=== PATIENT | female | born 1995 | race African-American/Black ===

== ENCOUNTER → 2020-01-29 11:03 | Outpatient (BNVA) | payer MEDICAID, SELFPAY | PROVIDERS: PCP Internal Medicine; Referring Provider Internal Medicine; Visit Provider Internal Medicine | DX: L68.0 Hirsutism (principal); N91.2 Amenorrhea, unspecified; E28.2 Polycystic ovarian syndrome; E55.9 Vitamin D deficiency, unspecified | CPT/HCPCS: 99202 ==

== ENCOUNTER 2020-02-23 09:02 | Emergency (ER) | payer MEDICAID, SELFPAY ==
[2020-02-23 09:24] VITALS: BP 133/61; PULSE 75; RESP 18; TEMP 36.7; O2SAT 99; BMI 37.5
--- NOTE | 2020-02-23 10:07 | ED_ITS ---
HPI - Female Genitourinary General Chief complaint: Vaginal Bleeding Stated complaint: CRAMPING, Time Seen by Provider: 02/23/20 10:00 Source: patient Mode of arrival: ambulatory Limitations: no limitations History of Present Illness HPI Narrative: patient had normal menses Last month on 01/07 again had spotting earlier this month and now again spotting few days ago, with lower abdomen cramps tested home which was positive. Patient is B-positive and is A1 patient denies any urinary complaint Related Data Home Medications Medication Instructions Recorded Confirmed albuterol sulfate 90 mcg/actuation 1 inh INHALATION QID 01/29/20 01/29/20 aerosol inhaler Previous Rx's Medication Instructions Recorded nitrofurantoin monohyd/m-cryst 100 mg PO BID #20 cap 02/23/20 [Macrobid] Allergies Allergy/AdvReac Type Severity Reaction Status Date / Time latex [LATEX] Allergy Unknown RASH Verified 01/29/20 10:45 sulfamethoxazole Allergy Unknown SHORTNESS Verified 01/29/20 10:45 [From BACTRIM] OF BREATH Review of Systems Review of Systems: REVIEW OF SYSTEMS: Pertinent positives and negatives are stated above in the history. GEN: no fevers, chills, fatigue HEENT: no nasal congestion, sore throat, ear pain NEURO: no headache, dizziness, focal weakness PULM: no cough, shortness of breath CV: no chest pain, palpitations, LE edema ABD: no abdominal pain, nausea, vomiting, diarrhea : no dysuria, urgency, frequency SKIN: no rash ROS otherwise negative x 10 PMFSH Past Medical History Medical History Amenorrhea Asthma Hirsutism Vitamin D deficiency Surgical History History of appendectomy History of delivery Family History Family History Mother Obesity Social History Social History Alcohol intake: current Smoking Status: Never smoker Substance Use Type: Marijuana Advance Directives: No Advance Directives Information Provided: Yes Physical Exam Vital Signs: Vital Signs: Last Vital Signs Temp 98.0 F 02/23/20 09:24 Pulse 75 02/23/20 09:24 Resp 18 02/23/20 09:24 BP 133/61 02/23/20 09:24 Pulse Ox 99 02/23/20 09:24 Body Mass Index 37.5 Appearance: Alert. Oriented X3. No acute distress. Eyes: Pupils equal, round and reactive to light. ENT: Pharynx normal. Neck: Normal inspection. Neck supple. CVS: Normal heart rate and rhythm. Pulses normal. Respiratory: No respiratory distress. Breath sounds normal. Abdomen: Soft . no hepatosplenomegaly mild suprapubic discomfort no severe tenderness Skin: Skin warm and dry. Normal skin color. Normal skin turgor. Extremities: No lower extremity edema. Good range of movement Neuro: Oriented X 3. No motor deficit. No sensory deficit. MDM - Female Genitourinary MDM Narrative Medical decision making narrative: patient about 5 weeks came with lower abdominal cramps hCG 583 patient did have spotting earlier last week none at this time will discharge patient home on Macrobid for slight UTI advised to follow up with exotic dancer Differential Diagnosis Differential diagnosis: Likely urinary tract infection Lab Data Attestation: I reviewed the patient's lab results. Labs: Lab Results 02/23/20 02/23/20 Range/Units 10:25 10:27 Beta HCG, Quant 583 mIU/mL Urine Color YELLOW Urine Appearance CLOUDY Urine pH 6.0 (5.0-8.0) Ur Specific [place] 1.025 (1.005-1.025) Urine Protein TRACE (NEG-TRACE) MG/DL Urine Glucose (UA) NEG (NEG) MG/DL Urine Ketones 15 (NEG) MG/DL Urine Blood 2+ H (NEG) Urine Nitrite NEG (NEG) Ur Leukocyte Esterase 1+ H (NEG) Urine RBC 5-9 H (0) /HPF Urine WBC 5-9 H (0-4) /HPF Ur Squamous Epith Cells 2+ /LPF Urine Bacteria 1+ /LPF Urine Mucus 3+ /LPF Discharge Plan Discharge Clinical Impression: Threatened UTI (urinary tract infection) Qualifiers: Urinary tract infection type: acute cystitis Hematuria presence: without hematuria Qualified Code(s): N30.00 - Acute cystitis without hematuria Patient Disposition: Home, Self-Care Instructions: Threatened Miscarriage (ED), Urinary Tract Infection in (ED) Additional Instructions: drink plenty of fluids. Follow-up with exotic dancer in 2 days for recheck Take antibiotics as prescribed report to the ER if increased vaginal bleeding or pain Prescriptions: New nitrofurantoin monohyd/m-cryst [Macrobid] 100 mg capsule 100 mg PO BID Qty: 20 RF: 0 No Action albuterol sulfate 90 mcg/actuation HFA aerosol inhaler 1 inh inhalation QID RF: 0
[2020-02-23 10:49] LABS: Glucose Urine UA NEG (NEG); Leukocyte Esterase Urine 1+ (NEG); Nitrite Urine NEG (NEG); Specific Gravity - Urine 1.025 (1.005-1.025); Urine Blood 2+ (NEG); Urine Ketones 15 MG/DL (NEG); Urine Protein TRACE MG/DL (NEG-TRACE)
[2020-02-23 10:51] LABS: Appearance Urine CLOUDY; Color Urine YELLOW
[2020-02-23 10:59] LABS: Bacteria Urine 1+ /LPF; Mucus Urine 3+ /LPF; Squamous Epithelial Cell Urine 2+ /LPF
[2020-02-23 11:30] LABS: HCG Quantitative 583 mIU/mL
[2020-02-23] MEDS: Nitrofurantoin Monohyd/M-Cryst 100 MG CAPSULE PO (11:34)
== END 2020-02-23 11:55 | disposition home or self-care (01) ==
PROVIDERS: Emergency Provider Internal Medicine; PCP Internal Medicine
DX: O20.0 Threatened abortion (principal); Z3A.00 Weeks of gestation of pregnancy not specified
CPT/HCPCS: 81001; 84702; 87086; 87088; 87186; 99283

== ENCOUNTER 2020-06-11 17:04 | Emergency (ER) | payer OTHER, SELFPAY ==
--- NOTE | ~2020-06-11 | XR_ITS ---
EXAMINATION: LEFT ANKLE AND LEFT FOOT CLINICAL INFORMATION: Pain COMPARISON: None TECHNIQUE: 2 views left ankle, 3 views left foot FINDINGS: Ankle swelling is present laterally but no fracture is seen. The ankle mortise appears stable no foot fracture is seen. A cyst with sclerotic margins is seen at the base of the proximal first phalanx. XR/XR foot LT 2V IMPRESSION: Soft tissue swelling without bony fracture seen. Incidental note made of sclerotic cyst base of proximal phalanx first digit
--- NOTE | ~2020-06-11 | XR_ITS ---
EXAMINATION: LEFT ANKLE AND LEFT FOOT CLINICAL INFORMATION: Pain COMPARISON: None TECHNIQUE: 2 views left ankle, 3 views left foot FINDINGS: Ankle swelling is present laterally but no fracture is seen. The ankle mortise appears stable no foot fracture is seen. A cyst with sclerotic margins is seen at the base of the proximal first phalanx. XR/XR ankle LT 2V IMPRESSION: Soft tissue swelling without bony fracture seen. Incidental note made of sclerotic cyst base of proximal phalanx first digit
[2020-06-11 17:14] VITALS: BP 99/68; PULSE 83; RESP 18; TEMP 37.1; O2SAT 100; BMI 37.3
--- NOTE | 2020-06-11 18:35 | ED_ITS ---
HPI - Extremity Problem General Chief complaint: Extremity Problem Stated complaint: Foot injury Time Seen by Provider: 06/11/20 18:23 Source: patient and family Mode of arrival: wheelchair Limitations: no limitations History of Present Illness HPI Narrative: Pleasant 25-year-old female presenting complaint of left foot/ankle pain status [place] and twisted her ankle. Since has had swelling on the lateral aspect of the ankle and pain with exertion. Otherwise denies any other injury. MD Complaint: extremity pain Onset (ago): hour(s) Pain Consistency: intermittent Location: left Quality: aching Radiation: none Relieving factors: immobilization and elevation Exacerbating factors: weight bearing and walking Associated symptoms: denies other symptoms Related Data Home Medications Medication Instructions Recorded Confirmed albuterol sulfate 90 mcg/actuation 1 inh INHALATION QID 01/29/20 01/29/20 aerosol inhaler Previous Rx's Medication Instructions Recorded nitrofurantoin monohyd/m-cryst 100 mg PO BID #20 cap 02/23/20 [Macrobid] ibuprofen 800 mg PO Q8H PRN #30 tab 06/11/20 Allergies Allergy/AdvReac Type Severity Reaction Status Date / Time latex [LATEX] Allergy Unknown RASH Verified 01/29/20 10:45 sulfamethoxazole Allergy Unknown SHORTNESS Verified 01/29/20 10:45 [From BACTRIM] OF BREATH Review of Systems Review of Systems: Constitutional: Negative ENT/Mouth: Negative Eyes: Negative Cardiovascular: No Chest Pain, No SOB, No Dyspnea on Exertion, No Orthopnea, No Edema, No Palpitations Respiratory: No Cough, No Sputum, No Wheezing, No Smoke Exposure, No Dyspnea Gastrointestinal: Negative Genitourinary: Negative Musculoskeletal: No joint pain, No Myalgias, No Joint Swelling, as noted per HPI Skin: No Skin Lesions, No rash Neuro: No Weakness, No Numbness, No Paresthesias, No Loss of Consciousness, No Dizziness, No Headache Psych: No Social Issues Heme/Lymph: Negative Endocrine: Negative Yes all other systems are reviewed and are negative ON LICENSE OF [facility] Past Medical History Medical History Amenorrhea Asthma Hirsutism Vitamin D deficiency Surgical History History of appendectomy History of delivery Family History Family History Mother Obesity Social History Social History Alcohol intake: never Smoking Status: Never smoker Smoked in Last 30 Days: No Substance Use Type: Marijuana Advance Directives: No Advance Directives Information Provided: Yes Physical Exam Vital Signs: Vital Signs: Last Vital Signs Temp 98.7 F 06/11/20 17:14 Pulse 83 06/11/20 17:14 Resp 18 06/11/20 17:14 BP 99/68 06/11/20 17:14 Pulse Ox 100 06/11/20 17:14 Body Mass Index 37.3 Reviewed Const: General: cooperative and healthy appearing; No acute distress or intoxicated appearing Nutritional Appearance: average body habitus Orientation/consciousness: patient oriented x3 Neck: Neck: Yes normal visual inspection, No positive Brudzinski's sign, No positive Kernig's sign and No tender Thyroid: Thyroid normal Chest: Chest palpation & inspection: normal inspection of the chest Resp: Effort & Inspection: normal respiratory effort Auscultation: clear to auscultation bilaterally Cardio: Jugular venous distension: no JVD Rhythm: regular rhythm Heart sounds: S1 normal heart sound present and S2 normal heart sound present Skin: General skin exam: no rashes or lesions noted Neuro: General: patient oriented x3 Extrem: General: Yes normal to inspection Left lower extremity: ankle Details: tenderness and swelling Details: laterally; no warmth, no abrasions, no lacerations, no ecchymosis, no crepitus, no foreign bodies and no penetrating wound Course Course Course Narrative: AP consistent with strain type injury, air cast and crutches provided. Left ankle/foot x-ray done for the: Negative has incidental sclerotic cyst base of proximal phalanx first digit. Differential is reviewed with her. Otherwise history negative, will follow-up on outpatient basis. She verbalized understanding and comfortable plan. MDM - Extremity (Nontraumatic) Imaging Data Left foot/ankle x-ray: Radiologist's impression: [address] [id number] ReportSigned Patient: Jocelyn Mckeon [facility]#: [id number]: 1995Acct:[id number]/Sex: 25 / FADM Date: 06/11/20Loc: HO.EDAttending Dr: Ordering Physician: Generic ED Physician Date of Service: 06/11/20 Procedure(s): XR foot LT 2V Accession Number(s): [id number] cc: Generic ED Physician~ EXAMINATION: LEFT ANKLE AND LEFT FOOT CLINICAL INFORMATION: Pain COMPARISON: None TECHNIQUE: 2 views left ankle, 3 views left foot FINDINGS: Ankle swelling is present laterally but no fracture is seen. The ankle mortise appears stable no foot fracture is seen. A cyst with sclerotic margins is seen at the base of the proximal first phalanx. XR/XR foot LT 2V IMPRESSION: Soft tissue swelling without bony fracture seen. Incidental note made of sclerotic cyst base of proximal phalanx first digit Dictated By:BRADFORD CUNNINGHAM MDSigned By:<Electronically signed by BRADFORD CUNNINGHAM MD in OV>06/11/20 1751 DD/ 1728TD/TT: Waste Disposal Attendant: Discharge Plan Discharge Clinical Impression: Left ankle sprain Qualifiers: Encounter type: initial encounter Involved ligament of ankle: unspecified ligament Qualified Code(s): S93.402A - Sprain of unspecified ligament of left ankle, initial encounter Patient Disposition: Home, Self-Care Instructions: Ankle Sprain (ED), Crutch Instructions (ED), Ankle Stirrup Splint (ED) Additional Instructions: Ankle x-ray did not show any evidence of acute fracture exam does show findings consistent with ankle sprain. There is also incidental finding of the sclerotic cyst at the base of the great toe. Home care as instructed Proper use of crutches as reviewed Rest, Ice, elevate, compress Gently increase activity over the next 3 days Prescriptions: New ibuprofen 800 mg tablet 800 mg PO Q8H PRN (Reason: pain) Qty: 30 RF: 0 No Action nitrofurantoin monohyd/m-cryst [Macrobid] 100 mg capsule 100 mg PO BID Qty: 20 RF: 0 albuterol sulfate 90 mcg/actuation HFA aerosol inhaler 1 inh inhalation QID RF: 0 Referrals: InstrJenny last MD [Physician] - 2 weeks
== END 2020-06-11 18:54 | disposition home or self-care (01) ==
PROVIDERS: Emergency Provider Internal Medicine; PCP Internal Medicine
DX: S93.402A Sprain of unspecified ligament of left ankle, initial encounter (principal); X50.1XXA Overexertion from prolonged static or awkward postures, initial encounter; R93.7 Abnormal findings on diagnostic imaging of other parts of musculoskeletal system; M85.672 Other cyst of bone, left ankle and foot; Y93.44 Activity, trampolining; Y92.39 Other specified sports and athletic area as the place of occurrence of the external cause; Y99.8 Other external cause status
CPT/HCPCS: 73600; 73620; 99283; 99284

== ENCOUNTER 2020-06-18 11:43 | Emergency (ER) | payer OTHER, SELFPAY ==
[2020-06-18 12:01] VITALS: BP 131/83; PULSE 68; RESP 18; TEMP 36.6; O2SAT 100; BMI 35.9
--- NOTE | 2020-06-18 12:37 | ED.LOWEXIN ---
HPI - Extremity Injury (Lower) General Chief Complaint: Extremity Injury, Lower Stated Complaint: ankle pain Time Seen by Provider: 06/18/20 12:07 Source: patient Mode of arrival: ambulatory Limitations: no limitations History of Present Illness HPI Narrative: 25-year-old female here with left ankle pain x1 week. The patient told me that she had inversion injury 1 week ago was seen here in the emergency department and had negative x-rays. She is here today with continued pain. She tells me that she is intermittently using her crutches and Aircast and has been putting weight on her foot. She tells me that she is using other supportive measures however continues to have pain and swelling. No numbness, tingling, redness, warmth, fevers, chills Related Data Home Medications Medication Instructions Recorded Confirmed albuterol sulfate 90 mcg/actuation 1 inh INHALATION QID 01/29/20 01/29/20 aerosol inhaler Previous Rx's Medication Instructions Recorded nitrofurantoin monohyd/m-cryst 100 mg PO BID #20 cap 02/23/20 [Macrobid] ibuprofen 800 mg PO Q8H PRN #30 tab 06/11/20 acetaminophen 1,000 mg PO Q6H PRN #20 cap 06/18/20 ibuprofen 800 mg PO Q8H PRN #20 tab 06/18/20 Allergies Allergy/AdvReac Type Severity Reaction Status Date / Time latex [LATEX] Allergy Unknown RASH Verified 06/18/20 12:04 sulfamethoxazole Allergy Unknown SHORTNESS Verified 06/18/20 12:04 [From BACTRIM] OF BREATH Review of Systems Review of Systems: Yes all other systems are reviewed and are negative Constitutional: Constitutional: Reports no additional constitutional complaints, Denies body ache(s), Denies chills, Denies fever(s), Denies headache(s) and Denies weakness Eyes: Eyes: Reports no additional eye complaints and Denies change in vision ENT: Reports system reviewed and no additional complaints, except as documented, Denies dizziness, Denies headache(s), Denies nasal congestion, Denies nasal discharge and Denies neck pain Cardiovascular: Cardiovascular: Reports no additional cardiovascular complaints, Denies chest pain, Denies leg edema and Denies dyspnea Respiratory: Respiratory: Reports no additional respiratory complaints, Denies cough and Denies dyspnea Gastrointestinal: Gastrointestinal: Reports no additional gastrointestinal complaints, Denies abdominal pain, Denies diarrhea, Denies nausea and Denies vomiting Genitourinary: Genitourinary: Reports no additional female genitourinary complaints and Denies urinary incontinence Musculoskeletal: Musculoskeletal: Reports no additional musculoskeletal complaints, Denies back pain, Reports arthralgias, Reports joint swelling, Reports limited range of motion, Denies neck pain, Denies numbness and Denies tingling Integumentary/Breasts: Skin/Breast: Reports system reviewed and no additional complaints, except as docu and Denies rash Neurologic: Reports system reviewed and no additional complaints, except as documented, Denies Abnormal speech present, Denies dizziness, Denies headache(s), Denies numbness, Denies tingling and Denies weakness PMFSH Past Medical History Attestation statement: The following information was validated with the patient. Source: old records reviewed and nursing notes reviewed Medical History Amenorrhea Asthma Hirsutism Vitamin D deficiency Surgical History History of appendectomy History of delivery Family History Family History Mother Obesity Social History Social History Alcohol intake: never Smoking Status: Never smoker Substance Use Type: Marijuana Advance Directives: Yes Advance Directives Information Provided: No Advance Directives on File: No Physical Exam Vital Signs: Vital Signs: Last Vital Signs Temp 97.8 F 06/18/20 12:01 Pulse 68 06/18/20 12:01 Resp 18 06/18/20 12:01 BP 131/83 06/18/20 12:01 Pulse Ox 100 06/18/20 12:01 Body Mass Index 35.9 Const: General: cooperative, healthy appearing, comfortable and no acute distress Orientation/consciousness: patient oriented x3 Limitations: no limitations HENMT: Head: Yes normal to inspection Ears: hearing grossly normal bilaterally General nose exam: Normal external nose present Face and sinus: Yes normal facial exam Mouth: Normal oral and palatal mucosa present Throat: Yes posterior oropharynx normal Eyes: General: appearance normal, both eyes and all related structures Pupils: Equal, round and reactive pupils present Neck: Neck: Yes normal visual inspection Chest: Chest palpation & inspection: normal inspection of the chest Resp: Effort & Inspection: normal respiratory effort Auscultation: clear to auscultation bilaterally Cardio: Rate: regular rate Rhythm: regular rhythm Peripheral pulses: Peripheral pulses 2+ throughout GI: Inspection: Yes normal to inspection Palpation (GI): Soft to palpation and nontender Auscultation: normal bowel sounds Back/Spine/Pelvis: Thoracic/Lumbar Spine: thoracic and lumbar spine normal to inspection Skin: General skin exam: no rashes or lesions noted Neuro: General: patient oriented x3, no focal motor deficits and normal sensation to monofilament Cranial nerves: Yes Equal, round and reactive pupils present Cognition (Neuro): normal cognition Speech: No Abnormal speech present Gait exam (Neuro): Normal gait present Motor exam (neuro): 5/5 motor strength present throughout Extrem: Other: Ecchymosis, swelling, tenderness over the lateral ankle and over the dorsal foot with no obvious deformity. Negative Vasquez test. Sensation is intact. Palpable pulses distally. Normal cap refill. General: Yes normal to inspection Course Course Course Narrative: Continued left ankle pain and swelling status post injury 1 week ago. Had negative x-rays 1 week ago. Patient is doing some supportive measures however has been bearing weight on the extremity although recommended to limit weight-bearing with the crutches. History of multiple ankle sprains in the same side. Due to continued pain will recommend follow-up with Orthopedics. We discussed strict nonweightbearing, using Aircast and doing RICE at home. Reviewed worrisome signs and symptoms and when to return to the emergency department. Comfortable discharge home. Discharge Plan Discharge Clinical Impression: Ankle sprain Qualifiers: Encounter type: initial encounter Involved ligament of ankle: posterior talofibular ligament Laterality: right Qualified Code(s): S93.491A - Sprain of other ligament of right ankle, initial encounter Patient Disposition: Home, Self-Care Instructions: Ankle Sprain (ED) Additional Instructions: Continue ice, elevation. compression as discussed No weight bearing or toe tap only Call orthopedics as discussed Prescriptions: New ibuprofen 800 mg tablet 800 mg PO Q8H PRN (Reason: pain) Qty: 20 RF: 0 acetaminophen 500 mg capsule 1,000 mg PO Q6H PRN (Reason: pain) Qty: 20 RF: 0 No Action nitrofurantoin monohyd/m-cryst [Macrobid] 100 mg capsule 100 mg PO BID Qty: 20 RF: 0 ibuprofen 800 mg tablet 800 mg PO Q8H PRN (Reason: pain) Qty: 30 RF: 0 albuterol sulfate 90 mcg/actuation HFA aerosol inhaler 1 inh inhalation QID RF: 0 Referrals: Paras Brunner MD [Physician] - 2 days Interventions: ED Discharge Assessment Last Done: 06/18/20 12:46 Discharge Date/Time: 06/18/20 12:46
== END 2020-06-18 12:46 | disposition home or self-care (01) ==
PROVIDERS: Emergency Provider Emergency Medicine Emergency Medical Services; PCP Internal Medicine
DX: S93.492A Sprain of other ligament of left ankle, initial encounter (principal); M25.572 Pain in left ankle and joints of left foot; X50.1XXA Overexertion from prolonged static or awkward postures, initial encounter; Y93.9 Activity, unspecified; Y92.89 Other specified places as the place of occurrence of the external cause; Y99.9 Unspecified external cause status; Z79.899 Other long term (current) drug therapy
CPT/HCPCS: 99283

== ENCOUNTER → 2020-06-28 10:42 | Outpatient (BNVA) | payer OTHER, SELFPAY | PROVIDERS: Visit Provider Physician Assistant | DX: S93.402A Sprain of unspecified ligament of left ankle, initial encounter (principal) | CPT/HCPCS: 99202 ==

== ENCOUNTER 2020-07-27 08:43 | Outpatient (REF) | payer OTHER, SELFPAY ==
[2020-07-27 12:17] LABS: Estimated Average Glucose 103 mg/dL; Hemoglobin A1c % 5.2 %
[2020-07-27 12:20] LABS: Alanine Aminotransferase 12 U/L (0-31); Albumin Level 4.3 g/dL (3.5-5.0); Alkaline Phosphatase 55 U/L (39-117); Anion Gap 11 (12-20); Aspartate Amino Transferase 13 U/L (5-31); Bilirubin Total 0.4 mg/dL (0.0-1.0); Blood Urea Nitrogen 12 mg/dL (9-16); Calcium 9.6 mg/dL (8.4-10.2); Carbon Dioxide 26 mmol/L (22-29); Chloride 105 mmol/L (96-108); Cholesterol 222 mg/dL; Estimated Glomerular Filt Rate > 60; Glucose Random 89 mg/dL (60-115); HDL Cholesterol 41 mg/dL; LDL Cholesterol Calculated 167 mg/dl; Sodium 138 mmol/L (135-145); Total Protein 7.7 g/dL (6.5-8.0); Triglycerides 71 mg/dL
[2020-07-27 12:37] LABS: Free T4 (Free Thyroxine) 0.96 ng/dL (0.71-1.85); Vitamin D 25-OH Total 10.9 ng/mL (>30)
[2020-07-27 12:42] LABS: Thyroid Stimulating Hormone 0.39 uIU/mL (0.32-4.0)
[2020-07-27 13:13] LABS: HCG Quantitative < 2 mIU/mL
[2020-07-27 15:43] LABS: CT PCR NOT DETECTED (Not Detect.); NG PCR NOT DETECTED (Not Detect.)
[2020-07-28 06:57] LABS: LDL Cholesterol Direct 159 mg/dL (<100)
[2020-07-28 07:47] LABS: Follicle Stimulating Hormone 10.8 mIU/mL; Lutenizing Hormone 14.3 mIU/mL; Prolactin 7.5 ng/mL
[2020-07-28 08:10] LABS: HIV AB/AG Nonreactive (Nonreactive); HIV Num 1 0.05 S/CO (0.00-0.99); ~HepC Num1 0.22 S/CO (0.00-0.79); ~Hepatitis C Antibody Nonreactive (Nonreactive)
[2020-07-28 08:18] LABS: Syphilis Screen Nonreactive (Nonreactive)
[2020-07-28 08:25] LABS: HBc Num1 0.11 S/CO (0.00-0.79); Hepatitis B Core Antibody Nonreactive (Nonreactive)
[2020-07-28 11:11] LABS: BV Int Neg Control Negative (Negative); BV Int Pos Control Positive (Positive)
[2020-07-28 23:07] LABS: DHEA Sulfate 356 mcg/dL (18-391); Sex Hormone Binding Globulin 25 nmol/L (17-124)
[2020-07-30 20:41] LABS: Estradiol Ultra Sensitive 47 pg/mL
[2020-07-31 15:12] LABS: Testosterone, Free 10.7 pg/mL (0.1-6.4); Testosterone, Total 64 ng/dL (2-45)
[2020-07-31 18:27] LABS: Androstenedione 214 ng/dL
[2020-08-05 21:51] LABS: Estradiol Free 1.12 pg/mL; Estradiol, Ultrasensitive 49 pg/mL
== END 2020-07-27 08:44 | disposition home or self-care (01) ==
LOC: HO.LAB 08:43
PROVIDERS: Absent Provider Advanced Practice Midwife; PCP Internal Medicine; Referring Provider Internal Medicine; Visit Provider Advanced Practice Midwife
DX: Z01.419 Encounter for gynecological examination (general) (routine) without abnormal findings (principal); Z11.3 Encounter for screening for infections with a predominantly sexual mode of transmission; Z11.4 Encounter for screening for human immunodeficiency virus [HIV]; Z01.84 Encounter for antibody response examination; Z20.2 Contact with and (suspected) exposure to infections with a predominantly sexual mode of transmission; L68.0 Hirsutism; E55.9 Vitamin D deficiency, unspecified
CPT/HCPCS: 36415; 80053; 80061; 82157; 82306; 82627; 82670; 82681; 83001; 83002; 83036; 83498; 83721; 84146; 84270; 84402; 84403; 84439; 84443; 84702; 86704; 86780; 86803; 87389; 87480; 87491; 87510; 87591; 87660; 88142

== ENCOUNTER → 2020-08-10 11:42 | Outpatient (BNVA) | payer OTHER, SELFPAY | PROVIDERS: PCP Internal Medicine; Visit Provider Advanced Practice Midwife ==

== ENCOUNTER 2020-08-16 10:08 | Emergency (ER) | payer OTHER, SELFPAY ==
--- NOTE | ~2020-08-16 | XR_ITS ---
EXAMINATION: LEFT FOOT AND LEFT ANKLE CLINICAL INFORMATION: Pain. COMPARISON: None TECHNIQUE: 2 views left ankle and 3 views left foot. FINDINGS: Left foot: There is no visible acute fracture, dislocation or subluxation. There is an intraosseous cyst proximal end proximal phalanx first digit. The soft tissues are normal. Left ankle: There is lateral malleolar soft tissue swelling. There is no visible acute fracture, dislocation. The ankle mortise and subtalar joints are normal. The soft tissues are normal. XR/XR foot LT 2V IMPRESSION: No visible acute fracture or dislocation left ankle or left foot.
--- NOTE | ~2020-08-16 | US_ITS ---
EXAMINATION: US VENOUS ULTRASOUND WITH DOPPLER LOWER EXTREMITY, LEFT CLINICAL INFORMATION: Posterior leg pain. COMPARISON: None TECHNIQUE: Ultrasound of the deep veins is performed from the hip to the calf with compression sonography and color and pulse Doppler assessment. Spectral analysis with color-flow imaging is performed. FINDINGS: There is normal venous compression and respiratory variation and augmented flow. The visualized common femoral vein, superficial femoral vein, profunda femoral vein, popliteal vein, and the trifurcation region shows no evidence of deep venous thrombosis. There is no significant popliteal fossa cyst. If the patient's symptoms persist, followup ultrasound in 5 days 7 days might be of value to exclude proximal propagation from a non-visualized calf vein. US/US venous duplex LE LT IMPRESSION: No DVT demonstrated in the left lower extremity.
--- NOTE | ~2020-08-16 | XR_ITS ---
EXAMINATION: LEFT FOOT AND LEFT ANKLE CLINICAL INFORMATION: Pain. COMPARISON: None TECHNIQUE: 2 views left ankle and 3 views left foot. FINDINGS: Left foot: There is no visible acute fracture, dislocation or subluxation. There is an intraosseous cyst proximal end proximal phalanx first digit. The soft tissues are normal. Left ankle: There is lateral malleolar soft tissue swelling. There is no visible acute fracture, dislocation. The ankle mortise and subtalar joints are normal. The soft tissues are normal. XR/XR ankle LT min 3V IMPRESSION: No visible acute fracture or dislocation left ankle or left foot.
[2020-08-16 10:12] VITALS: BP 138/85; PULSE 71; RESP 17; TEMP 36.7; O2SAT 98; BMI 36.2
--- NOTE | 2020-08-16 11:05 | ED.LOWEXIN ---
HPI - Extremity Injury (Lower) General Chief Complaint: Extremity Injury, Lower Stated Complaint: R ANKLE INJ X 2MOS Time Seen by Provider: 08/16/20 11:05 History of Present Illness HPI Narrative: Persistent left ankle pain after injury 1 month ago Also complains of cottage cheese like vaginal discharge similar to prior yeast infection Also complains of posterior left leg and calf pain Related Data Home Medications Medication Instructions Recorded Confirmed albuterol sulfate 90 mcg/actuation 1 inh INHALATION QID 01/29/20 08/18/20 aerosol inhaler Previous Rx's Medication Instructions Recorded ibuprofen 800 mg PO Q8H PRN #30 tab 06/11/20 acetaminophen 1,000 mg PO Q6H PRN #20 cap 06/18/20 vitamin with calcium 1 tab PO DAILY #30 tab 07/27/20 no.72-iron 27 mg-folic acid 1 mg tablet metronidazole 0.75 % vaginal gel 1 appful VAGINAL DAILY 5 Days #70 g 08/10/20 hydrocodone-acetaminophen 1 tab PO Q6H PRN #7 tab 08/16/20 ibuprofen 600 mg PO Q6H PRN #20 tab 08/16/20 lorazepam [Ativan] 1 mg PO BID PRN #5 tab 08/16/20 sertraline 50 mg tablet 50 mg PO DAILY 30 Days #30 tab 08/18/20 Allergies Allergy/AdvReac Type Severity Reaction Status Date / Time latex [LATEX] Allergy Unknown RASH Verified 08/18/20 16:04 sulfamethoxazole Allergy Unknown SHORTNESS Verified 08/18/20 16:04 [From BACTRIM] OF BREATH Review of Systems Review of Systems: Positive for left ankle pain, left calf pain, vaginal discharge Negatives are no fever no chills no dizziness no weakness no headache no neck pain no chest pain no shortness of breath no palpitations no abdominal pain no nausea or vomiting no pelvic pain, no numbness or weakness Yes all other systems are reviewed and are negative PMFSH Past Medical History Source: nursing notes reviewed Medical History Amenorrhea Asthma Family history of breast cancer Generalized anxiety disorder Hirsutism Migraine with aura Migraines Polycystic ovary syndrome Vitamin D deficiency Surgical History History of appendectomy History of delivery Family History Family History Mother Obesity Maternal Aunt Breast cancer Paternal Aunt Breast cancer Family/Other Ovarian cancer Paternal Uncle Lung cancer Social History Social History Housing Other:: She is looking to move out of her current apartment, not close to family Alcohol intake: current Alcohol intake frequency: holidays/special occasions only Alcohol type: beer and other Substance Use Type: Marijuana Physical Exam Vital Signs: Vital Signs: Last Vital Signs Temp 98.1 F 08/16/20 10:12 Pulse 71 08/16/20 10:12 Resp 17 08/16/20 10:12 BP 138/85 08/16/20 10:12 Pulse Ox 98 08/16/20 10:12 Body Mass Index 36.2 General appearance no distress Head is normocephalic atraumatic Neck is supple Chest is clear to auscultation bilateral Abdomen is soft nontender, no low abdominal or pelvic tenderness Drop Forger exam is deferred Extremities no pedal edema, there is some swelling around lateral malleolus of left ankle and there is tenderness without swelling along posterior lower leg, skin is otherwise normal Skin no rashes Neuro no focal deficit Course Course Course Narrative: Ultrasound of left leg did not reveal any blood clot X-ray did not show any fracture As there is no tenderness or complaint of pain in pelvic area the patient did a self swab and no pelvic was done now and she can follow easily with her timber inspector doctor MDM - Extremity Injury (Lower) Lab Data Labs: Lab Results 08/16/20 Range/Units 12:07 Jessica species DNA Negative (Negative) Gardnerella DNA Probe Negative (Negative) Trichomonas DNA Probe Negative (Negative) Discharge Plan Discharge Clinical Impression: Ankle sprain and strain Patient Disposition: Home, Self-Care Additional Instructions: X-rays today did not show any broken bones Ultrasound did not show any blood clot in the back of the leg You should follow with interlibrary loan specialist for physical therapy and if needed any further testing or further evaluation For the vaginal discharge we gave her Diflucan and send a test of the discharge which will be back in several days and we will call you if anything is positive Follow with operating room surgical technician Prescriptions: New ibuprofen 600 mg tablet 600 mg PO Q6H PRN (Reason: pain) Qty: 20 RF: 0 hydrocodone-acetaminophen 5-325 mg tablet 1 tab PO Q6H PRN (Reason: pain) Qty: 7 RF: 0 lorazepam [Ativan] 1 mg tablet 1 mg PO BID PRN (Reason: anxiety) Qty: 5 RF: 0 No Action acetaminophen 500 mg capsule 1,000 mg PO Q6H PRN (Reason: pain) Qty: 20 RF: 0 ibuprofen 800 mg tablet 800 mg PO Q8H PRN (Reason: pain) Qty: 30 RF: 0 sertraline 50 mg tablet 50 mg PO DAILY 30 Days Qty: 30 RF: 0 Vitamin Plus Low Iron 27 mg iron- 1 mg tablet 1 tab PO DAILY Qty: 30 RF: 11 albuterol sulfate 90 mcg/actuation HFA aerosol inhaler 1 inh inhalation QID RF: 0 metronidazole [Metrogel Vaginal] 0.75 % gel 1 appful vaginal DAILY 5 Days Qty: 70 RF: 0 Referrals: Jenny Valdez MD [Physician] - 2 days (Ankle injury 2 months ago with prolonged discomfort) Interventions: ED Discharge Assessment Last Done: 08/16/20 14:40 Discharge Date/Time: 08/16/20 14:15
[2020-08-16] MEDS: Fluconazole 150 MG TABLET PO (11:47)
[2020-08-17 08:57] LABS: BV Int Neg Control Negative (Negative); BV Int Pos Control Positive (Positive)
== END 2020-08-16 14:15 | disposition home or self-care (01) ==
PROVIDERS: Physician Assistant Medical; Emergency Provider Emergency Medicine
DX: S93.402A Sprain of unspecified ligament of left ankle, initial encounter (principal); S96.912A Strain of unspecified muscle and tendon at ankle and foot level, left foot, initial encounter; X50.1XXA Overexertion from prolonged static or awkward postures, initial encounter; N89.8 Other specified noninflammatory disorders of vagina; M79.605 Pain in left leg; R22.42 Localized swelling, mass and lump, left lower limb; Y93.44 Activity, trampolining; Y92.096 Garden or yard of other non-institutional residence as the place of occurrence of the external cause; Y99.9 Unspecified external cause status
CPT/HCPCS: 73610; 73620; 87480; 87510; 87660; 93971; 99284

== ENCOUNTER → 2020-08-17 08:16 | Outpatient (BNVA) | payer OTHER, SELFPAY | PROVIDERS: Visit Provider Physician Assistant | DX: S93.402D Sprain of unspecified ligament of left ankle, subsequent encounter (principal) | CPT/HCPCS: 99212 ==

== ENCOUNTER → 2020-11-24 10:27 | Outpatient (BNVA) | payer OTHER, SELFPAY | PROVIDERS: PCP Physician Assistant; Visit Provider Internal Medicine ==

== ENCOUNTER 2021-01-11 08:29 | Emergency (ER) | payer OTHER, SELFPAY ==
--- NOTE | 2021-01-11 09:41 | ED.ANXIETY ---
HPI - Anxiety General Chief Complaint: Anxiety Stated Complaint: Anxiety Time Seen by Provider: 01/11/21 09:29 Source: patient Mode of arrival: ambulatory Limitations: no limitations History of Present Illness HPI narrative: 25 y/o female with history of major depression, generalized anxiety disorder, bipolar disorder, PCOS who presents to the ER from home with ?crippling anxiety. She reports being started on medication about 1 month ago by her psychiatrist and has not helped at all. She reports it was for anxiety and bipolar disorder. She states she cannot go along with her day-to-day activities due to her anxiety. She got a recent job and has already thought about calling out due to anxiety. She feels overwhelmed and like a failure. She reports living at home with her 2 y/o son, his father helps to care for him. She feels hopeless and wants to crawl under a rock and but denies suicidally and a specific plan. complaint: anxiety Onset (ago): week(s) Symptoms: sense of impending doom and other (hopelessness) Severity: severe Quality: constant and worsening Place: home History of similar episodes: Yes Provoking factors: emotional stress, work/job stress and medication change Relieving factors: nothing Exacerbating factors: nothing Associated symptoms: other (insomnia) Related Data Previous Rx's Medication Instructions Recorded cholecalciferol (vitamin D3) 1,250 1,250 mcg PO QWEEK 56 Days #8 cap 11/24/20 mcg (50,000 unit) capsule cholecalciferol (vitamin D3) 50 50 mcg PO DAILY 30 Days #30 cap 11/24/20 mcg (2,000 unit) capsule trazodone 50 mg tablet 25 mg PO DAILY PRN #7 tab 01/11/21 Allergies Allergy/AdvReac Type Severity Reaction Status Date / Time latex [LATEX] Allergy Unknown RASH Verified 11/24/20 13:10 sulfamethoxazole Allergy Unknown SHORTNESS Verified 11/24/20 13:10 [From BACTRIM] OF BREATH Review of Systems Review of Systems: Constitutional: No Fever, No Chills Cardiovascular: No Chest Pain, No SOB, No Orthopnea, No Edema Gastrointestinal: No Nausea, No Vomiting, No Diarrhea, No abdominal Pain Genitourinary: No Dysuria, No Urinary Frequency, No Hematuria Musculoskeletal: No joint pain, No Myalgias Skin: No Skin Lesions, No rash Neuro: No Weakness, No Numbness, No Dizziness, No Headache Psych: + Anxiety/Panic, + Depression, No SI, No HI Heme/Lymph: No Bruising, No Lymphadenopathy PMFSH Past Medical History Medical History Amenorrhea Asthma Family history of breast cancer Generalized anxiety disorder Hirsutism Migraine with aura Migraines Polycystic ovary syndrome Vitamin D deficiency Surgical History History of appendectomy History of delivery Family History Family History Mother Obesity Maternal Aunt Breast cancer Paternal Aunt Breast cancer Family/Other Ovarian cancer Paternal Uncle Lung cancer Other Mental problem Substance abuse Social History Social History Housing: Apartment Housing Other:: She is looking to move out of her current apartment, not close to family Alcohol intake: current Alcohol intake frequency: does not drink Alcohol type: beer and other Patient Tobacco Use Status: Never used Tobacco e-Cigarette/Vaping Use: Never Used Second Hand Smoke Exposure: Yes Use of substances other than those prescribed or required for medical reasons: Yes Substance Use Type: Marijuana Substance Use Frequency: Daily Advance Directives: No Advance Directives Information Provided: No service: No Current occupational status: unemployed Physical Exam Vital Signs: Vital Signs: Last Vital Signs Temp 98.9 F 01/11/21 09:45 Pulse 73 01/11/21 09:45 Resp 18 01/11/21 09:45 BP 138/105 H 01/11/21 09:45 Pulse Ox 99 01/11/21 09:45 Body Mass Index 36.6 Appearance: Alert. Oriented X3. Tearful Eyes: Pupils equal, round and reactive to light. ENT: Pharynx normal. Neck: Normal inspection. Neck supple. CVS: Normal heart rate and rhythm. Pulses normal. Respiratory: No respiratory distress. Breath sounds normal. Abdomen: Soft and nontender. +BS x4 Skin: Skin warm and dry. Normal skin color. Normal skin turgor. No rashes. Extremities: No lower extremity edema. Neuro: Oriented X 3. No motor deficit. No sensory deficit. CN II-XII grossly intact. tearful but fully discloses her complaints in full clear sentences. Course Course Course Narrative: 25 yo female presenting with worsening anxiety in the setting of getting a new job recently. She is reporting her anxiety is so crippling that she cannot go to her job. She can not really go to the store, and has to do it with somebody else. She is unable to complete her day-to-day activities because of her anxiety. She reports worsening depression because of this. She denies suicidal thoughts or plan. She has psychiatrist and a therapist. Will get the CARE team to see her. Reevaluation(s) Reevaluation #1: Nancy from the CARE team saw and evaluated the patient. There is 90 referral made for partial treatment program, with intake to be started next week. Patient is agreeable with this plan. She has a psychiatrist and therapist appointment coming up. She is complaining of insomnia, has been on trazodone in the past. Will start a low-dose trazodone p.r.n. for sleep. She is stable for discharge home with plan for partial treatment to start next week. Advised to come to the ER if symptoms worsen. MDM - Anxiety Lab Data Labs: Lab Results 01/11/21 Range/Units 10:26 Urine Opiates Screen Not Detected (Not Detect) Urine Fentanyl Screen Not Detected (Not Detect) Ur Barbiturates Screen Not Detected (Not Detect) Ur Phencyclidine Scrn Not Detected (Not Detect) Ur Amphetamines Screen Not Detected (Not Detect) U Benzodiazepines Scrn Not Detected (Not Detect) Urine Cocaine Screen Not Detected (Not Detect) U Marijuana (THC) Screen POSITIVE H (Not Detect) Critical Care Time Critical Care Time Critical Care Time: No Discharge Plan Discharge Clinical Impression: Anxiety Patient Disposition: Home, Self-Care Instructions: Generalized Anxiety Disorder (ED), Cognitive Behavioral Therapy (ED) Additional Instructions: Continue taking your previously prescribed Abilify. Take the prescribed trazodone as needed for sleep before bedtime. Also recommend trial of melatonin 5 mg, this is found [id number]. Follow-up with the partial program for intake next week. Follow-up with your provider, psychiatrist, and therapist. If you develop new or worsening symptoms call 911 or come back to the ER for further evaluation. Prescriptions: New trazodone 50 mg tablet 25 mg PO DAILY PRN (Reason: sleep) Qty: 7 RF: 0 No Action cholecalciferol (vitamin D3) 50 mcg (2,000 unit) capsule 50 mcg PO DAILY 30 Days Qty: 30 RF: 11 cholecalciferol (vitamin D3) 1,250 mcg (50,000 unit) capsule 1,250 mcg PO QWEEK 56 Days Qty: 8 RF: 0 Referrals: Tye Teresa PA-C [Primary Care Provider] - 2 days (anxiety) Stand Alone Forms: Work/School Release
[2021-01-11 09:45] VITALS: BP 138/105; PULSE 73; RESP 18; TEMP 37.2; O2SAT 99; BMI 36.6
[2021-01-11] MEDS: LORazepam 1 MG TABLET PO (10:24)
[2021-01-11 11:06] LABS: Amphetamine Screen Urine Not Detected (Not Detect); Barbiturates, Urine Not Detected (Not Detect); Benzodiazepines Screen Urine Not Detected (Not Detect); Cannabinoid Screen Urine POSITIVE (Not Detect); Cocaine Screen Urine Not Detected (Not Detect); Fentanyl, urine Not Detected (Not Detect); Opiate Screen Urine Not Detected (Not Detect); Phencyclidine Screen Urine Not Detected (Not Detect)
[2021-01-11 11:58] VITALS: BP 139/64; PULSE 72; RESP 18; O2SAT 100
--- NOTE | 2021-01-11 11:59 | PC.NURSE ---
pt reports feeling better after the ativan, pt denies si/hi
--- NOTE | 2021-01-11 12:57 | MHC.CARE ---
CARE Team responded to consult request to speak with this patient regarding anxiety, brought her from 6H to BH3 for privacy. Patient was alert and oriented, easy to engage, she appeared clean and well groomed, made appropriate eye contact, spoke clearly and articulately, tearful at times, there was no evidence of psychosis or thought disorder. She reported an increase in anxiety symptoms over the last year to the point of feeling debilitated, panic attacks over the last month, difficulty sleeping, unable to work, feeling hopeless. She explained that she has always had anxiety but since her son was born two years ago (was ill for some time) and that may have been a precipitant. Patient recently accepted a new job and moved to [place], she was unable to leave her apartment and subsequently resigned and moved back to [place]. She does have a number of stressors such as her son having elevated lead levels and needing to leave her needed leave her apartment and stay in a hotel, is unemployed, has limited family support. In addition, patient has providers at [facility] was recently diagnosed with Bipolar D/O, started Abilify a month ago but is not having relief from the anxiety and related depression. She endorsed, ?hearing things,? such as footsteps in her room at night when she is unable to sleep, this seems more like stress/anxiety/OCD vs hallucinations. She acknowledged feeling hopeless and desperate to feel better and live a normal life but does contemplate suicide. ?Provided patient with validation, encouragement as well as education and strategies regarding anxiety and intrusive thoughts. She identified her son?s father as a solid support as well as a best friend that lives nearby; she is able to reach out to either of them at any time. The most appropriate level of care was determined to a referral to [facility] Partial Hospitalization Program, there are intake appointments next week, and they will contact her directly. Patient was given contact information for CARE Team and [facility] Crisis. Disposition discussed with ED provider, TAISHA Saha.
== END 2021-01-11 12:00 | disposition home or self-care (01) ==
PROVIDERS: Physician Assistant; Emergency Provider Emergency Medicine; PCP Physician Assistant
DX: F41.9 Anxiety disorder, unspecified (principal); F31.9 Bipolar disorder, unspecified; G47.00 Insomnia, unspecified
CPT/HCPCS: 80307; 99284

== ENCOUNTER → 2021-01-20 08:48 | Outpatient (RCR) | payer OTHER, SELFPAY | END | disposition home or self-care (01) | LOC: HO.PHPA 07:06 | PROVIDERS: PCP Physician Assistant; Visit Provider Psychiatry & Neurology Psychiatry | DX: F31.81 Bipolar II disorder (principal) ==

== ENCOUNTER 2021-03-31 07:55 | Outpatient (REF) | payer OTHER, SELFPAY ==
--- NOTE | ~2021-03-31 | CT_ITS ---
EXAMINATION: CT ABDOMEN WITHOUT AND WITH CONTRAST CLINICAL INFORMATION: R79.89. Other specified abnormal findings of blood chemistry. Evaluate for adrenal mass. COMPARISON: None TECHNIQUE: Contiguous axial thin section helical images of the abdomen were performed before and after the administration of oral contrast and 85 mL of Omnipaque 350 intravenous contrast. The data set was reformatted in the coronal and sagittal planes and reviewed on an independent workstation. This CT examination was performed using dose optimization techniques as appropriate, variously including the following: *Automated exposure control *Adjustment of mA and/or kV according to patient size (this includes techniques or standardized protocols for targeted exams where dose is matched to indication/reason for exam; i.e. extremities or head) *Use of iterative reconstruction technique DLP: 759 mGy-cm FINDINGS: LUNG BASES: The lung bases are clear. LIVER, GALLBLADDER, AND BILIARY TREE: The liver, gallbladder, and bile ducts appear normal. PANCREAS: Normal. SPLEEN: Normal. ADRENAL GLANDS AND KIDNEYS: There is no adrenal mass. The adrenal glands appear normal. 3 mm nonobstructing calculus upper pole left kidney. Skin to stone distance 8.7 cm. Too small to accurately measure attenuation. 3 mm nonobstructing calculus lower pole right kidney. Skin to stone distance of 14.1 cm. Too small to accurately measure attenuation. No renal mass. No hydronephrosis. BOWEL LOOPS: Included small and large bowel are unremarkable. LYMPH NODES: No adenopathy. No retroperitoneal mass. VASCULAR: Abdominal aorta normal in caliber. IVC normal in caliber. Portal vein patent. BONES: Mild degenerative changes in the lower thoracic spine. CT/CT abdomen wo/w con IMPRESSION: No adrenal mass. Tiny nonobstructing bilateral renal calculi. Fleischner guidelines were followed.
[2021-03-31] MEDS: iohexoL 350 MG/ML 100 ML INFUS..BTL IV (09:25)
== END 2021-03-31 07:56 | disposition home or self-care (01) ==
LOC: HO.CT 07:55
PROVIDERS: Visit Provider Internal Medicine
DX: R79.89 Other specified abnormal findings of blood chemistry (principal)
CPT/HCPCS: 74170; Q9967

== ENCOUNTER → 2021-04-11 07:53 | Outpatient (BNVA) | payer OTHER, SELFPAY | PROVIDERS: PCP Physician Assistant; Visit Provider Internal Medicine ==

== ENCOUNTER 2021-04-15 15:34 | Outpatient (REF) | payer OTHER, SELFPAY ==
--- NOTE | ~2021-04-15 | US_ITS ---
EXAMINATION: PELVIC ULTRASOUND CLINICAL INFORMATION: Elevated testosterone COMPARISON: None TECHNIQUE: Transabdominal and transvaginal pelvic ultrasound was performed. Transvaginal exam was performed for better visualization of the uterus and ovaries. FINDINGS: The uterus is anteverted and measures 7 x 3.7 x 4.6 cm in dimension. No focal uterine lesion is seen. Endometrial thickness is normal measuring 0.3 cm. The ovaries are normal. The right ovary measures 3.9 x 2.4 x 2 cm. The left ovary measures 3 x 2 x 2.2 cm. There is no fluid in the pelvis. US/US transvaginal IMPRESSION: Normal pelvic ultrasound.
--- NOTE | ~2021-04-15 | US_ITS ---
EXAMINATION: PELVIC ULTRASOUND CLINICAL INFORMATION: Elevated testosterone COMPARISON: None TECHNIQUE: Transabdominal and transvaginal pelvic ultrasound was performed. Transvaginal exam was performed for better visualization of the uterus and ovaries. FINDINGS: The uterus is anteverted and measures 7 x 3.7 x 4.6 cm in dimension. No focal uterine lesion is seen. Endometrial thickness is normal measuring 0.3 cm. The ovaries are normal. The right ovary measures 3.9 x 2.4 x 2 cm. The left ovary measures 3 x 2 x 2.2 cm. There is no fluid in the pelvis. US/US pelvic complete IMPRESSION: Normal pelvic ultrasound.
== END 2021-04-15 15:35 | disposition home or self-care (01) ==
LOC: HO.US 15:34
PROVIDERS: Visit Provider Internal Medicine
DX: R79.89 Other specified abnormal findings of blood chemistry (principal)
CPT/HCPCS: 76830; 76856

== ENCOUNTER 2021-06-08 08:13 | Outpatient (REF) | payer OTHER, SELFPAY ==
[2021-06-08 09:36] LABS: Glucose Fasting 101 mg/dL (60-99)
[2021-06-08 09:47] LABS: Alanine Aminotransferase 17 U/L (0-31); Albumin Level 3.9 g/dL (3.5-5.0); Alkaline Phosphatase 67 U/L (39-117); Anion Gap 12 (12-20); Aspartate Amino Transferase 16 U/L (5-31); Bilirubin Total < 0.2 mg/dL (0.0-1.0); Blood Urea Nitrogen 11 mg/dL (9-16); Carbon Dioxide 23 mmol/L (22-29); Chloride 104 mmol/L (96-108); Estimated Glomerular Filt Rate > 60; Glucose Random 102 mg/dL (60-115); Phosphorus 2.5 mg/dL (2.7-4.5); Potassium 4.1 mmol/L (3.3-5.1); Sodium 135 mmol/L (135-145); Total Protein 7.3 g/dL (6.5-8.0)
[2021-06-08 10:08] LABS: HCG Quantitative < 2 mIU/mL
[2021-06-08 10:52] LABS: Glucose 1 Hour 171 mg/dL
[2021-06-08 10:52] LABS: Cortisol Random 4.8 ug/dL
[2021-06-08 12:22] LABS: Glucose 2 Hour 115 mg/dL
[2021-06-09 12:51] LABS: Calcium (PTHI) 8.9 mg/dL (8.6-10.2); PTHI 62 pg/mL (16-77)
[2021-06-09 15:02] LABS: Adrenocorticotropic Hormone 16 pg/mL (6-50)
[2021-06-09 15:56] LABS: DHEA Sulfate 289 mcg/dL (14-349); Sex Hormone Binding Globulin 25 nmol/L (17-124)
[2021-06-13 18:16] LABS: Testosterone, Free 8.4 pg/mL (0.1-6.4); Testosterone, Total 44 ng/dL (2-45)
== END 2021-06-08 08:14 | disposition home or self-care (01) ==
LOC: HO.LAB 08:13
PROVIDERS: PCP Physician Assistant; Visit Provider Internal Medicine
DX: R79.89 Other specified abnormal findings of blood chemistry (principal); E55.9 Vitamin D deficiency, unspecified
CPT/HCPCS: 36415; 80053; 82024; 82306; 82533; 82627; 83498; 83970; 84100; 84270; 84402; 84403; 84702

== ENCOUNTER 2021-06-10 07:21 | Outpatient (REF) | payer OTHER, SELFPAY ==
[2021-06-10 08:26] LABS: Cortisol Random 14.4 ug/dL
[2021-06-13 15:02] LABS: Adrenocorticotropic Hormone 45 pg/mL (6-50)
== END 2021-06-10 07:22 | disposition home or self-care (01) ==
LOC: HO.LAB 07:21
PROVIDERS: PCP Physician Assistant; Visit Provider Internal Medicine
DX: E66.9 Obesity, unspecified (principal)
CPT/HCPCS: 36415; 82024; 82533

== ENCOUNTER → 2021-07-18 08:04 | Outpatient (BNVA) | payer OTHER, SELFPAY | PROVIDERS: PCP Physician Assistant; Visit Provider Internal Medicine | DX: Z13.89 Encounter for screening for other disorder (principal) ==

== ENCOUNTER 2021-07-20 07:50 | Emergency (ER) | payer OTHER, SELFPAY ==
--- NOTE | 2021-07-20 07:57 | ED.GENADULT ---
HPI - General Adult General Chief complaint: General Medical Stated complaint: Nausea/Fever/Headache Time Seen by Provider: 07/20/21 07:56 Source: patient Mode of arrival: ambulatory Limitations: no limitations History of Present Illness HPI narrative: did start Metformin as well at the same time she was not feeling well and it added to her GI discomfort MD complaint: abdominal pain, malaise, nausea, diarrhea, not feeling well Onset (ago): day(s) (Sunday ) Location: head and abdomen Radiation: non-radiation Severity: moderate Quality: aching and dull Pain Consistency: constant Relieving factors: none Exacerbating factors: none Associated symptoms: headaches, loss of appetite, malaise and nausea/vomiting Treatments prior to arrival: none Related Data Previous Rx's Medication Instructions Recorded cholecalciferol (vitamin D3) 1,250 1,250 mcg PO QWEEK 56 Days #8 cap 07/18/21 mcg (50,000 unit) capsule cholecalciferol (vitamin D3) 50 50 mcg PO DAILY 30 Days #30 cap 07/18/21 mcg (2,000 unit) capsule dexamethasone 1 mg tablet 1 mg PO DAILY #1 tab 07/18/21 metformin 500 mg tablet,extended 500 mg PO BID 30 Days #60 tab 07/18/21 release 24hr ondansetron 4 mg disintegrating 4 mg PO Q8H PRN #20 tab 07/20/21 tablet Allergies Allergy/AdvReac Type Severity Reaction Status Date / Time latex [LATEX] Allergy Unknown RASH Verified 07/18/21 08:44 sulfamethoxazole Allergy Unknown SHORTNESS Verified 07/18/21 08:44 [From BACTRIM] OF BREATH Review of Systems Review of Systems: Constitutional : No Weight loss, No Fever, No Chills, pos fatigue, pos malaise ENT/Mouth : No sore throat, No Rhinorrhea Eyes: No Swelling, No Redness Cardiovascular : No Chest Pain, No SOB, NoEdema Respiratory : No Cough, No Sputum, No Wheezing Gastrointestinal : Positive Nausea, no Vomiting, positive Diarrhea, positive abdominal Pain, No Hematochezia, No Melena Genitourinary : No Dysuria, No Urinary Frequency, No Hematuria, No Urgency , pos irregular bleeding Musculoskeletal : No joint pain, pos Myalgias, No Joint Swelling Skin : No Skin Lesions, No rash Neuro : No Weakness, No Numbness, No Dizziness, No Headache Psych : No Anxiety/Panic, No Depression Heme/Lymph: No Bruising, No Lymphadenopathy Endocrine : No Polyuria, No Polydipsia All other systems reviewed and are negative. [facility] Past Medical History Attestation statement: The following information was validated with the patient. Medical History Amenorrhea Asthma Family history of breast cancer Generalized anxiety disorder Hirsutism Migraine with aura Migraines Nephrolithiasis Obesity Polycystic ovary syndrome Prediabetes Vitamin D deficiency Surgical History History of appendectomy History of delivery Family History Family History Mother Obesity Maternal Aunt Breast cancer Paternal Aunt Breast cancer Family/Other Ovarian cancer Paternal Uncle Lung cancer Other Mental problem Substance abuse Social History Social History Household Members: Children Housing: Apartment Housing Other:: She is looking to move out of her current apartment, not close to family Alcohol intake: never Patient Tobacco Use Status: Never used Tobacco e-Cigarette/Vaping Use: Never Used Second Hand Smoke Exposure: Yes Use of substances other than those prescribed or required for medical reasons: No Substance Use Type: Marijuana Advance Directives: No Advance Directives Information Provided: No Patient : No service: No Current occupational status: unemployed Physical Exam ED Vital Signs: Vital Signs - 24 hr 07/20/21 07:58 07/20/21 08:37 Temperature 98.1 F 98.7 F Pulse Rate 88 64 Respiratory Rate 16 15 Blood Pressure 128/83 123/85 Pulse Oximetry 95 100 BMI result Body Mass Index 38.4 Appearance: Alert. Oriented X3. No acute distress. Eyes: Pupils equal, round and reactive to light. ENT: Pharynx normal. TMs normal Neck: Normal inspection. Neck supple. CVS: Normal heart rate and rhythm. Pulses normal. Respiratory: No respiratory distress. Breath sounds normal. Abdomen: Soft and non-tender. no rebound or guarding Skin: Skin warm and dry. Normal skin color. Normal skin turgor. Extremities: No lower extremity edema. Neuro: Oriented X 3. No motor deficit. No sensory deficit. Course Course Course Narrative: negative workup at this time. stable for DC Medical Decision Making MDM Narrative Medical decision making narrative: 26 yo female hx of PCOS just started metformin had overall malaise and viral syndrome since Sunday c/o GI upset worsened with new metformin use for PCOS. She is not toxic appearing and abdominal exam is benign. Will obtain basic labs, flu swab/COVID swab, hydrate, zofran - dispo per results and findings Lab Data Result diagrams: 07/20/21 09:00 07/20/21 09:00 Labs: Lab Results 07/20/21 07/20/21 07/20/21 Range/Units 08:40 08:41 08:41 WBC (4.8-10.8) X10*3/uL RBC (4.20-5.50) X10*6/uL Hgb (12.0-16.0) g/dl Hct (37.0-47.0) % MCV (80.0-98.0) fL MCH (27.0-33.0) pg MCHC (31.0-35.0) g/dl RDW (11.0-16.0) % Plt Count (160-400) X10*3/uL MPV (9.4-12.3) fL Immature Gran % (Auto) (0.0-0.4) % Neut % (Auto) (45-73) % Lymph % (Auto) (20-40) % [place] % (Auto) (2-11) % Eos % (Auto) (0-4) % Baso % (Auto) (0-2) % Lymph # (Auto) (1.2-4.9) X10*3/uL [place] # (Auto) (0.1-1.2) X10*3/uL Eos # (Auto) (0.0-0.4) X10*3/uL Baso # (Auto) (0.0-0.2) X10*3/uL Abs Immat Gran (auto) (0.00-0.03) X10*3/uL Absolute Neuts (auto) (2.0-8.3) x10*3/uL Absolute Nucleated RBC (0.0-0.012) X10*3/uL Nucleated RBC % (auto) (0.0-0.2) /100WBC Sodium (135-145) mmol/L Potassium (3.3-5.1) mmol/L Chloride (96-108) mmol/L Carbon Dioxide (22-29) mmol/L Anion Gap (12-20) BUN (9-16) mg/dL Creatinine (0.5-1.4) mg/dL Estim Creat Clear Calc Estimated GFR Random Glucose (60-115) mg/dL Calcium (8.4-10.2) mg/dL Magnesium (1.6-2.6) mg/dL Total Bilirubin (0.0-1.0) mg/dL Direct Bilirubin (0.0-0.5) mg/dL AST (5-31) U/L ALT (0-31) U/L Alkaline Phosphatase (39-117) U/L Total Protein (6.5-8.0) g/dL Albumin (3.5-5.0) g/dL Lipase (8-78) U/L Beta HCG, Quant mIU/mL Urine Color YELLOW Urine Appearance CLEAR Urine pH 6.0 (5.0-8.0) Ur Specific [place] 1.025 (1.005-1.025) Urine Protein NEG (NEG-TRACE) MG/DL Urine Glucose (UA) NEG (NEG) MG/DL Urine Ketones NEG (NEG) MG/DL Urine Blood 2+ H (NEG) Urine Nitrite NEG (NEG) Ur Leukocyte Esterase NEG (NEG) Urine RBC 1-4 (0) /HPF Urine WBC 1-4 (0-4) /HPF Ur Squamous Epith Cells 2+ /LPF Urine Bacteria TRACE /LPF COVID-19 (AMBER) Negative (Negative) COVID-19 Clin Com See Note Influenza Type A (YVONNE) Negative (Negative) Influenza Type B (YVONNE) Negative (Negative) Influenza A & B Note See Note 07/20/21 07/20/21 Range/Units 09:00 09:00 WBC 6.9 (4.8-10.8) X10*3/uL RBC 4.43 (4.20-5.50) X10*6/uL Hgb 12.0 (12.0-16.0) g/dl Hct 36.8 L (37.0-47.0) % MCV 83.1 (80.0-98.0) fL MCH 27.1 (27.0-33.0) pg MCHC 32.6 (31.0-35.0) g/dl RDW 13.6 (11.0-16.0) % Plt Count 253 (160-400) X10*3/uL MPV 10.7 (9.4-12.3) fL Immature Gran % (Auto) 0.1 (0.0-0.4) % Neut % (Auto) 61.2 (45-73) % Lymph % (Auto) 32.8 (20-40) % [place] % (Auto) 4.9 (2-11) % Eos % (Auto) 0.7 (0-4) % Baso % (Auto) 0.3 (0-2) % Lymph # (Auto) 2.3 (1.2-4.9) X10*3/uL [place] # (Auto) 0.3 (0.1-1.2) X10*3/uL Eos # (Auto) 0.1 (0.0-0.4) X10*3/uL Baso # (Auto) 0.0 (0.0-0.2) X10*3/uL Abs Immat Gran (auto) 0.01 (0.00-0.03) X10*3/uL Absolute Neuts (auto) 4.2 (2.0-8.3) x10*3/uL Absolute Nucleated RBC 0.000 (0.0-0.012) X10*3/uL Nucleated RBC % (auto) 0.0 (0.0-0.2) /100WBC Sodium 139 (135-145) mmol/L Potassium 3.8 (3.3-5.1) mmol/L Chloride 105 (96-108) mmol/L Carbon Dioxide 27 (22-29) mmol/L Anion Gap 11 L (12-20) BUN 10 (9-16) mg/dL Creatinine 0.68 (0.5-1.4) mg/dL Estim Creat Clear Calc 134.9 Estimated GFR > 60 Random Glucose 100 (60-115) mg/dL Calcium 9.4 (8.4-10.2) mg/dL Magnesium 1.6 (1.6-2.6) mg/dL Total Bilirubin 0.4 (0.0-1.0) mg/dL Direct Bilirubin < 0.2 (0.0-0.5) mg/dL AST 14 (5-31) U/L ALT 10 (0-31) U/L Alkaline Phosphatase 59 (39-117) U/L Total Protein 7.7 (6.5-8.0) g/dL Albumin 4.0 (3.5-5.0) g/dL Lipase 40 (8-78) U/L Beta HCG, Quant < 2 mIU/mL Urine Color Urine Appearance Urine pH (5.0-8.0) Ur Specific [place] (1.005-1.025) Urine Protein (NEG-TRACE) MG/DL Urine Glucose (UA) (NEG) MG/DL Urine Ketones (NEG) MG/DL Urine Blood (NEG) Urine Nitrite (NEG) Ur Leukocyte Esterase (NEG) Urine RBC (0) /HPF Urine WBC (0-4) /HPF Ur Squamous Epith Cells /LPF Urine Bacteria /LPF COVID-19 (AMBER) (Negative) COVID-19 Clin Com Influenza Type A (YVONNE) (Negative) Influenza Type B (YVONNE) (Negative) Influenza A & B Note Discharge Plan Discharge Clinical Impression: Acute viral syndrome, Gastrointestinal discomfort Patient Disposition: Home, Self-Care Instructions: Viral Syndrome (ED) Additional Instructions: return to ED for any worsening symptoms or concerns negative for flu and COVID not by blood at this time Prescriptions: New ondansetron 4 mg tablet,disintegrating 4 mg PO Q8H PRN (Reason: nausea and vomiting) Qty: 20 0RF No Action metformin 500 mg tablet extended release 24hr 500 mg PO BID 30 Days Qty: 60 11RF dexamethasone 1 mg tablet 1 mg PO DAILY Qty: 1 0RF cholecalciferol (vitamin D3) 1,250 mcg (50,000 unit) capsule 1,250 mcg PO QWEEK 56 Days Qty: 8 0RF cholecalciferol (vitamin D3) 50 mcg (2,000 unit) capsule 50 mcg PO DAILY 30 Days Qty: 30 11RF Stand Alone Forms: Work/School Release
[2021-07-20 07:58] VITALS: BP 128/83; PULSE 88; RESP 16; TEMP 36.7; O2SAT 95; BMI 38.4
[2021-07-20 08:37] VITALS: BP 123/85; PULSE 64; RESP 15; TEMP 37.1; O2SAT 100
[2021-07-20 08:53] LABS: Appearance Urine CLEAR; Color Urine YELLOW; Glucose Urine UA NEG (NEG); Leukocyte Esterase Urine NEG (NEG); Nitrite Urine NEG (NEG); Specific Gravity - Urine 1.025 (1.005-1.025); UACC Culture Trigger NO; Urine Blood 2+ (NEG); Urine Ketones NEG (NEG); Urine Protein NEG (NEG-TRACE)
[2021-07-20 09:03] LABS: MANUAL DIFF FLAG NO
[2021-07-20 09:04] LABS: COVID-19 Test Negative (Negative); IDNOW Serial# 16C4AD1C
[2021-07-20 09:06] LABS: Basophils Percent Auto 0.3 % (0-2); Eosinophils Absolute Auto 0.1 X10*3/uL (0.0-0.4); Eosinophils Percent Auto 0.7 % (0-4); Hematocrit 36.8 % (37.0-47.0); Imm Gran Abs Auto 0.01 X10*3/uL (0.00-0.03); Imm Gran Pct Auto 0.1 % (0.0-0.4); Lymphocytes Absolute Auto 2.3 X10*3/uL (1.2-4.9); Lymphocytes Percent Auto 32.8 % (20-40); Mean Corpuscular HGB Conc 32.6 g/dl (31.0-35.0); Mean Corpuscular Hemoglobin 27.1 pg (27.0-33.0); Mean Corpuscular Volume 83.1 fL (80.0-98.0); Mean Platelet Volume 10.7 fL (9.4-12.3); Monocytes Absolute Auto 0.3 X10*3/uL (0.1-1.2); Monocytes Percent Auto 4.9 % (2-11); Neutrophils Absolute Auto 4.2 x10*3/uL (2.0-8.3); Neutrophils Percent Auto 61.2 % (45-73); Platelet Count 253 X10*3/uL (160-400); Red Blood Count 4.43 X10*6/uL (4.20-5.50); Red Cell Distribution Width 13.6 % (11.0-16.0); White Blood Count 6.9 X10*3/uL (4.8-10.8)
[2021-07-20] MEDS: ondansetron HCL 4 MG/2 ML VIAL IVPUSH (09:06)
[2021-07-20] MEDS: 0.9 % Sodium Chloride 1,000 ML 999 ML IVCONT (09:07)
[2021-07-20 09:12] LABS: Influenza A Negative (Negative); Influenza B2 Negative (Negative)
[2021-07-20 09:14] LABS: Squamous Epithelial Cell Urine 2+ /LPF
[2021-07-20 09:15] LABS: Bacteria Urine TRACE /LPF
[2021-07-20 09:31] LABS: Alanine Aminotransferase 10 U/L (0-31); Alkaline Phosphatase 59 U/L (39-117); Anion Gap 11 (12-20); Aspartate Amino Transferase 14 U/L (5-31); Bilirubin Direct < 0.2 mg/dL (0.0-0.5); Bilirubin Total 0.4 mg/dL (0.0-1.0); Blood Urea Nitrogen 10 mg/dL (9-16); Calcium 9.4 mg/dL (8.4-10.2); Carbon Dioxide 27 mmol/L (22-29); Chloride 105 mmol/L (96-108); Creatinine Clr Calc Pharmacy 134.9; Estimated Glomerular Filt Rate > 60; Glucose Random 100 mg/dL (60-115); Lipase 40 U/L (8-78); Magnesium 1.6 mg/dL (1.6-2.6); Potassium 3.8 mmol/L (3.3-5.1); Sodium 139 mmol/L (135-145); Total Protein 7.7 g/dL (6.5-8.0)
[2021-07-20 09:36] LABS: HCG Quantitative < 2 mIU/mL
== END 2021-07-20 10:16 | disposition home or self-care (01) ==
PROVIDERS: Emergency Provider Emergency Medicine; PCP Physician Assistant
DX: B34.9 Viral infection, unspecified (principal); R10.9 Unspecified abdominal pain; J45.909 Unspecified asthma, uncomplicated; Z20.822 Contact with and (suspected) exposure to COVID-19
CPT/HCPCS: 80048; 80076; 81001; 83690; 83735; 84702; 85025; 87502; 87635; 96361; 96374; 99284; J2405

== ENCOUNTER → 2021-08-16 12:33 | Outpatient (BNVA) | payer OTHER, SELFPAY | PROVIDERS: PCP Physician Assistant; Visit Provider Dietitian, Registered | DX: E66.9 Obesity, unspecified (principal); Z68.39 Body mass index [BMI] 39.0-39.9, adult; R73.03 Prediabetes; Z71.3 Dietary counseling and surveillance | CPT/HCPCS: 97802 ==

== ENCOUNTER → 2021-09-20 10:35 | Outpatient (BNVA) | payer OTHER, SELFPAY | PROVIDERS: PCP Physician Assistant; Visit Provider Dietitian, Registered | DX: E66.9 Obesity, unspecified (principal); Z68.37 Body mass index [BMI] 37.0-37.9, adult; R73.03 Prediabetes; Z71.3 Dietary counseling and surveillance | CPT/HCPCS: 97803 ==

== ENCOUNTER 2021-10-15 07:27 | Outpatient (REF) | payer OTHER, SELFPAY ==
[2021-10-15 09:12] LABS: Alanine Aminotransferase 9 U/L (0-31); Albumin Level 4.1 g/dL (3.5-5.0); Alkaline Phosphatase 61 U/L (39-117); Anion Gap 10 (12-20); Aspartate Amino Transferase 12 U/L (5-31); Bilirubin Total 0.2 mg/dL (0.0-1.0); Blood Urea Nitrogen 12 mg/dL (9-16); Calcium 9.2 mg/dL (8.4-10.2); Carbon Dioxide 25 mmol/L (22-29); Chloride 106 mmol/L (96-108); Estimated Glomerular Filt Rate > 60; Glucose Random 105 mg/dL (60-115); Potassium 4.1 mmol/L (3.3-5.1); Sodium 137 mmol/L (135-145); Total Protein 7.7 g/dL (6.5-8.0)
[2021-10-15 09:51] LABS: Vitamin D 25-OH Total 71.2 ng/mL (>30)
[2021-10-15 11:10] LABS: Cortisol Random < 1.0 ug/dL
[2021-10-17 08:18] LABS: Sex Hormone Binding Globulin 32 nmol/L (17-124)
[2021-10-17 22:12] LABS: Adrenocorticotropic Hormone <5 pg/mL (6-50)
[2021-10-20 10:47] LABS: Dexamethasone 411 ng/dL
[2021-10-20 17:57] LABS: Testosterone, Free 4.1 pg/mL (0.1-6.4); Testosterone, Total 30 ng/dL (2-45)
== END 2021-10-15 07:28 | disposition home or self-care (01) ==
LOC: HO.LAB 07:27
PROVIDERS: PCP Physician Assistant; Visit Provider Internal Medicine
DX: E55.9 Vitamin D deficiency, unspecified (principal); R79.89 Other specified abnormal findings of blood chemistry; Z79.899 Other long term (current) drug therapy
CPT/HCPCS: 36415; 80053; 80299; 82024; 82306; 82533; 84270; 84402; 84403

== ENCOUNTER → 2021-10-24 09:25 | Outpatient (BNVA) | payer OTHER, SELFPAY | PROVIDERS: PCP Physician Assistant; Visit Provider Internal Medicine | DX: E66.9 Obesity, unspecified (principal); Z68.37 Body mass index [BMI] 37.0-37.9, adult; R79.89 Other specified abnormal findings of blood chemistry; E55.9 Vitamin D deficiency, unspecified; R73.03 Prediabetes; Z79.84 Long term (current) use of oral hypoglycemic drugs | CPT/HCPCS: 99212 ==

== ENCOUNTER 2021-11-03 12:00 | Outpatient (REF) | payer OTHER, SELFPAY ==
[2021-11-03 12:55] LABS: Influenza A PCR NEGATIVE (Negative); Influenza B PCR NEGATIVE (Negative); Resp Syncy Virus RNA Qual PCR NEGATIVE (Negative); SARS COV2 PCR INHOUSE NEGATIVE (Negative)
== END 2021-11-03 12:01 | disposition home or self-care (01) ==
LOC: HO.LNP 12:00
PROVIDERS: Visit Provider Internal Medicine
DX: R09.89 Other specified symptoms and signs involving the circulatory and respiratory systems (principal); Z20.822 Contact with and (suspected) exposure to COVID-19
CPT/HCPCS: 0241U

== ENCOUNTER → 2021-11-04 10:39 | Outpatient (BNVA) | payer OTHER, SELFPAY | PROVIDERS: PCP Physician Assistant; Visit Provider Dietitian, Registered | DX: E66.9 Obesity, unspecified (principal); R73.03 Prediabetes | CPT/HCPCS: 97803 ==

== ENCOUNTER → 2022-01-06 09:11 | Outpatient (BNVA) | payer OTHER, SELFPAY | PROVIDERS: PCP Physician Assistant; Visit Provider Dietitian, Registered | DX: E66.9 Obesity, unspecified (principal) | CPT/HCPCS: 97803 ==

== ENCOUNTER 2022-03-04 10:03 | Outpatient (REF) | payer OTHER, SELFPAY ==
--- NOTE | ~2022-03-04 | XR_ITS ---
EXAMINATION: XR ANKLE, RIGHT CLINICAL INFORMATION: Right ankle pain. COMPARISON: None TECHNIQUE: AP, lateral, and mortise views of the right ankle. FINDINGS: Mild to moderate soft tissue swelling is seen more pronounced laterally. The ankle joint and mortise are intact. There is no acute fracture or dislocation. The joint spaces are unremarkable. XR/XR ankle RT min 3V IMPRESSION: Mild to moderate soft tissue swelling without acute underlying osseous abnormality.
== END 2022-03-04 10:04 | disposition home or self-care (01) ==
LOC: HO.HMGCX 10:03
PROVIDERS: PCP Physician Assistant; Visit Provider Nurse Practitioner Family
DX: M25.571 Pain in right ankle and joints of right foot (principal)
CPT/HCPCS: 73610

== ENCOUNTER → 2022-04-03 09:19 | Outpatient (BNVA) | payer OTHER, SELFPAY | PROVIDERS: PCP Physician Assistant; Visit Provider Dietitian, Registered | DX: E66.9 Obesity, unspecified (principal); Z68.35 Body mass index [BMI] 35.0-35.9, adult | CPT/HCPCS: 97803 ==

== ENCOUNTER 2022-04-06 12:03 | Outpatient (REF) | payer OTHER, SELFPAY ==
[2022-04-06 12:53] LABS: Influenza A PCR POSITIVE (Negative); Influenza B PCR NEGATIVE (Negative); Resp Syncy Virus RNA Qual PCR NEGATIVE (Negative); SARS COV2 PCR INHOUSE NEGATIVE (Negative)
== END 2022-04-06 12:04 | disposition home or self-care (01) ==
LOC: HO.LNP 12:03
PROVIDERS: Visit Provider Internal Medicine
DX: R09.89 Other specified symptoms and signs involving the circulatory and respiratory systems (principal); Z20.822 Contact with and (suspected) exposure to COVID-19
CPT/HCPCS: 0241U

== ENCOUNTER 2022-04-11 11:22 | Emergency (ER) | payer OTHER, SELFPAY ==
--- NOTE | ~2022-04-11 | CT_ITS ---
EXAMINATION: CT abdomen pelvis wo IV con CLINICAL INFORMATION: Reason for Exam Flank pain. Kidney stones? COMPARISON: Prior CT March 2021. TECHNIQUE: Multidetector volumetric imaging was performed from the superior aspect of the liver through the pubic symphysis , noncontrasted study. Sagittal and coronal reformatted images were obtained on the technologist's workstation. This CT examination was performed using dose optimization techniques as appropriate, variously including the following: *Automated exposure control *Adjustment of mA and/or kV according to patient size (this includes techniques or standardized protocols for targeted exams where dose is matched to indication/reason for exam; i.e. extremities or head) *Use of iterative reconstruction technique DLP: 683 mGy-cm FINDINGS: LOWER THORAX: Included lung bases are clear. HEPATOBILIARY: No focal hepatic lesions. No biliary ductal dilatation. GALLBLADDER: Gallbladder unremarkable. SPLEEN: Spleen is normal in size. PANCREAS: No focal mass or ductal dilatation. STOMACH AND GASTROINTESTINAL TRACT: Stomach is grossly unremarkable. There is no bowel distention or thickening. No CT evidence of appendicitis. ADRENALS: No adrenal nodules. KIDNEYS/URETERS: 4 mm nonobstructing stone in the upper calyx left kidney unchanged. No hydronephrosis. Perinephric fat are clear. URINARY BLADDER: Partially decompressed. PELVIC VISCERA: Unremarkable PERITONEUM: No free air or fluid. LYMPH NODES: No lymphadenopathy. VASCULAR:Abdominal aorta normal in size, no aneurysm found. BONES, ABDOMINAL WALL AND SOFT TISSUES: Age-appropriate changes of the spine and skeletal system, no destructive osteolytic or osteosclerotic bone lesion found CT/CT abdomen pelvis wo IV con IMPRESSION: * No CT evidence of acute intra-abdominal process to explain patient's pain symptoms. * Stable 4 mm nonobstructing stone upper calyx left kidney. No hydronephrosis.
[2022-04-11 11:27] VITALS: BP 128/80; PULSE 68; O2SAT 97
[2022-04-11 12:24] VITALS: BP 153/108; PULSE 69; RESP 16; TEMP 36.6; O2SAT 100; BMI 34.5
--- NOTE | 2022-04-11 12:25 | ED_ITS ---
HPI - General Adult General Chief complaint: Urogenital-Female Stated complaint: ABD PAIN, BACK PAIN Time Seen by Provider: 04/11/22 15:11 Related Data Home Medications Medication Instructions Recorded Confirmed bupropion HCl 100 mg tablet,12 hr 100 mg PO QAM 11/03/21 04/06/22 sustained-release metformin 500 mg tablet,extended 500 mg PO BID 11/03/21 04/06/22 release 24 hr lamotrigine 25 mg tablet 50 mg PO DAILY 03/31/22 04/06/22 Previous Rx's Medication Instructions Recorded pen needle, diabetic 32 gauge x #50 ea 11/07/2103/29 (BD Ultra-Fine Micro Pen Needle) naproxen 375 mg tablet,delayed 375 mg PO BID PRN pain 30 days #60 03/04/22 release tabs oxycodone-acetaminophen 5 mg-325 1 tab PO Q6H PRN pain #14 tabs 03/31/22 mg tablet (Percocet) acetaminophen 500 mg tablet 500 mg PO QID PRN pain 5 days #20 04/06/22 tabs azithromycin 250 mg tablet 250 mg PO ONCE 5 days #6 tabs 04/06/22 ondansetron HCl 4 mg tablet 4 mg PO Q8H PRN nausea and 04/06/22 vomiting 7 days #14 tabs nitrofurantoin 100 mg PO Q12H 3 days #6 caps 04/08/22 monohydrate/macrocrystals 100 mg capsule (Macrobid) ondansetron 4 mg disintegrating 4 mg PO TID PRN nausea and 04/11/22 tablet vomiting 5 days #10 tabs Allergies Allergy/AdvReac Type Severity Reaction Status Date / Time latex [LATEX] Allergy Unknown RASH Verified 04/11/22 10:08 sulfamethoxazole Allergy Unknown SHORTNESS Verified 04/11/22 10:08 [From BACTRIM] OF BREATH PMFSH Past Medical History Medical History Amenorrhea Asthma Family history of breast cancer Generalized anxiety disorder Hirsutism Migraine with aura Migraines Nephrolithiasis Obesity Polycystic ovary syndrome Prediabetes Right ankle pain Vitamin D deficiency Surgical History History of appendectomy History of delivery Family History Family History Mother Obesity Maternal Aunt Breast cancer Paternal Aunt Breast cancer Family/Other Ovarian cancer Paternal Uncle Lung cancer Other Mental problem Substance abuse Social History Social History Household Members: Children Housing: Apartment Housing Other:: She is looking to move out of her current apartment, not close to family Alcohol intake: never Patient Tobacco Use Status: Never used Tobacco e-Cigarette/Vaping Use: Never Used Second Hand Smoke Exposure: Yes Substance Use Type: Marijuana Advance Directives: No Advance Directives Information Provided: Yes service: No Current occupational status: unemployed Physical Exam ED Vital Signs: Vital Signs - 24 hr 04/11/22 12:24 04/11/22 12:28 Temperature 97.9 F Pulse Rate 69 Respiratory Rate 16 Blood Pressure 153/108 H 144/105 H Pulse Oximetry 100 Oxygen Delivery Method Room Air BMI result Body Mass Index 34.5 Course Course Course Narrative: RME: 27 yold female with present UTI presents to the ED for hematuria, increasing urine frequency, dribbling, and now flank pain. Sent from urgent Care to evaluate for kidney stones. labs and UA and CT scan of abdomen ordered. Medications Administered Discontinued Medications Generic Name Dose Route Start Last Admin Trade Name Freq PRN Reason Stop Dose Admin Sodium Chloride 1,000 mls @ 999 mls/hr 04/11/22 16:00 04/11/22 18:22 Ns IV 04/11/22 17:00 Infused .Q1H1M BRIANDA Infusion Sodium Chloride 1,000 mls @ 999 mls/hr 04/11/22 16:00 04/11/22 18:22 Ns IV 04/11/22 17:00 Infused .Q1H1M BRIANDA Infusion Ketorolac Tromethamine 30 mg 04/11/22 15:58 04/11/22 16:26 Ketorolac Tromethamine 30 Mg/Ml Vial IVPUSH 04/11/22 15:59 30 mg ONCE ONE Administration Ondansetron HCl 4 mg 04/11/22 15:58 04/11/22 16:26 Ondansetron Hcl 4 Mg/2 Ml Vial IVPUSH 04/11/22 15:59 4 mg ONCE ONE Administration Medical Decision Making Lab Data 04/11/22 12:45 04/11/22 12:45 Labs: Lab Results 04/11/22 04/11/22 04/11/22 Range/Units 12:45 12:45 12:45 WBC 5.8 (4.8-10.8) X10*3/uL RBC 4.62 (4.20-5.50) X10*6/uL Hgb 12.6 (12.0-16.0) g/dl Hct 38.1 (37.0-47.0) % MCV 82.5 (80.0-98.0) fL MCH 27.3 (27.0-33.0) pg MCHC 33.1 (31.0-35.0) g/dl RDW 13.1 (11.0-16.0) % Plt Count 279 (160-400) X10*3/uL MPV 10.4 (9.4-12.3) fL Immature Gran % (Auto) 0.3 (0.0-0.4) % Neut % (Auto) 49.6 (45-73) % Lymph % (Auto) 44.0 H (20-40) % Woods % (Auto) 5.2 (2-11) % Eos % (Auto) 0.7 (0-4) % Baso % (Auto) 0.2 (0-2) % Lymph # (Auto) 2.6 (1.2-4.9) X10*3/uL [place] # (Auto) 0.3 (0.1-1.2) X10*3/uL Eos # (Auto) 0.0 (0.0-0.4) X10*3/uL Baso # (Auto) 0.0 (0.0-0.2) X10*3/uL Abs Immat Gran (auto) 0.02 (0.00-0.03) X10*3/uL Absolute Neuts (auto) 2.9 (2.0-8.3) x10*3/uL Absolute Nucleated RBC 0.000 (0.0-0.012) X10*3/uL Nucleated RBC % (auto) 0.0 (0.0-0.2) /100WBC PT 11.9 (10.0-13.1) SEC INR 1.0 (0.9-1.1) APTT 30.8 (26.0-36.4) SEC Sodium 140 (135-145) mmol/L Potassium 4.4 (3.3-5.1) mmol/L Chloride 106 (96-108) mmol/L Carbon Dioxide 27 (22-29) mmol/L Anion Gap 11 L (12-20) BUN 10 (9-16) mg/dL Creatinine 0.70 (0.5-1.4) mg/dL Estim Creat Clear Calc 122.6 Estimated GFR > 60 Random Glucose 92 (60-115) mg/dL Calcium 9.8 D (8.4-10.2) mg/dL Total Bilirubin 0.3 (0.0-1.0) mg/dL AST 10 (5-31) U/L ALT 8 (0-31) U/L Alkaline Phosphatase 45 (39-117) U/L Total Protein 7.9 (6.5-8.0) g/dL Albumin 4.2 (3.5-5.0) g/dL Beta HCG, Quant < 2 mIU/mL Urine Color Urine Appearance Urine pH (5.0-9.0) Ur Specific [place] (1.005-1.025) Urine Protein (Neg-Trace) mg/dL Urine Glucose (UA) (Negative) mg/dL Urine Ketones (Negative) mg/dL Urine Blood (Negative) Urine Nitrite (Negative) Ur Leukocyte Esterase (Negative) Urine RBC (0-2) /HPF Urine WBC (0-5) /HPF Ur Squamous Epith Cells (0-2) /HPF Urine Bacteria (None Seen) Hyaline Casts (0-2) /LPF Urine Test (NEGATIVE) 04/11/22 04/11/22 Range/Units 16:01 16:01 WBC (4.8-10.8) X10*3/uL RBC (4.20-5.50) X10*6/uL Hgb (12.0-16.0) g/dl Hct (37.0-47.0) % MCV (80.0-98.0) fL MCH (27.0-33.0) pg MCHC (31.0-35.0) g/dl RDW (11.0-16.0) % Plt Count (160-400) X10*3/uL MPV (9.4-12.3) fL Immature Gran % (Auto) (0.0-0.4) % Neut % (Auto) (45-73) % Lymph % (Auto) (20-40) % Woods % (Auto) (2-11) % Eos % (Auto) (0-4) % Baso % (Auto) (0-2) % Lymph # (Auto) (1.2-4.9) X10*3/uL Woods # (Auto) (0.1-1.2) X10*3/uL Eos # (Auto) (0.0-0.4) X10*3/uL Baso # (Auto) (0.0-0.2) X10*3/uL Abs Immat Gran (auto) (0.00-0.03) X10*3/uL Absolute Neuts (auto) (2.0-8.3) x10*3/uL Absolute Nucleated RBC (0.0-0.012) X10*3/uL Nucleated RBC % (auto) (0.0-0.2) /100WBC PT (10.0-13.1) SEC INR (0.9-1.1) APTT (26.0-36.4) SEC Sodium (135-145) mmol/L Potassium (3.3-5.1) mmol/L Chloride (96-108) mmol/L Carbon Dioxide (22-29) mmol/L Anion Gap (12-20) BUN (9-16) mg/dL Creatinine (0.5-1.4) mg/dL Estim Creat Clear Calc Estimated GFR Random Glucose (60-115) mg/dL Calcium (8.4-10.2) mg/dL Total Bilirubin (0.0-1.0) mg/dL AST (5-31) U/L ALT (0-31) U/L Alkaline Phosphatase (39-117) U/L Total Protein (6.5-8.0) g/dL Albumin (3.5-5.0) g/dL Beta HCG, Quant mIU/mL Urine Color Yellow Urine Appearance Clear Urine pH 5.5 (5.0-9.0) Ur Specific [place] 1.020 (1.005-1.025) Urine Protein Negative (Neg-Trace) mg/dL Urine Glucose (UA) Negative (Negative) mg/dL Urine Ketones Negative (Negative) mg/dL Urine Blood Large (3+) H (Negative) Urine Nitrite Negative (Negative) Ur Leukocyte Esterase Trace H (Negative) Urine RBC >20 H (0-2) /HPF Urine WBC 0-5 (0-5) /HPF Ur Squamous Epith Cells 3-5 (0-2) /HPF Urine Bacteria None Seen (None Seen) Hyaline Casts 0-2 (0-2) /LPF Urine Test NEGATIVE (NEGATIVE) Discharge Plan Discharge Clinical Impression: Acute flank pain, Nausea Patient Disposition: Home, Self-Care Instructions: Acute Nausea and Vomiting (ED), Flank Pain (ED) Prescriptions: New ondansetron 4 mg tablet,disintegrating 4 mg PO TID PRN (Reason: nausea and vomiting) 5 Days Qty: 10 0RF No Action (DME) pen needle, diabetic [BD Ultra-Fine Micro Pen Needle] 32 gauge x 1/4 needle See Rx Instructions .ROUTE .MEDSUPPLY Qty: 50 6RF Rx Instructions: daily with liraglutide nitrofurantoin monohyd/m-cryst [Macrobid] 100 mg capsule 100 mg PO Q12H 3 Days Qty: 6 0RF Rx Instructions: must administer with a meal/food naproxen 375 mg tablet,delayed release (DR/EC) 375 mg PO BID PRN (Reason: pain) 30 Days Qty: 60 0RF lamotrigine 25 mg tablet 50 mg PO DAILY oxycodone-acetaminophen [Percocet] 5-325 mg tablet 1 tab PO Q6H PRN (Reason: pain) Qty: 14 0RF Rx Instructions: Partial Fill upon patient request. ondansetron HCl 4 mg tablet 4 mg PO Q8H PRN (Reason: nausea and vomiting) 7 Days Qty: 14 0RF azithromycin 250 mg tablet 250 mg PO ONCE 5 Days Qty: 6 0RF Rx Instructions: Take 2 tablets today then 1 daily acetaminophen 500 mg tablet 500 mg PO QID PRN (Reason: pain) 5 Days Qty: 20 0RF bupropion HCl 100 mg tablet sustained-release 12 hr 100 mg PO QAM metformin 500 mg tablet extended release 24 hr 500 mg PO BID Referrals: Soto Smart MD [Physician] - 04/13/22 Stand Alone Forms: Work/School Release Interventions: ED Discharge Assessment Last Done: 04/11/22 18:22 Discharge Date/Time: 04/11/22 18:23
[2022-04-11 12:28] VITALS: BP 144/105
[2022-04-11 12:59] LABS: MANUAL DIFF FLAG NO
[2022-04-11 13:01] LABS: Basophils Percent Auto 0.2 % (0-2); Eosinophils Percent Auto 0.7 % (0-4); Hematocrit 38.1 % (37.0-47.0); Hemoglobin 12.6 g/dl (12.0-16.0); Imm Gran Abs Auto 0.02 X10*3/uL (0.00-0.03); Imm Gran Pct Auto 0.3 % (0.0-0.4); Lymphocytes Absolute Auto 2.6 X10*3/uL (1.2-4.9); Mean Corpuscular HGB Conc 33.1 g/dl (31.0-35.0); Mean Corpuscular Hemoglobin 27.3 pg (27.0-33.0); Mean Corpuscular Volume 82.5 fL (80.0-98.0); Mean Platelet Volume 10.4 fL (9.4-12.3); Monocytes Absolute Auto 0.3 X10*3/uL (0.1-1.2); Monocytes Percent Auto 5.2 % (2-11); Neutrophils Absolute Auto 2.9 x10*3/uL (2.0-8.3); Neutrophils Percent Auto 49.6 % (45-73); Platelet Count 279 X10*3/uL (160-400); Red Blood Count 4.62 X10*6/uL (4.20-5.50); Red Cell Distribution Width 13.1 % (11.0-16.0); White Blood Count 5.8 X10*3/uL (4.8-10.8)
[2022-04-11 13:06] LABS: Prothrombin Time 11.9 SEC (10.0-13.1)
[2022-04-11 13:09] LABS: Partial Thromboplastin Time 30.8 SEC (26.0-36.4)
[2022-04-11 13:39] LABS: Alanine Aminotransferase 8 U/L (0-31); Albumin Level 4.2 g/dL (3.5-5.0); Alkaline Phosphatase 45 U/L (39-117); Anion Gap 11 (12-20); Aspartate Amino Transferase 10 U/L (5-31); Bilirubin Total 0.3 mg/dL (0.0-1.0); Blood Urea Nitrogen 10 mg/dL (9-16); Calcium 9.8 mg/dL (8.4-10.2); Carbon Dioxide 27 mmol/L (22-29); Chloride 106 mmol/L (96-108); Creatinine Clr Calc Pharmacy 122.6; Estimated Glomerular Filt Rate > 60; Glucose Random 92 mg/dL (60-115); HCG Quantitative < 2 mIU/mL; Potassium 4.4 mmol/L (3.3-5.1); Sodium 140 mmol/L (135-145); Total Protein 7.9 g/dL (6.5-8.0)
--- NOTE | 2022-04-11 15:59 | ED_ITS ---
HPI - Female Genitourinary General Chief complaint: Urogenital-Female Stated complaint: ABD PAIN, BACK PAIN Time Seen by Provider: 04/11/22 15:11 History of Present Illness HPI Narrative: Patient is a 27-year-old female presents today with having right flank pain. Patient diagnosed with UTI previously. Was given Macrobid. She claims she took it for 3-5 days. Ms. Out of her medication. Complaining of pain continuing. Associated with nausea. Patient denies any fever chills. No coughing or congestion or upper respiratory symptoms. No diaphoresis. Patient is from home. She is status post appendectomy. Related Data Home Medications Medication Instructions Recorded Confirmed bupropion HCl 100 mg tablet,12 hr 100 mg PO QAM 11/03/21 04/06/22 sustained-release metformin 500 mg tablet,extended 500 mg PO BID 11/03/21 04/06/22 release 24 hr lamotrigine 25 mg tablet 50 mg PO DAILY 03/31/22 04/06/22 Previous Rx's Medication Instructions Recorded pen needle, diabetic 32 gauge x #50 ea 11/07/2103/29 (BD Ultra-Fine Micro Pen Needle) naproxen 375 mg tablet,delayed 375 mg PO BID PRN pain 30 days #60 03/04/22 release tabs oxycodone-acetaminophen 5 mg-325 1 tab PO Q6H PRN pain #14 tabs 03/31/22 mg tablet (Percocet) acetaminophen 500 mg tablet 500 mg PO QID PRN pain 5 days #20 04/06/22 tabs azithromycin 250 mg tablet 250 mg PO ONCE 5 days #6 tabs 04/06/22 ondansetron HCl 4 mg tablet 4 mg PO Q8H PRN nausea and 04/06/22 vomiting 7 days #14 tabs nitrofurantoin 100 mg PO Q12H 3 days #6 caps 04/08/22 monohydrate/macrocrystals 100 mg capsule (Macrobid) ondansetron 4 mg disintegrating 4 mg PO TID PRN nausea and 04/11/22 tablet vomiting 5 days #10 tabs Allergies Allergy/AdvReac Type Severity Reaction Status Date / Time latex [LATEX] Allergy Unknown RASH Verified 04/11/22 10:08 sulfamethoxazole Allergy Unknown SHORTNESS Verified 04/11/22 10:08 [From BACTRIM] OF BREATH Review of Systems Review of Systems: No fever no chills no chest pain no shortness no diaphoresis Yes all other systems are reviewed and are negative [facility] Past Medical History Attestation statement: The following information was validated with the patient. Medical History Amenorrhea Asthma Family history of breast cancer Generalized anxiety disorder Hirsutism Migraine with aura Migraines Nephrolithiasis Obesity Polycystic ovary syndrome Prediabetes Right ankle pain Vitamin D deficiency Surgical History History of appendectomy History of delivery Family History Family History Mother Obesity Maternal Aunt Breast cancer Paternal Aunt Breast cancer Family/Other Ovarian cancer Paternal Uncle Lung cancer Other Mental problem Substance abuse Social History Social History Household Members: Children Housing: Apartment Housing Other:: She is looking to move out of her current apartment, not close to family Alcohol intake: never Patient Tobacco Use Status: Never used Tobacco e-Cigarette/Vaping Use: Never Used Second Hand Smoke Exposure: Yes Substance Use Type: Marijuana Advance Directives: No Advance Directives Information Provided: Yes service: No Current occupational status: unemployed Physical Exam Vital Signs: Vital Signs: Last Vital Signs Temp 97.9 F 04/11/22 12:24 Pulse 69 04/11/22 12:24 Resp 16 04/11/22 12:24 BP 144/105 H 04/11/22 12:28 Pulse Ox 100 04/11/22 12:24 O2 Del Method 04/11/22 12:24 BMI result Body Mass Index 34.5 Appearance: Alert. Oriented X3. No acute distress. Eyes: Pupils equal, round and reactive to light. ENT: Pharynx normal. Neck: Normal inspection. Neck supple. No lymph nodes noted. No crepitus CVS: Normal heart rate and rhythm. Pulses normal. Normal S1 and S2 Respiratory: No respiratory distress. Breath sounds normal. No Wheezing. No rales Abdomen: Soft and nontender. No rigidity. No distention. good BS x4. Positive right-sided CVA tenderness Skin: Skin warm and dry. Normal skin color. Normal skin turgor. Extremities: No lower extremity edema. Neurovascular intact to all extremities. No Lacerations. No Rash Neuro: Oriented X 3. No motor deficit. No sensory deficit. Moving all extermities. No slurred speech Medications Administered Discontinued Medications Generic Name Dose Route Start Last Admin Trade Name Leonelq PRN Reason Stop Dose Admin Sodium Chloride 1,000 mls @ 999 mls/hr 04/11/22 16:00 04/11/22 16:27 Ns IV 04/11/22 17:00 999 mls/hr .Q1H1M BRIANDA Administration Sodium Chloride 1,000 mls @ 999 mls/hr 04/11/22 16:00 04/11/22 16:28 Ns IV 04/11/22 17:00 999 mls/hr .Q1H1M BRIANDA Administration Ketorolac Tromethamine 30 mg 04/11/22 15:58 04/11/22 16:26 Ketorolac Tromethamine 30 Mg/Ml Vial IVPUSH 04/11/22 15:59 30 mg ONCE ONE Administration Ondansetron HCl 4 mg 04/11/22 15:58 04/11/22 16:26 Ondansetron Hcl 4 Mg/2 Ml Vial IVPUSH 04/11/22 15:59 4 mg ONCE ONE Administration Medical Decision Making Admission/Observation positive right CVA tenderness question pyelonephritis versus kidney stone. Versus pneumonia. CT scan of the abdomen pelvis was negative for any acute evidence of kidney stone. No evidence for pneumonia at the right base. Patient is status post appendectomy. There is no inflammation noted. Patient denies any vaginal bleeding. No vaginal discharge. Claims she is not sexually active. less likely this is STDs. positive nausea vomiting. Urine is being sent off. Will monitor carefully. patient's urine showed no signs of infection. There is positive blood noted. Will have patient follow-up with urology on an outpatient basis. Patient claims she is not having her menstruation at this time. Positive nausea will give nausea medication. CT scan was reviewed 1 more time. There is no large pelvic viscera noted. Not consistent with ovarian torsion. An ultrasound was still offered. Patient did not want at this time. Wants to leave. She has been in the emergency department for few hours now. States understanding worsening condition to return. Will do a bladder scan before she leaves to make sure she does not have overt retention. She is in stable condition. Lab Data MDM Lab Attestation statement: I reviewed the patient's lab results. 04/11/22 12:45 04/11/22 12:45 Labs: Lab Results 04/11/22 04/11/22 04/11/22 Range/Units 12:45 12:45 12:45 WBC 5.8 (4.8-10.8) X10*3/uL RBC 4.62 (4.20-5.50) X10*6/uL Hgb 12.6 (12.0-16.0) g/dl Hct 38.1 (37.0-47.0) % MCV 82.5 (80.0-98.0) fL MCH 27.3 (27.0-33.0) pg MCHC 33.1 (31.0-35.0) g/dl RDW 13.1 (11.0-16.0) % Plt Count 279 (160-400) X10*3/uL MPV 10.4 (9.4-12.3) fL Immature Gran % (Auto) 0.3 (0.0-0.4) % Neut % (Auto) 49.6 (45-73) % Lymph % (Auto) 44.0 H (20-40) % [place] % (Auto) 5.2 (2-11) % Eos % (Auto) 0.7 (0-4) % Baso % (Auto) 0.2 (0-2) % Lymph # (Auto) 2.6 (1.2-4.9) X10*3/uL [place] # (Auto) 0.3 (0.1-1.2) X10*3/uL Eos # (Auto) 0.0 (0.0-0.4) X10*3/uL Baso # (Auto) 0.0 (0.0-0.2) X10*3/uL Abs Immat Gran (auto) 0.02 (0.00-0.03) X10*3/uL Absolute Neuts (auto) 2.9 (2.0-8.3) x10*3/uL Absolute Nucleated RBC 0.000 (0.0-0.012) X10*3/uL Nucleated RBC % (auto) 0.0 (0.0-0.2) /100WBC PT 11.9 (10.0-13.1) SEC INR 1.0 (0.9-1.1) APTT 30.8 (26.0-36.4) SEC Sodium 140 (135-145) mmol/L Potassium 4.4 (3.3-5.1) mmol/L Chloride 106 (96-108) mmol/L Carbon Dioxide 27 (22-29) mmol/L Anion Gap 11 L (12-20) BUN 10 (9-16) mg/dL Creatinine 0.70 (0.5-1.4) mg/dL Estim Creat Clear Calc 122.6 Estimated GFR > 60 Random Glucose 92 (60-115) mg/dL Calcium 9.8 D (8.4-10.2) mg/dL Total Bilirubin 0.3 (0.0-1.0) mg/dL AST 10 (5-31) U/L ALT 8 (0-31) U/L Alkaline Phosphatase 45 (39-117) U/L Total Protein 7.9 (6.5-8.0) g/dL Albumin 4.2 (3.5-5.0) g/dL Beta HCG, Quant < 2 mIU/mL Urine Color Urine Appearance Urine pH (5.0-9.0) Ur Specific [place] (1.005-1.025) Urine Protein (Neg-Trace) mg/dL Urine Glucose (UA) (Negative) mg/dL Urine Ketones (Negative) mg/dL Urine Blood (Negative) Urine Nitrite (Negative) Ur Leukocyte Esterase (Negative) Urine RBC (0-2) /HPF Urine WBC (0-5) /HPF Ur Squamous Epith Cells (0-2) /HPF Urine Bacteria (None Seen) Hyaline Casts (0-2) /LPF Urine Test (NEGATIVE) 04/11/22 04/11/22 Range/Units 16:01 16:01 WBC (4.8-10.8) X10*3/uL RBC (4.20-5.50) X10*6/uL Hgb (12.0-16.0) g/dl Hct (37.0-47.0) % MCV (80.0-98.0) fL MCH (27.0-33.0) pg MCHC (31.0-35.0) g/dl RDW (11.0-16.0) % Plt Count (160-400) X10*3/uL MPV (9.4-12.3) fL Immature Gran % (Auto) (0.0-0.4) % Neut % (Auto) (45-73) % Lymph % (Auto) (20-40) % [place] % (Auto) (2-11) % Eos % (Auto) (0-4) % Baso % (Auto) (0-2) % Lymph # (Auto) (1.2-4.9) X10*3/uL [place] # (Auto) (0.1-1.2) X10*3/uL Eos # (Auto) (0.0-0.4) X10*3/uL Baso # (Auto) (0.0-0.2) X10*3/uL Abs Immat Gran (auto) (0.00-0.03) X10*3/uL Absolute Neuts (auto) (2.0-8.3) x10*3/uL Absolute Nucleated RBC (0.0-0.012) X10*3/uL Nucleated RBC % (auto) (0.0-0.2) /100WBC PT (10.0-13.1) SEC INR (0.9-1.1) APTT (26.0-36.4) SEC Sodium (135-145) mmol/L Potassium (3.3-5.1) mmol/L Chloride (96-108) mmol/L Carbon Dioxide (22-29) mmol/L Anion Gap (12-20) BUN (9-16) mg/dL Creatinine (0.5-1.4) mg/dL Estim Creat Clear Calc Estimated GFR Random Glucose (60-115) mg/dL Calcium (8.4-10.2) mg/dL Total Bilirubin (0.0-1.0) mg/dL AST (5-31) U/L ALT (0-31) U/L Alkaline Phosphatase (39-117) U/L Total Protein (6.5-8.0) g/dL Albumin (3.5-5.0) g/dL Beta HCG, Quant mIU/mL Urine Color Yellow Urine Appearance Clear Urine pH 5.5 (5.0-9.0) Ur Specific [place] 1.020 (1.005-1.025) Urine Protein Negative (Neg-Trace) mg/dL Urine Glucose (UA) Negative (Negative) mg/dL Urine Ketones Negative (Negative) mg/dL Urine Blood Large (3+) H (Negative) Urine Nitrite Negative (Negative) Ur Leukocyte Esterase Trace H (Negative) Urine RBC >20 H (0-2) /HPF Urine WBC 0-5 (0-5) /HPF Ur Squamous Epith Cells 3-5 (0-2) /HPF Urine Bacteria None Seen (None Seen) Hyaline Casts 0-2 (0-2) /LPF Urine Test NEGATIVE (NEGATIVE) Prescription Management I considered prescription management with: Pain Medication and Other nausea medications Social Determinants Patient?s care significantly limited by Social Determinants of Health including: Problems related to employment Discharge Plan Discharge Clinical Impression: Acute flank pain, Nausea Patient Disposition: Home, Self-Care Instructions: Acute Nausea and Vomiting (ED), Flank Pain (ED) Prescriptions: New ondansetron 4 mg tablet,disintegrating 4 mg PO TID PRN (Reason: nausea and vomiting) 5 Days Qty: 10 0RF No Action (DME) pen needle, diabetic [BD Ultra-Fine Micro Pen Needle] 32 gauge x 1/4 needle See Rx Instructions .ROUTE .MEDSUPPLY Qty: 50 6RF Rx Instructions: daily with liraglutide nitrofurantoin monohyd/m-cryst [Macrobid] 100 mg capsule 100 mg PO Q12H 3 Days Qty: 6 0RF Rx Instructions: must administer with a meal/food naproxen 375 mg tablet,delayed release (DR/EC) 375 mg PO BID PRN (Reason: pain) 30 Days Qty: 60 0RF lamotrigine 25 mg tablet 50 mg PO DAILY oxycodone-acetaminophen [Percocet] 5-325 mg tablet 1 tab PO Q6H PRN (Reason: pain) Qty: 14 0RF Rx Instructions: Partial Fill upon patient request. ondansetron HCl 4 mg tablet 4 mg PO Q8H PRN (Reason: nausea and vomiting) 7 Days Qty: 14 0RF azithromycin 250 mg tablet 250 mg PO ONCE 5 Days Qty: 6 0RF Rx Instructions: Take 2 tablets today then 1 daily acetaminophen 500 mg tablet 500 mg PO QID PRN (Reason: pain) 5 Days Qty: 20 0RF bupropion HCl 100 mg tablet sustained-release 12 hr 100 mg PO QAM metformin 500 mg tablet extended release 24 hr 500 mg PO BID Referrals: Soto Smart MD [Physician] - 04/13/22 Stand Alone Forms: Work/School Release
[2022-04-11 16:13] LABS: Appearance Urine Clear; Color Urine Yellow; Glucose Urine UA Negative (Negative); Leukocyte Esterase Urine Trace (Negative); Nitrite Urine Negative (Negative); PH 5.5 (5.0-9.0); UMIC TRIGGER UACC YES; Urine Blood Large (3+) (Negative); Urine Ketones Negative (Negative); Urine Protein Negative (Neg-Trace)
[2022-04-11 16:15] LABS: UPreg QC Valid YES; Urine Pregnancy NEGATIVE (NEGATIVE)
[2022-04-11 16:18] LABS: Bacteria Urine None Seen (None Seen); Hyaline Casts Urine 0-2 /LPF (0-2); RBC Urine >20 /HPF (0-2); WBC Urine 0-5 /HPF (0-5)
[2022-04-11] MEDS: ondansetron HCL 4 MG/2 ML VIAL IVPUSH (16:26)
[2022-04-11] MEDS: Ketorolac Tromethamine 30 MG/ML VIAL IVPUSH (16:26)
[2022-04-11] MEDS: 0.9 % Sodium Chloride 1,000 ML 999 ML IV ×2 (16:27→16:28)
== END 2022-04-11 18:23 | disposition home or self-care (01) ==
PROVIDERS: Physician Assistant; Emergency Provider Emergency Medicine Emergency Medical Services; PCP Physician Assistant
DX: R10.9 Unspecified abdominal pain (principal); M54.50 Low back pain, unspecified; R11.2 Nausea with vomiting, unspecified; Z79.899 Other long term (current) drug therapy
CPT/HCPCS: 36415; 74176; 80053; 81001; 81025; 84702; 85025; 85610; 85730; 87086; 96361; 96374; 96375; 99283; 99284; J1885; J2405

== ENCOUNTER 2022-04-14 09:27 | Outpatient (REF) | payer OTHER, SELFPAY ==
[2022-04-14 10:25] LABS: Appearance Urine Clear; Color Urine Yellow; Glucose Urine UA Negative (Negative); Leukocyte Esterase Urine Negative (Negative); Nitrite Urine Negative (Negative); Specific Gravity - Urine 1.015 (1.005-1.025); UMIC TRIGGER UACC YES; Urine Blood Moderate (2+) (Negative); Urine Ketones Negative (Negative); Urine Protein Negative (Neg-Trace)
[2022-04-14 10:27] LABS: Bacteria Urine None Seen (None Seen); Hyaline Casts Urine 0-2 /LPF (0-2); Squamous Epithelial Cell Urine 0-2 /HPF (0-2); WBC Urine 0-5 /HPF (0-5)
[2022-04-14 11:36] LABS: TSH reflex Free T4 0.36 uIU/mL (0.32-4.0); Vitamin D 25-OH Total 29.3 ng/mL (>30)
[2022-04-14 17:10] LABS: CT PCR NOT DETECTED (Not Detect.); NG PCR NOT DETECTED (Not Detect.)
[2022-04-15 08:55] LABS: HBS Num1 379.83 mIU/mL (0-7.99); HBc Num1 0.12 S/CO (0.00-0.79); HBsAGNum1 0.33 S/CO (0.00-0.99); Hepatitis B Core Antibody Nonreactive (Nonreactive); Hepatitis B Surface Antigen Negative (Negative); ~Hepatitis B Surface Antibody REACTIVE (Nonreactive); ~Hepatitis C Antibody Nonreactive (Nonreactive)
[2022-04-15 09:08] LABS: Syphilis Screen Nonreactive (Nonreactive)
[2022-04-15 09:36] LABS: HIV AB/AG Nonreactive (Nonreactive); HIV Num 1 0.06 S/CO (0.00-0.99)
== END 2022-04-14 09:28 | disposition home or self-care (01) ==
LOC: HO.LAB 09:27
PROVIDERS: PCP Physician Assistant; Visit Provider Nurse Practitioner Family
DX: Z00.00 Encounter for general adult medical examination without abnormal findings (principal); Z11.3 Encounter for screening for infections with a predominantly sexual mode of transmission; Z11.4 Encounter for screening for human immunodeficiency virus [HIV]
CPT/HCPCS: 0353U; 81001; 82306; 84443; 86704; 86706; 86780; 86803; 87340; 87389

== ENCOUNTER 2022-04-24 09:59 | Outpatient (REF) | payer OTHER, SELFPAY ==
[2022-04-25 13:02] LABS: BV Int Neg Control Negative (Negative); BV Int Pos Control Positive (Positive)
== END 2022-04-24 10:00 | disposition home or self-care (01) ==
LOC: HO.LAB 09:59
PROVIDERS: Advanced Practice Midwife; PCP Physician Assistant; Visit Provider Internal Medicine
DX: N89.8 Other specified noninflammatory disorders of vagina (principal); E28.2 Polycystic ovarian syndrome; E66.9 Obesity, unspecified; E55.9 Vitamin D deficiency, unspecified; R79.89 Other specified abnormal findings of blood chemistry; R73.03 Prediabetes; Z79.899 Other long term (current) drug therapy
CPT/HCPCS: 87480; 87510; 87660; 99212

== ENCOUNTER 2022-07-20 18:52 | Emergency (ER) | payer OTHER, SELFPAY ==
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
[2022-07-20 19:05] VITALS: BP 138/87; PULSE 83; RESP 18; TEMP 36.8; O2SAT 100; BMI 34.4
[2022-07-20 19:13] VITALS: BP 132/74; PULSE 79; O2SAT 100
[2022-07-20] MEDS: Ondansetron ODT 4 MG TAB.RAPDIS TRANSLINGU (19:34)
[2022-07-20] MEDS: Acetaminophen 325 MG TABLET 975 MG PO (19:34)
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
[2022-07-20 20:13] LABS: HCG Quantitative < 2 mIU/mL
[2022-07-20] MEDS: oxyCODONE HCl Immed Release 5 MG TABLET PO (20:54)
--- NOTE | 2022-07-20 21:30 | PC.NURSE ---
c collar removed by PA
== END 2022-07-20 21:55 | disposition home or self-care (01) ==
PROVIDERS: Physician Assistant; Emergency Provider Emergency Medicine; PCP Physician Assistant
DX: S16.1XXA Strain of muscle, fascia and tendon at neck level, initial encounter (principal); V43.52XA Car driver injured in collision with other type car in traffic accident, initial encounter; Y93.89 Activity, other specified; Y92.414 Local residential or business street as the place of occurrence of the external cause; Y99.9 Unspecified external cause status; Z79.899 Other long term (current) drug therapy
CPT/HCPCS: 36415; 70450; 72125; 84702; 99283; 99284

== ENCOUNTER 2022-08-14 09:28 | Outpatient (REF) | payer OTHER, SELFPAY ==
[2022-08-15 06:31] LABS: CT PCR NOT DETECTED (Not Detect.); NG PCR NOT DETECTED (Not Detect.)
[2022-08-15 08:55] LABS: BV Int Neg Control Negative (Negative); BV Int Pos Control Positive (Positive)
== END 2022-08-14 09:29 | disposition home or self-care (01) ==
LOC: HO.LNP 09:28
PROVIDERS: PCP Physician Assistant; Visit Provider Advanced Practice Midwife
DX: Z01.419 Encounter for gynecological examination (general) (routine) without abnormal findings (principal); Z11.3 Encounter for screening for infections with a predominantly sexual mode of transmission; N91.2 Amenorrhea, unspecified
CPT/HCPCS: 0353U; 87480; 87510; 87660; 88142

== ENCOUNTER 2022-08-16 14:10 | Outpatient (REF) | payer OTHER, SELFPAY ==
--- NOTE | ~2022-08-16 | US_ITS ---
EXAMINATION: US DIAGNOSTIC ULTRASOUND BREAST, RIGHT US DIAGNOSTIC ULTRASOUND BREAST, LEFT CLINICAL INFORMATION: 27-year-old with chronic palpable areas left breast 3:00 and 6:00 position for approximately 12 months, and recent palpable area 9:00 right breast, for approximately one week. No prior breast imaging. COMPARISON: None. TECHNIQUE: Ultrasound of each breast is performed using grayscale imaging and color Doppler without and with harmonics. Patient is able to point to the areas of clinical concern at time of imaging. Imaging performed by both air brush decorator and radiologist separately. FINDINGS: Right: There is no focal suspicious finding. There is no cystic or solid mass, architectural abnormality, duct ectasia, or edema in the soft tissue planes. Left: There is no focal suspicious finding. There is no cystic or solid mass, architectural abnormality, duct ectasia, or edema in the soft tissue planes. Results are discussed with the patient at time of visit. US/US breast RT limited IMPRESSION: - Normal study. ASSESSMENT: BI-RADS 1: Negative RECOMMENDATION: 1. Patient should be managed based on the clinical impression. If there is still clinical concern, further evaluation may be considered with surgical consult. Decision to proceed with biopsy should be based on clinical grounds and degree of clinical concern. 2. Otherwise, routine annual screening mammography, beginning age 40, or earlier as clinical risk factors warrant. This patient's information was entered into a reminder system with a target due date for their next mammogram.
--- NOTE | ~2022-08-16 | US_ITS ---
EXAMINATION: US DIAGNOSTIC ULTRASOUND BREAST, RIGHT US DIAGNOSTIC ULTRASOUND BREAST, LEFT CLINICAL INFORMATION: 27-year-old with chronic palpable areas left breast 3:00 and 6:00 position for approximately 12 months, and recent palpable area 9:00 right breast, for approximately one week. No prior breast imaging. COMPARISON: None. TECHNIQUE: Ultrasound of each breast is performed using grayscale imaging and color Doppler without and with harmonics. Patient is able to point to the areas of clinical concern at time of imaging. Imaging performed by both document review specialist and radiologist separately. FINDINGS: Right: There is no focal suspicious finding. There is no cystic or solid mass, architectural abnormality, duct ectasia, or edema in the soft tissue planes. Left: There is no focal suspicious finding. There is no cystic or solid mass, architectural abnormality, duct ectasia, or edema in the soft tissue planes. Results are discussed with the patient at time of visit. US/US breast LT limited IMPRESSION: - Normal study. ASSESSMENT: BI-RADS 1: Negative RECOMMENDATION: 1. Patient should be managed based on the clinical impression. If there is still clinical concern, further evaluation may be considered with surgical consult. Decision to proceed with biopsy should be based on clinical grounds and degree of clinical concern. 2. Otherwise, routine annual screening mammography, beginning age 40, or earlier as clinical risk factors warrant. This patient's information was entered into a reminder system with a target due date for their next mammogram.
== END 2022-08-16 14:11 | disposition home or self-care (01) ==
LOC: HO.MAMMO 14:10
PROVIDERS: PCP Physician Assistant; Visit Provider Advanced Practice Midwife
DX: N63.25 Unspecified lump in the left breast, overlapping quadrants (principal); N63.15 Unspecified lump in the right breast, overlapping quadrants; Z80.3 Family history of malignant neoplasm of breast
CPT/HCPCS: 76642

== ENCOUNTER 2022-10-04 10:25 | Outpatient (REF) | payer OTHER, SELFPAY ==
--- NOTE | ~2022-10-04 | XR_ITS ---
EXAMINATION: XR LUMBOSACRAL SPINE CLINICAL INFORMATION: Lower back pain COMPARISON: None available. TECHNIQUE: Three views of the lumbosacral spine. FINDINGS: Diffuse endplate spurring preservation of vertebral heights and disc spaces. Posterior elements intact. Minor scoliosis convex left. No fracture or focal lesion. No spondylolysis. XR/XR lumbar spine 2-3V IMPRESSION: No acute findings. Mild endplate spurring.
[2022-10-04 11:28] LABS: Estimated Average Glucose 94 mg/dL; Hemoglobin A1c % 4.9 %
[2022-10-04 12:20] LABS: Cholesterol 196 mg/dL; HDL Cholesterol 51 mg/dL; LDL Cholesterol Calculated 134 mg/dl; Triglycerides 59 mg/dL
[2022-10-06 17:24] LABS: DHEA Sulfate 353 mcg/dL (14-349); Follicle Stimulating Hormone 2.6 mIU/mL; Lutenizing Hormone 6.4 mIU/mL; Sex Hormone Binding Globulin 35 nmol/L (17-124)
[2022-10-06 17:58] LABS: LDL Cholesterol Direct 139 mg/dL (<100)
[2022-10-10 14:23] LABS: Testosterone, Total 65 ng/dL (2-45)
[2022-10-10 22:39] LABS: Estradiol Ultra Sensitive 293 pg/mL
[2022-10-11 19:13] LABS: Androstenedione 266 ng/dL
== END 2022-10-04 10:26 | disposition home or self-care (01) ==
LOC: HO.LAB 10:25
PROVIDERS: Absent Provider Internal Medicine; PCP Physician Assistant; Referring Provider Physician Assistant; Visit Provider Nurse Practitioner Family
DX: E28.2 Polycystic ovarian syndrome (principal); M54.50 Low back pain, unspecified
CPT/HCPCS: 36415; 72100; 80061; 82157; 82627; 82670; 83001; 83002; 83036; 83721; 84270; 84402; 84403

== ENCOUNTER 2022-10-12 10:48 | Outpatient (AMB) | payer OTHER, SELFPAY ==
[2022-10-12 10:50] VITALS: BP 120/84; PULSE 65; O2SAT 99; BMI 32.9
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
== END 2022-10-12 11:26 | disposition home or self-care (01) ==
PROVIDERS: PCP Physician Assistant; Visit Provider Physician Assistant
DX: M54.16 Radiculopathy, lumbar region (principal)
CPT/HCPCS: 99213

== ENCOUNTER 2022-10-25 07:47 | Outpatient (AMB) | payer OTHER, SELFPAY ==
--- NOTE | 2022-10-25 07:48 | MHC.OFFVIS ---
Intake Intake Visit Reasons: F/U Obesity and PCOS, needs 30 minutes Allergies latex [LATEX] Allergy (Unknown, Verified 10/25/22 08:37) RASH sulfamethoxazole [From BACTRIM] Allergy (Unknown, Verified 10/25/22 08:37) SHORTNESS OF BREATH Medication List - Last Reconciled 10/25/22 by Dinora Serrano, DO acetaminophen 500 mg PO QID PRN 5 days albuterol sulfate 90 mcg/actuation 1 inh inhalation QID 30 days bupropion HCl 100 mg PO QAM 90 days cholecalciferol (vitamin D3) 25 mcg PO DAILY diclofenac sodium 1% (Arthritis Pain (diclofenac)) 2 grams topical QID PRN diclofenac sodium 75 mg PO BID 10 days lamotrigine (Lamictal) 50 mg (2 x 25 mg) PO BID 90 days liraglutide (Victoza 3-Jay) 1.8 mg (0.3 mL) subcut Q24H 30 days metformin ER 1,000 mg (2 x 500 mg) PO BID 30 days pen needle, diabetic (BD Ultra-Fine Micro Pen Needle) daily with liraglutide tizanidine 4 mg PO Q8H PRN HPI HPI Comments History of Present Illness Details 27 YO Female with no significant PMHx who is seen in F/U for PCOS and Obesity. Menarche was age 9. Menses were always irregular, coming only a few times per year. She does have 1 son who is 2 years old, had difficulty conceiving and did use fertility treatments. After the of her son she was on an OCP and menses normalized. She developed Migraine headaches with Aura, so she has remained off the OCP since that time, and continues with irregular menses. Does complain of hirsutism on her face. She reports she was given the diagnosis of PCOS many years ago, in her teens. After her initial visit we completed a full biochemical assessment which revealed elevated testosterone levels. She was also found to have low Vitamin D. Fasting glucose revealed prediabetes. T2DM was ruled out by 2 hour OGTT. She was started on Metofrmin and Victoza, but stopped these of her own accord. 1 mg overnight DSST ruled out amanda's disease. She had a CT of the adrenals, which revealed no adrenal mass. US of the ovaries was WNL. CT Abdomen: 03/31/2021 FINDINGS: LUNG BASES: The lung bases are clear.? LIVER, GALLBLADDER, AND BILIARY TREE: The liver, gallbladder, and bile ducts appear normal.? PANCREAS: Normal.? SPLEEN: Normal.? ADRENAL GLANDS AND KIDNEYS: There is no adrenal mass. The adrenal glands appear normal. 3 mm nonobstructing calculus upper pole left kidney. Skin to stone distance 8.7 cm. Too small to accurately measure attenuation. 3 mm nonobstructing calculus lower pole right kidney. Skin to stone distance of 14.1 cm. Too small to accurately measure attenuation. No renal mass. No hydronephrosis. BOWEL LOOPS: Included small and large bowel are unremarkable.? LYMPH NODES: No adenopathy. No retroperitoneal mass. VASCULAR: Abdominal aorta normal in caliber. IVC normal in caliber. Portal vein patent. BONES: Mild degenerative changes in the lower thoracic spine.? Ovarian US: 04/15/2021 FINDINGS: The uterus is anteverted and measures 7 x 3.7 x 4.6 cm in dimension. No focal uterine lesion is seen. Endometrial thickness is normal measuring 0.3 cm. The ovaries are normal. The right ovary measures 3.9 x 2.4 x 2 cm. The left ovary measures 3 x 2 x 2.2 cm. There is no fluid in the pelvis.? US/US pelvic complete IMPRESSION: Normal pelvic ultrasound. Labs: Laboratory Tests 10/04/22 10:56 LDL Cholesterol Di rect 139 H Total Testosterone 65 H Fr Testosterone Di katelynn 9.0 H Sex Hormone Bind G lob 35 Androstenedione 266 H DHEA Sulfate 353 H PFSH Medical History Amenorrhea Asthma Family history of breast cancer Generalized anxiety disorder Hirsutism Migraine with aura Migraines Nephrolithiasis Obesity PCOS (polycystic ovarian syndrome) Polycystic ovary syndrome Prediabetes Right ankle pain Vitamin D deficiency Surgical History History of appendectomy History of delivery Family History Mother Obesity Breast cancer Maternal Aunt Breast cancer Paternal Aunt Breast cancer Family/Other Ovarian cancer Paternal Uncle Lung cancer Other Mental problem Substance abuse Social History (Reviewed 10/25/22 @ 08:43 by AZEEM Atkinson Household Members: Children Housing: Apartment Housing Other:: She is looking to move out of her current apartment, not close to family Alcohol intake: current Alcohol intake frequency: holidays/special occasions only Alcohol type: beer and other Patient Tobacco Use Status: Current someday Tobacco user e-Cigarette/Vaping Use: Never Used Second Hand Smoke Exposure: Yes Substance Use Type: Marijuana service: No Current occupational status: unemployed Cognitive needs: No Hearing needs: No Vision needs: No Female Reproductive History Menstrual Age of Menarche: 9 Assessment & Plan Assessment & Plan (1) Obesity: Code(s): E66.9 - Obesity, unspecified Plan: Patient has failed lifestyle intervention. Completed approximately 2 months of Victoza therapy and saw no weight loss. Has been ruled out for amanda's disease with 1 mg overnight DSST. TSH at goal. We discussed that obesity is worsening her PCOS which is increasing her risk of endometrial cancer. I recommend bariatric surgery with a VSG at this time. She is interested in speaking with the bariatric surgeon. I will place referral for the medical weight loss program. She will then F/u in 6 months time with labs prior. All of her questions were answered. She is in agreement with this plan of care. I spent 20 minutes in reviewing the record, seeing the patient and documenting in the medical record, including 5 minutes on the phone with the Patient. (2) Elevated testosterone level: Code(s): R79.89 - Other specified abnormal findings of blood chemistry Plan: Androgen levels again elevated now that she is off Metformin. I advised she resume metformin 1000 mg PO BID (start 500 mg PO BID and in 2 weeks increase to 1000 mg PO BID) and repeat labs in 3 months time. (3) Vitamin D deficiency: Code(s): E55.9 - Vitamin D deficiency, unspecified Plan: Vitamin D at goal. No changes. (4) Prediabetes: Code(s): R73.03 - Prediabetes Plan: Patient with prediabetes based on elevated fasting sugar. We reviewed weight loss as the mainstay of treatment. Will also resume metformin. (5) PCOS (polycystic ovarian syndrome): Code(s): E28.2 - Polycystic ovarian syndrome Plan: Management as per above. Telehealth Telehealth Location of provider rendering services: practice address Location of patient: address on file Patient Identification confirmed using: Name, : Yes Telehealth method: voice only Patient verbally consented to treatment: Yes Patient verbally consented to billing insurance company: Yes Patient informed of any privacy concerns related to visit: Yes Coding Level of Care Code Tele Est Pt Level 3 (02745) Diagnoses Obesity E66.9 Elevated testosterone level R79.89 Vitamin D deficiency E55.9 Prediabetes R73.03 PCOS (polycystic ovarian syndrome) E28.2
== END 2022-10-25 08:56 | disposition home or self-care (01) ==
LOC: HO.ENCR 07:48
PROVIDERS: PCP Physician Assistant; Visit Provider Internal Medicine
DX: E66.9 Obesity, unspecified (principal); R79.89 Other specified abnormal findings of blood chemistry; E55.9 Vitamin D deficiency, unspecified; R73.03 Prediabetes; E28.2 Polycystic ovarian syndrome
CPT/HCPCS: 99213

== ENCOUNTER → 2022-10-25 07:47 | Outpatient (BNVA) | payer OTHER, SELFPAY | PROVIDERS: PCP Physician Assistant; Visit Provider Internal Medicine ==

== ENCOUNTER 2022-11-08 08:24 | Outpatient (REF) | payer OTHER, SELFPAY ==
--- NOTE | ~2022-11-08 | MR_ITS ---
EXAMINATION: MR BRAIN WITHOUT CONTRAST CLINICAL INFORMATION: Facial twitching COMPARISON: CT head 07/20/2022 TECHNIQUE: MRI of the brain was obtained using routine sequences without contrast. FINDINGS: No acute infarct. No acute intracranial hemorrhage or extra-axial fluid collection. The ventricles and sulci are normal in size and configuration without significant volume loss or hydrocephalus. No mass lesion, mass effect, or herniation pattern. Normal intracranial arterial and dural venous sinus flow voids. Minimally low-lying cerebellar tonsils terminate up to 3 mm below the foramen magnum with preserved rounded morphology. The orbits are grossly unremarkable. The paranasal sinuses and mastoids are well aerated. Normal marrow signal. MR/MR head/brain wo con IMPRESSION: The bilateral cranial nerves VII and VIII complexes appear grossly unremarkable on this nondedicated examination however could be better diagnostically assessed with dedicated contrast enhanced IAC protocol, as clinically warranted. Unremarkable brain MRI apart from minimally low-lying cerebellar tonsils without overt cerebellar ectopia.
== END 2022-11-08 08:25 | disposition home or self-care (01) ==
LOC: HO.MRI 08:24
PROVIDERS: PCP Physician Assistant; Visit Provider Physician Assistant
DX: G51.4 Facial myokymia (principal); M54.16 Radiculopathy, lumbar region
CPT/HCPCS: 70551

== ENCOUNTER 2022-11-20 11:27 | Outpatient (AMB) | payer OTHER, SELFPAY ==
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
[2022-11-20 11:31] VITALS: BP 110/60; PULSE 77; O2SAT 99; BMI 34.2
== END 2022-11-20 12:12 | disposition home or self-care (01) ==
PROVIDERS: PCP Physician Assistant; Visit Provider Nurse Practitioner Family
DX: M54.16 Radiculopathy, lumbar region (principal); Z32.01 Encounter for pregnancy test, result positive
CPT/HCPCS: 81025; 99213

== ENCOUNTER 2022-11-21 14:00 | Outpatient (RCR) | payer OTHER, SELFPAY ==
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
--- NOTE | 2022-11-22 10:39 | MHC.PT.DC ---
[facility] [place] Office [place] Office [place] Office [address] Matt Schwartz [address] [phone] F: [phone] F: [phone] F: [phone] F: [phone] Physical Therapy Discharge Report Diagnosis: Cervicalgia Date of Surgery: NA Date of Evaluation: 10/04/22 Date of Discharge: 11/22/22 Treatments to Date: 9 Cancellations to Date: No Shows to Date: Discharge Status: Achieved Goals Improved Function Discharge Summary: Althea has completed 9 PT visits and has made significant improvements. She is not compliant with HEP due to personal matters however has returned to PLOF. She is therefore being d.c from PT. Electronically signed by: Tonya Dowling, PT DPT Please sign and return to therapist. Thank you for your referral.
== END 2022-11-22 10:40 | disposition home or self-care (01) ==
LOC: HO.PT 14:00
PROVIDERS: PCP Physician Assistant; Visit Provider Nurse Practitioner Family
DX: M54.50 Low back pain, unspecified (principal); R29.898 Other symptoms and signs involving the musculoskeletal system
CPT/HCPCS: 97110; 97116; 97161; 97162; 97530

== ENCOUNTER 2022-11-21 23:01 | Emergency (ER) | payer OTHER, SELFPAY ==
--- NOTE | ~2022-11-21 | US_ITS ---
EXAMINATION: US OBSTETRICAL PELVIC AND TRANSVAGINAL CLINICAL INFORMATION: 6 weeks patient with severe cramping. Beta-hCG on 11/21/2022 of 4344. COMPARISON: None available. LMP: 10/09/2022. Gestational age by maternal dates is 6 weeks 2 days. Estimated date of delivery by maternal dates is 07/16/2023. TECHNIQUE: Real-time scanning of the pelvis is acquired via transabdominal and transvaginal approach. FINDINGS: The uterus is retroverted measuring approximately 7.4 x 4.7 x 5.2 cm in length, AP and transverse dimensions respectively. The cervix appears closed. There is a single intrauterine gestational sac without visible yolk sac or embryo. There is no significant subchorionic hemorrhage or hematoma. MSD (mean gestational sac diameter): 0.44 cm (5 weeks +/- 4 days). SAM (estimated date of delivery): 07/25/2023 +/- 4 days. MATERNAL ADNEXA: The right maternal ovary measures 3.5 x 1.9 x 2.9 cm. Collapsing corpus luteal cyst is noted measuring 1.9 x 1.3 x 1.5 cm. The left maternal ovary measures 3.1 x 1.8 x 2.1 cm. There is no significant maternal adnexal mass. Trace simple-appearing free fluid is noted in the pelvis, likely physiologic. US/US OB pelvic and transvaginal IMPRESSION: 1. Single intrauterine gestational sac with mean gestational sac diameter correlating with gestational age of 5 +/- 4 days. Nonvisualization of yolk sac and embryo this time is likely related to early gestational age. No sonographic evidence of concurrent ectopic . Recommend correlation with serial beta-hCG. Recommend followup ultrasound in 7-10 days to ensure normal progression of the . 2. Estimated date of delivery is 07/25/2023 +/- 4 days. 3. No maternal adnexal mass or significant pelvic ascites.
--- NOTE | 2022-11-21 23:07 | ECG_ITS ---
Test Reason : CHEST PAIN Blood Pressure : / mmHG Vent. Rate : 083 BPM Atrial Rate : 083 BPM P-R Int : 158 ms QRS Dur : 072 ms QT Int : 372 ms P-R-T Axes : 061 052 060 degrees QTc Int : 437 ms Normal sinus rhythm Normal ECG When compared with ECG of 05-DEC-2018 20:26, QRS duration has decreased QT has lengthened Referred By: Generic ED Physician Electronically Signed By:
[2022-11-21 23:52] LABS: Hematocrit 34.3 % (37.0-47.0); Hemoglobin 11.4 g/dl (12.0-16.0); Mean Corpuscular HGB Conc 33.2 g/dl (31.0-35.0); Mean Corpuscular Hemoglobin 27.5 pg (27.0-33.0); Mean Corpuscular Volume 82.7 fL (80.0-98.0); Mean Platelet Volume 10.6 fL (9.4-12.3); Platelet Count 236 X10*3/uL (160-400); Red Blood Count 4.15 X10*6/uL (4.20-5.50); Red Cell Distribution Width 13.5 % (11.0-16.0); White Blood Count 8.5 X10*3/uL (4.8-10.8)
[2022-11-22 00:06] VITALS: BP 113/60; PULSE 74; RESP 16; TEMP 36.8; O2SAT 99; BMI 34.2
[2022-11-22 00:09] LABS: Alanine Aminotransferase 11 U/L (0-31); Albumin Level 3.8 g/dL (3.5-5.0); Alkaline Phosphatase 41 U/L (39-117); Anion Gap 11 (12-20); Aspartate Amino Transferase 12 U/L (5-31); Bilirubin Total 0.2 mg/dL (0.0-1.0); Blood Urea Nitrogen 16 mg/dL (9-16); Calcium 9.5 mg/dL (8.4-10.2); Carbon Dioxide 24 mmol/L (22-29); Chloride 107 mmol/L (96-108); Estimated Glomerular Filt Rate > 60; Glucose Random 101 mg/dL (60-115); Potassium 3.7 mmol/L (3.3-5.1); Sodium 138 mmol/L (135-145); Total Protein 6.9 g/dL (6.5-8.0)
[2022-11-22 00:14] LABS: HCG Quantitative 4344 mIU/mL
[2022-11-22 00:34] LABS: Troponin-I High Sensitivity < 2.7 ng/L (<3.5-17.0)
[2022-11-22 01:17] LABS: Appearance Urine Clear; Color Urine Yellow; Glucose Urine UA Negative (Negative); Leukocyte Esterase Urine Negative (Negative); Nitrite Urine Negative (Negative); UMIC TRIGGER UACC YES; Urine Blood Trace (Negative); Urine Ketones Negative (Negative); Urine Protein Negative (Neg-Trace)
[2022-11-22 01:23] LABS: Bacteria Urine None Seen (None Seen); Hyaline Casts Urine 0-2 /LPF (0-2); WBC Urine 0-5 /HPF (0-5)
--- NOTE | 2022-11-22 03:32 | ED.ABDPAIN ---
HPI - Abdominal Pain General Chief Complaint: Abdominal Pain Stated Complaint: Extreme cramping/ Time Seen by Provider: 11/22/22 03:25 Source: patient Mode of arrival: ambulatory Limitations: no limitations History of Present Illness HPI narrative: Patient comes to the emergency room complaining of severe lower abdominal cramping that has been present for about 13 hours. Patient states that she is a A2, she currently estimates that she she is 6 weeks . Patient states that for couple weeks she has been having intermittent cramping, however, for the last 13 hours the abdominal pain and cramping has gotten much worse. Patient denies any vaginal bleeding or spotting Related Data Previous Rx's Medication Instructions Recorded pen needle, diabetic 32 gauge x #50 ea 11/07/2103/29 (BD Ultra-Fine Micro Pen Needle) acetaminophen 500 mg tablet 500 mg PO QID PRN pain 5 days #20 04/06/22 tabs liraglutide 0.6 mg/0.1 mL (18 mg/3 1.8 mg (0.3 mL) subcut Q24H 30 04/24/22 mL) subcutaneous pen injector days #9 mL (Victoza 3-Jay) albuterol sulfate 90 mcg/actuation 1 inh inhalation QID shortness of 09/05/22 aerosol inhaler breath or wheezing 30 days #8.5 grams bupropion HCl 100 mg tablet,12 hr 100 mg PO QAM 90 days #90 tabs 09/05/22 sustained-release lamotrigine 25 mg tablet (Lamictal) 50 mg PO BID 90 days #360 tabs 09/05/22 tizanidine 4 mg tablet 4 mg PO Q8H PRN muscle spasticity 09/12/22 #20 tabs diclofenac sodium 75 mg 75 mg PO BID 10 days #20 tabs 10/12/22 tablet,delayed release cholecalciferol (vitamin D3) 25 25 mcg PO DAILY #90 tabs 10/16/22 mcg (1,000 unit) tablet metformin 500 mg tablet,extended 1,000 mg PO BID 30 days #120 tabs 10/25/22 release 24 hr diclofenac sodium 1 % topical gel 2 g topical QID PRN pain #100 grams 11/13/22 (Arthritis Pain (diclofenac)) Allergies Allergy/AdvReac Type Severity Reaction Status Date / Time latex [LATEX] Allergy Unknown RASH Verified 11/20/22 11:30 sulfamethoxazole Allergy Unknown SHORTNESS Verified 11/20/22 11:30 [From BACTRIM] OF BREATH Review of Systems Review of Systems Constitutional : No Weight loss, No Fever, No Chills, No Night Sweats, No Fatigue, No Malaise ENT/Mouth : No Hearing loss, No Ear Pain, No Nasal Congestion, No Sinus Pain, No Hoarseness, No sore throat, No Rhinorrhea, No Swallowing Difficulty Eyes: No Eye Pain, No Swelling, No Redness, No Foreign Body, No Discharge, No Vision Changes Cardiovascular : No Chest Pain, No SOB, No Dyspnea on Exertion, No Orthopnea, No Edema, No Palpitations Respiratory : No Cough, No Sputum, No Wheezing, No Smoke Exposure, No Dyspnea Gastrointestinal : No Nausea, No Vomiting, No Diarrhea, No Constipation, No abdominal Pain, No Hematochezia, No Melena Genitourinary : Complaining of abdominal cramping,, No Dysuria, No Urinary Frequency, No Hematuria, No Urinary Incontinence, No Urgency, No Flank Pain, No Urinary Flow Changes, No Hesitancy Musculoskeletal : No joint pain, No Myalgias, No Joint Swelling Skin : No Skin Lesions, No rash Neuro : No Weakness, No Numbness, No Paresthesias, No Loss of Consciousness, No Dizziness, No Headache Psych : No Anxiety/Panic, No Depression, No SI/HI/AH/VH, No Social Issues, Heme/Lymph: No Bruising, No Bleeding,No Lymphadenopathy Endocrine : No Polyuria, No Polydipsia, No Temperature Intolerance PMFSH Past Medical History Medical History Amenorrhea Asthma Encounter for screening Family history of breast cancer Generalized anxiety disorder Hirsutism Migraine with aura Migraines Nephrolithiasis Obesity PCOS (polycystic ovarian syndrome) Polycystic ovary syndrome Prediabetes Right ankle pain Vitamin D deficiency Surgical History History of appendectomy History of delivery Family History Family History Mother Obesity Breast cancer Maternal Aunt Breast cancer Paternal Aunt Breast cancer Family/Other Ovarian cancer Paternal Uncle Lung cancer Other Mental problem Substance abuse Social History Social History (Reviewed 11/20/22 @ 11:30 by AUNDREA Reid Household Members: Children Housing: Apartment Housing Other:: She is looking to move out of her current apartment, not close to family Alcohol intake: never Patient Tobacco Use Status: Former Tobacco user Smoked in Last 30 Days: No e-Cigarette/Vaping Use: Never Used Second Hand Smoke Exposure: Yes Use of substances other than those prescribed or required for medical reasons: No Substance Use Type: Marijuana Advance Directives: No Advance Directives Information Provided: No Patient : Yes service: No Current occupational status: unemployed Cognitive needs: No Hearing needs: No Vision needs: No Physical Exam ED Vital Signs: Vital Signs - 24 hr 11/22/22 00:06 11/22/22 03:43 Temperature 98.2 F Pulse Rate 74 Respiratory Rate 16 18 Blood Pressure 113/60 Pulse Oximetry 99 Oxygen Delivery Method Room Air BMI result Body Mass Index 34.2 Const Other: Appearance: Alert. Oriented X3. Patient looks uncomfortable Eyes: Pupils equal, round and reactive to light. ENT: Pharynx normal. Neck: Normal inspection. Neck supple. No lymph nodes noted. No crepitus CVS: Normal heart rate and rhythm. Pulses normal. Normal S1 and S2 Respiratory: No respiratory distress. Breath sounds normal. No Wheezing. No rales Abdomen: Soft and nontender. No rigidity. No distention. Skin: Skin warm and dry. Normal skin color. Normal skin turgor. Extremities: No lower extremity edema. No Lacerations. No Rash Neuro: Oriented X 3. No motor deficit. No sensory deficit. Moving all extremities. No slurred speech. CN 2 through 12 grossly intact Psych: calm, cooperative, normal affect Course Course Course Narrative: - Medical Decision Making Medical Decision Making [facility] Narrative: -my interpretation of labs, hCG 4344, ultrasound has been done. [facility] is having trouble with the system, I cannot see the images and it can day. It will be a delay in reporting the ultrasound -sign-out given to Dr. Augustin Differential Diagnosis Differential Diagnoses: The differential diagnosis associated with the presentation includes (Abdominal cramping, miscarriage, ectopic ) Admission/Observation Consideration of admission/observation: Escalation of care including admission/observation considered (Patient complaining of abdominal pain, possible ectopic , admission/transfer considered) Lab Data 11/21/22 23:46 11/21/22 23:46 Labs: Lab Results 11/21/22 11/21/22 11/21/22 Range/Units 04:48 23:46 23:46 WBC 8.5 (4.8-10.8) X10*3/uL RBC 4.15 L (4.20-5.50) X10*6/uL Hgb 11.4 L (12.0-16.0) g/dl Hct 34.3 L (37.0-47.0) % MCV 82.7 (80.0-98.0) fL MCH 27.5 (27.0-33.0) pg MCHC 33.2 (31.0-35.0) g/dl RDW 13.5 (11.0-16.0) % Plt Count 236 (160-400) X10*3/uL MPV 10.6 (9.4-12.3) fL Absolute Nucleated RBC 0.000 (0.0-0.012) X10*3/uL Nucleated RBC % (auto) 0.0 (0.0-0.2) /100WBC Sodium 138 (135-145) mmol/L Potassium 3.7 (3.3-5.1) mmol/L Chloride 107 (96-108) mmol/L Carbon Dioxide 24 (22-29) mmol/L Anion Gap 11 L (12-20) BUN 16 (9-16) mg/dL Creatinine 0.78 (0.5-1.4) mg/dL Estim Creat Clear Calc TNP Estimated GFR > 60 Random Glucose 101 (60-115) mg/dL Calcium 9.5 (8.4-10.2) mg/dL Total Bilirubin 0.2 (0.0-1.0) mg/dL AST 12 (5-31) U/L ALT 11 (0-31) U/L Alkaline Phosphatase 41 (39-117) U/L Troponin I High Sens (<3.5-17.0) ng/L Total Protein 6.9 (6.5-8.0) g/dL Albumin 3.8 (3.5-5.0) g/dL Beta HCG, Quant mIU/mL Urine Color Urine Appearance Urine pH (5.0-9.0) Ur Specific Brooks (1.005-1.025) Urine Protein (Neg-Trace) mg/dL Urine Glucose (UA) (Negative) mg/dL Urine Ketones (Negative) mg/dL Urine Blood (Negative) Urine Nitrite (Negative) Ur Leukocyte Esterase (Negative) Urine RBC (0-2) /HPF Urine WBC (0-5) /HPF Ur Squamous Epith Cells (0-2) /HPF Urine Bacteria (None Seen) Hyaline Casts (0-2) /LPF Blood Type B Positive 11/21/22 11/21/22 11/22/22 Range/Units 23:46 23:46 00:59 WBC (4.8-10.8) X10*3/uL RBC (4.20-5.50) X10*6/uL Hgb (12.0-16.0) g/dl Hct (37.0-47.0) % MCV (80.0-98.0) fL MCH (27.0-33.0) pg MCHC (31.0-35.0) g/dl RDW (11.0-16.0) % Plt Count (160-400) X10*3/uL MPV (9.4-12.3) fL Absolute Nucleated RBC (0.0-0.012) X10*3/uL Nucleated RBC % (auto) (0.0-0.2) /100WBC Sodium (135-145) mmol/L Potassium (3.3-5.1) mmol/L Chloride (96-108) mmol/L Carbon Dioxide (22-29) mmol/L Anion Gap (12-20) BUN (9-16) mg/dL Creatinine (0.5-1.4) mg/dL Estim Creat Clear Calc Estimated GFR Random Glucose (60-115) mg/dL Calcium (8.4-10.2) mg/dL Total Bilirubin (0.0-1.0) mg/dL AST (5-31) U/L ALT (0-31) U/L Alkaline Phosphatase (39-117) U/L Troponin I High Sens < 2.7 (<3.5-17.0) ng/L Total Protein (6.5-8.0) g/dL Albumin (3.5-5.0) g/dL Beta HCG, Quant 4344 mIU/mL Urine Color Yellow Urine Appearance Clear Urine pH 7.0 (5.0-9.0) Ur Specific Brooks 1.020 (1.005-1.025) Urine Protein Negative (Neg-Trace) mg/dL Urine Glucose (UA) Negative (Negative) mg/dL Urine Ketones Negative (Negative) mg/dL Urine Blood Trace (Negative) Urine Nitrite Negative (Negative) Ur Leukocyte Esterase Negative (Negative) Urine RBC 6-10 H (0-2) /HPF Urine WBC 0-5 (0-5) /HPF Ur Squamous Epith Cells 3-5 (0-2) /HPF Urine Bacteria None Seen (None Seen) Hyaline Casts 0-2 (0-2) /LPF Blood Type Medications Administered Discontinued Medications Generic Name Dose Route Start Last Admin Trade Name Freq PRN Reason Stop Dose Admin Morphine Sulfate 1 mg 11/22/22 03:30 11/22/22 03:43 Morphine Sulfate 2 Mg/Ml Cartridge IM 11/22/22 03:31 1 mg ONCE ONE Administration Protocol Critical Care Time Critical Care Time Critical Care Time: Yes Total Critical Care Time: 60 Attestation: I have personally provided critical care time. Time includes review of lab data, radiology results, discussion with consultants, and monitoring for potential decompensation. Intervention performed as documented. Discharge Plan Discharge Clinical Impression: Abdominal cramping Patient Disposition: Home, Self-Care Prescriptions: No Action (DME) pen needle, diabetic [BD Ultra-Fine Micro Pen Needle] 32 gauge x 1/4 needle See Rx Instructions .ROUTE .MEDSUPPLY Qty: 50 6RF Rx Instructions: daily with liraglutide cholecalciferol (vitamin D3) 25 mcg (1,000 unit) tablet 25 mcg PO DAILY Qty: 90 0RF diclofenac sodium [Arthritis Pain (diclofenac)] 1 % gel 2 g topical QID PRN (Reason: pain) Qty: 100 1RF Rx Instructions: apply to single elbow, wrist or hand; for hand includes palm/fingers/back of hand acetaminophen 500 mg tablet 500 mg PO QID PRN (Reason: pain) 5 Days Qty: 20 0RF tizanidine 4 mg tablet 4 mg PO Q8H PRN (Reason: muscle spasticity) Qty: 20 0RF bupropion HCl 100 mg tablet sustained-release 12 hr 100 mg PO QAM 90 Days Qty: 90 1RF lamotrigine [Lamictal] 25 mg tablet 50 mg PO BID 90 Days Qty: 360 1RF albuterol sulfate 90 mcg/actuation HFA aerosol inhaler 1 inh inhalation QID 30 Days Qty: 8.5 3RF diclofenac sodium 75 mg tablet,delayed release (DR/EC) 75 mg PO BID 10 Days Qty: 20 0RF Victoza 3-Jay 0.6 mg/0.1 mL (18 mg/3 mL) pen injector 1.8 mg subcut Q24H 30 Days Qty: 9 11RF metformin 500 mg tablet extended release 24 hr 1,000 mg PO BID 30 Days Qty: 120 11RF
[2022-11-22 03:43] VITALS: RESP 18
[2022-11-22] MEDS: Morphine Sulfate 2 MG/ML CARTRIDGE 1 MG IM (03:43)
--- NOTE | 2022-11-22 04:08 | PC.NURSE ---
Patient currently at ultrasound
--- NOTE | 2022-11-22 07:32 | PC.NURSE ---
pt moved from [facility] to [facility]. pt reports she is feeling frustrated with how long everything is taking and having been given no answers. pt has a child at home that needs to be cared for. pt was given verbal reassurance and told that our hands are tied on our end and we are waiting for radiology to be able to read the ultrasound. Dr. Augustin aware and is ok with the pt leaving and getting a call with the ultrasound results once they are in. pt agrees with this plan and is awaiting discharge instructions.
== END 2022-11-22 08:03 | disposition home or self-care (01) ==
PROVIDERS: Emergency Medicine; Emergency Provider Student in an Organized Health Care Education/Training Program; PCP Physician Assistant
DX: O26.891 Other specified pregnancy related conditions, first trimester (principal); R10.30 Lower abdominal pain, unspecified; Z3A.01 Less than 8 weeks gestation of pregnancy
CPT/HCPCS: 36415; 76801; 76817; 80053; 81001; 84484; 84702; 85027; 86900; 86901; 93005; 96372; 99284; J2270

== ENCOUNTER 2023-01-02 11:27 | Outpatient (AMB) | payer OTHER, SELFPAY ==
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
[2023-01-02 11:31] VITALS: BP 102/60; PULSE 75; RESP 17; O2SAT 97; BMI 35.3
== END 2023-01-02 12:13 | disposition home or self-care (01) ==
PROVIDERS: PCP Physician Assistant; Visit Provider Physician Assistant
DX: M54.16 Radiculopathy, lumbar region (principal)
CPT/HCPCS: 99213

== ENCOUNTER 2023-04-17 09:42 | Outpatient (AMB) | payer OTHER, SELFPAY ==
[2023-04-17 09:48] VITALS: BP 118/62; PULSE 80; O2SAT 98; BMI 35.7
--- NOTE | 2023-04-17 09:48 | MHC.PC.OV ---
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 Accompanied by: Self / Same As Patient Allergies latex [LATEX] Allergy (Unknown, Verified 04/17/23 10:02) RASH sulfamethoxazole [From BACTRIM] Allergy (Unknown, Verified 04/17/23 10:02) SHORTNESS OF BREATH Medication List - Last Reconciled 04/17/23 by Tye eTresa PA-C acetaminophen 500 mg PO QID PRN 5 days albuterol sulfate 90 mcg/actuation 1 inh inhalation QID 30 days bupropion HCl 100 mg PO QAM 90 days cholecalciferol (vitamin D3) 25 mcg PO DAILY diclofenac sodium 75 mg PO BID 10 days lamotrigine (Lamictal) 50 mg (2 x 25 mg) PO BID 90 days liraglutide (Victoza 3-Jay) 1.8 mg (0.3 mL) subcut Q24H 30 days metformin ER 1,000 mg (2 x 500 mg) PO BID 30 days pen needle, diabetic (BD Ultra-Fine Micro Pen Needle) daily with liraglutide Tobacco use date assessed: 04/17/23 Dental Screening Dental Screen Date: 04/17/23 Did you have a dental visit in the last 12 months?: Yes Did you have a dental problem in the last 6 months where you did not have access to dental care?: No Was dental information given to patient?: Patient has dentist HPI Annual exam HPI Details Patient Laboratory Tests 11/21/22 23:46 RBC 4.15 L Beta HCG, Quant 4344 is a 28-year-old female here today for routine annual physical. Patient has a past medical history significant for type 2 diabetes, chronic lumbar spine pain, PCOS , obesity, asthma, major depressive disorder and anxiety.. 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 Type 2 diabetes/ PCOS: Patient continues on metformin and Victoza. Has been out of Victoza over the last several weeks. Was followed by endocrinology though has lost follow-up due to provider living. Now needs PCP to manage her diabetes and PCOS. .. Mood disorder/major depressive disorder: Continues on mood stabilization with Lamictal and bupropion. She feels her mental health is fairly stable. Does have stress and anxiety in her life due to employment issues and living situation. 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 Unfortunately recently had a miscarriage [facility] Medical History Encounter for screening PCOS (polycystic ovarian syndrome) Right ankle pain Prediabetes Nephrolithiasis Obesity Polycystic ovary syndrome Migraine with aura Migraines Generalized anxiety disorder Family history of breast cancer Vitamin D deficiency Hirsutism Amenorrhea Asthma Surgical History History of delivery History of appendectomy Family History Mother Obesity Breast cancer Maternal Aunt Breast cancer Paternal Aunt Breast cancer Family/Other Ovarian cancer Paternal Uncle Lung cancer Other Mental problem Substance abuse Social History (Updated 04/17/23 @ 10:13 by Tye Teresa PA-C) Household Members: Children Housing: Apartment Housing Other:: She is looking to move out of her current apartment, not close to family Alcohol intake: current Alcohol intake frequency: holidays/special occasions only Alcohol type: beer and other Patient Tobacco Use Status: Former Tobacco user e-Cigarette/Vaping Use: Never Used Second Hand Smoke Exposure: Yes Substance Use Type: Marijuana service: No Current occupational status: unemployed Cognitive needs: No Hearing needs: No Vision needs: No Female Reproductive History Menstrual Age of Menarche: 9 Questionnaire PHQ-9 Over the last 2 weeks, how often have you been bothered by any of the following problems? 1. Little interest or pleasure in doing things: not at all 2. Feeling down, depressed, or hopeless: not at all 3. Trouble falling or staying asleep, or sleeping too much: not at all 4. Feeling tired or having little energy: not at all 5. Poor appetite or overeating: not at all 6. Feeling bad about yourself - or that you are a failure or have let yourself or your family down: not at all 7. Trouble concentrating on things, such as reading the newspaper or watching television: not at all 8. Moving or speaking so slowly that other people could have noticed. Or the opposite - being so fidgety or restless that you have been moving around a lot more than usual: not at all 9. Thoughts that you would be better off or of hurting yourself in some way: not at all Total score: 0 Depression Screening Interpretation: Negative Depression Screening Done: Yes 15751 - PHQ-9 Billing: Yes Source: Developed by Drs. Tristan Mcpherson, Divya Lara, Nikolai Arambula and colleagues, with an educational medardo from [employer]. Thrive Questionnaire Date Thrive assessed: 04/17/23 I am a: Patient What is your living situation today?: I have a steady place to live Within the past 12 months, did the food you bought not last and you didn't have the money to get more?: Never true Within the past 12 months, did you worry whether your food would run out before you got money to buy more?: Never true Do you have trouble paying for medicines?: No Do you have trouble getting transportation to medical appointments?: No Do you have trouble paying your heating and electricity bill?: No Do you have trouble taking care of your child, family member or friend?: No Do you have trouble with day-to-day activities such as bathing, preparing meals, shopping, managing finances, etc.?: No Are you currently unemployed and looking for a job?: No Are you interested in more education?: No Please select the resources that you would like help with: None THRIVE Score: 0 AUDIT C Alcohol Use Questionnaire (AUDIT-C) 1. How often do you have a drink containing alcohol?: Monthly or less 2. How many drinks containing alcohol do you have on a typical day when you are drinking?: 1 or 2 3. How often do you have six or more drinks on one occasion?: Never Total Score: 1 Score Reviewed/Action Taken: No VIK-7 AMB Questionnaire VIK-7 Date VIK - 7 assessed: 04/17/23 Feeling nervous, anxious, or on edge: 0 = Not at all Not being able to stop or control worryin = Not at all Worrying too much about different things: 0 = Not at all Trouble relaxin = Not at all Being so restless that it is hard to sit still: 0 = Not at all Becoming easily annoyed or irritable: 0 = Not at all Feeling afraid as if something awful might happen: 0 = Not at all Total VIK-7 score (0-4 normal; 5-9 mild; 10-14 moderate; 15-21 severe): 0 Source: Developed by Drs. Tristan Mcpherson, Divya Lara, Nikolai Arambula and colleagues, with an educational medardo from [employer]. VIK-7 Assessment Billing VIK-7 Assessment Tool: VIK-7 Assessment 03268 ACT Questionnaire In the past 4 weeks, how much of the time did your asthma keep you from getting as much done at work, school or at home?: None of the time During the past 4 weeks, how often have you had shortness of breath?: Not at all During the past 4 weeks, how often did your asthma symptoms wake you up at night or earlier than usual in the morning?: Not at all During the past 4 weeks, how often have you had to use your rescue inhaler or nebulizer medication?: Not at all How would you rate your asthma control during the past 4 weeks?: Well controlled ACT Interpretation: Negative Score: 24 Review of Systems Const Denies body aches, Denies chills, Denies excessive sweating, Denies fatigue, Denies fever(s) and Denies headache(s) Eyes Denies blurry vision ENT Denies dysphagia, Denies vertigo, Denies dizziness, Denies headache(s), Denies hearing loss and Denies tinnitus Card Denies chest pain, Denies chest pain with activity, Denies syncope, Denies irregular heart rhythm and Denies dyspnea Resp Denies chest congestion, Denies cough, Denies hemoptysis, Denies dyspnea and Denies wheezing GI Denies abdominal pain, Denies melena, Denies hematochezia, Denies coffee ground emesis, Denies dysphagia, Denies diarrhea, Denies nausea and Denies vomiting Denies urinary frequency, Denies dysuria, Denies urinary hesitancy and Denies urinary urgency Musc Denies arthralgias, Denies limited range of motion, Denies muscle cramps and Denies muscle weakness Skin/Breast Denies rash and Denies skin ulcer Neuro Denies Abnormal speech present, Denies confusion, Denies vertigo, Denies dizziness, Denies syncope, Denies headache(s), Denies memory loss and Denies seizure-like activity Psych Denies anxiety, Denies confusion, Denies depression, Denies memory loss, Denies panic attacks and Denies paranoia Endo Denies excessive sweating, Denies fatigue, Denies flushing, Denies polydipsia and Denies polyuria Aller/Immun Denies wheezing Physical exam (Primary Care) Vital Signs: Last Vital Signs Pulse 80 04/17/23 09:48 BP 118/62 04/17/23 09:48 Pulse Ox 98 04/17/23 09:48 Oxygen Delivery Method Room Air 04/17/23 09:48 BMI result Body Mass Index 35.7 BMI Assessment/Plan discussion: High Tobacco/Smoking Status: Tobacco use Status Tobacco use date assessed 04/17/23 04/17/23 09:50 Patient Tobacco Use Status Former Tobacco user 04/17/23 10:13 e-Cigarette/Vaping Use Never Used 04/17/23 10:13 PHQ-9: PHQ-9 Score PHQ-9: Total score 0 04/17/23 11:40 Depression Screening Interpretation: Negative Thrive Assessment: Date of Thrive Assessment Date Thrive assessed 04/17/23 04/17/23 09:50 Const Other: OBESE General: cooperative, comfortable, no acute distress, alert and awake; No confusion Orientation/consciousness: oriented to person, oriented to place, patient oriented x3 and No confusion HENMT Head: Yes normocephalic Ears: external ears normal and TM's normal bilaterally Face and sinus: No sinus tenderness Mouth: Normal oral and palatal mucosa present and tongue normal Teeth and gingiva: dentition normal and gingiva normal Throat: Yes posterior oropharynx normal, Yes tonsils normal and Yes uvula midline Eyes Conjunctivae: conjunctivae normal Sclerae: sclerae normal Pupils: Equal, round and reactive pupils present EOM: EOMs intact bilaterally Direct Ophthalmoscopy: No no photophobia Neck Neck: Yes no lymphadenopathy, No tender and Yes no JVD Thyroid: Thyroid normal Carotids: no bruits Chest Chest palpation & inspection: no tenderness Resp Effort & Inspection: normal respiratory effort, no audible wheezes, not labored and no stridor Auscultation: no crackles, no rales, no rhonchi and no wheezes Cardio Jugular venous distension: no JVD Rate: regular rate, not bradycardic and not tachycardic Rhythm: regular rhythm Bruits: no carotid bruits Peripheral pulses: Peripheral pulses 2+ throughout GI Inspection: Yes normal to inspection, No abdominal wall ecchymosis and No visible herniation Palpation (GI): Soft to palpation, nontender, no guarding, not rigid and No hepatosplenomegaly present Auscultation: normoactive bowel sounds General: Yes no CVA tenderness Back/Spine/Pelvis Back: no CVA tenderness and No back tenderness Cervical Spine: cervical ROM normal Thoracic/Lumbar Spine: thoracic and lumbar spine normal to inspection, straight leg raise negative bilaterally, No thoraco-lumbar ROM limited and No lumbar spinal tenderness Skin Lesions: no lesions Rashes: no rashes Wounds: no wounds Neuro General: oriented to person, oriented to place, patient oriented x3, CN's II-XI intact bilaterally and No confusion Cranial nerves: Yes Equal, round and reactive pupils present and Yes Normal accommodation reflex present Cognition (Neuro): normal cognition Speech: No Abnormal speech present Gait exam (Neuro): Normal gait present Motor exam (neuro): 5/5 motor strength present throughout Extrem Right upper extremity: full ROM; no cyanosis Left upper extremity: full ROM; no cyanosis Right lower extremity: no edema Left lower extremity: no edema Psych Appearance: grossly normal Mental Status: mental status grossly normal Affect: normal affect Attitude: cooperative Thought process: Normal thought process present Office Procedures Flu Questionnaire Does the patient have a severe egg allergy?: No Does the patient have severe life threatening allergies?: No Does the patient have a fever or illness today?: No Has the patient ever had Guillain-Sims Syndrome?: No Has the patient ever had any past reaction to a flu shot?: No Immunizations flu vacc [id number] 6mos up(PF) 60 mcg(15 mcgx4)/0.5 mL IM syringe Performing Provider: Tye Teresa PA-C [facility] Administered by: OG Barrientos on 04/17/23 10:38 Dose Route Admin Location Dispensed Lot Number Expiration Date NDC Hash [place] 0.5 mL IM Left Deltoid 0.5 mL [id number] 09/23/23 50950-650-11 [facility] VIS Given Date VIS Provided VIS Publication Date 04/17/23 Single Vaccine 20 Eligibility Eligibility Date Funding Source Not [facility] Eligible 04/17/23 Private Assessment and Plan Assessment & Plan (1) Annual physical exam: Code(s): Z00.00 - Encounter for general adult medical examination without abnormal findings (2) DMII (diabetes mellitus, type 2): Code(s): E11.9 - Type 2 diabetes mellitus without complications Qualifiers: Diabetes mellitus complication status: with hyperglycemia 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 Will recheck an A1c to assure below 7.0. Was followed by endocrinology though has lost follow-up.. Goal A1c is to be below 7.0 (3) MDD (major depressive disorder), recurrent episode, moderate: Code(s): F33.1 - Major depressive disorder, recurrent, moderate Plan: Patient's PHQ-9 score 0. Does have a history of depression. Continues on Wellbutrin which has been effective for her. (4) Screening-pulmonary TB: Code(s): Z11.1 - Encounter for screening for respiratory tuberculosis (5) Need for MMRV (ofhnexn-imeik-vidmxhe-varicella) vaccine: Code(s): Z23 - Encounter for immunization (6) Obesity: Code(s): E66.9 - Obesity, unspecified Qualifiers: Obesity type: due to excess calories Obesity classification: adult class 2 (BMI 35 - 39.9) Serious obesity comorbidity presence: with serious comorbidity Body mass index: BMI 35.0-35.9 Qualified Code(s): E66.01 - Morbid (severe) obesity due to excess calories; Z68.35 - Body mass index [BMI] 35.0-35.9, adult Plan: Patient does understand her BMI is over 30 will work on being more physically active and adapting to better eating habits to reduce her weight. She reports Victoza does help her lose weight. (7) PCOS (polycystic ovarian syndrome): Code(s): E28.2 - Polycystic ovarian syndrome Plan: Continues on metformin (8) Asthma: Code(s): J45.909 - Unspecified asthma, uncomplicated Qualifiers: Asthma severity: mild Asthma persistence: intermittent Asthma complication type: uncomplicated Qualified Code(s): J45.20 - Mild intermittent asthma, uncomplicated Plan: Asthma has been well controlled with only limited use of her albuterol inhaler. Denies any nighttime awakenings with asthma symptoms. Orders: Orders Rubeola IgG (Measles) Today Z23 - Encounter for immunization Complete Blood Count no Diff Today E11.65 - Type 2 diabetes mellitus with hyperglycemia Lipid Panel Today E11.65 - Type 2 diabetes mellitus with hyperglycemia Hemoglobin A1c Today E11.65 - Type 2 diabetes mellitus with hyperglycemia Mumps Virus IgG Antibody Today Z23 - Encounter for immunization Rubella IgG Antibody Today Z23 - Encounter for immunization T Spot TB Today Z11.1 - Encounter for screening for respiratory tuberculosis Comprehensive [place]. Panel Fast Today E11.65 - Type 2 diabetes mellitus with hyperglycemia Vitamin D 25-OH Total Today E55.9 - Vitamin D deficiency, unspecified Influenza [id number] Immunization Today Z23 - Encounter for immunization Medications: Refilled metformin ER 1,000 mg (2 x 500 mg) PO BID 30 days 120 tabs 11RF E28.2 - Polycystic ovarian syndrome lamotrigine (Lamictal) 50 mg (2 x 25 mg) PO BID 90 days 360 tabs 1RF F33.1 - Major depressive disorder, recurrent, moderate pen needle, diabetic (BD Ultra-Fine Micro Pen Needle) daily with liraglutide 50 ea 6RF E66.9 - Obesity, unspecified liraglutide (Victoza 3-Jay) 1.8 mg (0.3 mL) subcut Q24H 30 days 9 mL 6RF E11.9 - Type 2 diabetes mellitus without complications, E66.9 - Obesity, unspecified bupropion HCl 100 mg PO QAM 90 days 90 tabs 1RF F33.1 - Major depressive disorder, recurrent, moderate Coding Level of Care Code Est Pt Prev Care [id number]([id number]) Diagnoses Annual physical exam Z00.00 Type 2 diabetes mellitus with hyperglycemia, without long-term current use of insulin E11.65 Diabetes mellitus complication status: with hyperglycemia Diabetes mellitus correction insulin use: without correction use MDD (major depressive disorder), recurrent episode, moderate F33.1 Screening-pulmonary TB Z11.1 Need for MMRV (gxqdfhi-qqklx-ydgrggs-varicella) vaccine Z23 Class 2 severe obesity due to excess calories with serious comorbidity and body mass index (BMI) of 35.0 to 35.9 in adult E66.01; Z68.35 Obesity type: due to excess calories Obesity classification: adult class 2 (BMI 35 - 39.9) Serious obesity comorbidity presence: with serious comorbidity Body mass index: BMI 35.0-35.9 PCOS (polycystic ovarian syndrome) E28.2 Mild intermittent asthma without complication J45.20 Asthma severity: mild Asthma persistence: intermittent Asthma complication type: uncomplicated Additional Codes VIK-7 Assessment Billing - VIK-7 Assessment Tool: VIK-7 Assessment [id number] ([id number])
== END 2023-04-17 10:41 | disposition home or self-care (01) ==
PROVIDERS: Visit Provider Physician Assistant
DX: Z00.00 Encounter for general adult medical examination without abnormal findings (principal); E11.65 Type 2 diabetes mellitus with hyperglycemia; F33.1 Major depressive disorder, recurrent, moderate; Z23 Encounter for immunization; Z11.1 Encounter for screening for respiratory tuberculosis; Z68.35 Body mass index [BMI] 35.0-35.9, adult; E28.2 Polycystic ovarian syndrome; J45.20 Mild intermittent asthma, uncomplicated
CPT/HCPCS: 90471; 90686; 99395

== ENCOUNTER 2023-07-23 11:09 | Outpatient (AMB) | payer OTHER, SELFPAY ==
--- NOTE | 2023-07-23 11:08 | A.OFFPC_ITS ---
Vital Signs 07/23/23 11:09 Height 5 ft 2 in Weight 185 lb BMI 33.8 BP 108/70 Blood Pressure Location Lt brachial Position Sitting Pulse 80 Pulse Source Pulse Oximeter Pulse Oximetry (%) 100 Oxygen Delivery Method Room Air Intake Visit Reasons: f/u DMII Tie Mill Operator Required: No Accompanied by: Son Allergies latex [LATEX] Allergy (Unknown, Verified 07/23/23 11:22) RASH sulfamethoxazole [From BACTRIM] Allergy (Unknown, Verified 07/23/23 11:22) SHORTNESS OF BREATH Medication List - Last Reconciled 07/23/23 by Tye Teresa PA-C acetaminophen 500 mg PO QID PRN 5 days albuterol sulfate 90 mcg/actuation 1 inh inhalation QID 30 days bupropion HCl SR 100 mg PO QAM 90 days cholecalciferol (vitamin D3) 25 mcg PO DAILY diclofenac sodium 75 mg PO BID 10 days lamotrigine (Lamictal) 50 mg (2 x 25 mg) PO BID 90 days liraglutide (Victoza 3-Jay) 1.8 mg (0.3 mL) subcut Q24H 30 days metformin ER 1,000 mg (2 x 500 mg) PO BID 30 days pen needle, diabetic (BD Ultra-Fine Micro Pen Needle) daily with liraglutide Tobacco use date assessed: 04/17/23 Dental Screening Dental Screen Date: 04/17/23 HPI f/u DMII HPI Details Patient is a 28-year-old female here today for a follow-up visit. Patient has a past medical history significant for type 2 diabetes, chronic lumb ar spine pain, PCOS , obesity, asthma, major depressive disorder and anxiety.. Recently graduated from school Concern--> she is interested in getting a breast augmentation surgery as she continues to have upper back pain. She is very limited to which he can do at the gym due to the size of her breasts. She reports her breasts often get in the way of her being able to reach her max potential at the gym. Type 2 diabetes/ PCOS: Today's A1c of 5.0. Patient continues on metformin and Victoza. Was followed by endocrinology though has lost follow-up due to provider living. Now needs PCP to manage her diabetes and PCOS. .. Mood disorder/major depressive disorder: She has self weaned off of Lamictal and bupropion. She feels her mental health is stable.. . Does have stress and anxiety in her life due to employment issues and living situation. [facility] Medical History Encounter for screening PCOS (polycystic ovarian syndrome) Right ankle pain Prediabetes Nephrolithiasis Obesity Polycystic ovary syndrome Migraine with aura Migraines Generalized anxiety disorder Family history of breast cancer Vitamin D deficiency Hirsutism Amenorrhea Asthma Surgical History History of delivery History of appendectomy Family History Mother Obesity Breast cancer Maternal Aunt Breast cancer Paternal Aunt Breast cancer Family/Other Ovarian cancer Paternal Uncle Lung cancer Other Mental problem Substance abuse Social History Household Members: Children Housing: Apartment Housing Other:: She is looking to move out of her current apartment, not close to family Alcohol intake: current Alcohol intake frequency: holidays/special occasions only Alcohol type: beer and other Patient Tobacco Use Status: Former Tobacco user e-Cigarette/Vaping Use: Never Used Second Hand Smoke Exposure: Yes Substance Use Type: Marijuana service: No Current occupational status: unemployed Cognitive needs: No Hearing needs: No Vision needs: No Female Reproductive History Menstrual Age of Menarche: 9 Questionnaire Thrive Questionnaire Date Thrive assessed: 04/17/23 I am a: Patient What is your living situation today?: I do not have a steady places to live (Pt has refuse to get resources sheet ) I am temporarily staying with others THRIVE Score: 1 VIK-7 AMB Questionnaire VIK-7 Date VIK - 7 assessed: 04/17/23 Source: Developed by Drs. Tristan Mcpherson, Divya Lara, Nikolai Arambula and colleagues, with an educational medardo from [employer]. Review of Systems Const Denies headache(s) Eyes Denies loss of vision ENT Denies vertigo, Denies dizziness, Denies headache(s) and Denies sore throat Card Denies chest pain, Denies leg edema and Denies lightheadedness Resp Denies cough, Denies hemoptysis and Denies wheezing GI Denies abdominal pain, Denies melena, Denies constipation, Denies diarrhea and Denies vomiting Denies urinary frequency, Denies dysuria and Denies urinary urgency Musc Denies arthralgias, Denies joint swelling, Denies numbness and Denies tingling Neuro Denies Abnormal speech present, Denies behavioral changes, Denies vertigo, Denies dizziness, Denies headache(s), Denies loss of vision, Denies memory loss, Denies numbness and Denies tingling Psych Denies anxiety, Denies behavioral changes, Denies depression, Denies memory loss and Denies panic attacks Leonardo/Lymph Denies easy bleeding and Denies easy bruising Aller/Immun Denies wheezing Physical exam (Primary Care) Vital Signs: Last Vital Signs Pulse 80 07/23/23 11:09 BP 108/70 07/23/23 11:09 Pulse Ox 100 07/23/23 11:09 Oxygen Delivery Method Room Air 07/23/23 11:09 BMI result Body Mass Index 33.8 Tobacco/Smoking Status: Tobacco use Status Tobacco use date assessed 04/17/23 07/23/23 11:08 Patient Tobacco Use Status Former Tobacco user 07/23/23 11:08 e-Cigarette/Vaping Use Never Used 07/23/23 11:08 Thrive Assessment: Date of Thrive Assessment Date Thrive assessed 04/17/23 07/23/23 11:08 Const General: healthy appearing, no acute distress, alert and awake Nutritional Appearance: well nourished Orientation/consciousness: oriented to person, oriented to place and oriented to time HENMT Ears: TM's normal bilaterally General nose exam: Normal nasal mucous membranes and turbinates present Eyes Conjunctivae: conjunctivae normal Sclerae: sclerae normal Pupils: Equal, round and reactive pupils present Neck Neck: Yes no lymphadenopathy and Yes no JVD Thyroid: Thyroid normal Carotids: no bruits Resp Effort & Inspection: normal respiratory effort and not tachypneic Auscultation: no crackles, no rales, no rhonchi and no wheezes Cardio Rate: regular rate Rhythm: regular rhythm Heart sounds: no murmurs and normal S1 and S2 GI Palpation (GI): Soft to palpation, nontender, no hepatomegaly and no splenomegaly Auscultation: normal bowel sounds Skin General skin exam: no rashes or lesions noted and dry skin Neuro General: oriented to person, oriented to place and oriented to time Cranial nerves: Yes Equal, round and reactive pupils present Speech: No Abnormal speech present Gait exam (Neuro): Normal gait present Motor exam (neuro): no tremor noted Extrem Right upper extremity: full ROM Left upper extremity: full ROM Right lower extremity: full ROM; no edema Left lower extremity: full ROM; no edema Psych Mental Status: mental status grossly normal Speech and movement: Normal speech and movement present Affect: normal affect Attitude: cooperative Thought process: Normal thought process present Results AMB Hemoglobin A1c AMB Hemoglobin A1c 5.0 % Last Edit by ANDRAE Javier on 07/23/23 11:21 Results Reviewed Results Reviewed: Laboratory Last Values Hgb A1c (Clinic) 5.0 % (4.0-6.0) 07/23/23 11:10 Assessment and Plan Assessment & Plan (1) DMII (diabetes mellitus, type 2): Code(s): E11.9 - Type 2 diabetes mellitus without complications Qualifiers: Diabetes mellitus complication status: with hyperglycemia Diabetes mellitus terminal superintendent insulin use: without terminal superintendent use Qualified Code(s): E11.65 - Type 2 diabetes mellitus with hyperglycemia Plan: Patient's type 2 diabetes has been well managed with Victoza and metformin. Will recheck an A1c to assure below 7.0. Was followed by endocrinology though has lost follow-up.. Goal A1c is to be below 7.0 (2) Encounter for breast augmentation: Code(s): Z41.1 - Encounter for cosmetic surgery Plan: As per HPI patient would like to speak with a plastic surgeon about breast augmentation surgery. She reports she continues to have upper back pain and her large breast hinder her from being more physically active due to their size. She is adamantly trying to lose weight though is held back by the size of her breasts (3) MDD (major depressive disorder), recurrent episode, moderate: Code(s): F33.1 - Major depressive disorder, recurrent, moderate Plan: Patient's PHQ-9 score 0. Does have a history of depression. Continues on Wellbutrin which has been effective for her. (4) PCOS (polycystic ovarian syndrome): Code(s): E28.2 - Polycystic ovarian syndrome Plan: Continues on metformin (5) Upper back pain, chronic: Code(s): M54.9 - Dorsalgia, unspecified; G89.29 - Other chronic pain Plan: As above Orders: Orders AMB Hemoglobin A1c 07/23/23 E11.65 - Type 2 diabetes mellitus with hyperglycemia Referrals Plastic Surgery Referral Z41.1 - Encounter for cosmetic surgery Medications: Refilled liraglutide (Victoza 3-Jay) 1.8 mg (0.3 mL) subcut Q24H 9 mL 6RF 30 days E11.9 - Type 2 diabetes mellitus without complications, E66.9 - Obesity, unspecified metformin ER 1,000 mg (2 x 500 mg) PO BID 120 tabs 6RF 30 days E28.2 - Polycystic ovarian syndrome Discontinued lamotrigine (Lamictal) Discontinued Reason: Doctor's Order 50 mg (2 x 25 mg) PO BID 90 days 360 tabs 1RF F33.1 - Major depressive disorder, recurrent, moderate bupropion HCl SR Discontinued Reason: Doctor's Order 100 mg PO QAM 90 days 90 tabs 2RF F33.1 - Major depressive disorder, recurrent, moderate Patient Instructions: Goals: A1c to remain below 6.5 Barriers: Adherence to healthy eating habits and physical activity Coding Level of Care Code Est Pt Level 4 (64020) Diagnoses Type 2 diabetes mellitus with hyperglycemia, without long-term current use of insulin E11.65 Diabetes mellitus complication status: with hyperglycemia Diabetes mellitus terminal superintendent insulin use: without penitentiary use Encounter for breast augmentation Z41.1 MDD (major depressive disorder), recurrent episode, moderate F33.1 PCOS (polycystic ovarian syndrome) E28.2 Upper back pain, chronic M54.9; G89.29
[2023-07-23 11:09] VITALS: BP 108/70; PULSE 80; O2SAT 100; BMI 33.8
--- OUTSIDE RECORDS SUMMARY | 2023-07-23 11:09 | XMS_ITS | Continuity of Care Document ---
Author Organization [facility] Address [address] [place] [address]- Care Team Providers Care Supervisor Beet End Name Role Phone Tye Hernandez Primary Care Physician [phone] Encounter [facility] [place] [facility] Date(s): 12/08/22 - 12/15/22 [facility] [address] [place], [place] [address] Attending Physician: Vida TRIVEDI, Usha Shankar Allergies, Adverse Reactions, Alerts Substance Reaction Severity Status Bactrim Muscle weakness. Stroke like symptoms Active Latex Rash Active Lactose Bloating Diarrhea Active Immunizations Given and Recorded Vaccine Date Status Refusal Reason tetanus/diphtheria/pertussis, acel(Tdap) 01/02/18 Given influenza virus vaccine, inactivated 01/02/18 Give n Medications docusate sodium 100 mg oral tablet 1 tablet = 100 mg, By Mouth, 3 times a day, PRN for constipation, # 100 tablet, 0 Refills, Maintenance, 01/15/18 12:46:20 EDT, Tablet Start Date: 01/15/18 Stop Date: 02/14/18 Status: Ordered miSOPROStol 200 mcg oral tablet See Instructions, 24 -48 hours after mifeprex dose (taken at director maternal child office), place all four tablets invagina, # 4 tablet, 0 Refills, Maintenance, 12/08/22 14:44:00 EDT, [facility]/pharmacy #[id number], Partial fillupon patient request if the prescription is for a s... Start Date: 12/08/22 Status: Ordered Multivitamins By Mouth, Daily, 0 Refills, Maintenance, 09/18/17 15:57:24 EDT Start Date: 09/18/17 Status: Ordered Multivitamins with Folic Acid 1 mg oral capsule 1 capsule, By Mouth, Daily, # 30 capsule, 0 Refills, Maintenance, 01/15/18 12:46:14 EDT, 1 capsule By Mouth Daily,x30 days Start Date: 01/15/18 Stop Date: 02/14/18 Status: Ordered promethazine 25 mg oral tablet 1 tablet = 25 mg, By Mouth, Every 6 hours, # 3 tablet, 0 Refills, Maintenance, 12/08/22 14:44:00 EDT, Tablet, [facility]/pharmacy #[id number], Partial fill upon patient request if the prescription is for a schedule II opioid drug., 156.2, cm, 11/28/22 15:25:00 EDT... Start Date: 12/08/22 Stop Date: 12/11/22 Status: Ordered raNITIdine 75 mg oral tablet 1 tablet = 75 mg, By Mouth, 2 times a day, # 60 tablet, 0 Refills, Maintenance, 01/15/18 12:46:06 EDT, Tablet Start Date: 01/15/18 Stop Date: 02/14/18 Status: Ordered Problem List Condition Confirmation Course Effective Dates Status Health St atus Informant Anemia Confirmed Active Anxiety Confirmed Active Exercise Induced Asthma Confirmed Active Depressive disorder Confirmed Active Migraine Confirmed Active Missed Confirmed Active Obese class I Confirmed Active Obesity Confirmed Active PCOS (polycystic ovarian syndrome) Confirmed Active Social History Social History Type Response Smoking Status Never smoker entered on: 03/13/14 Sex Patient Care team information Care Team Personnel Name: Tye Hernandez Position: Reference Physician Member Role: PCP Address: Address: [address] [place] [address]- Name: Jolly Sanchez MD Position: [facility] MACHINE SHOP APPRENTICE MD Member Role: Lifetime MACHINE SHOP APPRENTICE Physician Address: Address: [address] Women's [place] [address]- Care Team Related Persons Name: MAJOR DUDLEY Name: BALTA PATEL Address: home [address] [place] [id number]
--- OUTSIDE RECORDS SUMMARY | 2023-07-23 11:09 | XMS_ITS | Continuity of Care Document ---
Author Organization [facility] Address [address] [place] [address]- Care Team Providers Care Electronic Device Monitor Name Role Phone Tye Hernandez Primary Care Physician Encounter [facility] [place] [place] Date(s): 11/28/22 - 12/05/22 [facility] [address] [place] [address]- Attending Physician: Vida TRIVEDI, Usha Shankar Allergies, [...] Date: 01/15/18 Stop Date: 02/14/18 Status: Ordered Multivitamins By Mouth, Daily, 0 Refills, Maintenance, 09/18/17 15:57:24 EDT Start Date: 09/18/17 Status: Ordered Multivitamins with Folic Acid 1 mg oral capsule 1 capsule, By Mouth, Daily, # 30 capsule, 0 Refills, Maintenance, 01/15/18 12:46:14 EDT, 1 capsule By Mouth Daily,x30 days Start Date: 01/15/18 Stop Date: 02/14/18 Status: Ordered raNITIdine 75 mg oral tablet 1 tablet = 75 mg, By Mouth, 2 times a day, # 60 tablet, 0 Refills, Maintenance, 01/15/18 12:46:06 EDT, Tablet Start Date: 01/15/18 Stop Date: 02/14/18 Status: Ordered Problem List Condition Confirmation Course Effective Dates Status Health St atus Informant Anemia Confirmed Active Anxiety Confirmed Active Exercise Induced Asthma Confirmed Active Depressive disorder Confirmed Active First trimester bleeding Confirmed Active Migraine Confirmed Active Obese class I Confirmed Active Obesity Confirmed Active PCOS (polycystic ovarian syndrome) Confirmed Active Vital Signs Most recent to oldest [Reference Range]: 1 Height 156.20 cm (11/28/22 3:25 PM) Weight 84.1 kg (11/28/22 3:25 PM) Body Mass Index [18.5-24.99 kg/m2] 34.47 kg/m2 *>HHI* (11/28/22 3:25 PM) Blood Pressure [90-138/55-84 mm Hg] 110/ 64mm Hg (11/28/22 3:25 PM) Blood pressure sites Arm, right (11/28/22 3:25 PM) Dry Weight 84.1 kg (11/28/22 3:25 PM) Weight Obtained Via Standing scale (11/28/22 3:25 PM) Dry Weight Obtained Via Standing scale (11/28/22 3:25 PM) Social History Social History Type Response Smoking Status Never smoker entered on: 03/13/14 Sex Patient Care team information Care Team Personnel Name: Tye Hernandez Position: Reference Physician Member Role: PCP Address: Address: [address] [place] [address]- Name: Jolly Sanchez MD Position: [facility] SENIOR PHP WEB DEVELOPER MD Member Role: Lifetime SENIOR PHP WEB DEVELOPER Physician Address: Address: [address] [facility] Women's [facility] [place] [address]- Care Team Related Persons Name: MAJOR DUDLEY Name: BALTA PATEL Address: home [address] [place] [id number]
--- OUTSIDE RECORDS SUMMARY | 2023-07-23 11:09 | XMS_ITS | Continuity of Care Document ---
Author Organization [facility] Address [address] [place] [address]- Care Team Providers Care Silo Worker Name Role Phone Tye Hernandez Primary Care Physician [phone] Encounter [facility] [place] Date(s): 11/21/22 - 01/25/23 [facility] [address] [place] [address]- Attending Physician: Helena Cummings MD Allergies, Adverse Reactions, Alerts Substance Reaction Severity [...] -48 hours after mifeprex dose (taken at back hanger office), place all four tablets invagina, # 4 tablet, 0 Refills, Maintenance, 12/08/22 14:44:00 EDT, [facility]/pharmacy #[id number], Partial fillupon patient request if the prescription [...] 0 Refills, Maintenance, 12/08/22 14:44:00 EDT, Tablet, [facility]/pharmacy #[id number], Partial fill upon patient request if [...] Physician Member Role: PCP Address: Address: [address] [place] [address]- Name: Jolly Sanchez MD Position: [facility] FILTER BED PLACER MD Member Role: Lifetime FILTER BED PLACER Physician Address: Address: [address] [facility] Women's Health Supervisor [place] [address]- Care Team Related Persons Name: MAJOR DUDLEY Name: BALTA PATEL Address: home [address] [place] [id number]
--- OUTSIDE RECORDS SUMMARY | 2023-07-23 11:09 | XMS_ITS | Continuity of Care Document ---
Author Organization [facility] Address [address] [place] [address]- Care Team Providers Care Automatic Drill Operator Name Role Phone Tye Hernandez Primary Care Physician En[place] [facility] Date(s): 12/08/22 - 01/13/23 [facility] [address] [place] [address]- Attending Physician: Vida TRIVEDI, Usha Shankar Allergies, Adverse Reactions, Alerts Substance Reaction Severity Status Bactrim Muscle weakness. Stroke like symptoms Active Lactose Bloating Diarrhea Active Latex Rash Active Immunizations Given and Recorded Vaccine Date [...] -48 hours after mifeprex dose (taken at ob gyn physician assistant office), place all four tablets invagina, # 4 tablet, 0 Refills, Maintenance, 12/08/22 14:44:00 EDT, [facility]/pharmacy #[id number], Partial fillupon patient request if the prescription [...] 0 Refills, Maintenance, 12/08/22 14:44:00 EDT, Tablet, [facility]/pharmacy #[id number], Partial fill upon patient request if [...] Physician Member Role: PCP Address: Address: [address] [place] [address]- Name: Jolly Sanchez MD Position: [facility] PRODUCT SAFETY EXPERT MD Member Role: Lifetime PRODUCT SAFETY EXPERT Physician Address: Address: [address] [facility] Women's Health Process Safety [place] [address]- Care Team Related Persons Name: MAJOR DUDLEY Name: BALTA PATEL Address: home [address] [place] [id number]
--- OUTSIDE RECORDS SUMMARY | 2023-07-23 11:09 | XMS_ITS | Continuity of Care Document ---
Author Organization [facility] Address [address] [place] [address]- Care Team Providers Care Ceramic Worker Name Role Phone Tye Hernandez Primary Care Physician [phone] Encounter [facility] Date(s): 11/20/22 - 12/20/22 [facility] [address] [place], [place] [address] Allergies, Adverse Reactions, Alerts Substance Reaction Severity [...] -48 hours after mifeprex dose (taken at it web development consultant office), place all four tablets invagina, # 4 tablet, 0 Refills, Maintenance, 12/08/22 14:44:00 EDT, [facility]/pharmacy #[id number], Partial fillupon patient request if the prescription [...] 0 Refills, Maintenance, 12/08/22 14:44:00 EDT, Tablet, [facility]/pharmacy #[id number], Partial fill upon patient request if [...] Physician Member Role: PCP Address: Address: [address] [place] [address]- Name: Jolly Sanchez MD Position: [facility] COMBAT SYSTEMS OFFICER MD Member Role: Lifetime COMBAT SYSTEMS OFFICER Physician Address: Address: [address] [place] [address] Women's Health Decor[place] [address]- Care Team Related Persons Name: MAJOR DUDLEY Name: BALTA PATEL Address: home [address] [place] [id number]
--- OUTSIDE RECORDS SUMMARY | 2023-07-23 11:09 | XMS_ITS | Continuity of Care Document ---
Author Organization [facility] Address [address] [place] [address]- Care Team Providers Care Surveillance Inspector Name Role Phone Tye Hernandez Primary Care Physician Encounter [facility] Date(s): 12/08/22 - 12/15/22 [facility] [address] [place] [id number] Attending Physician: Not on Staff, Attending MD Allergies, Adverse Reactions, Alerts Substance Reaction [...] -48 hours after mifeprex dose (taken at gynecology teacher office), place all four tablets invagina, # 4 tablet, 0 Refills, Maintenance, 12/08/22 14:44:00 EDT, [facility]/pharmacy #[id number], Partial fillupon patient request if the prescription [...] 0 Refills, Maintenance, 12/08/22 14:44:00 EDT, Tablet, [facility]/pharmacy #[id number], Partial fill upon patient request [...] Status Never smoker entered on: 03/13/14 Sex Radiology * Event Display: PDC First Trimester Obstetrical U/S * Event Display: PDC First Trimester Obstetrical U/S Authored Date: [id number] OBSTETRICS REPORT PATIENT INFO: CMRN: [id number] BMRN: [id number] : [birth year] (27 yrs)(F) Name: SUPA NUÑEZ Visit Date: 12/08/2022 12:46 pm PERFORMED BY: Performed By: Lizzy Dodson RDMS Attending: Maria Dolores Burr MD Referred By: Usha Mcpherson MD Location: [facility] INDICATIONS: First trimester bleeding O20.9 Missed O02.1 VITAL SIGNS: Height: 5'2 EVALUATION: Num Of Fetuses: 1 Gest. Sac: Seen in the intrauterine cavity Yolk Sac: Visualized Pole: Not visualized Cardiac Activity: pole not seen Amniotic Fluid DOMO FV: Within normal limits BIOMETRY: GS: 15.4 mm G.Age: 6w 3d SAM: 07/31/23 OB HISTORY: : 4 Term: 1 GESTATIONAL AGE: LMP: 8w 4d Date: 10/09/22 SAM: 07/16/23 Best: 8w 4d Det. By: LMP (10/09/22) SAM: 07/16/23 CERVIX UTERUS ADNEXA: Cervix Appears closed Adnexa No anomalies noted Comment Vaginal scanning was done. COMMENTS: Gestational sac and yolk sac seen in the uterine cavity without pole. Based on prior imaging from 11/22/22, this is consistent with missed . Maria Dolores Burr MD Electronically Signed Final Report 12/08/2022 12:55 pm * Event Display: PDC First Trimester Obstetrical U/S Authored Date: Please click on pdf link to open report Patient Care team information Care Team Personnel Name: Tye Hernandez Position: Reference Physician Member Role: PCP Address: Address: [address] [place] [address]- Name: Laura TRIVEDI, Jolly Burnette Position: [facility] RADIATION ONCOLOGIST MD Member Role: Lifetime RADIATION ONCOLOGIST Physician Address: Address: [address] [place] [address]'s [facility] Supervisor [employer] - [place], [place] [address] Care Team Related Persons Name: MAJOR DUDLEY Name: BALTA PATEL Address: home [address] [place] [address] [place] [id number]
--- OUTSIDE RECORDS SUMMARY | 2023-07-23 11:09 | XMS_ITS | Continuity of Care Document ---
Author Organization [facility] Address [address] [place] [address]- Care Team Providers Care School Manager Name Role Phone Tye Hernandez Primary Care Physician Encounter [facility] Date(s): 11/21/22 - 01/05/23 [facility] [place] [address] [place] [address]- Attending Physician: Helena Cummings MD Allergies, Adverse [...] -48 hours after mifeprex dose (taken at deputy clerk of superior court office), place all four tablets invagina, # 4 tablet, 0 Refills, Maintenance, 12/08/22 14:44:00 EDT, [facility]/pharmacy #[id number], Partial fillupon patient request if the prescription [...] 0 Refills, Maintenance, 12/08/22 14:44:00 EDT, Tablet, [facility]/pharmacy #[id number], Partial fill upon patient request if [...] Physician Member Role: PCP Address: Address: [address] [place] [address]- Name: Jolly Sanchez MD Position: [facility] STRIKER OFF MD Member Role: Lifetime STRIKER OFF Physician Address: Address: [address] [facility] Women's Health Substitute [place] [address]- Care Team Related Persons Name: MAJOR DUDLEY Name: BALTA PATEL Address: home [address] [place] [address]
--- OUTSIDE RECORDS SUMMARY | 2023-07-23 11:09 | XMS_ITS | Continuity of Care Document ---
Author Organization [facility] Address [address] [place] [address]- Care Team Providers Care Petrol Tanker Driver Name Role Phone Tye Hernandez Primary Care Physician [phone] [facility] Date(s): 12/26/22 - 01/25/23 [facility] [address] [place], [place] [address] Attending Physician: Admtr, Ar8 Admitting Physician: Admtr, Ar8 Referring Physician: Admtr, Ar8 Allergies, Adverse Reactions, Alerts Substance Reaction Severity [...] -48 hours after mifeprex dose (taken at registered health nurse office), place all four tablets invagina, # 4 tablet, 0 Refills, Maintenance, 12/08/22 14:44:00 EDT, [facility]/pharmacy #[id number], Partial fillupon patient request if the prescription [...] 0 Refills, Maintenance, 12/08/22 14:44:00 EDT, Tablet, [id number], Partial fill upon patient request if [...] Status Never smoker entered on: 03/13/14 Sex Laboratory * Event Display: Non BH Lab Results Authored Date: * Event Display: Non BH Lab Results Authored Date: * Event Display: Non BH Lab Results Authored Date: Radiology * Event Display: Ultrasound Obstetric, Non-BH Authored Date: * Event Display: Ultrasound Obstetric, Non-BH Authored Date: * Event Display: Ultrasound Obstetric, Non-BH Authored Date: Patient Care team information Care Team Personnel Name: Tye Hernandez Position: Reference Physician Member Role: PCP Address: Address: [address] [place] [address]- [place] Name: Laura TRIVEDI, Jolly Burnette Position: S DECOMMISSIONING WELL SITE MANAGER MD Member Role: Lifetime DECOMMISSIONING WELL SITE MANAGER Physician Address: Address: [address] [facility] [place] [address]- Care Team Related Persons Name: MAJOR DUDLEY Name: BALTA PATEL Address: home [address] [place] [address]
--- OUTSIDE RECORDS SUMMARY | 2023-07-23 11:09 | XMS_ITS | Continuity of Care Document ---
Author Organization [facility] Address [address] [place] [address]- Care Team Providers Care Riveter Name Role Phone Tye Hernandez Primary Care Physician Encounter [facility] Date(s): 11/21/22 - 01/25/23 [facility] [address] [place] [address] Attending Physician: Helena Cummings MD Allergies, Adverse [...] -48 hours after mifeprex dose (taken at clean up worker office), place all four tablets invagina, # 4 tablet, 0 Refills, Maintenance, 12/08/22 14:44:00 EDT, [facility]/pharmacy #[id number], Partial fillupon patient request if the prescription [...] 0 Refills, Maintenance, 12/08/22 14:44:00 EDT, Tablet, [facility]/pharmacy #[id number], Partial fill upon patient request if [...] [address] [place] [address]- Name: Jolly Sanchez MD Position: [facility] APPLICATION MANAGER MD Member Role: Lifetime APPLICATION MANAGER Physician Address: Address: [address] [facility] Women's [place] [address]- Care Team Related Persons Name: MAJOR DUDLEY Name: BALTA PATEL Address: home [address] [place] [address]
--- OUTSIDE RECORDS SUMMARY | 2023-07-23 11:09 | XMS_ITS | Continuity of Care Document ---
Author Organization [facility] Address [address] [place] [address]- Care Team Providers Care Pricing Clerk Name Role Phone Tye Hernandez Primary Care Physician [place] [facility] [place]s): 12/26/22 - 01/25/23 [facility] [address] [place] [address] Attending Physician: Admtr, Wili8 Admitting Physician: Admtr, Ar8 Referring Physician: Admtr, [...] -48 hours after mifeprex dose (taken at sewage plant supervisor office), place all four tablets invagina, # 4 tablet, 0 Refills, Maintenance, 12/08/22 14:44:00 EDT, [facility]/pharmacy #[id number], Partial fillupon patient request if the prescription [...] 0 Refills, Maintenance, 12/08/22 14:44:00 EDT, Tablet, [facility]/pharmacy #[id number], Partial fill upon patient request if [...] Physician Member Role: PCP Address: Address: [address] [place] [address]- Name: Jolly Sanchez MD Position: S MEAT BONER MD Member Role: Lifetime MEAT BONER Physician Address: Address: [address] [facility] Women's Health [place] [address]- Care Team Related Persons Name: MAJOR DUDLEY Name: BALTA PATEL Address: home [address] [place] [address]
--- OUTSIDE RECORDS SUMMARY | 2023-07-23 11:09 | XMS_ITS | Continuity of Care Document ---
Author Organization [facility] Address [address] [place] [address]- Care Team Providers Care Business Education Instructor Name Role Phone Tye Hernandez Primary Care Physician [phone] Encounter [facility] Date(s): 11/28/22 - 12/05/22 [facility] [address] [place] [address] Attending Physician: Not on Staff, Attending MD Referring Physician: Vida TRIVEDI, Usha Shankar Allergies, Adverse [...] 03/13/14 Sex Radiology * Event Display: PDC Limited Viability * Event Display: PDC Limited Viability Authored Date: [id number] OBSTETRICS REPORT PATIENT INFO: CMRN: [id number] BMRN: [id number] : [birth year] (27 yrs)(F) Name: SUPA NÑUEZ Visit Date: 11/28/2022 02:03 pm PERFORMED BY: Performed By: Lizzy Dodson RDMS Attending: Lilly Sánchez MD Referred By: Usha Mcpherson MD Location: [facility] INDICATIONS: First trimester bleeding O20.9 VITAL SIGNS: Weight (lb): 185 Height: 5'2 BMI: 33.83 EVALUATION: Num Of Fetuses: 1 Gest. Sac: Seen in the intrauterine cavity Yolk Sac: Not visualized Pole: Not visualized Cardiac Activity: pole not seen Amniotic Fluid DOMO FV: Within normal limits BIOMETRY: GS: 8 mm G.Age: 5w 3d SAM: 07/28/23 OB HISTORY: : 4 Term: 1 GESTATIONAL AGE: LMP: 7w 1d Date: 10/09/22 SAM: 07/16/23 Best: 7w 1d Det. By: LMP (10/09/22) SAM: 07/16/23 CERVIX UTERUS ADNEXA: Cervix Appears closed Left Ovary Appears normal Right Ovary Appears normal Comment Vaginal scanning was done. COMMENTS: An intrauterine gestational sac is seen, but yolk sac or pole not seen. This may be consistent with early viable , or with missed . 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 Therefore I recommend repeat scan 2 weeks from the original scan - on or after 12/06 - to establish viability and dating. Lilly Sánchez MD Electronically Signed Final Report 11/28/2022 03:06 pm * Event Display: PDC Limited Viability Authored Date: [id number] Please click on pdf link to open report Patient Care team information Care Team Personnel Name: Tye Hernandez Position: Reference Physician Member Role: PCP Address: Address: [address] [place] [address] [address] [place] [address]- [place] Name: Laura TRIVEDI, Jolly Burnette Position: S SECURITIES SALES ASSOCIATE MD Member Role: Lifetime SECURITIES SALES ASSOCIATE Physician Address: Address: [address] [facility] [place] [address]- Care Team Related Persons Name: MAJOR DUDLEY Name: BALTA PATEL Address: home [address] [place] [address]
--- OUTSIDE RECORDS SUMMARY | 2023-07-23 11:09 | XMS_ITS | Continuity of Care Document ---
Author Organization [facility] Address [address] [place] [address]- Care Team Providers Care Collection Systems Technician Name Role Phone Tye Hernandez Primary Care Physician [phone] [place] [facility] [place] 11/30/22 - 12/30/22 [facility] [address] [place] [address]- Allergies, Adverse Reactions, Alerts Substance Reaction Severity [...] -48 hours after mifeprex dose (taken at daylight driller office), place all four tablets invagina, # 4 tablet, 0 Refills, Maintenance, 12/08/22 14:44:00 EDT, [facility]/pharmacy #[id number], Partial fillupon patient request if the prescription [...] 0 Refills, Maintenance, 12/08/22 14:44:00 EDT, Tablet, [facility]/pharmacy #[id number], Partial fill upon patient request [...] Physician Member Role: PCP Address: Address: [address] [place] [address]- Name: Jolly Sanchez MD Position: [facility] ASSISTANT DISTRICT ATTORNEY MD Member Role: Lifetime ASSISTANT DISTRICT ATTORNEY Physician Address: Address: [address] [facility] Women's Health [place] [address]- Care Team Related Persons Name: MAJOR DUDLEY Name: BALTA PATEL Address: home [address] [place] [address]
== END 2023-07-23 11:47 | disposition home or self-care (01) ==
PROVIDERS: PCP Physician Assistant; Visit Provider Physician Assistant
DX: E11.65 Type 2 diabetes mellitus with hyperglycemia (principal)
CPT/HCPCS: 83036; 99214

== ENCOUNTER 2023-10-15 15:15 | Outpatient (AMB) | payer OTHER, SELFPAY ==
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
--- OUTSIDE RECORDS SUMMARY | 2023-10-15 15:16 | XMS_ITS | Continuity of Care Document ---
Author Organization [facility] Address [address] [place] [address], [address] [place] [address]- Care Team Providers Care System Programmer Name Role Phone Tye Hernandez Primary Care Physician [place] [facility] [place] 08/08/23 - 09/07/23 [facility] [employer] [facility] [address] [facility] [place] [address]- Allergies, Adverse Reactions, Alerts Substance Reaction Severity Status Bactrim Muscle weakness. Stroke like symptoms Active Latex Rash Active Lactose Bloating Diarrhea Active Immunizations Given and Recorded Vaccine Date Status Refusal Reason influenza virus vaccine, inactivated 04/17/23 Gordy rded influenza virus vaccine, inactivated 06/06/22 Gordy rded influenza virus vaccine, inactivated 01/02/18 Give n [id number] 12y+ bivalent booster vax 02/04/22 Recorded hepatitis B adult vaccine 06/13/21 Recorded SARS-CoV-2 (COVID-19) mRNA BNT-162b2 vac 03/31/21 Recorded SARS-CoV-2 (COVID-19) mRNA BNT-162b2 vac 03/11/21 Recorded tetanus/diphtheria/pertussis, acel(Tdap) 11/02/20 Recorded tetanus/diphtheria/pertussis, acel(Tdap) 01/02/18 Given Medications docusate sodium 100 mg oral capsule 1 capsule = 100 mg, By Mouth, Daily, PRN for constipation, # 100 capsule, 3 Refills, Maintenance, 08/31/23 12:36:00 EDT, Capsule, [id number], Partial fill upon patient request if the prescription is for a schedule II opioid drug., 158, cm, ... Start Date: 08/31/23 Stop Date: 08/25/24 Status: Ordered Home Blood Pressure Monitor See Instructions, # 1 each, Refills 0, Tot. Refills 0, Maintenance, For monitoring blood pressure in high risk O09.90, 08/31/23 13:02:00 EDT, Compound Start Date: 08/31/23 Status: Ordered MetFORMIN (Eqv-Glucophage XR) 500 mg oral tablet, extended release 0 Refills, Maintenance, 08/31/23 12:33:00 EDT, Partial fill upon patient request if the prescription is for a schedule II opioid drug. Start Date: 08/31/23 Status: Ordered multivitamin, Multivitamins oral tablet, chewable 1 tablet, Chew, Daily, # 30 tablet, 11 Refills, Maintenance, 08/31/23 12:35:00 EDT, Chew Tablet, [id number], Partial fill upon patient request if the prescription is for a schedule II opioid drug., 1 tablet Chew Daily,x30 days, 158, cm, ... Start Date: 08/31/23 Stop Date: 08/25/24 Status: Ordered Multivitamins By Mouth, Daily, 0 Refills, Maintenance, 09/18/17 15:57:24 EDT Start Date: 09/18/17 Status: Ordered Tylenol 325 mg oral capsule 1 capsule = 325 mg, By Mouth, 3 times a day, 0 Refills, Maintenance, 08/31/23 12:34:00 EDT, Partialfill upon patient request if the prescription is for a schedule II opioid drug. Start Date: 08/31/23 Status: Ordered Ventolin HFA 108 mcg/inh inhalation aerosol with adapter 0 Refills, Maintenance, 08/31/23 12:33:00 EDT, Partial fill upon patient request if the prescription is for a schedule II opioid drug. Start Date: 08/31/23 Status: Ordered Problem List Condition Confirmation Course Effective Dates Status Health St atus Informant hx of Anemia Confirmed Active Anxiety Confirmed Active Exercise Induced Asthma Confirmed Active Constipation Confirmed Active Depressive disorder Confirmed Active H/O section Confirmed Active Hx of seasonal allergies Confirmed Active Heartburn Confirmed Active History of gestational hypertension Confirmed Active Kidney stones Confirmed Active Migraine Confirmed Active Missed Confirmed Active Obesity Confirmed Active PCOS (polycystic ovarian syndrome) Confirmed Active Social History Social History Type Response Smoking Status Former smoker, quit more than 30 days ago; Other: used prior to to help move bowels or for stress; entered on: 08/31/23 Sex Patient Care team information Care Team Personnel Name: Tye Hernandez Position: Reference Physician Member Role: PCP Address: Address: [address] [facility] [address] [facility] [address] [place] [address]- Name: Jolly Sanchez MD Position: [facility] GOLF STUD RIVETER MD Member Role: Lifetime GOLF STUD RIVETER Physician Address: Address: [address] [place] [address] Women's Health [place] [address]- Care Team Related Persons Name: MAJOR DUDLEY Address: home [address] [place] [address] Name: BALTA PATEL Address: home [address] [place] [address]
--- OUTSIDE RECORDS SUMMARY | 2023-10-15 15:16 | XMS_ITS | Continuity of Care Document ---
Author Organization [facility] Address [address] [place] [address]- Care Team Providers Care Die Maintenance Technician Name Role Phone Tye Hernandez Primary Care Physician [place] [facility]/23 - 09/20/23 [facility] [address] [place] [address]- Allergies, Adverse Reactions, Alerts Substance Reaction Severity Status Bactrim Muscle weakness. Stroke like symptoms Active Latex Rash Active Lactose Bloating Diarrhea Active Immunizations Given and Recorded Vaccine Date Status Refusal Reason influenza virus vaccine, inactivated 04/17/23 Gordy rded influenza virus vaccine, inactivated 06/06/22 Gordy rded influenza virus vaccine, inactivated 01/02/18 Give n [id number] 12y+ bivalent booster vax 02/04/22 Recorded hepatitis [...] Physician Member Role: PCP Address: Address: [address] [facility] [address] [place] [address]- Name: Jolly Sanchez MD Position: [facility] REPAIRER SHOE STICKS MD Member Role: Lifetime REPAIRER SHOE STICKS Physician Address: Address: [address] [place] [address] Women's Health Marketing [place] [address]- Care Team Related Persons Name: MAJOR DUDLEY Address: home [address] [place] [address] Name: BALTA PATEL Address: home [address] [place] [address]
--- OUTSIDE RECORDS SUMMARY | 2023-10-15 15:16 | XMS_ITS | Continuity of Care Document ---
Author Organization [facility] Address [address] [place] [address]- Care Team Providers Care Bolt Threader Name Role Phone Tye Hernandez Primary Care Physician [phone] En[place] [facility] Date(s): 08/17/23 - 09/16/23 [facility] [address] [place] [address]- Allergies, Adverse Reactions, Alerts Substance Reaction Severity Status Bactrim Muscle weakness. Stroke like symptoms Active Lactose Bloating Diarrhea Active Latex Rash Active Immunizations Given and Recorded Vaccine Date Status Refusal Reason influenza virus vaccine, inactivated 04/17/23 Gordy rded influenza virus vaccine, inactivated 06/06/22 Gordy rded influenza virus vaccine, inactivated 01/02/18 Give n [id number] 12y+ bivalent booster vax 02/04/22 Recorded hepatitis [...] Physician Member Role: PCP Address: Address: [address] [facility] [address] [place] [address]- Name: Jolly Sanchez MD Position: [facility] SPECIAL EDUCATION SECRETARY MD Member Role: Lifetime SPECIAL EDUCATION SECRETARY Physician Address: Address: [address] [place] [address] Women's [place] [address]- Care Team Related Persons Name: MAJOR DUDLEY Address: home [address] [place] [address] Name: BALTA PATEL Address: home [address] [place] [address]
--- OUTSIDE RECORDS SUMMARY | 2023-10-15 15:17 | XMS_ITS | Continuity of Care Document ---
Author Organization [facility]el quiless [facility] Address [address] [place] [address], [address]t [place] [address]- Care Team Providers Care Assistant Front End Manager Name Role Phone Tye Hernandez Primary Care Physician En[place] [facility] [place] [facility] [place] [id number] Date(s): 08/30/23 - 09/29/23 [facility]el Hailes [facility] [address], 4th Floor [place], [place] [address] Attending Physician: Marilee Viveros Admitting Physician: AdmtrMarilee Referring Physician: Admtr, Ar8 Allergies, Adverse Reactions, Alerts Substance Reaction Severity Status Bactrim Muscle weakness. Stroke like symptoms Active Lactose Bloating Diarrhea Active Latex Rash Active Immunizations Given and Recorded Vaccine Date Status Refusal Reason influenza virus vaccine, inactivated 04/17/23 Gordy rded influenza virus vaccine, inactivated 06/06/22 Gordy rded influenza virus vaccine, inactivated 01/02/18 Give n [id number] 12y+ bivalent booster vax 02/04/22 Recorded hepatitis [...] XR) 500 mg oral tablet, extended release 2 tablet = 1,000 mg, By Mouth, 2 times a day, # 120 tablet, 0 Refills, Maintenance, 09/24/23 16:07:00 EDT, ER Tablet, [facility]/pharmacy #[id number], Partial fill upon patient request if the prescription is for a schedule II opioid drug., 158, cm, 09/24/23 15:40:... Start Date: 09/24/23 Status: Ordered multivitamin, Multivitamins oral tablet, chewable 1 tablet, Chew, Daily, # 30 tablet, 11 Refills, Maintenance, 08/31/23 12:35:00 EDT, Chew Tablet, [facility]/pharmacy #1130, Partial fill upon patient request if the prescription is for a schedule II opioid drug., 1 tablet Chew Daily,x30 days, 158, cm, ... Start Date: 08/31/23 Stop Date: 08/25/24 Status: Ordered Tylenol 325 mg oral capsule 1 capsule = 325 mg, By Mouth, 3 times a day, 0 Refills, Maintenance, 08/31/23 12:34:00 EDT, Partialfill upon patient request if the prescription is for a schedule II opioid drug. Start Date: 08/31/23 Status: Ordered Unisom 25 mg oral tablet 1 tablet = 25 mg, By Mouth, Daily at bedtime, PRN for sleep, # 30 tablet, 0 Refills, Maintenance, 09/24/23 16:07:00 EDT, Tablet, [facility]/pharmacy #1130, Partial fill upon patient request if the prescription is for a schedule II opioid drug., 158, cm, 0... Start Date: 09/24/23 Status: Ordered Vitamin B6 50 mg oral tablet 50 mg, 1, tablet, By Mouth, 3 times a day, # 30 tablet, Refills 3, Tot. Refills 3, Maintenance, 09/24/23 16:07:00 EDT, Route to Pharmacy Electronically, [facility]/pharmacy #[id number], Partial fill upon patient request if the prescription is for a schedule II opi... Start Date: 09/24/23 Status: Ordered Problem List Condition Confirmation Course Effective Dates Status Health St atus Informant hx of Anemia Confirmed Active Anxiety Confirmed Active Exercise Induced Asthma Confirmed Active Constipation Confirmed Active Depressive disorder Confirmed Active H/O section Confirmed Active Hx of seasonal allergies Confirmed Active Heartburn Confirmed Active History of gestational hypertension Confirmed Active Kidney stones Confirmed Active Migraine Confirmed Active Missed Confirmed Active Nausea and vomiting in Confirmed Active Obesity Confirmed Active PCOS (polycystic ovarian syndrome) Confirmed Active Social History Social History Type Response Smoking Status Former smoker, quit more than 30 days ago; Other: used prior to to help move bowels or for stress; entered on: 08/31/23 Sex Patient Care team information Care Team Personnel Name: Tye Hernandez Position: Reference Physician Member Role: PCP Address: Address: [address] [facility] [address] [place] [address]- Name: Jolly Sanchez MD Position: [facility] TOUR OPERATOR MD Member Role: Lifetime TOUR OPERATOR Physician Address: Address: [address] [place] [address] Women's Health Avionics [place] [address]- Care Team Related Persons Name: MAJOR DUDLEY Address: home [address] [place] [address] Name: BALTA PATEL Address: home [address] [place] [address]
--- OUTSIDE RECORDS SUMMARY | 2023-10-15 15:17 | XMS_ITS | Continuity of Care Document ---
Author Organization [facility] Address [address] [place] [address]- Care Team Providers Care Picked Edge Sewing Machine Operator Name Role Phone Tye Hernandez Primary Care Physician [place] [facility] [place]23 - 09/21/23 [facility] [address] [place] [address]- Allergies, Adverse Reactions, Alerts Substance Reaction Severity Status Bactrim Muscle weakness. Stroke like symptoms Active Latex Rash Active Lactose Bloating Diarrhea Active Immunizations Given and Recorded Vaccine Date Status Refusal Reason influenza virus vaccine, inactivated 04/17/23 Gordy rded influenza virus vaccine, inactivated 06/06/22 Gordy rded influenza virus vaccine, inactivated 01/02/18 Give n [id number] 12y+ bivalent booster vax 02/04/22 Recorded hepatitis [...] Physician Member Role: PCP Address: Address: [address] [facility] [address] [place] [address]- Name: Jolly Sanchez MD Position: [facility] AIRPLANE NAVIGATOR MD Member Role: [employer]etime AIRPLANE NAVIGATOR Physician Address: Address: [address] [place] [address] Women[place] [address]- Care Team Related Persons Name: MAJOR DUDLEY Address: home [address] [place] [address] Name: BALTA PATEL Address: home [address] [place] [address]
--- OUTSIDE RECORDS SUMMARY | 2023-10-15 15:17 | XMS_ITS | Continuity of Care Document ---
Author Organization [facility] Address [address] [place] [address]- Care Team Providers Care Sandwich Maker Name Role Phone Tye Hernandez Primary Care Physician [phone] Encounter [facility] Date(s): 08/31/23 - 09/30/23 [facility] [address] [place] [address]- Allergies, Adverse Reactions, Alerts Substance Reaction Severity Status Bactrim Muscle weakness. Stroke like symptoms Active Latex Rash Active Lactose Bloating Diarrhea Active Immunizations Given and Recorded Vaccine Date Status Refusal Reason influenza virus vaccine, inactivated 04/17/23 Gordy rded influenza virus vaccine, inactivated 06/06/22 Gordy rded influenza virus vaccine, inactivated 01/02/18 Give n [id number] 12y+ bivalent booster vax 02/04/22 Recorded hepatitis [...] Refills, Maintenance, 09/24/23 16:07:00 EDT, ER Tablet, [facility]/pharmacy #[id number], Partial fill upon patient request if the prescription is for a schedule II opioid drug., 158, cm, 09/24/23 15:40:... Start Date: 09/24/23 Status: Ordered multivitamin, Multivitamins oral tablet, chewable 1 tablet, Chew, Daily, # 30 tablet, 11 Refills, Maintenance, 08/31/23 12:35:00 EDT, Chew Tablet, [facility]/pharmacy #1130, Partial fill upon patient request if the prescription is for a schedule II opioid drug., 1 tablet Chew Daily,x30 days, 158, cm, 08/30/... Start Date: 08/31/23 Stop Date: 08/25/24 Status: [...] 0 Refills, Maintenance, 09/24/23 16:07:00 EDT, Tablet, [facility]/pharmacy #1130, Partial fill upon patient request if the prescription is for a schedule II opioid drug., 158, cm, 0... Start Date: 09/24/23 Status: Ordered Vitamin B6 50 mg oral tablet 50 mg, 1, tablet, By Mouth, 3 times a day, # 30 tablet, Refills 3, Tot. Refills 3, Maintenance, 09/24/23 16:07:00 EDT, Route to Pharmacy Electronically, [facility]/pharmacy #1130, Partial fill upon patient request if [...] Physician Member Role: PCP Address: Address: [address] [facility] [address] [place] [address]- Name: Jolly Sanchez MD Position: [facility] TELEVISION NEWS PHOTOGRAPHER MD Member Role: Lifetime TELEVISION NEWS PHOTOGRAPHER Physician Address: Address: [address] [place] [address] Women's Health Shoe [place] [address]- Care Team Related Persons Name: MAJOR DUDLEY Address: home [address] [place] [address] Name: BALTA PATEL Address: home [address] [place] [address]
--- OUTSIDE RECORDS SUMMARY | 2023-10-15 15:17 | XMS_ITS | Continuity of Care Document ---
Author Organization [facility] Address [address] [place] [address]- Care Team Providers Care House Mover Helper Name Role Phone Tye Hernandez Primary Care Physician Encounter [facility] [place] Date(s): 08/16/23 - 09/15/23 [facility] [address] [place] [address]- Allergies, Adverse Reactions, Alerts Substance Reaction Severity Status Bactrim Muscle weakness. Stroke like symptoms Active Latex Rash Active Lactose Bloating Diarrhea Active Immunizations Given and Recorded Vaccine Date Status Refusal Reason influenza virus vaccine, inactivated 04/17/23 Gordy rded influenza virus vaccine, inactivated 06/06/22 Gordy rded influenza virus vaccine, inactivated 01/02/18 Give n [id number] 12y+ bivalent booster vax 02/04/22 Recorded hepatitis [...] Physician Member Role: PCP Address: Address: [address] [facility] [address] [place] [address]- Name: Jolly Sanchez MD Position: [facility] PSYCHOLOGIST DEVELOPMENTAL MD Member Role: Lifetime PSYCHOLOGIST DEVELOPMENTAL Physician Address: Address: [address] [place] [address] Women's [place] [address]- Care Team Related Persons Name: MAJOR DUDLEY Address: home [address] [place] [address] Name: BALTA PATEL Address: home [address] [place] [address]
--- OUTSIDE RECORDS SUMMARY | 2023-10-15 15:17 | XMS_ITS | Continuity of Care Document ---
Author Organization [facility] Address [address] [place] [address]- Care Team Providers Care Despatch Clerk Name Role Phone Tye Hernandez Primary Care Physician [phone] [place] [facility] [place](s): 08/31/23 - 09/07/23 [facility] [address] [place] [address]- Attending Physician: Not on Staff, Attending MD Allergies, Adverse Reactions, Alerts Substance Reaction Severity Status Bactrim Muscle weakness. Stroke like symptoms Active Latex Rash Active Lactose Bloating Diarrhea Active Immunizations Given and Recorded Vaccine Date Status Refusal Reason influenza virus vaccine, inactivated 04/17/23 Gordy rded influenza virus vaccine, inactivated 06/06/22 Gordy rded influenza virus vaccine, inactivated 01/02/18 Give n [id number] 12y+ bivalent booster vax 02/04/22 Recorded hepatitis [...] recent to oldest [Reference Range]: 1 Height 158 cm (08/31/23 11:38 AM) Weight 83 kg (08/31/23 11:38 AM) Body Mass Index [18.5-24.99 kg/m2] 33.25 kg/m2 *>HHI* (08/31/23 11:38 AM) Social History Social History Type Response Smoking Status Former smoker, quit more than 30 days ago; Other: used prior to to help move bowels or for stress; entered on: 08/31/23 Sex Patient Care team information Care Team Personnel Name: Tye Hernandez Position: Reference Physician Member Role: PCP Address: Address: [address] [place] [address]- Name: Jolly Sanchez MD Position: [facility] WOOD MILL SUPERVISOR MD Member Role: Lifetime WOOD MILL SUPERVISOR Physician Address: Address: [address] [place] [address]'s [facility] Heavy [place] [address]- Care Team Related Persons Name: MAJOR DUDLEY Address: home [address] [place] [address] Name: BALTA PATEL Address: home [address] [place] [address]
--- OUTSIDE RECORDS SUMMARY | 2023-10-15 15:17 | XMS_ITS | Continuity of Care Document ---
Author Organization [facility] Address [address] [address]- Care Team Providers Care Allergist/Pediatric Pulmonologist Name Role Phone Tye Hernandez Primary Care Physician Encounter [facility] Date(s): 08/22/23 - 09/21/23 [facility] [address] [place] [id number] Allergies, Adverse Reactions, Alerts Substance Reaction Severity Status Bactrim Muscle weakness. Stroke like symptoms Active Latex Rash Active Lactose Bloating Diarrhea Active Immunizations Given and Recorded Vaccine Date Status Refusal Reason influenza virus vaccine, inactivated 04/17/23 Gordy rded influenza virus vaccine, inactivated 06/06/22 Gordy rded influenza virus vaccine, inactivated 01/02/18 Give n [id number] 12y+ bivalent booster vax 02/04/22 Recorded hepatitis [...] a schedule II opioid drug., 158, cm, 06/... Start Date: 08/31/23 Stop Date: 08/25/24 Status: [...] 1 tablet Chew Daily,x30 days, 158, cm, .. Start Date: 08/31/23 Stop Date: 08/25/24 Status: [...] Physician Member Role: PCP Address: Address: [address] [facility] [address] [place] [address]- Name: Jolly Sanchez MD Position: [facility] TWISTER IN MD Member Role: Lifetime TWISTER IN Physician Address: Address: [address] [place] [address] Women's Health [place] [address]- Care Team Related Persons Name: MAJOR DUDLEY Address: home [address] [place] [address] Name: BALTA PATEL Address: home [address] [place] [address]
--- OUTSIDE RECORDS SUMMARY | 2023-10-15 15:17 | XMS_ITS | Continuity of Care Document ---
Author Organization [facility] Address [address] [place] [address]- Care Team Providers Care Manager Field Name Role Phone Tye Hernandez Primary Care Physician [phone] Encounter [facility] Date(s): 08/08/23 - 09/07/[address] [address]- Allergies, Adverse Reactions, Alerts Substance Reaction Severity Status Bactrim Muscle weakness. Stroke like symptoms Active Latex Rash Active Lactose Bloating Diarrhea Active Immunizations Given and Recorded Vaccine Date Status Refusal Reason influenza virus vaccine, inactivated 04/17/23 Gordy rded influenza virus vaccine, inactivated 06/06/22 Gordy rded influenza virus vaccine, inactivated 01/02/18 Give n [id number] 12y+ bivalent booster vax 02/04/22 Recorded hepatitis [...] Physician Member Role: PCP Address: Address: [address] [place] [address]- Name: Laura TRIVEDI, Jolly Burnette Position: [facility] ANTHROPOLOGY DEPARTMENT CHAIR MD Member Role: Lifetime ANTHROPOLOGY DEPARTMENT CHAIR Physician Address: Address: [address] [place] [address] Women's Health [place] [address]- Care Team Related Persons Name: MAJOR DUDLEY Address: home [address] [place] [address] Name: BALTA PATEL Address: home [address] [place] [address]
--- OUTSIDE RECORDS SUMMARY | 2023-10-15 15:17 | XMS_ITS | Continuity of Care Document ---
Author Organization [facility] Address [address] [place] [address]- Care Team Providers Care Public Address Systems Mechanic Name Role Phone Tye Hernandez Primary Care Physician Encounter [facility] Date(s): 08/17/23 - 10/12/[address] [address]- Attending Physician: Not on Staff, Attending MD Referring Physician: Usha Mcpherson MD Allergies, Adverse Reactions, Alerts Substance Reaction Severity Status Bactrim Muscle weakness. Stroke like symptoms Active Lactose Bloating Diarrhea Active Latex Rash Active Immunizations Given and Recorded Vaccine Date Status Refusal Reason influenza virus vaccine, inactivated 04/17/23 Gordy rded influenza virus vaccine, inactivated 06/06/22 Gordy rded influenza virus vaccine, inactivated 01/02/18 Give n [id number] 12y+ bivalent booster vax 02/04/22 Recorded hepatitis [...] Maintenance, 09/24/23 16:07:00 EDT, ER Tablet, [facility]/pharmacy #[id number], Partial fill upon patient request if the prescription is for a schedule II opioid drug., 158, cm, 09/24/23 15:40:... Start Date: 09/24/23 Status: Ordered multivitamin, Multivitamins oral tablet, chewable 1 tablet, Chew, Daily, # 30 tablet, 11 Refills, Maintenance, 08/31/23 12:35:00 EDT, Chew Tablet, [facility]/pharmacy #1130, Partial fill upon patient request [...] Refills, Maintenance, 09/24/23 16:07:00 EDT, Tablet, [facility]/pharmacy #1130, Partial fill upon patient request if the prescription is for a schedule II opioid drug., 158, cm, 0... Start Date: 09/24/23 Status: Ordered Vitamin B6 50 mg oral tablet 50 mg, 1, tablet, By Mouth, 3 times a day, # 30 tablet, Refills 3, Tot. Refills 3, Maintenance, 09/24/23 16:07:00 EDT, Route to Pharmacy Electronically, [facility]/pharmacy #[id number], Partial fill upon patient request [...] Role: PCP Address: Address: [address] [facility] [address] [place] [address]- Name: Jolly Sanchez MD Position: [facility] MAGNETIC LOCATER MD Member Role: Lifetime MAGNETIC LOCATER Physician Address: Address: [address] [place] [address] Women's [place] [address]- Care Team Related Persons Name: MAJOR DUDLEY Address: home [address] [place] [address] Name: BALTA PATEL Address: home [address] [place] [address]
--- OUTSIDE RECORDS SUMMARY | 2023-10-15 15:17 | XMS_ITS | Continuity of Care Document ---
Author Organization [facility] Address [address] [place] [address]- Care Team Providers Care Superintendent Job Name Role Phone Tye Hernandez Primary Care Physician [phone] Encounter [facility] Date(s): 09/12/23 - 10/12/[address] [address]- Attending Physician: [id number] Admitting Physician: Admtr, ArKaren Referring Physician: Admtr, Ar8 Allergies, Adverse Reactions, Alerts Substance Reaction Severity Status Bactrim Muscle weakness. Stroke like symptoms Active Lactose Bloating Diarrhea Active Latex Rash Active Immunizations Given and Recorded Vaccine Date Status Refusal Reason influenza virus vaccine, inactivated 04/17/23 Gordy rded influenza virus vaccine, inactivated 06/06/22 Gordy rded influenza virus vaccine, inactivated 01/02/18 Give n [id number] 12y+ bivalent booster vax 02/04/22 Recorded hepatitis [...] Refills, Maintenance, 09/24/23 16:07:00 EDT, ER Tablet, [facility]acy [facility], Partial fill upon patient [...] 0 Refills, Maintenance, 09/24/23 16:07:00 EDT, Tablet, [facility], Partial fill upon patient request if the prescription is for a schedule II opioid drug., 158, cm, ... Start Date: 09/24/23 Status: Ordered Vitamin B6 50 mg oral tablet 50 mg, 1, tablet, By Mouth, 3 times a day, # 30 tablet, Refills 3, Tot. Refills 3, Maintenance, 09/24/23 16:07:00 EDT, Route to Pharmacy Electronically, [facility]/pharmacy #[id number], Partial fill upon patient request if the [...] Physician Member Role: PCP Address: Address: [address] [facility] [address] [place] [address]- Name: Jolly Sanchez MD Position: [facility] REGULATORY ASSOCIATE MD Member Role: Lifetime REGULATORY ASSOCIATE Physician Address: Address: [address] Women's Health [place] [address]- Care Team Related Persons Name: MAJOR DUDLEY Address: home [address] [place] [address] Name: BALTA PATEL Address: home [address] [place] [address]
--- OUTSIDE RECORDS SUMMARY | 2023-10-15 15:17 | XMS_ITS | Continuity of Care Document ---
Author Organization [facility] Address [address] [place] [address]- Care Team Providers Care Floor Layer Name Role Phone Tye Hernandez Primary Care Physician Encounter [facility] [place] Date(s): 09/06/23 - 10/06/23 [facility] [address] [place] [address]- Allergies, Adverse Reactions, Alerts Substance Reaction Severity Status Bactrim Muscle weakness. Stroke like symptoms Active Latex Rash Active Lactose Bloating Diarrhea Active Immunizations Given and Recorded Vaccine Date Status Refusal Reason influenza virus vaccine, inactivated 04/17/23 Gordy rded influenza virus vaccine, inactivated 06/06/22 Gordy rded influenza virus vaccine, inactivated 01/02/18 Give n [id number] 12y+ bivalent booster vax 02/04/22 Recorded hepatitis [...] Maintenance, 09/24/23 16:07:00 EDT, ER Tablet, [facility]/pharmacy #1130, Partial fill upon patient request if the prescription is for a schedule II opioid drug., 158, cm, 09/24/23 15:40:... Start Date: 09/24/23 Status: Ordered multivitamin, Multivitamins oral tablet, chewable 1 tablet, Chew, Daily, # 30 tablet, 11 Refills, Maintenance, 08/31/23 12:35:00 EDT, Chew Tablet, [facility]/pharmacy #1130, Partial fill upon patient request if [...] Refills, Maintenance, 09/24/23 16:07:00 EDT, Tablet, [facility]/pharmacy #1130, Partial fill upon patient request if the prescription is for a schedule II opioid drug., 158, cm, 0... Start Date: 09/24/23 Status: Ordered Vitamin B6 50 mg oral tablet 50 mg, 1, tablet, By Mouth, 3 times a day, # 30 tablet, Refills 3, Tot. Refills 3, Maintenance, 09/24/23 16:07:00 EDT, Route to Pharmacy Electronically, [facility]/pharmacy #1130, Partial fill upon patient request if [...] Role: PCP Address: Address: [address] [facility] [address] [place] [address]- Name: Jolly Sanchez MD Position: [facility] ROLLING MACHINE OPERATOR MD Member Role: Lifetime ROLLING MACHINE OPERATOR Physician Address: Address: [address] [place] [address] Women's [place] [address]- Care Team Related Persons Name: MAJOR DUDLEY Address: home [address] [place] [address] Name: BALTA PATEL Address: home [address] [place] [address]
--- OUTSIDE RECORDS SUMMARY | 2023-10-15 15:17 | XMS_ITS | Continuity of Care Document ---
Author Organization [facility] [place]ie Brantley nCorteras [facility] Address [address] [place] [address], 4t [place] [address]- Care Team Providers Care Ammunition Assembly Laborer Name Role Phone Tye Hernandez Primary Care Physician [place] [facility] [place]/23 [facility] [place] [facility]oulton[place] [facility] [address], 4th Floor [place], [place] [address] Attending Physician: Maria Dolores Burr MD Referring Physician: Yasmani RUST, Krystle Donis Allergies, Adverse Reactions, Alerts Substance Reaction Severity Status Bactrim Muscle weakness. Stroke like symptoms Active Lactose Bloating Diarrhea Active Latex Rash Active Immunizations Given and Recorded Vaccine Date Status Refusal Reason influenza virus vaccine, inactivated 04/17/23 Gordy rded influenza virus vaccine, inactivated 06/06/22 Gordy rded influenza virus vaccine, inactivated 01/02/18 Give n [id number] 12y+ bivalent booster vax 02/04/22 Recorded hepatitis [...] Refills, Maintenance, 08/31/23 12:35:00 EDT, Chew Tablet, [facility]/pharmacy #[id number], Partial fill upon patient request [...] Physician Member Role: PCP Address: Address: [address] [place] [address]- Name: Laura TRIVEDI, Jolly Burnette Position: [facility] FINAL INSPECTOR MOTORCYLES MD Member Role: [employer] FINAL INSPECTOR MOTORCYLES Physician Address: Address: [address] [place] [address] Women's [facility] [place] [address]- Care Team Related Persons Name: MAJOR DUDLEY Address: home [address] [place] [address] Name: BALTA PATEL Address: home [address] [place] [address]
--- OUTSIDE RECORDS SUMMARY | 2023-10-15 15:17 | XMS_ITS | Continuity of Care Document ---
Author Organization [facility] Address [address] [place] [address]- Care Team Providers Care Professional Nursing Assistant Name Role Phone Tye Hernandez Primary Care Physician [phone] Encounter [facility] Date(s): 09/24/23 - 10/01/23 [facility] [address] [place] [address] Attending Physician: Not on Staff, Attending MD Referring Physician: Yasmani RUST, Krystle Donis Allergies, Adverse Reactions, Alerts Substance Reaction Severity Status Bactrim Muscle weakness. Stroke like symptoms Active Lactose Bloating Diarrhea Active Latex Rash Active Immunizations Given and Recorded Vaccine Date Status Refusal Reason influenza virus vaccine, inactivated 04/17/23 Gordy rded influenza virus vaccine, inactivated 06/06/22 Gordy rded influenza virus vaccine, inactivated 01/02/18 Give n [id number] 12y+ bivalent booster vax 02/04/22 Recorded hepatitis [...] Refills, Maintenance, 08/31/23 12:35:00 EDT, Chew Tablet, [facility]/pharmacy #[id number], Partial fill upon patient request [...] 09/24/23 16:07:00 EDT, Route to Pharmacy Electronically, [facility]/pharmacy #[id number], Partial fill upon patient request [...] or for stress; entered on: 08/31/23 Sex Radiology * Event Display: [facility] First Trimester Obstetrical U/S * Event Display: [facility] First Trimester Obstetrical U/S Authored Date: [id number] Obstetrics Report Signed Final 09/24/2023 3:35 PM Patient Info ID: [id number] : 1995 (28 y)(F) Name: SUPA NUÑEZ Date: 09/24/2023 3:06 PM Performed By Attending: Lilly Sánchez MD Referred By: Krystle Gruber APPLE SORTER Performed By: Lizzy Dodson [facility] Ref Address: [place] [employer] suspender cutter Exam Location:[facility] Service(s) Provided Code OB first trimester [address] [place] [address] P Indications Code 11 weeks gestation of Z3A.11 Obesity O99.211 PCOS (polycystic ovarian syndrome) E28.2 History of gestational hypertension Z87.59 H/O section Z98.891 First Trimester NT Screening Z36.82 Gestational Age Best: 11w 3d Det. By: U/S Rios Macedo SAM: 04/11/24 (08/16/23) OB History : 5 Term: 1 SAB: 3 Livin Evaluation Number Of Fetuses: 1 Preg. Location: In utero Heart Rate(bpm): 166 Cardiac Activity: Present Presentation: Variable Placenta Location: Posterior Amniotic Fluid DOMO FV: Within normal limits Comment: Active movements seen. Biometry -------- CRL: 50.6 mm G.Age: 11w 5d SAM: 04/09/2024 Biometry - Extended NT: 0.9 mm Standard Anatomy Cranium: 1st trimester anatomy Abdominal Wall: 1st trimester anatomy normal normal Choroid Plexus: 1st trimester anatomy Spine: 1st trimester anatomy normal LIMITED Face: 1st trimester anatomy Upper Extremities: Arms appear normal normal Diaphragm: 1st trimester anatomy Lower Extremities: Legs appear normal normal Heart: SEEN Cervix Uterus Adnexa Cervix: Appears closed Adnexa No anomalies noted Comments -------- There is a live first trimester intrauterine gestation measuring appropriate for gestational age. Limited first trimester anatomy appears normal. The NT is normal. Structures not seen on this exam are due to gestational age and position limitations. All structures not seen today will be evaluated at the anatomic survey. Aneuploidy screening deferred to the patient's primary obstetric provider. Maria Dolores Burr MD Electronically Signed Final Report 09/24/2023 3:35 PM * Event Display: [facility] First Trimester Obstetrical U/S Authored Date: [id number] Please click on pdf link to open report Patient Care team information Care Team Personnel Name: Tye Hernandez Position: Reference Physician Member Role: PCP Address: Address: [address] [place] [address]- Name: Jolly Sanchez MD Position: S NURSERY ATTENDANT MD Member Role: [employer] NURSERY ATTENDANT Physician Address: Address: [address] [place] [address]'s Health [place] [address]- [place] Care Team Related Persons Name: MAJOR DUDLEY Address: home [address] [place] [address] Name: BALTA PATEL Address: home [address] [place] [address]
--- OUTSIDE RECORDS SUMMARY | 2023-10-15 15:17 | XMS_ITS | Continuity of Care Document ---
Author Organization [facility] Address [address] [place] [address]- Care Team Providers Care Carpenter Prototype Name Role Phone Tye Hernandez Primary Care Physician Encounter [facility] Date(s): 09/24/23 - 10/01/23 [facility] [address] [place] [address]- Attending Physician: Yasmani RUST, Krystle Donis Allergies, Adverse Reactions, Alerts Substance Reaction Severity Status Bactrim Muscle weakness. Stroke like symptoms Active Latex Rash Active Lactose Bloating Diarrhea Active Immunizations Given and Recorded Vaccine Date Status Refusal Reason influenza virus vaccine, inactivated 04/17/23 Gordy rded influenza virus vaccine, inactivated 06/06/22 Gordy rded influenza virus vaccine, inactivated 01/02/18 Give n [id number] 12y+ bivalent booster vax 02/04/22 Recorded hepatitis [...] Refills, Maintenance, 08/31/23 12:35:00 EDT, Chew Tablet, [facility]/pharmacy #[id number], Partial fill upon patient [...] 09/24/23 16:07:00 EDT, Route to Pharmacy Electronically, [facility]/pharmacy #[id number], Partial fill upon patient [...] oldest [Reference Range]: 1 Height 158 cm (09/24/23 3:40 PM) Weight 84.4 kg (09/24/23 3:40 PM) Body Mass Index [18.5-24.99 kg/m2] 33.81 kg/m2 *>HHI* (09/24/23 3:40 PM) Blood Pressure [90-138/55-84 mm Hg] 124/ 72mm Hg (09/24/23 3:40 PM) Blood pressure sites Arm, right (09/24/23 3:40 PM) Dry Weight 84.4 kg (09/24/23 3:40 PM) Weight Obtained Via Standing scale (09/24/23 3:40 PM) Dry Weight Obtained Via Standing scale (09/24/23 3:40 PM) Social History Social History Type Response Smoking Status Former smoker, quit more than 30 days ago; Other: used prior to to help move bowels or for stress; entered on: 08/31/23 Sex Patient Care team information Care Team Personnel Name: Tye Hernandez Position: Reference Physician Member Role: PCP Address: Address: [address] [place] [address]- [place] Name: Jolly Sanchez MD Position: [facility] INDUSTRY SEGMENT SPECIALIST MD Member Role: [employer] INDUSTRY SEGMENT SPECIALIST Physician Address: Address: [address] [place] [address]'s Health [place] [address]- Care Team Related Persons Name: MAJOR DUDLEY Address: home [address] [place] [address] Name: BALTA PATEL Address: home [address] [place] [address]
--- OUTSIDE RECORDS SUMMARY | 2023-10-15 15:17 | XMS_ITS | Continuity of Care Document ---
Author Organization [facility] Address [address] [place] [address]- Care Team Providers Care Clean Out Driller Helper Name Role Phone Tye Hernandez Primary Care Physician En[facility] [place] Date(s): 09/06/23 - 10/06/23 [facility] [address] [place] [address]- Allergies, Adverse Reactions, Alerts Substance Reaction Severity Status Bactrim Muscle weakness. Stroke like symptoms Active Latex Rash Active Lactose Bloating Diarrhea Active Immunizations Given and Recorded Vaccine Date Status Refusal Reason influenza virus vaccine, inactivated 04/17/23 Gordy rded influenza virus vaccine, inactivated 06/06/22 Gordy rded influenza virus vaccine, inactivated 01/02/18 Give n [id number] 12y+ bivalent booster vax 02/04/22 Recorded hepatitis [...] Refills, Maintenance, 08/31/23 12:35:00 EDT, Chew Tablet, [facility]/pharmacy #1130, Partial fill upon patient request [...] 0 Refills, Maintenance, 09/24/23 16:07:00 EDT, Tablet, [facility]/pharmacy #1130, Partial fill upon patient request if the prescription is for a schedule II opioid drug., 158, cm, 0... Start Date: 09/24/23 Status: Ordered Vitamin B6 50 mg oral tablet 50 mg, 1, tablet, By Mouth, 3 times a day, # 30 tablet, Refills 3, Tot. Refills 3, Maintenance, 09/24/23 16:07:00 EDT, Route to Pharmacy Electronically, [facility]/pharmacy #1130, Partial fill upon patient request [...] Physician Member Role: PCP Address: Address: [address] [place] [address]- Name: Jolly Sanchez MD Position: [facility] OUTPATIENT RECEPTIONIST MD Member Role: [employer]etime OUTPATIENT RECEPTIONIST Physician Address: Address: [address] [place] [address] Women's Health Mechanical [place] [address]- Care Team Related Persons Name: MAJOR DUDLEY Address: home [address] [place] [address] Name: BALTA PATEL Address: home [address] [place] [address]
--- OUTSIDE RECORDS SUMMARY | 2023-10-15 15:17 | XMS_ITS | Continuity of Care Document ---
Author Organization [facility] [place]ie Brantley n[employer]s [facility] Address [address] [place] [address], [address] [place] [address]- Care Team Providers Care Dialysis Nurse Name Role Phone Tye Hernandez Primary Care Physician [phone] Encounter [facility] [place] Date(s): 08/30/23 - 09/06/23 [facility] Moulton[facility] Networkss [facility] [address] 4th Floor [place], [place] [address] Attending Physician: Maria Dolores Burr MD Referring Physician: Juju Armijo MD Allergies, Adverse Reactions, Alerts Substance Reaction Severity Status Bactrim Muscle weakness. Stroke like symptoms Active Latex Rash Active Lactose Bloating Diarrhea Active Immunizations Given and Recorded Vaccine Date Status Refusal Reason influenza virus vaccine, inactivated 04/17/23 Gordy rded influenza virus vaccine, inactivated 06/06/22 Gordy rded influenza virus vaccine, inactivated 01/02/18 Give n [id number] 12y+ bivalent booster vax 02/04/22 Recorded hepatitis [...] a schedule II opioid drug., 158, cm, .. Start Date: 08/31/23 Stop [...] Maintenance, 08/31/23 12:35:00 EDT, Chew Tablet, [facility]/pharmacy #1130, Partial fill upon patient request if [...] on: 08/31/23 Sex Radiology * Event Display: [facility] Limited Viability * Event Display: [facility] Limited Viability Authored Date: [id number] OBSTETRICS REPORT PATIENT INFO: CMRN: [id number] BMRN: [id number] : [birth year] (28 yrs)(F) Name: SUPA NUÑEZ Visit Date: 08/30/2023 01:25 pm PERFORMED BY: Performed By: Aysha Murphy RDMS Attending: Lilly Sánchez MD Referred By: Krystle Gruber NP Location: [address] INDICATIONS: M - BMI O99.21_ E66.01 viability O36.80_0 Previous scar x1 O34.21 PCO (polycystic ovaries) E28.2 EVALUATION: Num Of Fetuses: 1 Gest. Sac: Seen in the intrauterine cavity Yolk Sac: 4.3 Pole: Visualized Heart Rate(bpm): 150 Cardiac Activity: Present Amniotic Fluid DOMO FV: Early gestation BIOMETRY: CRL: 17.2 mm G.Age: 8w 1d SAM: 04/09/24 OB HISTORY: : 5 Term: 1 SAB: 3 Livin GESTATIONAL AGE: Best: 7w 6d Det. By: Millie/Juan Diego Macedo SAM: 04/11/24 (08/16/23) CERVIX UTERUS ADNEXA: Cervix Within Normal Limits Left Ovary Visualized Right Ovary Visualized Cul [place] Sac No fluid seen Adnexa No anomalies noted COMMENTS: There is a live first trimester intrauterine gestation measuring appropriate for gestational age. Lilly Sánchez MD Electronically Signed Final Report 08/30/2023 01:43 pm * Event Display: [facility] Limited Viability Authored Date: [id number] Please click on pdf link to open report Patient Care team information Care Team Personnel Name: Tye Hernandez Position: Reference Physician Member Role: PCP Address: Address: [address] [place] [address]- Name: Jolly Sanchez MD Position: [facility] SYSTEMS SOFTWARE SPECIALIST MD Member Role: [employer] SYSTEMS SOFTWARE SPECIALIST Physician Address: Address: [address] Women's Health Financial [place] [address]- Care Team Related Persons Name: MAJOR DUDLEY Address: home [address] [place] [address] Name: BALTA PATEL Address: home [address] [place] [address]
--- OUTSIDE RECORDS SUMMARY | 2023-10-15 15:17 | XMS_ITS | Continuity of Care Document ---
Author Organization [facility] Address [address] [address]- Care Team Providers Care Hearing Care Professional Name Role Phone Tye Hernandez Primary Care Physician Encounter [facility] Date(s): 08/16/23 - 09/15/23 [facility] [address] [place] [id number] Allergies, Adverse Reactions, Alerts Substance Reaction Severity Status Bactrim Muscle weakness. Stroke like symptoms Active Lactose Bloating Diarrhea Active Latex Rash Active Immunizations Given and Recorded Vaccine Date Status Refusal Reason influenza virus vaccine, inactivated 04/17/23 Gordy rded influenza virus vaccine, inactivated 06/06/22 Gordy rded influenza virus vaccine, inactivated 01/02/18 Give n [id number] 12y+ bivalent booster vax 02/04/22 Recorded hepatitis [...] Member Role: PCP Address: Address: [address] [place] [address]- Name: Jolly Sanchez MD Position: [facility] ADVERTISEMENT DISTRIBUTOR MD Member Role: [employer] ADVERTISEMENT DISTRIBUTOR Physician Address: Address: [address] [place] [address] Women's Health [place] [address]- Care Team Related Persons Name: MAJOR DUDLEY Address: home [address] [place] [address] Name: BALTA PATEL Address: home [address] [place] [address]
--- OUTSIDE RECORDS SUMMARY | 2023-10-15 15:17 | XMS_ITS | Continuity of Care Document ---
Author Organization [facility] ter Address [address] [place] [id number]- Care Team Providers Care Bar Back Name Role Phone Tye Hernandez Primary Care Physician Encounter [facility] Date(s): 08/16/23 - 08/23/[address] [id number] Encounter Diagnosis Other specified related conditions, unspecified trimester(Final) - Discharge Disposition: A-D/C Home Attending Physician: Helena Cummings MD Admitting Physician: Helena Cummings MD Allergies, Adverse Reactions, Alerts Substance Reaction Severity Status Bactrim Muscle weakness. Stroke like symptoms Active Lactose Bloating Diarrhea Active Latex Rash Active Immunizations Given and Recorded Vaccine Date Status Refusal Reason tetanus/diphtheria/pertussis, acel(Tdap) 01/02/18 Given influenza virus vaccine, inactivated 01/02/18 Give n Medications amoxicillin-clavulanate 875 mg-125 mg oral tablet 1 tablet, By Mouth, Every 12 hours, for 5 days, # 10 tablet, 0 Refills, Acute 08/26/23 12:19:00 EDT, 08/21/23 12:19:00 EDT, Tablet, [facility]/pharmacy #[id number], Partial fill upon patient request if the prescription is for a schedule II opioid drug., 156.2, cm,... Start Date: 08/21/23 Stop Date: 08/26/23 Status: Ordered docusate sodium 100 mg oral tablet 1 tablet = 100 mg, By Mouth, 3 times a day, PRN for constipation, # 100 tablet, 0 Refills, Maintenance, 01/15/18 12:46:20 EDT, Tablet Start Date: 01/15/18 Stop Date: 02/14/18 Status: Ordered miSOPROStol 200 mcg oral tablet See Instructions, 24 -48 hours after mifeprex dose (taken at [facility]), place all four tablets invagina, # 4 tablet, 0 Refills, Maintenance, 12/08/22 14:44:00 EDT, [id number], Partial fillupon patient request if the prescription [...] oldest [Reference Range]: 1 Height 156.20 cm (08/16/23 11:15 AM) Oxygen Saturation [94-100 %] 100 % (08/16/23 11:41 AM) Blood Pressure [90-138/55-84 mm Hg] 111/ 74mm Hg (08/16/23 11:41 AM) Respiratory Rate [16-30 br/min] 18 br/mi n (08/16/23 11:41 AM) Temperature [96.8-100.4 DegF] 98.3 DegF (08/16/23 11:41 AM) Mode of Delivery (Oxygen) Room air (08/16/23 11:41 AM) Blood pressure sites Arm, right (08/16/23 11:41 AM) Temperature Route Oral (08/16/23 11:41 AM) Social History Social History Type Response Smoking Status Never smoker entered on: 03/13/14 Sex Radiology * Event Display: [facility] First Trimester Obstetrical U/S * Event Display: [facility] First Trimester Obstetrical U/S Authored Date: [id number] OBSTETRICS REPORT PATIENT INFO: CMRN: [id number] BMRN: [id number] : [birth year] (28 yrs)(F) Name: SUPA NUÑEZ Visit Date: 08/16/2023 01:43 pm PERFORMED BY: Performed By: Cele Dan RDMS Attending: Lilly Sánchez MD Referred By: Hollie Madrigal [facility] INDICATIONS: Unsure dates Z36.87 viability O36.80_0 EVALUATION: Num Of Fetuses: 1 Gest. Sac: Seen in the intrauterine cavity Yolk Sac: Visualized Pole: Visualized Heart Rate(bpm): 101 Cardiac Activity: Present Amniotic Fluid DOMO FV: Within normal limits BIOMETRY: CRL: 3.1 mm G.Age: 5w 6d SAM: 04/11/24 GESTATIONAL AGE: Best: 5w 6d Det. By: Derrick Macedo SAM: 04/11/24 (08/16/23) CERVIX UTERUS ADNEXA: Cervix Appears closed Uterus Retroflexed Left Ovary Appears normal Right Ovary Appears normal Adnexa No anomalies noted Comment Vaginal scanning was done. COMMENTS: Viable intrauterine seen. Live intrauterine gestation. Due to unsure LMP, the EDC was assigned by today's study. RECOMMENDATIONS: Consider viability in 2 weeks given early gestation Lilly Sánchez MD Electronically Signed Final Report 08/16/2023 03:08 pm * Event Display: [facility] First Trimester Obstetrical U/S Authored Date: Please click on pdf link to open report Note * Event Display: Discharge/Transfer Note Hospital Authored Date: * Subha Barraza RN: PERFORM Event Display: Discharge/Transfer Note Hospital Authored Date: Nursing Discharge Note Entered On: 08/16/2023 14:34 EDT Performed On: 08/16/2023 14:33 EDT by Subha Barraza RN Nursing Discharge Note 2 Discharge Time : 08/16/2023 14:33 EDT Discharge Level of Care at Discharge : Home/Longterm/Foster Care Patient Left Unit Via : Ambulatory Patient Accompanied Off Unit with : Other: self DC Instructions Provided & Signed by Pt : Yes Patient Understands D/C Instructions : Yes Verbalized Understanding of D/C Plan By : Patient Patient Instructions Discharge Signed : Yes Did Pt have Specialty Bed or Wound Vac : No Subha Barraza RN - 08/16/2023 14:33 EDT * Subha Barraza RN: PERFORM Event Display: Patient Education/Instruction Authored Date: Inpatient Adult Discharge Instructions. [address] [address] Name: SUPA NUÑEZ : 1995?? Visit: 08/16/2023 10:52?? Current Date: 08/16/2023 12:13 ?? Account: [id number]?? Inpatient Adult Discharge Instructions We would like to thank you for allowing us to assist you with your healthcare needs. The following includes patient education materials and information regarding your injury/illness. Our entire staffstrives to provide an excellent experience for our patients and their families. PLEASE ENSURE YOU FOLLOW-UP PER THE INSTRUCTIONS BELOW! ?? YOUR OPINION IS IMPORTANT TO US! Please complete the survey you may receive by mail or email. Your feedback will be used to make improvements to the healthcare experiences of our patients and their families. Surveys are administered by [employer] ?? If further treatment with your primary care physician or another doctor is recommended, it is important for you to keep the appointment. Call your primary care physician or return to the Emergency Department immediately if your condition worsens, fails to improve, or new symptoms develop. If you need to find a doctor, you can call [facility] Remitly Link for a referral at [phone] or toll free at [phone] ([phone]) or log in to [email or web address].. ?? [facility], in keeping with [facility] guidance, no longer requires face masks for staff, patientsor visitors in most situations. Similiar to time spent indoors at other locations, there is the chance that you were exposed to repiratory viruses during your time with us (such as flu or COVID-19). If you develop symptoms concerning for a viral respiratory infection, please seek testing (and treatment if indicated) from your medical provider or home test kit. ?? You can view and manage your care through the patient portal or by using a health care snehal of your choosing. [employer] is a website that allows you to securely view your medical information including your hospital discharge summary, office visit summaries, medications and follow-up visits. You can also request appointments, renew medications, and request access to your medical information using a health care snehal of your choosing, or just ask a question. You can enroll at [email or web address] or register during your next office visit. You have been discharged from [facility], Patient Care Unit: [id number]??. If you have any questions regarding these instructions, including results of studies pending, afteryou leave, please call us and we will be happy to assist you 16/10. [facility] Your Care Team Attending Physician Helena Cummings MD?? Consulting Providers Helena Cummings MD?? Tests Performed Below is a partial list of the tests performed during your hospitalization. You may have had other tests and procedures not included in this list. Please discuss all test results with your provider. No tests performed during this visit.?? Primary Care Provider Tye Hernandez? Advance Directive Health Care Proxy on File No Patient has a Designated Caregiver: No Discharge Vitals Temperature: 98.3 DegF Height: 156.2 cm Respiratory Rate: 18 br/min ?? Systolic Blood Pressure: 111 mm Hg ?? Diastolic Blood Pressure: 74 mm Hg ?? Oxygen Saturation: 100 % ?? Studies Pending All studies ordered during this hospital stay have been completed unless listed below. Please discuss all pending results with your provider listed above in these instructions. ?? No incomplete studies found?? What to do next Instructions From Your Doctor ?? Orders?? Scheduled Follow-Up Appointments Sunday 11:30 AM EDT ?? Where: [facility] [address] [place] [address]- Status: Pending Sunday 9:30 AM EDT ?? Where: [facility] [address] [place] [address]- Status: Pending Discharge Medications SUPA NUÑEZ :1995 Visit Date:08/16/2023 Medications: Please continue your medications until treatment is completed or stopped by your provider. Medications not listed below should be discontinued. Discuss any questions related to medications with your provider. What How Much When Why Instructions Next Dose Unchanged Docusate (docusate sodium 100 mg oral tablet) 1 tab(s) Oral 3 times a day as needed for for constipation Duration: 30 Days Unchanged Misoprostol (miSOPROStol 200 mcg oral tablet) See instructions Missed 24 -48 hours after mifeprex dose (taken at [facility] office), place all four tablets in vagina ?? Unchanged Multivitamin, ( Multivitamins with Folic Acid 1 mg oral capsule) 1 capsule Oral Daily Duration: 30 Days Unchanged Multivitamin, ( Multivitamins) Oral Daily Unchanged Promethazine (promethazine 25 mg oral tablet) 1 tab(s) Oral Every 6 hours Missed Duration: 3 Days Unchanged Ranitidine (raNITIdine 75 mg oral tablet) 1 tab(s) Oral Twice a day Duration: 30 Days Prescription Given During Visit No new medications prescribed at time of discharge.?? Laboratory Results Below is a partial list of the most recent Laboratory test results done prior to this discharge. You may have had other tests and procedures not included in this list. Please discuss all test resultswith your provider. Allergies (NKA means No Known Allergies) Bactrim??(Muscle weakness. Stroke like symptoms) Lactose??(Bloating, Diarrhea) Latex??(Rash) Problems Active Problems??(10) Anemia?? Anxiety?? Depressive disorder?? Exercise Induced Asthma?? Migraine?? Missed ?? Obese class I?? Obesity?? PCOS (polycystic ovarian syndrome)? Education Materials Below is the list of Educational Leaflet Providered with your Discharge Instructions. [employer] Patient Education - Possible Miscarriage (Threatened )?? [employer] Patient Education - Abdominal Pain and Early ?? Valuables and Belongings I fully understand and agree that [facility] accepts no responsibility for all my personal property including clothing, toilet articles, radios, jewelry, dentures, hearing aids, rings, money, or any other property that is in my possession or is brought to me after admission. I understand certain valuables may be placed in a hospital safe for a short period of time. I understand that the hospital is not liable for loss or damage due to accident, fire, or other natural occurrence while said property is in the safe. I accept full responsibility for any personal property that I keep with me, and will not hold the hospital responsible in case of loss or disappearance. I acknowledge that i have been encouraged to send valuables and belongings home. ? Other Discharge Information ? Pulmonary Rehab Status?? Pulmonary Rehab Discharge Status?? Respiratory Rate: 18 br/min ? Common Emergency Awareness Tips IS IT A STROKE? Act FAST and Check for these signs: FACE Does the face look uneven? ARM Does one arm drift down? SPEECH Does their speech sound strange? TIME Call at any sign of stroke ?? Heart Attack Signs Chest discomfort: Most heart attacks involve discomfort in the center of the chest and lasts more than a few minutes, or goes away and comes back. It can feel like uncomfortable pressure, squeezing, fullness or pain. Discomfort in upper body: Symptoms can include pain or discomfort in one or both arms, back, neck, jaw or stomach. Shortness of breath: With or without discomfort. Other signs: Breaking out in a cold sweat, nausea, or lightheaded. Remember, MINUTES DO MATTER. If you experience any of these heart attack warning signs, call to get immediate medical attention! ?? Smoking can increase your chances of developing chronic health problems and can cause harmful effects to other family members in your house. If you smoke, you are strongly encouraged to quit. Please call [facility] Remitly Link at [phone] or [phone] Story ([phone]) or log in to [email or web address] for referrals to smoking cessation programs. ?? 448 Suicide & Crisis Lifeline is available 16/10 if you or someone you know needs to find a reason to keep living. By calling 347 you'll be connected to a skilled, trained counselor at a crisis center in your area. INPATIENT DISCHARGE INSTRUCTIONS SIGNATURE PAGE SUPA NUÑEZ Location:[facility] Registration Date and Time:08/16/2023 10:52 EDT Primary Care Physician: Tye Hernandez, Attending Physician: Helena Cummings MD, SUPA STEVENS, have received the above patient education materials/instructions and have verbalized understanding. If ambulance or transport services are being used I further acknowledge being given a choice of service. ?? If you need to contact me, please call me at this number: . 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 [id number] Possible Miscarriage (Threatened ) You may be having a miscarriage. Common signs of a miscarriage are pain and bleeding.??A small amount of bleeding can be normal during the first 3 months of . Often the pain and bleeding stop, and you have a normal and baby.??But heavy bleeding or severe cramping can be an early sign of miscarriage. A miscarriage means??an??unexpected loss of your . At this time, your healthcare provider doesn???t know whether you will have a miscarriage, or if things will clear up and your will continue normally. This can be emotionally difficult. There is little that can be done to change the way you feel. But??understand that miscarriages are common. About 1 or 2 out of every [address] Some even end before you know you are . This happens for a number of reasons, and usually the cause is never known. It???s important youknow that it is not your fault. It didn???t happen because you did anything wrong. Having sex or exercising does not cause a miscarriage. These activities are usually safe unless youhave pain or bleeding, or your healthcare provider tells you to stop. Even minor falls won???t cause a miscarriage. Miscarriages happen because things were not developing as they were supposed to. Nomedicine can prevent a miscarriage. Again, understand that things are uncertain right now. You may still have some bleeding. This may be light spotting or like a period, and you may pass some tissue. You may have some cramping. This iswhy follow-up care is important. Home care To improve the chance of keeping??your , you should take these steps: ??? Rest in bed until the pain and bleeding stop. ??? Don???t have sex until your healthcare provider says it???s OK. ??? Use sanitary napkins instead of tampons. ??? Don???t douche. ??? Don???t take aspirin, ibuprofen, or naproxen. ??? Don???t have alcoholic or caffeinated beverages or smoke. ?? Follow-up care Make an appointment with your healthcare provider within the next week, or as directed. If you had an ultrasound,??a radiologist??will??review??it.??You will be told of any new findings that may affect your care. ?? Call 911 Call 911 if you have: ??? Severe pain and very heavy bleeding ??? Severe lightheadedness, passing out, or fainting ??? Rapid heart rate ??? Trouble breathing ??? Confusion or trouble waking up ?? When to seek medical advice Call your healthcare provider right away??if any of the following occur: ??? Vaginal bleeding or pain that lasts for more than 3 days ??? Heavy bleeding. This means soaking 1 new pad an hour over 3 hours. ??? Fever of 100.4??F (38??C) or higher, or as directed by your healthcare provider ??? Pain in your lower belly (abdomen) that gets worse ??? Weakness or dizziness ??? Passage of anything that resembles tissue. This would be pink or grayish membrane or solid material. Save the tissue in a clean container and bring it to your healthcare provider. ?? Last Reviewed Date: 2021 ?? [employer]. All rights reserved. This information is not intended as a substitute for professional medical care. Always follow your healthcare professional's instructions. ?? * Subha Barraza RN: PERFORM Event Display: Patient Education Leaflets Authored Date: [id number] Abdominal Pain and Early ?? [id number] Abdominal Pain and Early The tests you had show that you're . But the exact cause of your pain isn???t clear. Some pain and bleeding are common early in . Often they stop, and you can go on to have a normal and baby. Other times the pain or bleeding can be signs of a??miscarriage??or??ectopic . An ectopic is a very serious problem. At this time, it's unclear if your will continue normally, if you'll have a miscarriage, or if you could have an ectopic pregnan cy. Below is some information about this. Miscarriage At this time, it's not known if you'll have a miscarriage, or if things will clear up and your will continue normally. This is an emotionally difficult time. But??it's important to understand that miscarriages are common. About 1 or 2 out of every [address] Some end even before a person knows they're . This happens for many reasons. Often the cause is never found. But it???s important that you know it's not your fault. It didn???t happen because you did anything wrong. Having sex or exercising doesn't cause a miscarriage. These activities are usually safe unless you have pain or bleeding. Or unless your healthcare provider tells you to stop. Even minor falls won???t cause a miscarriage. Miscarriages happen because things weren't developing as they were supposed to. No medicine can prevent a miscarriage. ?? Ectopic In a normal , the fertilized egg attaches to the wall of the uterus. In an ectopic or tubal , the fertilized egg attaches outside the uterus, usually in the fallopian tube. In very rare cases, the egg attaches to an ovary or somewhere else in the belly (abdomen). An ectopic is much less common than a miscarriage. But it's very serious. The baby can't survive. And as itgrows it can burst (rupture) the fallopian tube. This can cause internal bleeding and even . Risk factors for an ectopic are: ??? A past ectopic ??? Pelvic inflammatory disease (PID) ??? Endometriosis ??? Smoking ??? An IUD ?? Additional tests It's not known what???s causing your symptoms. So you'll need more tests to figure out what the problem is. You may need the tests below. Ultrasound An ultrasound can often find a normal as early as 4 to 5 weeks along. If the ultrasound does not show the baby inside the uterus, it means 1 of these things: ??? You have a normal less than 4 weeks along ??? You are having or recently had a miscarriage ??? You have an ectopic hormone An HCG test measures the amount of a hormone in your blood. Comparing today's test resultto a repeat test in 2 days will show if you have a normal . Laparoscopy This is a type of surgery. The healthcare provider will put a tube with a light inside your belly to look directly at your pelvic organs. This test is used when it's not safe to wait 2 days for bloodtest results. ?? Important information If you do have an ectopic , there's a small chance that the growing fetus can tear the fallopian tube. This can cause severe internal bleeding. If this happens, you may have: ??? Sudden severe pain in your lower belly ??? Vaginal bleeding ??? Weakness, dizziness, and sometimes fainting If any of these symptoms occur: ??? Call 911 or return right away to the hospital. ??? Don't drive yourself. ??? Don't go to your healthcare provider's office or to a clinic. Go to the hospital. ?? Home care Follow these guidelines to help care for yourself at home: ??? Rest until your next exam. Don???t do any strenuous activities. ??? Eat a light diet with foods that are easy to digest. ??? Don???t have sex until your healthcare provider says it???s OK. ?? Follow-up care Follow up with your healthcare provider, or as advised. If you were told to have a repeat blood test in 2 days, it???s important to get it done. If you had an X-ray or ultrasound, a radiologist??will??review??it. You'll be told of any new findings that may affect your care. ?? Call 911 Call 911 if you have any of these: ??? Severe pain and very heavy bleeding ??? Severe lightheadedness, passing out, or fainting ??? Rapid heart rate ??? Trouble breathing ??? Confused or having trouble waking up ?? When to get medical care Call your healthcare provider right away if any of these occur: ??? The pain in your belly gets worse, either suddenly or slowly. ??? You're dizzy or weak when you stand. ??? You have heavy vaginal bleeding. This means soaking 1 pad an hour for 3 hours. ??? You have vaginal bleeding for more than 5days. ??? You have repeated vomiting or diarrhea. ??? The pain in your belly moves to the lower right. ??? You have blood in your vomit or bowel movements. This will be dark red or black. ??? You have a fever of 100.4??F (38??C) or higher, or as advised by your provider. ?? Last Reviewed Date: 2021 ?? [id number] [employer]. All rights reserved. This information is not intended as a substitute for professional medical care. Always follow your healthcare professional's instructions. ?? Patient Care team information Care Team Personnel Name: Tye Hernandez Position: Reference Physician Member Role: PCP Address: Address: [address] [place] [address]- [place] Name: Laura TRIVEDI, Jolly Burnette Position: [facility] MD Member Role: [employer] [facility] Physician Address: Address: [address] [place] [address] [employer] [place] [address]- Care Team Related Persons Name: MAJOR DUDLEY Address: home [address] [place] [address] Name: BALTA PATEL Address: home [address] [place] [address]
== END 2023-10-15 16:25 | disposition home or self-care (01) ==
LOC: HO.HMGH 15:15
PROVIDERS: PCP Physician Assistant; Visit Provider Physician Assistant
DX: M54.50 Low back pain, unspecified (principal); Z3A.14 14 weeks gestation of pregnancy
CPT/HCPCS: 99213

== ENCOUNTER 2024-01-21 11:22 | Outpatient (REF) | payer OTHER, SELFPAY ==
[2024-01-21 12:27] LABS: Hematocrit 32.7 % (37.0-47.0); Mean Corpuscular HGB Conc 33.6 g/dl (31.0-35.0); Mean Corpuscular Hemoglobin 27.3 pg (27.0-33.0); Mean Corpuscular Volume 81.1 fL (80.0-98.0); Mean Platelet Volume 10.9 fL (9.4-12.3); Platelet Count 219 X10*3/uL (160-400); Red Blood Count 4.03 X10*6/uL (4.20-5.50); Red Cell Distribution Width 13.8 % (11.0-16.0); White Blood Count 9.3 X10*3/uL (4.8-10.8)
[2024-01-21 12:35] LABS: Estimated Average Glucose 103 mg/dL; Hemoglobin A1c % 5.2 % (<6.0); Total Hemoglobin (HGBA1C) 2948.6797 umol/L
[2024-01-21 13:09] LABS: Alanine Aminotransferase 14 U/L (0-31); Albumin Level 3.4 g/dL (3.5-5.0); Alkaline Phosphatase 63 U/L (39-117); Anion Gap 7 (12-20); Aspartate Amino Transferase 14 U/L (5-31); Bilirubin Total 0.3 mg/dL (0.0-1.0); Blood Urea Nitrogen 7 mg/dL (9-16); Calcium 9.5 mg/dL (8.4-10.2); Carbon Dioxide 26 mmol/L (22-29); Chloride 105 mmol/L (96-108); Cholesterol 253 mg/dL (<200); Estimated Glomerular Filt Rate > 60; Glucose Fasting 78 mg/dL (60-99); HDL Cholesterol 57 mg/dL (>40); LDL Cholesterol Calculated 155 mg/dL (<100); Sodium 134 mmol/L (135-145); Total Protein 6.9 g/dL (6.5-8.0); Triglycerides 207 mg/dL (<150)
[2024-01-21 13:25] LABS: Vitamin D 25-OH Total 61.3 ng/mL (>30)
[2024-01-22 13:39] LABS: Mumps Virus IgG Antibody >300.00 AU/mL; Rubella IgG Antibody 3.71 Index; Varicella IgG Antibody 3.61 S/CO
[2024-01-24 04:54] LABS: TS Negative Control Passed; TS Panel A 0; TS Panel B 0; TS Positive Control Passed; TSpotTB Negative (Negative)
== END 2024-01-21 11:23 | disposition home or self-care (01) ==
LOC: HO.LAB 11:22
PROVIDERS: PCP Physician Assistant; Visit Provider Physician Assistant
DX: E11.65 Type 2 diabetes mellitus with hyperglycemia (principal); Z23 Encounter for immunization; Z11.1 Encounter for screening for respiratory tuberculosis; E55.9 Vitamin D deficiency, unspecified
CPT/HCPCS: 36415; 80053; 80061; 82306; 83036; 85027; 86481; 86735; 86762; 86765; 86787

== ENCOUNTER 2024-01-24 10:58 | Outpatient (AMB) | payer OTHER, SELFPAY ==
--- NOTE | 2024-01-24 11:11 | A.OFFPC_ITS ---
Vital Signs 01/24/24 11:18 Height 5 ft 2 in Weight 218 lb 6 oz BMI 39.9 BP 122/64 Blood Pressure Location Lt brachial Position Sitting Pulse 87 Pulse Source Pulse Oximeter Pulse Oximetry (%) 98 Oxygen Delivery Method Room Air Intake Visit Reasons: f/u dmii Manager Therapy Required: No Accompanied by: Self / Same As Patient Allergies latex [LATEX] Allergy (Unknown, Verified 01/24/24 11:25) RASH sulfamethoxazole [From BACTRIM] Allergy (Unknown, Verified 01/24/24 11:25) SHORTNESS OF BREATH Medication List - Last Reconciled 01/24/24 by Tye Teresa PA-C acetaminophen 500 mg PO QID PRN 15 days albuterol sulfate 90 mcg/actuation 1 inh inhalation QID 30 days cholecalciferol (vitamin D3) 25 mcg PO DAILY diclofenac sodium 75 mg PO BID 10 days liraglutide (Victoza 3-Jay) 1.8 mg (0.3 mL) subcut Q24H 30 days mecobalamin (vitamin B12) 1,000 mcg PO DAILY 90 days metformin ER 1,000 mg (2 x 500 mg) PO BID 30 days metoclopramide HCl (Reglan) 5 mg PO QIDACHS pen needle, diabetic (BD Ultra-Fine Micro Pen Needle) daily with liraglutide vit 49-iron fum-folic 6.75 mg iron- 200 mcg (Mini ) 1 tab PO DAILY 90 days Tobacco use date assessed: 04/17/23 Dental Screening Dental Screen Date: 04/17/23 HPI f/u dmii HPI Details Patient is a 28-year-old female here today for a follow-up visit. Patient has a past medical history significant for type 2 diabetes, chronic lumbar spine pain, PCOS , obesity, asthma, major depressive disorder and anxiety.. Currently 7 months and followed by Sydnie CASTILLO. Lumbar back pain: Has been a bit worse since her , has been taking Tylenol with decent relief. Would like to look into aquatic therapy for her back.. Type 2 diabetes/ PCOS: Most recent A1c of 5.2. Now holding metformin and Victoza. Was followed by endocrinology though has lost follow-up due to [place] living. Now needs PCP to manage her diabetes and PCOS. .. Mood disorder/major depressive disorder: Now holding Lamictal and bupropion due to . She feels her mental health is stable.. Laboratory Tests 11/21/22 07/23/23 01/21/24 23:46 11:10 11:54 RBC 4.03 L Hgb 11.0 L Sodium 138 134 L Hgb A1c (Clinic) 5.0 Hemoglobin A1c % 5.2 Triglycerides 207 H Cholesterol 253 H LDL Cholesterol, C alc 155 H PFSH Medical History (Updated 01/24/24 @ 11:45 by Tye Teresa PA-C) Encounter for screening PCOS (polycystic ovarian syndrome) Right ankle pain Prediabetes Nephrolithiasis Obesity Polycystic ovary syndrome Migraine with aura Migraines Generalized anxiety disorder Family history of breast cancer Vitamin D deficiency Hirsutism Amenorrhea Asthma Surgical History History of delivery History of appendectomy Family History Mother Obesity Breast cancer Maternal Aunt Breast cancer Paternal Aunt Breast cancer Family/Other Ovarian cancer Paternal Uncle Lung cancer Other Mental problem Substance abuse Social History Household Members: Children Housing: Apartment Housing Other:: She is looking to move out of her current apartment, not close to family Alcohol intake: current Alcohol intake frequency: holidays/special occasions only Alcohol type: beer and other Patient Tobacco Use Status: Former Tobacco user e-Cigarette/Vaping Use: Never Used Second Hand Smoke Exposure: Yes Substance Use Type: Marijuana service: No Current occupational status: unemployed Cognitive needs: No Hearing needs: No Vision needs: No Female Reproductive History Menstrual Age of Menarche: 9 Questionnaire Thrive Questionnaire Date Thrive assessed: 04/17/23 AUDIT C Alcohol Use Questionnaire (AUDIT-C) 3. How often do you have six or more drinks on one occasion?: Never Total Score: 0 VIK-7 AMB Questionnaire VIK-7 Date VIK - 7 assessed: 04/17/23 Source: Developed by Drs. Tristan Mcpherson, Divya Lara, Nikolai Arambula and colleagues, with an educational medardo from [employer]. Review of Systems Const Denies headache(s) Eyes Denies loss of vision ENT Denies vertigo, Denies dizziness, Denies headache(s) and Denies sore throat Card Denies chest pain, Denies leg edema and Denies lightheadedness Resp Denies cough, Denies hemoptysis and Denies wheezing GI Denies abdominal pain, Denies melena, Denies constipation, Denies diarrhea and Denies vomiting Denies urinary frequency, Denies dysuria and Denies urinary urgency Musc Denies arthralgias, Denies joint swelling, Denies numbness and Denies tingling Neuro Denies Abnormal speech present, Denies behavioral changes, Denies vertigo, Denies dizziness, Denies headache(s), Denies loss of vision, Denies memory loss, Denies numbness and Denies tingling Psych Denies anxiety, Denies behavioral changes, Denies depression, Denies memory loss and Denies panic attacks Leonardo/Lymph Denies easy bleeding and Denies easy bruising Aller/Immun Denies wheezing Physical exam (Primary Care) Tobacco/Smoking Status: Tobacco use Status Tobacco use date assessed 04/17/23 01/24/24 11:13 Patient Tobacco Use Status Former Tobacco user 01/24/24 11:13 e-Cigarette/Vaping Use Never Used 01/24/24 11:13 Thrive Assessment: Date of Thrive Assessment Date Thrive assessed 04/17/23 01/24/24 11:13 Const General: healthy appearing, no acute distress, alert and awake Nutritional Appearance: well nourished Orientation/consciousness: oriented to person, oriented to place and oriented to time HENMT Ears: TM's normal bilaterally General nose exam: Normal nasal mucous membranes and turbinates present Eyes Conjunctivae: conjunctivae normal Sclerae: sclerae normal Pupils: Equal, round and reactive pupils present Neck Neck: Yes no lymphadenopathy and Yes no JVD Thyroid: Thyroid normal Carotids: no bruits Resp Effort & Inspection: normal respiratory effort and not tachypneic Auscultation: no crackles, no rales, no rhonchi and no wheezes Cardio Rate: regular rate Rhythm: regular rhythm Heart sounds: no murmurs and normal S1 and S2 GI Palpation (GI): Soft to palpation, nontender, no hepatomegaly and no splenomegaly Auscultation: normal bowel sounds Skin General skin exam: no rashes or lesions noted and dry skin Neuro General: oriented to person, oriented to place and oriented to time Cranial nerves: Yes Equal, round and reactive pupils present Speech: No Abnormal speech present Gait exam (Neuro): Normal gait present Motor exam (neuro): no tremor noted Extrem Right upper extremity: full ROM Left upper extremity: full ROM Right lower extremity: full ROM; no edema Left lower extremity: full ROM; no edema Psych Mental Status: mental status grossly normal Speech and movement: Normal speech and movement present Affect: normal affect Attitude: cooperative Thought process: Normal thought process present Office Procedures Flu Questionnaire Does the patient have a severe egg allergy?: No Immunizations Fluarix Triv [id number] (PF) 45 mcg (15 mcg x 3)/0.5 mL IM syringe Performing Provider: Tye Teresa PA-C Performing Location: [facility] [place] [facility] Documented (not given) by: ANDRAE Javier on 01/24/24 11:19 Reason Not Given: Received Previously Coding Level of Care Code Est Pt Level 4 (71891) Diagnoses Type 2 diabetes mellitus with hyperglycemia, without long-term current use of insulin E11.65 Diabetes mellitus complication status: with hyperglycemia Diabetes mellitus [facility] insulin use: without [facility] use MDD (major depressive disorder), recurrent episode, moderate F33.1 Mild intermittent asthma without complication J45.20 Asthma complication type: uncomplicated Asthma persistence: intermittent Asthma severity: mild 24 weeks gestation of Z3A.24 Lumbar radiculopathy, acute M54.16 Mixed hyperlipidemia E78.2 Hyperlipidemia type: mixed hyperlipidemia Assessment & Plan Assessment & Plan (1) DMII (diabetes mellitus, type 2): Code(s): E11.9 - Type 2 diabetes mellitus without complications Category: Medical Qualifiers: Diabetes mellitus complication status: with hyperglycemia Diabetes mellitus [facility] insulin use: without 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 Most recent A1c of 5.2. Goal A1c is to remain below 6.5. Currently holding metformin and Victoza due to her . (2) MDD (major depressive disorder), recurrent episode, moderate: Code(s): F33.1 - Major depressive disorder, recurrent, moderate Category: Medical Plan: Patient reports her depression has been fairly stable, now off of her mental health medication due to . She anticipates getting back on her mental health medications when she gives . (3) Asthma: Code(s): J45.909 - Unspecified asthma, uncomplicated Category: Medical Qualifiers: Asthma complication type: uncomplicated Asthma persistence: intermittent Asthma severity: mild Qualified Code(s): J45.20 - Mild intermittent asthma, uncomplicated Plan: Patient reports her asthma has been well controlled. 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 As per HPI (5) Lumbar radiculopathy, acute: Code(s): M54.16 - Radiculopathy, lumbar region Category: Medical Plan: Patient reports she has had worsening lower back pain secondary to her . She will try aquatic therapy. Only able to take acetaminophen at this point her pain. (6) HLD (hyperlipidemia): Code(s): E78.5 - Hyperlipidemia, unspecified Category: Medical Qualifiers: Hyperlipidemia type: mixed hyperlipidemia Qualified Code(s): E78.2 - Mixed hyperlipidemia Plan: Patient's lipid panel showing elevated total cholesterol. Currently 7 months . Will recheck a fasting lipid panel 3 months after her delivery. Orders: Orders Microalbumin, Random (w Creat) Today E11.65 - Type 2 diabetes mellitus with hyp erglycemia Vitamin D 25-OH Total Today R79.89 - Other specified abnormal findings of blood chemistry Influenza [id number] Immunization Today Z23 - Encounter for immunization Comprehensive [place]. Panel Fast Today E11.65 - Type 2 diabetes mellitus with hyperglycemia Complete Blood Count no Diff Today E11.65 - Type 2 diabetes mellitus with hyperglycemia
[2024-01-24 11:18] VITALS: BP 122/64; PULSE 87; O2SAT 98; BMI 39.9
== END 2024-01-24 11:51 | disposition home or self-care (01) ==
LOC: HO.HMCH 10:58
PROVIDERS: PCP Physician Assistant; Visit Provider Physician Assistant
DX: E11.65 Type 2 diabetes mellitus with hyperglycemia (principal); F33.1 Major depressive disorder, recurrent, moderate; J45.20 Mild intermittent asthma, uncomplicated; Z3A.24 24 weeks gestation of pregnancy; M54.16 Radiculopathy, lumbar region; E78.2 Mixed hyperlipidemia; Z23 Encounter for immunization

== ENCOUNTER → 2024-01-24 10:58 | Outpatient (BNVA) | payer OTHER, SELFPAY | PROVIDERS: PCP Physician Assistant; Visit Provider Physician Assistant | DX: E11.65 Type 2 diabetes mellitus with hyperglycemia (principal); F33.1 Major depressive disorder, recurrent, moderate; J45.20 Mild intermittent asthma, uncomplicated; M54.16 Radiculopathy, lumbar region; E78.2 Mixed hyperlipidemia | CPT/HCPCS: 90471; 99212 ==

== ENCOUNTER 2024-05-06 13:36 | Outpatient (AMB) | payer OTHER, SELFPAY ==
--- NOTE | 2024-05-06 13:38 | MHC.PC.OV ---
Vital Signs 05/06/24 13:39 Height 5 ft 2 in Weight 210 lb BMI 38.4 BP 104/68 Blood Pressure Location Lt brachial Position Sitting Pulse 78 Pulse Source Pulse Oximeter Temp 97.1 F Temp Source Temporal Artery Scan Pulse Oximetry (%) 98 Oxygen Delivery Method Room Air Intake Visit Reasons: High BP Manager Floral Required: No Accompanied by: Self / Same As Patient Allergies latex [LATEX] Allergy (Unknown, Verified 05/06/24 13:50) RASH sulfamethoxazole [From BACTRIM] Allergy (Unknown, Verified 05/06/24 13:50) SHORTNESS OF BREATH Medication List - Last Reconciled 05/06/24 by Tye Teresa PA-C acetaminophen 500 mg PO QID PRN 15 days albuterol sulfate 90 mcg/actuation 1 inh inhalation QID 30 days cholecalciferol (vitamin D3) 25 mcg PO DAILY diclofenac sodium 75 mg PO BID 10 days liraglutide (Victoza 3-Jay) 1.8 mg (0.3 mL) subcut Q24H 30 days mecobalamin (vitamin B12) 1,000 mcg PO DAILY 90 days metformin ER 1,000 mg (2 x 500 mg) PO BID 30 days metoclopramide HCl (Reglan) 5 mg PO QIDACHS pen needle, diabetic (BD Ultra-Fine Micro Pen Needle) daily with liraglutide vit 49-iron fum-folic 6.75 mg iron- 200 mcg (Mini ) 1 tab PO DAILY 90 days Tobacco use date assessed: 05/06/24 Dental Screening Dental Screen Date: 05/06/24 Did you have a dental visit in the last 12 months?: Yes Did you have a dental problem in the last 6 months where you did not have access to dental care?: No Was dental information given to patient?: Patient has dentist HPI High BP HPI Details Patient is a 29-year-old female here today for a follow-up visit. Patient has a past medical history significant for type 2 diabetes, chronic lumbar spine pain, PCOS , obesity, asthma, major depressive disorder and anxiety.. depression: Regarding depression, the patient reports feelings of disconnection and lack of bonding with her , [place], despite being adequately bonded with her first child, Elías. The patient recalls experiencing unexpected emotions and anger during her , which was unplanned. She has engaged with a new therapist to manage her depression and does not report current medication for this condition. Lumbar back pain: She reports her lumbar spine pain has been well managed since she has given . She has not had much pain. She is looking help her lose weight. Type 2 diabetes/ PCOS: Today's A1c acceptable. She is return back to using metformin and Victoza. She is mostly using these medications for PCOS. .. Mood disorder/major depressive disorder: She is not on any mental health medication at this time. She is suffering with a bit of depression. She does have a mental health therapist she has a good relationship with. She feels her mental health is stable.. [facility] Medical History Encounter for screening PCOS (polycystic ovarian syndrome) Right ankle pain Prediabetes Nephrolithiasis Obesity Polycystic ovary syndrome Migraine with aura Migraines Generalized anxiety disorder Family history of breast cancer Vitamin D deficiency Hirsutism Amenorrhea Asthma Surgical History History of delivery History of appendectomy Family History Mother Obesity Breast cancer Maternal Aunt Breast cancer Paternal Aunt Breast cancer Family/Other Ovarian cancer Paternal Uncle Lung cancer Other Mental problem Substance abuse Social History Household Members: Children Housing: Apartment Housing Other:: She is looking to move out of her current apartment, not close to family Alcohol intake: current Alcohol intake frequency: holidays/special occasions only Alcohol type: beer and other Patient Tobacco Use Status: Former Tobacco user e-Cigarette/Vaping Use: Never Used Second Hand Smoke Exposure: Yes Substance Use Type: Marijuana service: No Current occupational status: unemployed Cognitive needs: No Hearing needs: No Vision needs: No Female Reproductive History Menstrual Age of Menarche: 9 Questionnaire PHQ-9 Over the last 2 weeks, how often have you been bothered by any of the following problems? 1. Little interest or pleasure in doing things: not at all 2. Feeling down, depressed, or hopeless: not at all 3. Trouble falling or staying asleep, or sleeping too much: not at all 4. Feeling tired or having little energy: not at all 5. Poor appetite or overeating: not at all 6. Feeling bad about yourself - or that you are a failure or have let yourself or your family down: not at all 7. Trouble concentrating on things, such as reading the newspaper or watching television: not at all 8. Moving or speaking so slowly that other people could have noticed. Or the opposite - being so fidgety or restless that you have been moving around a lot more than usual: not at all 9. Thoughts that you would be better off or of hurting yourself in some way: not at all Total score: 0 Depression Screening Interpretation: Negative Depression Screening Done: Yes [id number] - PHQ-9 Billing: Yes Source: Developed by Drs. Tristan Mcpherson, Divya Lara, Nikolai Arambula and colleagues, with an educational medardo from [employer]. Thrive Questionnaire Date Thrive assessed: 05/06/24 I am a: Patient What is your living situation today?: I have a steady place to live Within the past 12 months, did the food you bought not last and you didn't have the money to get more?: Never true Within the past 12 months, did you worry whether your food would run out before you got money to buy more?: Never true Do you have trouble paying for medicines?: No Do you have trouble getting transportation to medical appointments?: No THRIVE Score: 0 AUDIT C Alcohol Use Questionnaire (AUDIT-C) 2. How many drinks containing alcohol do you have on a typical day when you are drinking?: 1 or 2 3. How often do you have six or more drinks on one occasion?: Never Total Score: 0 VIK-7 AMB Questionnaire VIK-7 Date VIK - 7 assessed: 04/17/23 Source: Developed by Drs. Tristan Mcpherson, Divya Lara, Nikolai Arambula and colleagues, with an educational medardo from [employer]. Review of Systems Const Denies headache(s) Eyes Denies loss of vision ENT Denies vertigo, Denies dizziness, Denies headache(s) and Denies sore throat Card Denies chest pain, Denies leg edema and Denies lightheadedness Resp Denies cough, Denies hemoptysis and Denies wheezing GI Denies abdominal pain, Denies melena, Denies constipation, Denies diarrhea and Denies vomiting Denies urinary frequency, Denies dysuria and Denies urinary urgency Musc Denies arthralgias, Denies joint swelling, Denies numbness and Denies tingling Neuro Denies Abnormal speech present, Denies behavioral changes, Denies vertigo, Denies dizziness, Denies headache(s), Denies loss of vision, Denies memory loss, Denies numbness and Denies tingling Psych Denies anxiety, Denies behavioral changes, Denies depression, Denies memory loss and Denies panic attacks Leonardo/Lymph Denies easy bleeding and Denies easy bruising Aller/Immun Denies wheezing Physical exam (Primary Care) Vital Signs: Last Vital Signs Temp 97.1 F 05/06/24 13:39 Pulse 78 05/06/24 13:39 BP 104/68 05/06/24 13:39 Pulse Ox 98 05/06/24 13:39 Oxygen Delivery Method Room Air 05/06/24 13:39 BMI result Body Mass Index 38.4 BMI Assessment/Plan discussion: High BMI High, discussed plan: lifestyle, weight reduction, dietary and physical activity Tobacco/Smoking Status: Tobacco use Status Tobacco use date assessed 05/06/24 05/06/24 13:47 Patient Tobacco Use Status Former Tobacco user 05/06/24 13:47 e-Cigarette/Vaping Use Never Used 05/06/24 13:47 PHQ-9: PHQ-9 Score PHQ-9: Total score 0 05/06/24 14:14 Depression Screening Interpretation: Negative Thrive Assessment: Date of Thrive Assessment Date Thrive assessed 05/06/24 05/06/24 13:47 Const General: healthy appearing, no acute distress, alert and awake Nutritional Appearance: well nourished Orientation/consciousness: oriented to person, oriented to place and oriented to time HENMT Ears: TM's normal bilaterally General nose exam: Normal nasal mucous membranes and turbinates present Eyes Conjunctivae: conjunctivae normal Sclerae: sclerae normal Pupils: Equal, round and reactive pupils present Neck Neck: Yes no lymphadenopathy and Yes no JVD Thyroid: Thyroid normal Carotids: no bruits Resp Effort & Inspection: normal respiratory effort and not tachypneic Auscultation: no crackles, no rales, no rhonchi and no wheezes Cardio Rate: regular rate Rhythm: regular rhythm Heart sounds: no murmurs and normal S1 and S2 GI Palpation (GI): Soft to palpation, nontender, no hepatomegaly and no splenomegaly Auscultation: normal bowel sounds Skin General skin exam: no rashes or lesions noted and dry skin Neuro General: oriented to person, oriented to place and oriented to time Cranial nerves: Yes Equal, round and reactive pupils present Speech: No Abnormal speech present Gait exam (Neuro): Normal gait present Motor exam (neuro): no tremor noted Extrem Right upper extremity: full ROM Left upper extremity: full ROM Right lower extremity: full ROM; no edema Left lower extremity: full ROM; no edema Psych Mental Status: mental status grossly normal Speech and movement: Normal speech and movement present Affect: normal affect Attitude: cooperative Thought process: Normal thought process present Results AMB Hemoglobin A1c AMB Hemoglobin A1c 4.9 % Last Edit by ANDRAE Javier on 05/06/24 14:14 Results Reviewed Results Reviewed: Laboratory Last Values Hgb A1c (Clinic) 4.9 % (4.0-6.0) 05/06/24 13:49 Coding Level of Care Code Est Pt Level 4 (50595) Diagnoses Post depression F53.0 Type 2 diabetes mellitus with hyperglycemia, without long-term current use of insulin E11.65 Diabetes mellitus complication status: with hyperglycemia Diabetes mellitus termite helper insulin use: without termite helper use Class 2 obesity E66.812 MDD (major depressive disorder), recurrent episode, moderate F33.1 Additional Codes PHQ-9 - 27051 - PHQ-9 Billing: Yes ([id number]) Assessment & Plan Assessment & Plan (1) Post depression: Code(s): F53.0 - depression Category: Medical Plan: As per HPI patient is speaking with a mental health therapist about her depression. Right now she is not on any mental health medications. She mostly feels she is not connected with her new baby as much as she did with her previous son. (2) DMII (diabetes mellitus, type 2): Code(s): E11.9 - Type 2 diabetes mellitus without complications Category: Medical Qualifiers: Diabetes mellitus complication status: with hyperglycemia Diabetes mellitus alf insulin use: without termite helper use Qualified Code(s): E11.65 - Type 2 diabetes mellitus with hyperglycemia Plan: Patient's type 2 diabetes well controlled with current medical management. She plans on being more physically active to help lose more weight. (3) Class 2 obesity: Code(s): E66.812 - Obesity, class 2 Category: Medical Plan: Patient does understand her BMI is over 35 and will work on being more physically active and adapting to better eating habits to reduce her weight. She has restarted Victoza and has been able to lose a bit of weight on the medication as well. (4) MDD (major depressive disorder), recurrent episode, moderate: Code(s): F33.1 - Major depressive disorder, recurrent, moderate Category: Medical Plan: Patient's PHQ-9 score 0, does have a history of major depressive disorder. She is speaking with a mental health therapist quite regularly which has been helpful. She is off of all mental health medication at this time. Orders: Orders AMB Hemoglobin A1c 05/06/24 E11.65 - Type 2 diabetes mellitus with hyperglycemia Lipid Panel Today E78.2 - Mixed hyperlipidemia Patient Instructions: Goal: A1c to remain below 7.0 Barriers: Adherence to physical activity and healthy eating habits
[2024-05-06 13:39] VITALS: BP 104/68; PULSE 78; TEMP 36.2; O2SAT 98; BMI 38.4
== END 2024-05-06 14:16 | disposition home or self-care (01) ==
PROVIDERS: PCP Physician Assistant; Visit Provider Physician Assistant
DX: E11.65 Type 2 diabetes mellitus with hyperglycemia (principal)

== ENCOUNTER → 2024-05-06 13:36 | Outpatient (BNVA) | payer OTHER, SELFPAY | PROVIDERS: PCP Physician Assistant; Visit Provider Physician Assistant | DX: F53.0 Postpartum depression (principal); E11.65 Type 2 diabetes mellitus with hyperglycemia; E66.812 Obesity, class 2; F33.1 Major depressive disorder, recurrent, moderate | CPT/HCPCS: 83036; 96127; 99212 ==

== ENCOUNTER 2024-05-16 08:39 | Outpatient (AMB) | payer OTHER, SELFPAY ==
--- NOTE | 2024-05-16 08:46 | AM.OFFWIN_ITS ---
Intake Vital Signs 05/16/24 08:48 Height 5 ft 2 in Weight 211 lb BMI 38.6 BP 126/86 Blood Pressure Location Rt brachial Position Sitting Pulse 66 Pulse Source Pulse Oximeter Pulse Oximetry (%) 98 Oxygen Delivery Method Room Air Intake Visit Reasons: EP-lt side shoulder blade pain Intake Note: Patient here for upper back pain in between shoulder blades, left arm heaviness and and numbness that has been present for a couple of days. Patient Tobacco Use Status: Former Tobacco user Allergies latex [LATEX] Allergy (Unknown, Verified 05/16/24 08:52) RASH sulfamethoxazole [From BACTRIM] Allergy (Unknown, Verified 05/16/24 08:52) SHORTNESS OF BREATH Do you need a note to return to daycare/school/sports/work: No HPI HPI Comments History of Present Illness Details History of Present Illness - The patient is a 29-year-old female pr esenting with localized upper left back, left neck and left arm pain and difficulty breathing following a nap. - Reports onset of pain after waking, wh ich began in the back, then spread to the arm and chest; pain in the chest is sharp, localized, non-radiating. - Previous similar episodes included linda vated blood pressure without cardiac event verified at [facility] a month ago, again after waking from a nap. - Pain intensity is significant, affecti ng the patient's night's rest and daily routine. - Childcare responsibilities, including a 7-week-old and 6-year-old child, contribute to potential causes of the current condition, including sleep disturbance noted as potential sources. - Would like to investigate the possibil ity of despite recent IUD placement due to notable fatigue. Physical Exam General: Cooperative, healthy appearing, comfortable, no acute distress and well developed Orientation: Patient oriented x3 Limitations: No limitations Head: Normal to inspection Ears: Hearing grossly normal bilaterally Nose: Normal external nose present Face and sinus: Normal facial exam Eyes: Appearance normal, both eyes and all related structures Neck: Normal visual inspection and Yes full ROM Respiratory: Normal respiratory effort and able to speak in complete sentences. Back: no TTP cervical, thoracic or lumbar spine, TTP on left cervical muscles to trapezius and thoracic left sided back muscles, full ROM of neck and back and left shoulder Skin: No rashes or lesions noted Neuro: Patient oriented x3 Extremities: Normal to inspection [facility] Medical History Encounter for screening PCOS (polycystic ovarian syndrome) Right ankle pain Prediabetes Nephrolithiasis Obesity Polycystic ovary syndrome Migraine with aura Migraines Generalized anxiety disorder Family history of breast cancer Vitamin D deficiency Hirsutism Amenorrhea Asthma Surgical History History of delivery History of appendectomy Family History Mother Obesity Breast cancer Maternal Aunt Breast cancer Paternal Aunt Breast cancer Family/Other Ovarian cancer Paternal Uncle Lung cancer Other Mental problem Substance abuse Social History Household Members: Children Housing: Apartment Housing Other:: She is looking to move out of her current apartment, not close to family Alcohol intake: current Alcohol intake frequency: holidays/special occasions only Alcohol type: beer and other Patient Tobacco Use Status: Former Tobacco user e-Cigarette/Vaping Use: Never Used Second Hand Smoke Exposure: Yes Substance Use Type: Marijuana service: No Current occupational status: unemployed Cognitive needs: No Hearing needs: No Vision needs: No Female Reproductive History Menstrual Age of Menarche: 9 Review of Systems Const All systems reviewed & are unremarkable except as noted in HPI and below Physical Exam Vital Signs: Last Vital Signs Pulse 66 05/16/24 08:48 BP 140/100 H 05/16/24 08:48 Pulse Ox 98 05/16/24 08:48 Oxygen Delivery Method Room Air 05/16/24 08:48 BMI result Body Mass Index 38.6 Assessment & Plan Assessment & Plan (1) Concern about unplanned without diagnosis: Code(s): Z71.1 - Person with feared health complaint in whom no diagnosis is made Plan: Pt had IUD placed a week ago but had been having sex up until then and is concerned she might be . A test will be performed to rule out as a source of reported fatigue. Urine test is negative today. (2) Upper back pain, chronic: Code(s): M54.9 - Dorsalgia, unspecified; G89.29 - Other chronic pain Plan: The patient's symptoms are attributed to a suspected nerve root compression syndrome related to sleeping posture; NSAIDs like Aleve (sent RX) are recommended to control inflammation and relieve nerve pressure. 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 Patient was informed and verbally consented to the use of an ambient scribe for clinic note documentation during this visit. Medications: New naproxen 500 mg PO Q12H PRN 20 tabs 0RF pain Discontinued diclofenac sodium Discontinued Reason: Doctor's Order 75 mg PO BID 10 days 20 tabs 0RF M54.16 - Radiculopathy, lumbar region Coding Level of Care Code Est Pt Level 4 (72282) Diagnoses Concern about unplanned without diagnosis Z71.1 Upper back pain, chronic M54.9; G89.29
[2024-05-16 08:48] VITALS: BP 126/86; PULSE 66; O2SAT 98; BMI 38.6
--- OUTSIDE RECORDS SUMMARY | 2024-05-16 08:58 | XMS_ITS | Clinical Summary ---
Author Organization [employer] Address [address] [facility] [address] [place] [address] Care Team Providers Care Gas Mask Assembler Name Role Phone Unavailable Primary Care Provider Unavailabl e Social History Tobacco Use Types Packs/Day Years Used Date Smoking Tobacco: Never Assessed Comments Unknown Sex and Gender Information Value Date Recorded Sex Assigned at Female 01/23/2022 10:34 AM EDT Legal Sex Female 10:34 AM EDT Gender Identity Female 07/27/2022 4:30 PM EDT Sexual Orientation Bisexual 07/27/2022 4: 30 PM EDT Last Filed Vital Signs Vital Sign Reading Time Taken Comments Blood Pressure 124/78 07/28/2022 3:16 PM EDT Pulse 86 07/28/2022 3:16 PM EDT Temperature 36.6 ??C (97.9 ??F) 07/28/2022 3:16 PM ED T Respiratory Rate 16 07/28/2022 3:16 PM EDT Oxygen Saturation 98% 07/28/2022 3:16 PM EDT Inhaled Oxygen Concentration - - Weight 79.4 kg (175 lb) 07/28/2022 3:16 PM EDT Height 157.5 cm (5' 2 ) 07/28/2022 3:16 PM EDT Body Mass Index 32.01 07/28/2022 3:16 PM EDT Plan of Treatment Health Maintenance Due Date Last Done Comments Depression Screening 1995 Lipid Panel 1995 SDOH Screening 1995 Alcohol/Substance Use Screening 2007 Tobacco Screening 2007 Family Planning (PISQ) 2010 Hepatitis C Screening 2013 Pneumococcal Vaccine: Pediatrics (0 to 5 Years) and At-Risk Patients (6 to 49) Years) (1 of 2 - PCV) 2014 Hepatitis B Vaccines (2 of 3 - 19+ 3-dose series) 07/11/2021 06/13/2021 Pap Smear 11/23/2022 11/24/2019, 11/20/2019 COVID-19 Vaccine (4 - 2023-2 5 season) 2023 02/04/2022, 03/31/2021, 03/11/2021 Influenza Vaccine (#1) 2023 , 01/02/2018 DTaP/Tdap/Td Vaccines (3 - T d or Tdap) 11/02/2030 11/02/2020, 01/02/2018 Zoster Vaccines (1 of 2) 2045 RSV Patients and Patients Aged 60 years or older (1 - 1-dose 75+ series) 2070 HIV Screening Completed 12/21/2020 HIB Vaccines Aged Out No longer eligi ble based on patient's age to complete this topic HPV Vaccines Aged Out No longer eligi ble based on patient's age to complete this topic Hepatitis A Vaccines Aged Out No long er eligible based on patient's age to complete this topic IPV Vaccines Aged Out No longer eligi ble based on patient's age to complete this topic Meningococcal Vaccine Aged Out No torrie ezio eligible based on patient's age to complete this topic RSV under 20 months Aged Out No longe r eligible based on patient's age to complete this topic Rotavirus Vaccines Aged Out No longer eligible based on patient's age to complete this topic Procedures Procedure Name Priority Date/Time Associated Diagnosis Comments HIV 1/2 ANTIGEN/ANTIBODY, FOURTH GENERATION W/RFL Routine 12/21/2020 1:47 PM EDT THINPREP IMAGING SYSTEM PAP Routine 11/24/2019 3:38 PM EDT from Last 3 Months or Most Recently Relevant to Health Maintenance Results * HIV 1/2 ANTIGEN/ANTIBODY,FOURTH GENERATION W/RFL (12/21/2020 1:47 PM EDT) HIV-1/2 ANTIGEN AND ANTIBODIES, 4TH GENERATION W/ REFLEX NON-REACT KRZYSZTOF NON-REACT KRZYSZTOF [facility] Comment: HIV-1 antigen and HIV-1/HIV-2 antibodies were not detected. There is no laboratory evidence of HIV infection. ?? PLEASE NOTE: This information has been disclosed to you from records whose confidentiality may be protected by state law. ??If your state requires such protection, then the state law prohibits you from making any further disclosure of the information without the specific written consent of the person to whom it pertains, or as otherwise permitted by law. A general authorization for the release of medical or other information is NOT sufficient for this purpose. ? For additional information please refer to http://education.[employer]/faq/YUG662 (This link is being provided for informational/ educational purposes only.) ? The performance of this assay has not been clinically validated in patients less than 2 years old. ?? 12/21/2020 1:47 PM EDT Francisca Simmons MD LAB BLOOD ORDERABLES Final Result Performing Organization Address City/State/[facility] Co de Phone Number [facility] [address] [place] [address], * THINPREP TIS PAP (11/24/2019 3:38 PM EDT) Clinical Information: SEE COMMENT [facility] Comment:None given COMMENT [facility] Comment: EXPLANATORY NOTE: ? The Pap is a screening test for cervical cancer. It is ?? not a diagnostic test and is subject to false negative ?? and false positive results. It is most reliable when a ?? satisfactory sample, regularly obtained, is submitted ?? with relevant clinical findings and history, and when ?? the Pap result is evaluated along with historic and ?? current clinical information. ?? NO COLLECTION DATE RECEIVED. WE HAVE USED THE DATE THE SPECIMEN WAS RECEIVED BY THIS LABORATORY THE COLLECTION DATE. IF THIS IS INCORRECT, PLEASE CONTACT CLIENT SERVICES. PHONE NUMBER: ?? COMMENT: [facility] Comment: This Pap test has been evaluated with computer assisted technology. Beekeeper: SEE COMMENT [facility] Comment: WAC, CT(ASCP) CT screening location: [address] ??[id number] Interpretation/Resu lt: [facility]MENT [facility] Comment:Negative for intraep ithelial lesion or malignancy. LMP: [facility] Comment:NONE GIVEN Prev. BX: NONE GIVEN [facility] Prev. PAP: SEE COMMENT [facility] Comment:NONE GIVEN SOURCE: [facility] Comment:None given Statement Of Adequacy: SEE COMMENT [facility] Comment: Satisfactory for evaluation. Endocervical/transformation zone component present. Age and/or menstrual status not provided 11/24/2019 3:38 PM EDT us Francisca Simmons MD LAB PATHOLOGY ORDERAB LES Final Result [facility] [address] from Last 3 Months or Most Recently Relevant to Health Maintenance Insurance [facility] [employer] TPL
--- OUTSIDE RECORDS SUMMARY | 2024-05-16 08:58 | XMS_ITS | Encounter Summary ---
Author Organization [employer] Address [address] [place] [id number] Care Team Providers Care Lead Former Name Role Phone Francisca Jimenez MD Primary Care Provide r Encounter Details Date Type Department Care Team (Latest Contact Info) Description 06/12/2018 Abstract [facility] CONVERSIONS Dental, Provider, DDS Social History Tobacco Use Types Packs/Day Years Used Date Smoking Tobacco: Never Assessed Comments Unknown Sex and Gender Information Value Date Recorded Sex Assigned at Female 01/23/2022 10:34 AM EDT Legal Sex Female 10:34 AM EDT Gender Identity Female 07/27/2022 4:30 PM EDT Sexual Orientation Bisexual 07/27/2022 4: 30 PM EDT documented as of this encounter Plan of Treatment Not on file documented as of this encounter Visit Diagnoses Not on filedocumented in this encounter Care Teams Lead Former Relationship Specialty Start Date End Date Francisca Jimenez MD [address] [place] [id number] PCP - General Family Medicine 02/28/18 03/26/23 documented as of this encounter
--- OUTSIDE RECORDS SUMMARY | 2024-05-16 08:58 | XMS_ITS | Clinical Summary ---
Author Organization [facility] it Address [address] [place] [address] Care Team Providers Care Roll Over Press Operator Name Role Phone Unavailable Primary Care Provider Unavailabl e Social History Tobacco Use Types Packs/Day Years Used Date Smoking Tobacco: Never Assessed Comments Unknown Sex and Gender Information Value Date Recorded Sex Assigned at Not on file Legal Sex Female 1:03 PM EST Gender Identity Not on file Sexual Orientation Not on file Plan of Treatment Health Maintenance Due Date Last Done Comments DTaP,Tdap,and Td Vaccines (1 - Tdap) 2014 Hepatitis B Vaccines (1 of 3 - 19+ 3-dose series) 2014 Cervical Cancer Screening: P ap Smear 2016 Depression Screening 02/21/2022 HIV Screening 02/21/2022 Hepatitis C Screening 02/21/2022 Social Influencers of Health Screening 02/21/2022 COVID-19 Vaccine (2023-2 5 season) 2023 Influenza Vaccine (#1) 2023 HIB Vaccines Aged Out No longer eligi [...] on patient's age to complete this topic MMR Vaccines Aged Out No longer eligi ble based on patient's age to complete this topic Meningococcal ACWY Vaccine Aged Out N o longer eligible based on patient's age to complete this topic Meningococcal B Vacine Aged Out No lo nger eligible based on patient's age to complete this topic Pneumococcal Vaccine: Pediat rics (0 to 5 Years) and At-Risk Patients (6 to 64 Years) Aged Out No longer eligible b ased on patient's age to complete this topic RSV Immunization Patients Un mahesh 20 months Aged Out No longer eligible b ased on patient's age to complete this topic Varicella Vaccines Aged Out No longer eligible based on patient's age to complete this topic
== END 2024-05-16 09:38 | disposition home or self-care (01) ==
PROVIDERS: PCP Physician Assistant; Visit Provider Physician Assistant
DX: Z71.1 Person with feared health complaint in whom no diagnosis is made (principal); M54.9 Dorsalgia, unspecified; G89.29 Other chronic pain; Z32.02 Encounter for pregnancy test, result negative

== ENCOUNTER → 2024-05-16 08:39 | Outpatient (BNVA) | payer OTHER, SELFPAY | PROVIDERS: PCP Physician Assistant | DX: Z71.1 Person with feared health complaint in whom no diagnosis is made (principal); M54.9 Dorsalgia, unspecified; G89.29 Other chronic pain | CPT/HCPCS: 81025; 99212 ==

== ENCOUNTER 2024-06-24 10:56 | Outpatient (REF) | payer OTHER, SELFPAY ==
[2024-06-24 11:54] LABS: Hematocrit 38.1 % (37.0-47.0); Hemoglobin 12.4 g/dl (12.0-16.0); Mean Corpuscular HGB Conc 32.5 g/dl (31.0-35.0); Mean Corpuscular Hemoglobin 26.1 pg (27.0-33.0); Mean Platelet Volume 10.5 fL (9.4-12.3); Platelet Count 291 X10*3/uL (160-400); Red Blood Count 4.76 X10*6/uL (4.20-5.50); Red Cell Distribution Width 15.1 % (11.0-16.0); White Blood Count 7.8 X10*3/uL (4.8-10.8)
[2024-06-24 12:32] LABS: Alanine Aminotransferase 15 U/L (0-31); Albumin Level 4.1 g/dL (3.5-5.0); Alkaline Phosphatase 55 U/L (39-117); Anion Gap 7 (12-20); Aspartate Amino Transferase 13 U/L (5-31); Bilirubin Total 0.2 mg/dL (0.0-1.0); Blood Urea Nitrogen 10 mg/dL (9-16); Calcium 9.6 mg/dL (8.4-10.2); Carbon Dioxide 26 mmol/L (22-29); Chloride 109 mmol/L (96-108); Cholesterol 184 mg/dL (<200); Estimated Glomerular Filt Rate > 60; Glucose Fasting 92 mg/dL (60-99); Glucose Random 91 mg/dL (60-115); HDL Cholesterol 39 mg/dL (>40); LDL Cholesterol Calculated 125 mg/dL (<100); Sodium 138 mmol/L (135-145); Total Protein 7.3 g/dL (6.5-8.0); Triglycerides 100 mg/dL (<150)
--- OUTSIDE RECORDS SUMMARY | 2024-06-24 13:10 | XMS_ITS | Data Portability ---
Author Organization [place] [facility] [place] Ailin Rios campo, TAMI, [id number] Address [address] [facility] [address] [place] [address] Assessment No assessment recorded. Plan of Treatment Reminders Order Date Submit Date Provider Last Modified By Organization Details Last Modified Time Details Appointments None recorded. Lab pap, IG + CT/NG/TV + reflex HR HPV 2017 018 LISA [facility], [address] [place], [address], 8 16:10:48 hepatitis C Ab, signal-to-c utoff, serum or plasma 2017 018 LISA [facility], [address] [place], [address], 8 13:06:05 varicella zoster virus IgG Ab, QN, IA, serum 2017 018 LISA [facility], [address] [place], [address], 8 13:06:05 culture, urine 2017 018 LISA [facility], [address] [place], [address], 8 13:06:06 HIV 1+2 AB + HIV 1 p24 Ag, qualitative immunoassay , serum 2017 018 LISA [facility], [address] [place], [address], 8 13:06:04 obstetric screen, serum or blood 2017 018 LISA [facility], [address] [place], [address], 8 13:06:03 RPR (rapid plasma reagin), serum 2017 018 LISA [facility], [address] [place], [address], 8 05:01:10 Referral None recorded. Procedures None recorded. Surgeries None recorded. Imaging US, obstetric, 1st trimester - History of miscarriage 2017 018 LISA Not available 8 09:35:12 Medication Orders None recorded. Patient TargetsNo targets recorded. Patient InstructionsNo instructions recorded. Reason for Referral None Reported. Results Created Date Observation Date Name Description Value Unit Range Abnormal Flag Note LastModifiedBy Organization Detail LastModifiedTime 07/27/19 18 07/27/2017 obste tric scree n, serum or blood HBsAg screen Negati ve negati ve Not Available [facility] ([facility]) [address] [place], [address], 07/29/2017 13:06:03 07/27/19 18 07/27/2017 obste tric scree n, serum or blood RPR Non Reacti ve non reacti ve Not Available [facility] ([facility]) [address] [place] [address], [address], 07/29/2017 13:06:03 07/27/19 18 07/27/2017 obste tric scree n, serum or blood rubella antibodies, IgG 7.41 index immune >0.99 Non-i mmune <0.90 Equiv ocal 0.90 - 0.99 Immun e >0.99 Not Available [facility] ([facility]) [address] [place], [address], 07/29/2017 13:06:03 07/27/19 18 07/27/2017 obste tric scree n, serum or blood ABO grouping B Not Available [facility] ([facility]) [address] [place], [address], 07/29/2017 13:06:03 07/27/19 18 07/27/2017 obste tric scree n, serum or blood Rh factor Positi ve Pleas e note: Prior recor ds for this patie nt's ABO / Rh type are not avail able for addit ional verif icati on. Not Available [facility] ([facility]) [address] [place], [address], 07/29/2017 13:06:03 07/27/19 18 07/27/2017 obste tric scree n, serum or blood antibody screen Negati ve negati ve Not Available [facility] ([facility]) [address] [facility], [place], [address], 07/29/2017 13:06:03 07/27/19 18 07/27/2017 obste tric scree n, serum or blood WBC 8.2 x10e3 /uL 3.4-10 .8 Not Available [facility] ([facility]) [address] [place], [address], 07/29/2017 13:06:03 07/27/19 18 07/27/2017 obste tric scree n, serum or blood RBC 4.48 x10e6 /uL 3.77-5 .28 Not Available [facility] ([facility]) [address] [place], [address], 07/29/2017 13:06:03 07/27/19 18 07/27/2017 obste tric scree n, serum or blood hemoglobin 11.9 g/dL 11.1-1 5.9 Not Available [facility] ([facility]) [address] [place], [address], 07/29/2017 13:06:03 07/27/19 18 07/27/2017 obste tric scree n, serum or blood hematocrit 36.5 % 34.0-4 6.6 Not Available [facility] ([facility]) [address] [facility], [place], [address], 07/29/2017 13:06:03 07/27/19 18 07/27/2017 obste tric scree n, serum or blood MCV 82 fL 79-97 Not Available [facility] ([facility]) [address] [facility], [place], [address], 07/29/2017 13:06:03 07/27/19 18 07/27/2017 obste tric scree n, serum or blood MCH 26.6 pg 26.6-3 3.0 Not Available [facility] ([facility]) [address] [facility], [place], [address], 07/29/2017 13:06:03 07/27/19 18 07/27/2017 obste tric scree n, serum or blood MCHC 32.6 g/dL 31.5-3 5.7 Not Available [facility] ([facility]) [address] [facility], [place], [address], 07/29/2017 13:06:03 07/27/19 18 07/27/2017 obste tric scree n, serum or blood RDW 15.4 % 12.3-1 5.4 Not Available [facility] ([facility]) [address] [facility], [place], [address], 07/29/2017 13:06:03 07/27/19 18 07/27/2017 obste tric scree n, serum or blood platelets 277 x10e3 /uL 150-37 9 Not Available [facility] ([facility]) [address] [facility], [place], [address], 07/29/2017 13:06:03 07/27/19 18 07/27/2017 obste tric scree n, serum or blood neutrophils 65 % not estab. Not Available [facility] ([facility]) [address] [place], [address], 07/29/2017 13:06:03 07/27/19 18 07/27/2017 obste tric scree n, serum or blood lymphs 29 % not estab. Not Available [facility] ([facility]) [address] [place], [address], 07/29/2017 13:06:03 07/27/19 18 07/27/2017 obste tric scree n, serum or blood monocytes 6 % not estab. Not Available [facility] ([facility]) [address] [place], [address], 07/29/2017 13:06:03 07/27/19 18 07/27/2017 obste tric scree n, serum or blood eos 0 % not estab. Not Available [facility] ([facility]) [address] [place], [address], 07/29/2017 13:06:03 07/27/19 18 07/27/2017 obste tric scree n, serum or blood basos 0 % not estab. Not Available [facility] ([facility]) [address] [place], [address], 07/29/2017 13:06:03 07/27/19 18 07/27/2017 obste tric scree n, serum or blood immature cells SOCCER PLAYER Not Available [facility] ([facility]) [address] [place], [address], 07/29/2017 13:06:03 07/27/19 18 07/27/2017 obste tric scree n, serum or blood neutrophils (absolute) 5.3 x10e3 /uL 1.4-7. 0 Not Available [facility] ([facility]) [address] [place], [address], 07/29/2017 13:06:03 07/27/19 18 07/27/2017 obste tric scree n, serum or blood lymphs (absolute) 2.4 x10e3 /uL 0.7-3. 1 Not Available [facility] ([facility]) [address] [facility] [place], [address], 07/29/2017 13:06:03 07/27/19 18 07/27/2017 obste tric scree n, serum or blood monocytes(ab solute) 0.5 x10e3 /uL 0.1-0. 9 Not Available [facility] ([facility]) [address] [facility], [place], [address], 07/29/2017 13:06:03 07/27/19 18 07/27/2017 obste tric scree n, serum or blood eos (absolute) 0.0 x10e3 /uL 0.0-0. 4 Not Available [facility] ([facility]) [address] [place], [address], 07/29/2017 13:06:03 07/27/19 18 07/27/2017 obste tric scree n, serum or blood baso (absolute) 0.0 x10e3 /uL 0.0-0. 2 Not Available [facility] ([facility]) [address] [place], [address], 07/29/2017 13:06:03 07/27/19 18 07/27/2017 obste tric scree n, serum or blood immature granulocytes 0 % not estab. Not Available [facility] ([facility]) [address] [facility], [place], [address], 07/29/2017 13:06:03 07/27/19 18 07/27/2017 obste tric scree n, serum or blood immature grans (abs) 0.0 x10e3 /uL 0.0-0. 1 Not Available [facility] ([facility]) [address] [place], [address], 07/29/2017 13:06:03 07/27/19 18 07/27/2017 obste tric scree n, serum or blood NRBC [employer]ER Not Available [facility] ([facility]) [address] [place], [address], 07/29/2017 13:06:03 07/27/19 18 07/27/2017 obste tric scree n, serum or blood hematology comments: SOCC[employer] PLAYER Not Available [facility] ([facility]) [address] [facility], [place], [address], 07/29/2017 13:06:03 07/27/19 18 07/27/2017 HIV 1+2 AB + HIV 1 p24 Ag, quali tativ e immun oassa y, serum HIV screen 4TH generation wrfx Non Reacti ve non reacti ve Not Available [facility] ([facility]) [address] [facility], [place], [address], 07/29/2017 13:06:04 07/27/19 18 07/27/2017 varic klaus zoste r virus IgG Ab, QN, IA, serum varicella zoster IgG 802 index immune >165 Negat krzysztof <135 Equiv ocal 135 - 165 Posit krzysztof >165 A posit krzysztof resul t gener ally indic ates expos ure to the patho gen or admin istra tion of speci fic immun oglob ulins , but it is not indic ation of activ e infec tion or stage of disea se. Not Available [facility] ([facility]) [address] [facility], [place], [address], 07/29/2017 13:06:05 07/27/19 18 07/27/2017 hepat itis C Ab, signa l-to- cutof f, serum or plasm a hep C virus Ab <0.1 s/co_ ratio 0.0-0. 9 Negat krzysztof: < 0.8 Indet ermin ate: 0.8 - 0.9 Posit krzysztof: > 0.9 The [facility] recom mends that a posit krzysztof HCV antib toño resul t be follo wed up with a HCV Nucle ic Acid Ampli ficat ion test (5507 13). Not Available [facility] ([facility]) [address] [facility], [place], [address], 07/29/2017 13:06:05 07/27/19 18 07/29/2017 cultu re, urine urine culture, routine Final report abnormal Not Available [facility] ([facility]) [address] [facility], [place], [address], 07/29/2017 13:06:06 07/27/19 18 07/29/2017 cultu re, urine result 1 Escher ichia coli abnormal Great er than 100,0 00 colon y formi ng units per mL Cefaz berlin <=4 ug/mL Cefaz berlin with an DOV <=16 predi cts susce ptibi lity to the oral agent s cefac lb, cefdi perez, cefpo doxim e, cefpr ozil, cefur oxime , cepha lexin , and lorac arbef when used for thera py of uncom plica estrella urina ry tract infec tions due to E. coli, Klebs iella pneum oniae , and Prote us mirab ilis. Not Available [facility] ([facility]) [address] [facility], [place], [address], 07/29/2017 13:06:06 07/27/19 18 07/29/2017 cultu re, urine antimicrobia l susceptibili ty Commen t S = Susce ptibl e; I = Inter media te; R = Resis tant P = Posit krzysztof; N = Negat krzysztof MICS are expre ssed in micro grams per mL Antib iotic RSLT# 1 RSLT# 2 RSLT# 3 RSLT# 4 Amoxi cilli n/Cla vulan ic Acid S =4 Ampic illin S =8 Cefep sanaz S<=1 Ceftr iaxon e S<=1 Cefur oxime S =4 Cepha lothi n S =8 Cipro floxa beto S<=0. 25 Ertap enem S<=0. 5 Genta micin S<=1 Imipe nem S<=1 Levof loxac in S<=0. 12 Nitro furan toin S<=16 Piper acill in S<=4 Tetra cycli ne S<=1 Tobra mycin S<=1 Trime thopr im/Bradley lfa S<=20 Not Available [facility] ([facility]) [address] [facility], [place], [address], 07/29/2017 13:06:06 07/27/19 18 07/27/2017 pap, IG + CT/NG /TV + refle x HR HPV chlamydia, nuc. acid amp Negati ve negati ve Not Available [facility] ([facility]) [address] [place], [address], 07/31/2017 16:10:48 07/27/19 18 07/27/2017 pap, IG + CT/NG /TV + refle x HR HPV gonococcus, nuc. acid amp Negati ve negati ve Not Available [facility] ([facility]) [address] [facility], [place], [address], 07/31/2017 16:10:48 07/27/19 18 07/30/2017 pap, IG + CT/NG /TV + refle x HR HPV interpretati on NIL NEGAT KRZYSZTOF FOR INTRA EPITH ELIAL LESIO N AND MALIG GANESH . Not Available [facility] ([facility]) [address] [facility], [place], [address], 07/31/2017 16:10:48 07/27/19 18 07/30/2017 pap, IG + CT/NG /TV + refle x HR HPV category: NIL Negat krzysztof for Intra epith elial Lesio n Not Available [facility] ([facility]) [address] [facility], [place], [address], 07/31/2017 16:10:48 07/27/19 18 07/30/2017 pap, IG + CT/NG /TV + refle x HR HPV adequacy: ENDO Satis facto ry for evalu ation . Endoc ervic al and/o r squam ous metap lasti c cells (endo cervi emmanuel compo nent) are prese nt. Not Available [facility] ([facility]) [address] [place], [address], 07/31/2017 16:10:48 07/27/19 18 07/30/2017 pap, IG + CT/NG /TV + refle x HR HPV clinician provided ICD10: Juana cody Z34.8 1 Z11.3 R82.7 1 D64.9 Not Available [facility] ([facility]) [address] [place], [address], 07/31/2017 16:10:48 07/27/19 18 07/30/2017 pap, IG + CT/NG /TV + refle x HR HPV performed by: Juana Hopkins, Cytoescobar cody (ASCP ) Not Available [facility] ([facility]) [address] [place], [address], 07/31/2017 16:10:48 07/27/19 18 07/30/2017 pap, IG + CT/NG /TV + refle x HR HPV note: Juana cody The Pap smear is a scree teresa test desig maral to aid in the detec tion of jerad ligna nt and malig nant condi tions of the uteri ne cervi x. It is not a diagn ostic proce dure and shoul d not be used as the sole means of detec ting cervi emmanuel cance r. Both false -posi tive and false -nega tive repor ts do occur . Not Available [facility] ([facility]) [address] [facility], [place], [address], 07/31/2017 16:10:48 07/27/19 18 07/30/2017 pap, IG + CT/NG /TV + refle x HR HPV test methodology: Juana cody This liqui d based ThinP rep(R ) pap test was scree maral with the use of an image guide jorge alberto rutledge Not Available [facility] ([facility]) [address] [place], [address], 07/31/2017 16:10:48 07/27/19 18 07/30/2017 pap, IG + CT/NG /TV + refle x HR HPV . Commen t The HPV DNA refle x crite violet were not met with this speci men resul t there fore, no HPV testi ng was perfo rmed. Not Available [facility] ([facility]) [address] [facility], [place], [address], 07/31/2017 16:10:48 07/27/19 18 07/31/2017 pap, IG + CT/NG /TV + refle x HR HPV trich vag by AMBER Negati ve negati ve Not Available [facility] ([facility]) [address] [facility], [place], [address], 07/31/2017 16:10:48 07/27/19 18 07/17/2017 US, obste tric No observ ation record ed. abelt Not Available 2017 12:00:24 07/27/19 18 07/09/2017 US, obste tric No observ ation record ed. abelt Not Available 2017 12:00:24 07/27/19 18 06/27/2017 US, obste tric No observ ation record ed. abelt Not Available 2017 12:00:25 08/02/19 18 07/30/2017 US, obste tric, 1st trime ster No observ ation record ed. abelt Not Available 2017 10:57:26 Result Notes None recorded. Problems Name Problem SNOMED Code Status Onset Date Resolution Date Notes Provider Name and Address Organization Details Recorded Time 10485160 Completed 201707/26/2017 Jesusita Jackson (TERMED) [facility], [facility], [facility] 8 08:53:04 Morbid obesity 335063969 Active 2017 Needs Early 1HR GCT @ 16 wks. Chelsey Burrell [facility], [facility] 9 17:35:52 Morbid obesity 957818224 Completed 2017 Needs Early 1HR GCT @ 16 wks. Chelsey Burrell [facility], [facility] 9 17:35:52 Polycystic ovaries Active 2017 Dx @ 19 Chelsey Burrell [facility] 9 17:35:52 Polycystic ovaries Completed 2017 Dx @ 19 Chelsey Burrell [facility] 9 17:35:52 Problem Notes None recorded. Procedures Surgical History Date Name Laterality Status Provider Name and Address Organization Details Recorded Time 07/27/19 18 Date of Last Pap Smear completed Jesusitajacque Jackson (TERMED) [facility] 08/01/2017 15:01:14 GI- Appendectomy completed Jesusitajacque Jackson (TERMED) [facility] 07/26/2017 09:01:07 Imaging Results Imaging Date Name Status LastModified by Organiz ation Details LastModified Time 07/17/2017 US, obstetric completed Information not available 07/30/2017 12:00:24 07/09/2017 US, obstetric completed Information not available 07/30/2017 12:00:24 06/27/2017 US, obstetric completed Information not available 07/30/2017 12:00:25 07/30/2017 US, obstetric, 1st trimester completed Information not available 08/01/2017 10:57:26 Procedure Notes None recorded. Medical Equipment None Reported. Allergies Allergen ID Allergen Name Allergen Category Reaction Reaction Severity Criticality Documentation Date Start Date Code Code System Note Provider Name and Address Organization Details Recorded Time 980789 Bactrim medicatio n anaphylax is Not available Not available 07/26/2017 89016 9 RxNorm Jesusita Manuel (TERMED) [facility] 8 08:52:35 929689 latex environme nt,medica tion rash Not available Not available 07/26/2017 72259 91 RxNorm Jesusita Manuel (TERMED) [facility] 8 08:52:57 Medications Name Sig Start Date Stop Date Status Note LastModified by Organization Details LastModified Time Macrobid 100 mg capsule Take 1 capsule every 12 hours by oral route for 7 days. 2017 active Not Available Not Available Not Avai lable famotidine 20 mg tablet active Not Available Not Available No t Available promethazine 25 mg tablet active Not Available Not Available Not Available Vitals Date Recorded Body weight Body mass index (BMI) Body height Systolic blood pressure Diastolic blood pressure Provider Name and Address Organization Details Last Updated DateTime 07/26/2017 59280.47 4 g 36.6 kg/m2 157.48 cm 110 mm[Hg] 62 mm[Hg] Jesusita Jackson (TERMED) [facility] 8 08:49:05 Date Recorded Body height Body weight Systolic blood pressure Diastolic blood pressure Provider Name and Address Organization Details Last Updated DateTime 08/29/2017 157.48 cm 71201.474 g 110 mm[Hg] 70 mm[Hg] Jesusita Jackson (TERMED) [facility] 08/29/2017 13:39:10 Social History Question Answer Notes LastModified by Organizat ion Details LastModified Time Tobacco Smoking Status Never Smoker Jesusita Jackson (TERMED) [facility] 07/26/2017 08:59:37 Do You Have An Advance Directive? No [email or web address] Information not available 07/26/2017 What Is Your Level Of Alcohol Consumption? None [email or web address] Information not available 07/26/2017 If You Are , What Was Your Level Of Alcohol Consumption Prior To ? None [email or web address] Information not available 07/26/2017 What Is Your Level Of Caffeine Consumption? None [email or web address] Information not available 07/26/2017 How Much Tobacco Do You Chew? None [email or web address] Information not available 07/26/2017 What Type Of Diet Are You Following? 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 0 [email or web address] Information not available 07/26/2017 Are There Any Guns Present In Your Home? No [email or web address] Information not available 07/26/2017 Illicit Drugs Pre- None [email or web address] Information not available 07/26/2017 Illicit Drugs? No [email or web address] Informati on not available 07/26/2017 Marital Status For 2 Years Information not available 07/26/2017 What Was The Date Of Your Most Recent Tobacco Screening? 07/26/2017 Information not available 10/17/2018 Seat Belts Used Routinely Yes [email or web address] Information not available 07/26/2017 Smoke Alarm In Home Yes [email or web address] Information not available 07/26/2017 At What Age Did You Start Smoking Tobacco? 0 Information not available 07/26/2017 How Much Tobacco Do You Smoke? No [email or web address] Information not available 07/26/2017 Smoking Pre- No [email or web address] Information not available 07/26/2017 Do You Use Sunscreen Routinely? No [email or web address] Information not available 07/26/2017 How Many Years Have You Smoked Tobacco? 0 [email or web address] Information not available 07/26/2017 Do You Have Symptoms Associated With Zika Virus (fever, Rash, Joint Pain, Or Conjunctivitis)? No [email or web address] Information not available 07/26/2017 Have You Recently (within The Last 12 Weeks, Or During A Current ) Traveled To Or Lived In A Zika-affected Area? No [email or web address] Information not available 07/26/2017 Sex: Unknown Functional Status Question Answer Note LastModified by Appoet ion Details LastModified Time Urinary incontinence assessment performed? No [email or web address] Information not available 07/26/2017 What is your exercise level? None [email or web address] Information not available 07/26/2017 Mental Status None recorded. Family History Relationship Description Onset Age of this Age Resolved Age Notes LastModified by Organization Details LastModified Time Paternal Aunt Malignant tumor of breast 35 Not available 05/2017 08:58:01 Maternal Aunt Malignant tumor of breast [email or web address] Not available 05/2017 08:58:09 Paternal Grandmother Diabetes mellitus [email or web address] Not available 05/2017 08:58:46 Paternal Grandmother Hypertensive disorder [email or web address] Not available 05/2017 08:58:59 Maternal Grandmother Cerebrovascu lar accident 68 [email or web address] Not available 0 07/26/2017 08:59:18 Medical History Condition Response Neurology- Stroke/TIA N Dermatology-Acne N Cancer- Genetic Screening N Endocrinology-Other N Hematology-Anemia N Nephrology-Renal Disease N Neurology- Seizures/Epilepsy N Cardiology- Heart Attack N Ortho-Fractures N Endocrinology- Prolactinoma N Urology- Recurrent Urinary Tract Infecti ons N Psych- PMS/PMDD N Pulmonary-Other N Endocrinology- Glucose Intolerance/Insul in Resistance N Psych- Anxiety Disorder N GI- Reflux/Ulcers N Rheumatology-Arthritis N ID-Chicken Pox/Shingles N Cancer- Skin N Cardiology- Heart Disease N GI- Irritable Bowel Syndrome N ID-HIV N GI- Colon Polyps N Endocrinology- Osteopenia N ID-Other N Psych- Eating Disorder N Ortho- Arthritis N Urology- Urinary Incontinence N Hematology-Blood Transfusion N Pulmonary- Asthma N Urology- Hematuria (Blood in Urine) N Pulmonary- Sleep Apnea N Neurology- Dementia N Urology- Interstitial Cystitis N Endocrinology- Hypothyroidism N Eyes-other N Neurology- Multiple Sclerosis N GI- Hemorrhoids N Hematology-Blood Clotting Disorder/Facto r V Leiden N Neurology-Other N Endocrinology- Osteoporosis N Psych- Depression N Hematology-Other N Ortho-Chronic Back Pain N ID- Tuberculosis/Positive PPD N Dermatology-Other N Dermatology-Eczema/Psoriasis N Rheumatology-Autoimmune Disease N Cardiology- High Cholesterol N Cancer- Ovary N Cardiology- Heart Arrhythmia N Psych-other N Hematology-DVT/Pulmonary Embolism N Endocrinology- Hyperthyroidism N Ortho-other N Cancer- Breast N Psych- ADD N GI- Liver Disease/Hepatitis N Weight Management/Obesity Y Cancer- Colon N ENT- Hearing Loss N Cancer- Vulvar N Cancer- Vaginal N GI-Other N Neurology- Headaches/Migraines N Hematology-Bleeding Disorder N Endocrinology- Diabetes N Cancer- Cervical N Pulmonary- COPD/Emphysema N GI- Crohn's/Ulcerative Colitis N Endocrinology- History of Gestational Di abetes N Psych- Bipolar Disease N ENT- Seasonal Allergies/Allergic Rhiniti s N Cardiology- High Blood Pressure N Cancer- Lung N Cancer- Endometrial/Uterine N Eyes- Glaucoma N Eyes- Vision Loss/Macular Degeneration N ENT-Other N Rheumatology-Other N Cardiology- Heart Murmur/Mitral Valve Pr olapse N Urology- Stones N ID-MRSA N Cancer-Other N GI- Gallbladder Disease N Gynecological History Statement/Question Response Total lifetime partners Less than 5 Date of Last Mammogram Date of LMP 06/10/2017 HPV Test Not applicable Sexual orientation Heterosexual History of Endometriosis N Date of Last Colonoscopy History of Sexually Transmitted Infectio n N History of Infertility Y HPV Vaccine Completed History of Recurrent Ovarian Cyst N History of PCOS Y History of Fibroids N History of Vulvar Dysplasia N History of Dysmenorrhea N Age at Menarche 9 History of Cervical Dysplasia N Diethylstilbestrol (PARESH) exp osed daughters of women who took PARESH during ? N Sexually active Y Current Control Method: None History of abnormal PAP N Date of Last Pap Smear 07/26/2017 Obstetrics History GPAL:G 2 P 0 0 1 0 Type Value Multiple Births 0 Full Term 0 Induced 0 Spontaneous 1 Premature 0 Living 0 Ectopics 0 Total 2 Past Encounters Encounter ID Performer Location Encounter Start Date Encounter Closed Date Diagnosis/Indication Diagnosis SNOMED-CT Code Diagnosis ICD10 Code Diagnosis Note [id number] Armida Aragon CNM, ETHEL, MSN [id number] [place] [address] 07/26/2017 08:23:14 07/26/2017 10:07:52 Routine care 124515464 Z34.81 Z11.3 R82.71 D64.9 Past pregn javi history of miscarriage 845725055 Z87.59 [id number] Armida Aragon CNM, APRN, MSN [id number] [place] [address] 08/29/2017 13:30:34 08/29/2017 14:19:38 Health Concerns Section Related Observation LastModified by Organization Detai ls LastModified Time None Recorded Concern Status LastModified by Organization Details LastModified Time None Recorded Advance Directives Directive N: Payers Encounter Date Sequence Insurance Name Policy Number Policy Christian Covered Member ID Christian Member ID Guarantor Name 07/26/2017 1 [facility] (MEDICAID REPLACEMENT - HMO) [facility] Graciella Davila-Zeig ler [id number] Graciella Davila-Zeig ler 08/29/2017 1 [facility] (MEDICAID REPLACEMENT - HMO) [facility] Graciella Davila-Zeig ler [id number] Graciella Davila-Zeig ler Notes Date Note Type Note Provider Name and Address Organization Details Recorded Time 07/26/2017 text/html Confir mation ([facility])Reported bypatient.Referred By:ER LMP:06/10/2017definite Menstrual Historyfrequency of menses: irregular * Context:current contraceptive method: None; planned no; spontaneous conception; history of infertility yes (Tried Clomid & Metformin in the past.) * Associated Signs & Symptomsnausea; no vomiting; no enlargement of the breasts; no breast tenderness;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 [facility], [address], [place], [address], [facility] 07/26/2017 10:11:52 OBGyn Episode Ob Episode Information Episode Created Date Number of Fetuses Patient Bloodtype Patient rh Status Prepregnancy Weight lbs Domestic Partner Domestic Partner Phone Father Name Secondary Set Up Man Status 07/27/19 18 1 CLOSED Fetus Data First Name Last Name Admitted to NICU Weight (g) Sex Living Outcome Pediatric Complications Fetus ID Race Codes Race Delivery Type , Spontane ous [id number] Maxwell Calculation Initial Maxwell Date Initial Exam Date Initial Exam Provider Initial Ultrasound Date Last Menstrual Period Date Ultra Sound Weeks Gestation 0 Eighteen To Twenty Week Maxwell Update Ultra Sound Date Fundal Height At Umbil Quickening Date Ultra Sound Latest Weeks Gestation Final Maxwell Confirmed By Final Maxwell Confirmed Date Final Maxwell Date Ultra Sound Latest Days Gestation 0 0 Menstrual History Last Menstrual Date Menses Monthly On Bcp Conception Prior Menses Frequency Hcg Plus Date Menarche Onset Age Delivery Information Delivery Date Delivery Type Labor Anesthesia Weeks Gestation Incision Type Labor Labor Length Hrs Delivered By Post Complications Tubal Sterilization Discharge Date Comments 6 6 Discharge Information Feeding Method Contraceptive Method Maternal HG B and HCT Levels Ob Episode Information Episode Created Date Number of Fetuses Patient Bloodtype Patient rh Status Prepregnancy Weight lbs Domestic Partner Domestic Partner Phone Father Name Secondary Set Up Man Status 07/26/19 18 1 B Positive 198 MOIRAZOECESAR JOAQUIN CLOSED Fetus Data First Name Last Name Admitted to NICU Weight (g) Sex Living Outcome Pediatric Complications Fetus ID Race Codes Race Delivery Type [id number] Problems Problem Notes Problem Name Start Date End Date Resolution Snomed Code Not e Polycystic ovaries 07/26/2017 [id number] Dx @ 19 Morbid obesity 07/26/2017 [id number] Need s Early 1HR GCT @ 16 wks. Maxwell Calculation Initial Maxwell Date Initial Exam Date Initial Exam Provider Initial Ultrasound Date Last Menstrual Period Date Ultra Sound Weeks Gestation 03/17/2018 07/26/2017 06/10/2017 0 Eighteen To Twenty Week Maxwell Update Ultra Sound Date Fundal Height At Umbil Quickening Date Ultra Sound Latest Weeks Gestation Final Maxwell Confirmed By Final Maxwell Confirmed Date Final Maxwell Date Ultra Sound Latest Days Gestation 0 03/17/20 18 0 Pre- Flowsheet Flowsheet Date 07/26/2017 Willett Score Blood Edema Fundus Height Fundus Units Glucose Ketones Leukocytes Nitrite Labor Signs Protein Cervic Dilation Cervic Effacement Cervic Station Type Weight in lbs Pre/Post Dialysis Refused [id number] BP Diastolic BP Location Tested BP Systolic BP Type 62 L arm 110 sitting Fetus Heart Rate Present Fetus Movement Comments IOB Today w/ Labs, Pap, Ux & STI's. Per pt. NO hx of MRSA, NO PCN Allergy. Zika assessment negative today. Pt. desires Genetic Screening & ATLAS Genomics Screening (Consented & CPT Codes Given) GUILLE Signed & Bag Given. Flowsheet Date 08/29/2017 Willett Score Blood Edema Fundus Height Fundus Units Glucose Ketones Leukocytes Nitrite Labor Signs Protein Cervic Dilation Cervic Effacement Cervic Station none 11 cm none Type Weight in lbs Pre/Post Dialysis Refused [id number] BP Diastolic BP Location Tested BP Systolic BP Type 70 R arm 110 sitting Fetus Heart Rate Present A 150 Present Fetus Movement A No Comments Routine OBV. Last OBV with u s, she is moving to [place]. Medical records release signed & a copy of her PNR were given. Doing well. discussed getting into practice [facility] to do First trimester screening if desires. HUNTER for UC today. LMP dating = sono 7wk. EDC 03/17 Menstrual History Last Menstrual Date Menses Monthly On Bcp Conception Prior Menses Frequency Hcg Plus Date Menarche Onset Age 0306/10/2017 false false 8 9 Genetic Screening And Infection History Question Response Note Muscular Dystrophy false Other Inherited Genetic Or C hromosomal Disorder false Patient Or Baby's Father Had A Child With Defects Not Listed Above false Recurrent Loss, Or A Stillbirth false Live With Someone With TB Or Exposed To TB false Rash Or Viral Illness Since Last Menstrual Period false Thalassemia (Sudanese, Sinhala, Mediterranean, Or Background): MCV < 80 false Neural Tube Defect (Meningom yelocele, Spina Bifida, Or Anencephaly) false CONSENTED 07/26/17 Down Syndrome false CONSENTED 07/26/17 If Yes, Was Person Tested For Fragile X? false Any Other Genetic History false History Of STD, Gonorrhea, C hlamydia, HPV, Syphilis false Hemophilia Or Other Blood Disorders false Mental Retardation/Autism false If Yes, Agent(s) And Strength/Dosage false Patient's Age Will Be 35 Yea rs Or Older At Estimated Date of Delivery false Congenital Heart Defect false Angela Disease false Sickle Cell Disease Or Trait () false CONSENTED TO ATLAS 07/26/17 Sodus's Chorea false Maternal Metabolic Disorder (eg, Type 1 Diabetes, PKU) false Patient Or Partner Has Histo ry Of Genital Herpes false History of Hepatitis B, C or HIV false Horace-Sachs (eg, Bahai, Cajun , Turkmen-Cabarrus) false Cystic Fibrosis false CONSENTED TO REZA /GENDER 07/26/17 Medications (including Suppl ements, Vitamins, Herbs, OTC Drugs), Illicit/Recreational Drugs, Alcohol false Other Infection History false History of HIV false History of Hepatitis false Prior GBS-infected child false Delivery Information Delivery Date Delivery Type Labor Anesthesia Weeks Gestation Incision Type Labor Labor Length Hrs Delivered By Post Complications Tubal Sterilization Discharge Date Comments Discharge Information Feeding Method Contraceptive Method Maternal HG B and HCT Levels
--- OUTSIDE RECORDS SUMMARY | 2024-06-24 13:10 | XMS_ITS | Clinical Summary ---
Author Organization [facility] it Address [address] [place] [address] Care Team Providers Care Scribing Machine Operator Name Role Phone Unavailable Primary Care [...]
--- OUTSIDE RECORDS SUMMARY | 2024-06-24 13:10 | XMS_ITS | Encounter Summary ---
Author Organization [employer] Address [address] [place] [id number] Care Team Providers Care Circulation Representative Name Role Phone Francisca Jimenez MD Primary Care Provide r Encounter Details Date Type Department Care Team (Latest Contact Info) Description 06/12/2018 Abstract [facility] CONVERSIONS Dental, Provider, DDS Social History [...] on filedocumented in this encounter Care Teams Circulation Representative Relationship Specialty Start Date End Date Francisca Jimenez MD [address] [place] [id number] PCP - General Family Medicine 02/28/18 03/26/23 documented as of this encounter
--- OUTSIDE RECORDS SUMMARY | 2024-06-24 13:10 | XMS_ITS | Clinical Summary ---
Author Organization [employer] Address [address] [place] [address] Care Team Providers Care Kiln Pusher Name Role Phone Unavailable Primary Care Provider [...] 11/23/2022 11/24/2019, 11/20/2019 COVID-19 Vaccine (4 - season) 2023 02/04/2022, 03/31/2021, 03/11/2021 DTaP/Tdap/Td Vaccines (4 - Td or Tdap) 02/24/2034 02/25/2024, 11/02/2020, 01/02/2018 Zoster Vaccines (1 of 2) 2045 RSV Patients and Patients Aged 60 years or older (1 - 1-dose 75+ series) 2070 HIV Screening Completed 12/21/2020 Influenza Vaccine Completed 02/25/2024, , 06/06/2022, Additional history exists HIB Vaccines Aged Out No longer eligi [...] GENERATION W/ REFLEX NON-REACT KRZYSZTOF NON-REACT KRZYSZTOF [facility] Comment: HIV-1 antigen and HIV-1/HIV-2 [...] ? For additional information please refer to http://education.Unigo/faq/PVJ525 (This link is being provided for informational/ educational purposes only.) ? The performance of this assay has not been clinically validated in patients less than 2 years old. ?? 12/21/2020 1:47 PM EDT Francisca Simmons MD LAB BLOOD ORDERABLES Final Result Performing Organization Address City/State/[facility] Co de Phone Number [facility] [address] * THINPREP TIS PAP (11/24/2019 3:38 PM EDT) Clinical Information: SEE COMMENT [facility] Comment:None given COMMENT SEE COMMENT [...] has been evaluated with computer assisted technology. Collar Band Creaser: SEE COMMENT [facility] Comment: WAC, CT(ASCP) CT screening location: [address] ??[id number] Interpretation/Resu lt: SEE COMMENT [facility] [...] status not provided 11/24/2019 3:38 PM EDT Francisca Simmons MD LAB PATHOLOGY ORDERAB LES Final Result [facility] [address] from Last 3 Months or Most Recently Relevant to Health Maintenance Insurance [facility] STANDARD GENERIC TPL
== END 2024-06-24 10:57 | disposition home or self-care (01) ==
LOC: HO.LAB 10:56
PROVIDERS: PCP Physician Assistant; Visit Provider Physician Assistant
DX: E11.65 Type 2 diabetes mellitus with hyperglycemia (principal); R79.89 Other specified abnormal findings of blood chemistry; R56.9 Unspecified convulsions; E78.2 Mixed hyperlipidemia
CPT/HCPCS: 36415; 80048; 80053; 80061; 82043; 82306; 82550; 82570; 85027

== ENCOUNTER 2024-08-22 18:43 | Emergency (ER) | payer OTHER, SELFPAY ==
[2024-08-22 18:57] VITALS: BP 136/73; BP 137/90; PULSE 64; RESP 16; TEMP 36.3; O2SAT 100; BMI 38.4
--- NOTE | 2024-08-22 19:20 | ECG_ITS ---
Test Reason : SEIZURE Blood Pressure : */* mmHG Vent. Rate : 53 BPM Atrial Rate : 53 BPM P-R Int : 192 ms QRS Dur : 86 ms QT Int : 410 ms P-R-T Axes : * -4 5 degrees QTcB Int : 384 ms Sinus bradycardia with sinus arrhythmia Low voltage QRS Nonspecific T wave abnormality Abnormal ECG When compared with ECG of 05-Dec-2018 20:26, Non-specific change in ST segment in Anterior leads Nonspecific T wave abnormality now evident in Lateral leads Referred By: Nova Shahid Electronically Signed By: CARISSA WARREN MD
[2024-08-22] MEDS: diazePAM 10 MG/2 ML CARTRIDGE 2.5 MG IVPUSH (19:46)
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
[2024-08-22 20:07] VITALS: BP 148/97; PULSE 58; RESP 28; O2SAT 97
[2024-08-22 20:08] LABS: MANUAL DIFF FLAG NO
[2024-08-22 20:09] LABS: Basophils Percent Auto 0.3 % (0-2); Eosinophils Absolute Auto 0.1 X10*3/uL (0.0-0.4); Eosinophils Percent Auto 1.3 % (0-4); Hematocrit 34.8 % (37.0-47.0); Hemoglobin 11.8 g/dl (12.0-16.0); Imm Gran Abs Auto 0.02 X10*3/uL (0.00-0.03); Imm Gran Pct Auto 0.3 % (0.0-0.4); Lymphocytes Absolute Auto 2.4 X10*3/uL (1.2-4.9); Lymphocytes Percent Auto 34.3 % (20-40); Mean Corpuscular HGB Conc 33.9 g/dl (31.0-35.0); Mean Corpuscular Hemoglobin 27.1 pg (27.0-33.0); Mean Platelet Volume 10.7 fL (9.4-12.3); Monocytes Absolute Auto 0.4 X10*3/uL (0.1-1.2); Monocytes Percent Auto 5.7 % (2-11); Neutrophils Percent Auto 58.1 % (45-73); Platelet Count 243 X10*3/uL (160-400); Red Blood Count 4.35 X10*6/uL (4.20-5.50); Red Cell Distribution Width 14.1 % (11.0-16.0)
[2024-08-22 20:25] LABS: Anion Gap 12 (12-20); Carbon Dioxide 24 mmol/L (22-29); Chloride 109 mmol/L (96-108); Potassium 3.6 mmol/L (3.3-5.1); Sodium 141 mmol/L (135-145); Total Protein 6.9 g/dL (6.5-8.0)
[2024-08-22 20:29] LABS: HCG Quantitative < 2 mIU/mL
[2024-08-22 20:42] LABS: Alanine Aminotransferase 15 U/L (0-31); Alkaline Phosphatase 62 U/L (39-117); Aspartate Amino Transferase 16 U/L (5-31); Bilirubin Direct 0.1 mg/dL (0.0-0.5); Bilirubin Total 0.3 mg/dL (0.0-1.0); Blood Urea Nitrogen 16 mg/dL (9-16); Creatinine Clr Calc Pharmacy 139.6; Estimated Glomerular Filt Rate > 60; Glucose Random 92 mg/dL (60-115); Magnesium 1.8 mg/dL (1.6-2.6)
[2024-08-22 22:19] VITALS: BP 148/97; PULSE 71; RESP 17; TEMP -17.7; TEMP 0; O2SAT 100
== END 2024-08-22 22:10 | disposition home or self-care (01) ==
PROVIDERS: Emergency Provider Emergency Medicine; PCP Physician Assistant
DX: R56.9 Unspecified convulsions (principal); R41.0 Disorientation, unspecified
CPT/HCPCS: 36415; 80048; 80076; 83735; 84702; 85025; 93005; 96374; 99284; J3360

== ENCOUNTER → 2024-08-22 19:20 | Outpatient (BNV) | payer OTHER, SELFPAY | PROVIDERS: Emergency Provider Emergency Medicine; PCP Physician Assistant; Visit Provider Internal Medicine Cardiovascular Disease | DX: I49.9 Cardiac arrhythmia, unspecified (principal); R00.1 Bradycardia, unspecified | CPT/HCPCS: 93010 ==

== ENCOUNTER 2024-08-29 15:07 | Outpatient (AMB) | payer OTHER, SELFPAY ==
--- OUTSIDE RECORDS SUMMARY | 2024-08-29 15:09 | XMS_ITS | Data Portability ---
Author Organization [place] - [place] Ailin Rios campo, TAMI, [id number] Address [address] [facility] [address] [place] [address] Assessment No assessment recorded. Plan of Treatment Reminders Order Date Submit Date Provider Last Modified By Organization Details Last Modified Time Details Appointments None recorded. Lab pap, IG + CT/NG/TV + reflex HR HPV 2017 018 LISA [facility], [address] [place], [address], 8 16:10:48 hepatitis C Ab, signal-to-c utoff, serum or plasma 2017 018 LISA [facility], [address] [place], [address], 8 13:06:05 varicella zoster virus IgG Ab, QN, IA, serum 2017 018 LISA [facility], [address] [place], [address], 8 13:06:05 culture, urine 2017 018 LISA [facility], [address] [place], [address], 8 13:06:06 HIV 1+2 AB + HIV 1 p24 Ag, qualitative immunoassay , serum 2017 018 LISA [facility], [address] [place], [address], 8 13:06:04 obstetric screen, serum or blood 2017 018 LISA [facility], [address] [place], [address], 8 13:06:03 RPR (rapid plasma reagin), serum 2017 018 LISA [facility], [address] [place], [address], 8 05:01:10 Referral None recorded. Procedures None [...] Negati ve negati ve Not Available [facility] ([facility]) [address] [place], [address], 07/29/2017 13:06:03 07/27/19 18 07/27/2017 obste tric scree n, serum or blood RPR Non Reacti ve non reacti ve Not Available [facility] ([facility]) [address] [place] [address], [address], 07/29/2017 13:06:03 07/27/19 18 07/27/2017 obste tric scree n, serum or blood rubella antibodies, IgG 7.41 index immune >0.99 Non-i mmune <0.90 Equiv ocal 0.90 - 0.99 Immun e >0.99 Not Available [facility] ([facility]) [address] [place], [address], 07/29/2017 13:06:03 07/27/19 18 07/27/2017 obste tric scree n, serum or blood ABO grouping B Not Available [facility] ([facility]) [address] [facility] [place], [address], 07/29/2017 13:06:03 07/27/19 18 07/27/2017 obste tric scree n, serum or blood Rh factor Positi ve Pleas e note: Prior recor ds for this patie nt's ABO / Rh type are not avail able for addit ional verif icati on. Not Available [facility] ([facility]) [address] [place], [address], 07/29/2017 13:06:03 07/27/19 18 07/27/2017 obste tric scree n, serum or blood antibody screen Negati ve negati ve Not Available [facility] ([facility]) [address] [facility], [place], [address], 07/29/2017 13:06:03 07/27/19 18 07/27/2017 obste tric scree n, serum or blood WBC 8.2 x10e3 /uL 3.4-10 .8 Not Available [facility] ([facility]) [address] [place], [address], 07/29/2017 13:06:03 07/27/19 18 07/27/2017 obste tric scree n, serum or blood RBC 4.48 x10e6 /uL 3.77-5 .28 Not Available [facility] ([facility]) [address] [place], [address], 07/29/2017 13:06:03 07/27/19 18 07/27/2017 obste tric scree n, serum or blood hemoglobin 11.9 g/dL 11.1-1 5.9 Not Available [facility] ([facility]) [address] [place], [address], 07/29/2017 13:06:03 07/27/19 18 07/27/2017 obste tric scree n, serum or blood hematocrit 36.5 % 34.0-4 6.6 Not Available [facility] ([facility]) [address] [facility], [place], [address], 07/29/2017 13:06:03 07/27/19 18 07/27/2017 obste tric scree n, serum or blood MCV 82 fL 79-97 Not Available [facility] ([facility]) [address] [facility], [place], [address], 07/29/2017 13:06:03 07/27/19 18 07/27/2017 obste tric scree n, serum or blood MCH 26.6 pg 26.6-3 3.0 Not Available [facility] ([facility]) [address] [facility], [place], [address], 07/29/2017 13:06:03 07/27/19 18 07/27/2017 obste tric scree n, serum or blood MCHC 32.6 g/dL 31.5-3 5.7 Not Available [facility] ([facility]) [address] [facility], [place], [address], 07/29/2017 13:06:03 07/27/19 18 07/27/2017 obste tric scree n, serum or blood RDW 15.4 % 12.3-1 5.4 Not Available [facility] ([facility]) [address] [facility], [place], [address], 07/29/2017 13:06:03 07/27/19 18 07/27/2017 obste tric scree n, serum or blood platelets 277 x10e3 /uL 150-37 9 Not Available [facility] ([facility]) [address] [facility], [place], [address], 07/29/2017 13:06:03 07/27/19 18 07/27/2017 obste tric scree n, serum or blood neutrophils 65 % not estab. Not Available [facility] ([facility]) [address] [place], [address], 07/29/2017 13:06:03 07/27/19 18 07/27/2017 obste tric scree n, serum or blood lymphs 29 % not estab. Not Available [facility] ([facility]) [address] [place], [address], 07/29/2017 13:06:03 07/27/19 18 07/27/2017 obste tric scree n, serum or blood monocytes 6 % not estab. Not Available [facility] ([facility]) [address] [place], [address], 07/29/2017 13:06:03 07/27/19 18 07/27/2017 obste tric scree n, serum or blood eos 0 % not estab. Not Available [facility] ([facility]) [address] [place], [address], 07/29/2017 13:06:03 07/27/19 18 07/27/2017 obste tric scree n, serum or blood basos 0 % not estab. Not Available [facility] ([facility]) [address] [place], [address], 07/29/2017 13:06:03 07/27/19 18 07/27/2017 obste tric scree n, serum or blood immature cells TEACHER VOCAL Not Available [facility] ([facility]) [address] [place], [address], 07/29/2017 13:06:03 07/27/19 18 07/27/2017 obste tric scree n, serum or blood neutrophils (absolute) 5.3 x10e3 /uL 1.4-7. 0 Not Available [facility] ([facility]) [address] [place], [address], 07/29/2017 13:06:03 07/27/19 18 07/27/2017 obste tric scree n, serum or blood lymphs (absolute) 2.4 x10e3 /uL 0.7-3. 1 Not Available [facility] ([facility]) [address] [facility] [place], [address], 07/29/2017 13:06:03 07/27/19 18 07/27/2017 obste tric scree n, serum or blood monocytes(ab solute) 0.5 x10e3 /uL 0.1-0. 9 Not Available [facility] ([facility]) [address] [facility], [place], [address], 07/29/2017 13:06:03 07/27/19 18 07/27/2017 obste tric scree n, serum or blood eos (absolute) 0.0 x10e3 /uL 0.0-0. 4 Not Available [facility] ([facility]) [address] [place], [address], 07/29/2017 13:06:03 07/27/19 18 07/27/2017 obste tric scree n, serum or blood baso (absolute) 0.0 x10e3 /uL 0.0-0. 2 Not Available [facility] ([facility]) [address] [place], [address], 07/29/2017 13:06:03 07/27/19 18 07/27/2017 obste tric scree n, serum or blood immature granulocytes 0 % not estab. Not Available [facility] ([facility]) [address] [facility], [place], [address], 07/29/2017 13:06:03 07/27/19 18 07/27/2017 obste tric scree n, serum or blood immature grans (abs) 0.0 x10e3 /uL 0.0-0. 1 Not Available [facility] ([facility]) [address] [place], [address], 07/29/2017 13:06:03 07/27/19 18 07/27/2017 obste tric scree n, serum or blood NRBC TEACHER VOCAL Not Available [facility] ([facility]) [address] [place], [address], 07/29/2017 13:06:03 07/27/19 18 07/27/2017 obste tric scree n, serum or blood hematology comments: TEACHER VOCAL Not Available [facility] ([facility]) [address] [facility], [place], [address], 07/29/2017 13:06:03 07/27/19 18 07/27/2017 HIV 1+2 AB + HIV 1 p24 Ag, quali tativ e immun oassa y, serum HIV screen 4TH generation wrfx Non Reacti ve non reacti ve Not Available [facility] ([facility]) [address] [facility], [place], [address], 07/29/2017 13:06:04 07/27/19 18 07/27/2017 varic klaus [...] stage of disea se. Not Available [facility] ([facility]) [address] [facility], [place], [address], 07/29/2017 13:06:05 07/27/19 18 07/27/2017 hepat itis C Ab, signa l-to- cutof f, serum or plasm a hep C virus Ab <0.1 s/co_ ratio 0.0-0. 9 Negat krzysztof: < 0.8 Indet ermin ate: 0.8 - 0.9 Posit krzysztof: > 0.9 The [facility] recom mends that a posit krzysztof HCV antib toño resul t be follo wed up with a HCV Nucle ic Acid Ampli ficat ion test (5507 13). Not Available [facility] ([facility]) [address] [facility], [place], [address], 07/29/2017 13:06:05 07/27/19 18 07/29/2017 cultu re, urine urine culture, routine Final report abnormal Not Available [facility] ([facility]) [address] [facility], [place], [address], 07/29/2017 13:06:06 07/27/19 18 07/29/2017 cultu re, [...] Prote us mirab ilis. Not Available [facility] ([facility]) [address] [facility], [place], [address], 07/29/2017 13:06:06 07/27/19 18 07/29/2017 cultu re, [...] thopr im/Bradley lfa S<=20 Not Available [facility] ([facility]) [address] [facility], [place], [address], 07/29/2017 13:06:06 07/27/19 18 07/27/2017 pap, IG + CT/NG /TV + refle x HR HPV chlamydia, nuc. acid amp Negati ve negati ve Not Available [facility] ([facility]) [address] [place], [address], 07/31/2017 16:10:48 07/27/19 18 07/27/2017 pap, IG + CT/NG /TV + refle x HR HPV gonococcus, nuc. acid amp Negati ve negati ve Not Available [facility] ([facility]) [address] [facility], [place], [address], 07/31/2017 16:10:48 07/27/19 18 07/30/2017 pap, IG + CT/NG /TV + refle x HR HPV interpretati on NIL NEGAT KRZYSZTOF FOR INTRA EPITH ELIAL LESIO N AND MALIG GANESH . Not Available [facility] ([facility]) [address] [facility], [place], [address], 07/31/2017 16:10:48 07/27/19 18 07/30/2017 pap, IG + CT/NG /TV + refle x HR HPV category: NIL Negat krzysztof for Intra epith elial Lesio n Not Available [facility] ([facility]) [address] [facility], [place], [address], 07/31/2017 16:10:48 07/27/19 18 07/30/2017 pap, IG + CT/NG /TV + refle x HR HPV adequacy: ENDO Satis facto ry for evalu ation . Endoc ervic al and/o r squam ous metap lasti c cells (endo cervi emmanuel compo nent) are prese nt. Not Available [facility] ([facility]) [address] [place], [address], 07/31/2017 16:10:48 07/27/19 18 07/30/2017 pap, IG + CT/NG /TV + refle x HR HPV clinician provided ICD10: Juana cody Z34.8 1 Z11.3 R82.7 1 D64.9 Not Available [facility] ([facility]) [address] [place], [address], 07/31/2017 16:10:48 07/27/19 18 07/30/2017 pap, IG + CT/NG /TV + refle x HR HPV performed by: Juana Hopkins, Cytoescobar cody (ASCP ) Not Available [facility] ([facility]) [address] [place], [address], 07/31/2017 16:10:48 07/27/19 18 07/30/2017 pap, IG [...] ts do occur . Not Available [facility] ([facility]) [address] [facility], [place], [address], 07/31/2017 16:10:48 07/27/19 18 07/30/2017 pap, IG + CT/NG /TV + refle x HR HPV test methodology: Juana cody This liqui d based ThinP rep(R ) pap test was scree maral with the use of an image guide jorge alberto rutledge Not Available [facility] ([facility]) [address] [place], [address], 07/31/2017 16:10:48 07/27/19 18 07/30/2017 pap, IG + CT/NG /TV + refle x HR HPV . Commen t The HPV DNA refle x crite violet were not met with this speci men resul t there fore, no HPV testi ng was perfo rmed. Not Available [facility] ([facility]) [address] [facility], [place], [address], 07/31/2017 16:10:48 07/27/19 18 07/31/2017 pap, IG + CT/NG /TV + refle x HR HPV trich vag by AMBER Negati ve negati ve Not Available [facility] ([facility]) [address] [facility], [place], [address], 07/31/2017 16:10:48 07/27/19 18 07/17/2017 [place], obste [...] Name and Address Organization Details Recorded Time 55760709 Completed 201707/26/2017 Jesusita Jackson (TERMED) [facility], [facility] [employer] [facility], [facility] 8 08:53:04 Morbid obesity 437354184 Active 2017 Needs Early 1HR GCT @ 16 wks. Chelsey Burrell [facility] [employer] [facility], [facility] 9 17:35:52 Morbid obesity 155927294 Completed 2017 Needs Early 1HR GCT @ 16 wks. Chelsey Burrell [facility] [employer] [facility], [facility] 9 17:35:52 Polycystic ovaries Active 2017 Dx @ 19 Chelsey Burrell [facility] 9 17:35:52 Polycystic ovaries Completed 2017 Dx @ 19 Chelsey Burrell [facility] 9 17:35:52 Problem Notes None recorded. Procedures Surgical History Date Name Laterality Status Provider Name and Address Organization Details Recorded Time 07/27/19 18 Date of Last Pap Smear completed Jesusita Jackson (TERMED) [facility] 08/01/2017 15:01:14 GI- Appendectomy completed Jesusita Jackson (TERMED) [facility] 07/26/2017 09:01:07 Imaging Results None recorded. Procedure Notes None recorded. Medical Equipment None Reported. Allergies Allergen ID Allergen Name Allergen Category Reaction Reaction Severity Criticality Documentation Date Start Date Code Code System Note Provider Name and Address Organization Details Recorded Time 838469 Bactrim medicatio n anaphylax is Not available Not available 07/26/2017 93550 9 RxNorm Jesusita Jackson (TERMED) [facility] 8 08:52:35 946941 latex environme nt,medica tion rash Not available Not available 07/26/2017 53316 91 RxNorm Jesusita Manuel (TERMED) [facility] 8 08:52:57 Medications Name Sig Start Date [...] Address Organization Details Last Updated DateTime 07/26/2017 60362.47 4 g 36.6 kg/m2 157.48 cm 110 mm[Hg] 62 mm[Hg] Jesusita Jackson (TERMED) [facility] 8 08:49:05 Date Recorded Body height Body weight Systolic blood pressure Diastolic blood pressure Provider Name and Address Organization Details Last Updated DateTime 08/29/2017 157.48 cm 04342.474 g 110 mm[Hg] 70 mm[Hg] Jesusita Manuel (TERMED) [place] - [facility], [facility] 08/29/2017 13:39:10 Social History Question Answer Notes LastModified by Organizat ion Details LastModified Time Tobacco Smoking Status Never Smoker Jesusita Jackson (TERMED) null, [place] [facility], [facility] 07/26/2017 08:59:37 Do You Have An Advance Directive? No [email or web address] Information not available 07/26/2017 If You Are , What Was Your Level Of Alcohol Consumption Prior To ? None [email or web address] Information not available 07/26/2017 What Is Your Level Of Caffeine Consumption? None [email or web address] Information not available 07/26/2017 How Much Tobacco Do You Chew? None [email or web address] Information not available 07/26/2017 What Type Of Diet Are You Following? REGULAR [email or web address] Information not available 07/26/2017 Education 12 [email or web address] Information n ot available 07/26/2017 How Many Days In The Past Year Have You Had A Heavy Drinking Consumption (4+ Female, 5+ Male)? 0 [email or web address] Information not available 07/26/2017 Are There Any Guns Present In Your Home? No Information not available 07/26/2017 Illicit Drugs Pre- None [email or web address] Information not available 07/26/2017 Illicit Drugs? No [email or web address] Informati on not available 07/26/2017 Marital Status For 2 Years [email or web address] Information not available 07/26/2017 What Was The Date Of Your Most Recent Tobacco Screening? 07/26/2017 Information not available 10/17/2018 Seat Belts Used Routinely Yes [email or web address] Information not available 07/26/2017 Smoke Alarm In Home Yes [email or web address] Information not available 07/26/2017 At What Age Did You Start Smoking Tobacco? 0 [email or web address] Information not available 07/26/2017 How Much Tobacco Do You Smoke? No Information not available 07/26/2017 Smoking Pre- No [email or web address] Information not available 07/26/2017 Do You Use Sunscreen Routinely? No [email or web address] Information not available 07/26/2017 How Many Years Have You Smoked Tobacco? 0 [email or web address] Information not available 07/26/2017 Do You Have Symptoms Associated With Zika Virus (fever, Rash, Joint Pain, Or Conjunctivitis)? No [email or web address] Information not available 07/26/2017 Have You Recently (within The Last 12 Weeks, Or During A Current ) Traveled To Or Lived In A Zika-affected Area? No Information not available 07/26/2017 Sex: Unknown Functional Status Question Answer Note LastModified by Organizat ion Details LastModified Time What is your level of alcohol consumption? None [email or web address] Information not available 07/26/2017 Urinary incontinence assessment performed? 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 None [email or web address] Information not available 07/26/2017 Mental Status None recorded. Family History Relationship Description Onset Age of this Age Resolved Age Notes LastModified by Organization Details LastModified Time Paternal Aunt Malignant tumor of breast 35 [email or web address] Not available 05/2017 08:58:01 Maternal Aunt Malignant tumor of breast [email or web address] Not available 05/2017 08:58:09 Paternal Grandmother Diabetes mellitus [email or web address] Not available 05/2017 08:58:46 Paternal Grandmother Hypertensive disorder Not available 05/2017 08:58:59 Maternal Grandmother Cerebrovascu lar accident 68 [email or web address] Not available 0 07/26/2017 08:59:18 Medical History Condition Response GI- Hemorrhoids N Hematology-Blood Clotting Disorder/Facto r V Leiden N Neurology-Other N Neurology- Stroke/TIA N Dermatology-Acne N Cancer- Genetic Screening N Endocrinology-Other N Endocrinology- Osteoporosis N Psych- Depression N Hematology-Other N Hematology-Anemia N Ortho-Chronic Back Pain N ID- Tuberculosis/Positive PPD N Dermatology-Other N Dermatology-Eczema/Psoriasis N Rheumatology-Autoimmune Disease N Cardiology- High Cholesterol N Cancer- Ovary N Cardiology- Heart Arrhythmia N Nephrology-Renal Disease N Hematology-DVT/Pulmonary Embolism N Psych-other N Endocrinology- Hyperthyroidism N Neurology- Seizures/Epilepsy N Ortho-other N Cardiology- Heart Attack N Cancer- Breast N Psych- ADD N Ortho-Fractures N GI- Liver Disease/Hepatitis N Endocrinology- Prolactinoma N Weight Management/Obesity Y Urology- Recurrent Urinary Tract Infecti ons N Psych- PMS/PMDD N Pulmonary-Other N Cancer- Colon N ENT- Hearing Loss N Endocrinology- Glucose Intolerance/Insul in Resistance N Cancer- Vulvar N Psych- Anxiety Disorder N Cancer- Vaginal N GI- Reflux/Ulcers N GI-Other N Rheumatology-Arthritis N Neurology- Headaches/Migraines N Hematology-Bleeding Disorder N Endocrinology- Diabetes N ID-Chicken Pox/Shingles N Cancer- Cervical N Cancer- Skin N Pulmonary- COPD/Emphysema N Cardiology- Heart Disease N GI- Irritable Bowel Syndrome N ID-HIV N GI- Colon Polyps N GI- Crohn's/Ulcerative Colitis N Endocrinology- History of Gestational Di abetes N Endocrinology- Osteopenia N Psych- Bipolar Disease N ENT- Seasonal Allergies/Allergic Rhiniti s N Cardiology- High Blood Pressure N Cancer- Lung N Cancer- Endometrial/Uterine N Eyes- Glaucoma N Eyes- Vision Loss/Macular Degeneration N ENT-Other N ID-Other N Psych- Eating Disorder N Ortho- Arthritis N Rheumatology-Other N Urology- Urinary Incontinence N Hematology-Blood Transfusion N Pulmonary- Asthma N Urology- Hematuria (Blood in Urine) N Pulmonary- Sleep Apnea N Neurology- Dementia N Cardiology- Heart Murmur/Mitral Valve Pr olapse N Urology- Interstitial Cystitis N Endocrinology- Hypothyroidism N Eyes-other N Urology- Stones N ID-MRSA N Cancer-Other N Neurology- Multiple Sclerosis N GI- Gallbladder Disease N Gynecological History [...] SNOMED-CT Code Diagnosis ICD10 Code Diagnosis Note [id number] Amrida Aragon CNM [id number] [place] [address] 07/26/2017 08:23:14 07/26/2017 10:07:52 Routine care 049738732 Z34.81 Z11.3 R82.71 D64.9 Past pregn javi history of miscarriage 959947114 Z87.59 [id number] Armida Aragon CNM [id number] [place] [address] 08/29/2017 13:30:34 08/29/2017 14:19:38 Health Concerns Section Related Observation LastModified by Organization Detai ls LastModified Time None Recorded Concern Status LastModified by Organization Details LastModified Time None Recorded Advance Directives Directive N: Payers Insurance Date Sequence Insurance Name Policy Number Policy Christian Covered Member ID Christian Member ID Guarantor Name 08/27/2017 1 [facility] (MEDICAID REPLACEMENT - HMO) [facility] Graciella Davila-Zeig ler [id number] Graciella Davila-Zeig ler 07/25/2017 1 [facility] (MEDICAID REPLACEMENT - HMO) Graciella Davila-Zeig ler [id number] Graciella Davila-Zeig [facility] Notes Date Note Type Note Provider Name and Address Organization Details Recorded Time 07/26/2017 text/html Confir mation ([facility])Reported bypatient.Referred By:ER LMP:06/10/2017definite Menstrual Historyfrequency of menses: irregular * Context:current contraceptive method: None; planned no; spontaneous conception; history of infertility yes (Tried Clomid & Metformin in the past.) * Associated Signs & Symptomsnausea; no vomiting; no enlargement of the breasts; no breast tenderness;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 [facility], [address], [place], [address], [facility], [facility] 07/26/2017 10:11:52 OBGyn Episode Ob Episode Information Episode Created Date Number of Fetuses Patient Bloodtype Patient rh Status Prepregnancy Weight lbs Domestic Partner Domestic Partner Phone Father Name Track Repairer Helper Status 07/27/19 18 1 CLOSED Fetus Data First Name Last Name Admitted to NICU Weight (g) Sex Living Outcome Pediatric Complications Fetus ID Race Codes Race Delivery Type , Spontane ous [id number] Maxwell Calculation Initial Maxwell Date Initial Exam [...] Domestic Partner Domestic Partner Phone Father Name Track Repairer Helper Status 07/26/19 18 1 B Positive 198 SHANTI NUÑEZ CLOSED Fetus Data First Name Last Name Admitted to NICU Weight (g) Sex Living Outcome Pediatric Complications Fetus ID Race Codes Race Delivery Type [id number] Problems Problem Notes Problem Name Start Date End Date Resolution Snomed Code Not e Polycystic ovaries 07/26/2017 [id number] Dx @ 19 Morbid obesity 07/26/2017 009906994 Need s Early 1HR GCT @ 16 [...] Type Weight in lbs Pre/Post Dialysis Refused 200.557429853124 BP Diastolic BP Location Tested BP Systolic [...] Type Weight in lbs Pre/Post Dialysis Refused 200.810532541467 BP Diastolic BP Location Tested BP Systolic BP Type 70 R arm 110 sitting Fetus Heart Rate Present A 150 Present Fetus Movement A No Comments Routine OBV. Last OBV with u s, she is moving to [place]. Medical records release signed & a copy [...] Illness Since Last Menstrual Period false Thalassemia (Slovak, Pashto, Mediterranean, Or Background): MCV < 80 false [...] Trait () false CONSENTED TO [facility] 07/26/17 [place]'s Chorea false Maternal Metabolic Disorder (eg, Type 1 Diabetes, PKU) false Patient Or Partner Has Histo ry Of Genital Herpes false History of Hepatitis B, C or HIV false Horace-Sachs (eg, Restorationist, Cajun , Slovak-[place]) false Cystic Fibrosis false CONSENTED TO REZA [...]
[2024-08-29 15:14] VITALS: BP 122/80; PULSE 83; O2SAT 97; BMI 37.9
--- NOTE | 2024-08-29 15:14 | MHC.PC.OV ---
Vital Signs 08/29/24 15:14 Height 5 ft 2 in Weight 207 lb BMI 37.9 BP 122/80 Blood Pressure Location Lt brachial Position Sitting Pulse 83 Pulse Source Pulse Oximeter Pulse Oximetry (%) 97 Oxygen Delivery Method Room Air Intake Visit Reasons: [facility] 08/22 seizure? Personnel Consultant Required: No Accompanied by: Self / Same As Patient Allergies latex [LATEX] Allergy (Unknown, Verified 08/29/24 15:15) RASH sulfamethoxazole [From BACTRIM] Allergy (Unknown, Verified 08/29/24 15:15) SHORTNESS OF BREATH sumatriptan Adverse Reaction (Intermediate, Verified 08/29/24 15:15) elevated heart rate Tobacco use date assessed: 08/29/24 Dental Screening Dental Screen Date: 08/29/24 Did you have a dental visit in the last 12 months?: Yes Did you have a dental problem in the last 6 months where you did not have access to dental care?: No Was dental information given to patient?: Patient has dentist HPI HPI Comments History of Present Illness Details 29 y/o Female patient with Pmhx significant for Non epileptic seizure like activity with negative 24 hour EEG and told by Neurology she does not have True seizures, Her most episodes characterize by staring off but then not post-ictal. She is being followed by [facility] Neurology who recommended 4-5 days of intense testing - patient declined because she does not have anyone to care for her children. She was told by her Neurologist that her episodes are more stress related - she is currently seeing a Therapist. Declined Psych medications. [facility] Medical History Encounter for screening PCOS (polycystic ovarian syndrome) Right ankle pain Prediabetes Nephrolithiasis Obesity Polycystic ovary syndrome Migraine with aura Migraines Generalized anxiety disorder Family history of breast cancer Vitamin D deficiency Hirsutism Amenorrhea Asthma Surgical History History of delivery History of appendectomy Family History Mother Obesity Breast cancer Maternal Aunt Breast cancer Paternal Aunt Breast cancer Family/Other Ovarian cancer Paternal Uncle Lung cancer Other Mental problem Substance abuse Social History Household Members: Children Housing: Apartment Housing Other:: She is looking to move out of her current apartment, not close to family Alcohol intake: current Alcohol intake frequency: holidays/special occasions only Alcohol type: beer and other Patient Tobacco Use Status: Former Tobacco user e-Cigarette/Vaping Use: Never Used Second Hand Smoke Exposure: Yes Substance Use Type: Marijuana service: No Current occupational status: unemployed Cognitive needs: No Hearing needs: No Vision needs: No Female Reproductive History Menstrual Age of Menarche: 9 Questionnaire PHQ-9 Over the last 2 weeks, how often have you been bothered by any of the following problems? 1. Little interest or pleasure in doing things: several days 2. Feeling down, depressed, or hopeless: not at all 3. Trouble falling or staying asleep, or sleeping too much: more than half the days 4. Feeling tired or having little energy: several days 5. Poor appetite or overeating: nearly every day 6. Feeling bad about yourself - or that you are a failure or have let yourself or your family down: not at all 7. Trouble concentrating on things, such as reading the newspaper or watching television: not at all 8. Moving or speaking so slowly that other people could have noticed. Or the opposite - being so fidgety or restless that you have been moving around a lot more than usual: several days 9. Thoughts that you would be better off or of hurting yourself in some way: not at all Total score: 8 Source: Developed by Drs. Tristan Mcpherson, Divya Lara, Nikolai Arambula and colleagues, with an educational medardo from [employer]. Thrive Questionnaire Date Thrive assessed: 08/29/24 I am a: Patient What is your living situation today?: I do not have a steady places to live I choose not to answer this question Within the past 12 months, did the food you bought not last and you didn't have the money to get more?: Sometimes True Within the past 12 months, did you worry whether your food would run out before you got money to buy more?: Sometimes True Do you have trouble paying for medicines?: No Do you have trouble getting transportation to medical appointments?: No Do you have trouble paying your heating and electricity bill?: Yes Do you have trouble taking care of your child, family member or friend?: No Do you have trouble with day-to-day activities such as bathing, preparing meals, shopping, managing finances, etc.?: No Are you currently unemployed and looking for a job?: No Are you interested in more education?: No Please select the resources that you would like help with: Housing/Fci and None Currently or been in a relationship where the following occur: No concerns reported THRIVE Score: 4 AUDIT C Alcohol Use Questionnaire (AUDIT-C) 1. How often do you have a drink containing alcohol?: Monthly or less 3. How often do you have six or more drinks on one occasion?: Never Total Score: 1 VIK-7 AMB Questionnaire VIK-7 Date VIK - 7 assessed: 08/29/24 Feeling nervous, anxious, or on edge: 1 = Several days Not being able to stop or control worryin = Not at all Worrying too much about different things: 1 = Several days Trouble relaxin = Not at all Being so restless that it is hard to sit still: 0 = Not at all Becoming easily annoyed or irritable: 1 = Several days Feeling afraid as if something awful might happen: 1 = Several days Total VIK-7 score (0-4 normal; 5-9 mild; 10-14 moderate; 15-21 severe): 4 Source: Developed by Drs. Tristan Mcpherson, Divya Lara, Nikolai Arambula and colleagues, with an educational medardo from [employer]. Review of Systems Const All systems reviewed & are unremarkable except as noted in HPI and below Physical exam (Primary Care) Vital Signs: Last Vital Signs Pulse 83 08/29/24 15:14 BP 122/80 08/29/24 15:14 Pulse Ox 97 08/29/24 15:14 Oxygen Delivery Method Room Air 08/29/24 15:14 BMI result Body Mass Index 37.9 Tobacco/Smoking Status: Tobacco use Status Tobacco use date assessed 08/29/24 08/29/24 15:21 Patient Tobacco Use Status Former Tobacco user 08/29/24 15:21 e-Cigarette/Vaping Use Never Used 08/29/24 15:21 PHQ-9: PHQ-9 Score PHQ-9: Total score 8 08/29/24 15:21 Thrive Assessment: Date of Thrive Assessment Date Thrive assessed 08/29/24 08/29/24 15:21 Currently or been in a relationship where the following occur: No concerns reported Const General: no acute distress Nutritional Appearance: obese Orientation/consciousness: patient oriented x3 Resp Effort & Inspection: normal respiratory effort and able to speak in complete sentences Auscultation: clear to auscultation bilaterally Cardio Heart sounds: S1 normal heart sound present and S2 normal heart sound present Neuro General: patient oriented x3, gait normal and moves all extremities Motor exam (neuro): 5/5 motor strength present throughout Psych Speech and movement: Normal speech and movement present Coding Level of Care Code Est Pt Level 4 (75792) Diagnoses Seizure-like activity R56.9 Time Spent (min) 20 Assessment & Plan Assessment & Plan (1) Seizure-like activity: Code(s): R56.9 - Unspecified convulsions Category: Medical Plan: Managed by Neurology Continue therapy as scheduled.
== END 2024-08-29 15:44 | disposition home or self-care (01) ==
LOC: HO.HMCH 15:07
PROVIDERS: PCP Physician Assistant; Visit Provider Nurse Practitioner Family
DX: R56.9 Unspecified convulsions (principal)

== ENCOUNTER → 2024-08-29 15:07 | Outpatient (BNVA) | payer OTHER, SELFPAY | PROVIDERS: PCP Physician Assistant; Visit Provider Nurse Practitioner Family | DX: E28.2 Polycystic ovarian syndrome (principal); R56.9 Unspecified convulsions | CPT/HCPCS: 99212 ==

== ENCOUNTER 2024-09-16 02:22 | Emergency (ER) | payer OTHER, SELFPAY ==
[2024-09-16 02:28] VITALS: BP 129/73; BP 136/93; PULSE 61; PULSE 72; RESP 19; O2SAT 99; BMI 38.2
--- NOTE | 2024-09-16 02:36 | ED.GENADULT ---
HPI - General Adult General Chief complaint: Seizure Stated complaint: seizure Time Seen by Provider: 09/16/24 02:31 Source: EMS Mode of arrival: EMS Limitations: other History of Present Illness ED Provider: Dr. Alexus Diego HPI narrative: patient comes to the emergency room via ambulance. According to EMS, the patient was in a car driving with a friend, patient then had an episode of eye fluttering. Patient at this time is not answering any questions. Of note, patient was seen for similar episode 3 weeks ago. Patient was diagnosed with psychogenic nonepileptic seizures. From previous note, patient has been 4 hour EEG earlier today which was nondiagnostic. Related Data Home Medications ?Medication ?Instructions ?Recorded ?Confirmed metoclopramide HCl 5 mg tablet 5 mg PO QIDACHS 01/24/24 05/06/24 (Reglan) magnesium aspart,citrate,oxide mg PO 08/29/24 Previous Rx's ?Medication ?Instructions ?Recorded albuterol sulfate 90 mcg/actuation 1 inh inhalation QID shortness of 09/05/22 aerosol inhaler breath or wheezing 30 days #8.5 grams pen needle, diabetic 32 gauge x #50 ea 04/17/2303/29 (BD Ultra-Fine Micro Pen Needle) cholecalciferol (vitamin D3) 25 25 mcg PO DAILY #90 tabs 07/07/23 mcg (1,000 unit) tablet liraglutide 0.6 mg/0.1 mL (18 mg/3 1.8 mg (0.3 mL) subcut Q24H 30 07/23/23 mL) subcutaneous pen injector days #9 mL (Victoza 3-Jay) acetaminophen 500 mg tablet 500 mg PO QID PRN pain 15 days #60 10/15/23 tabs mecobalamin (vitamin B12) 1,000 1,000 mcg PO DAILY 90 days #90 tabs 10/15/23 mcg chewable tablet vitamin no.49-iron 1 tab PO DAILY 90 days #90 tabs 10/15/23 fum-folic acid 6.75 mg iron-200 mcg tablet (Mini ) naproxen 500 mg tablet 500 mg PO Q12H PRN pain #20 tabs 05/16/24 metformin 500 mg tablet,extended 1,000 mg (2 x 500 mg) PO BID #360 07/27/24 release 24 hr tabs topiramate 50 mg tablet 50 mg PO BEDTIME 90 days #90 tabs 09/11/24 Allergies Allergy/AdvReac Type Severity Reaction Status Date / Time latex (LATEX) Allergy Unknown RASH Verified 09/16/24 02:31 sulfamethoxazole (From Allergy Unknown SHORTNESS Verified 09/16/24 02:31 BACTRIM) OF BREATH sumatriptan AdvReac Intermediate elevated Verified 09/16/24 02:31 heart rate Review of Systems Review of Systems: Yes Other ( Not answering questions) COUNTS INCLUDE 234 BEDS AT THE [facility] Past Medical History Medical History Encounter for screening PCOS (polycystic ovarian syndrome) Right ankle pain Prediabetes Nephrolithiasis Obesity Polycystic ovary syndrome Migraine with aura Migraines Generalized anxiety disorder Family history of breast cancer Vitamin D deficiency Hirsutism Amenorrhea Asthma Surgical History History of delivery History of appendectomy Family History Family History Mother Obesity Breast cancer Maternal Aunt Breast cancer Paternal Aunt Breast cancer Family/Other Ovarian cancer Paternal Uncle Lung cancer Other Mental problem Substance abuse Social History Social History Household Members: Children Housing: Apartment Housing Other:: She is looking to move out of her current apartment, not close to family Alcohol intake: current Alcohol intake frequency: holidays/special occasions only Alcohol type: beer and other Patient Tobacco Use Status: Former Tobacco user e-Cigarette/Vaping Use: Never Used Second Hand Smoke Exposure: Yes Substance Use Type: Marijuana service: No Current occupational status: unemployed Cognitive needs: No Hearing needs: No Vision needs: No Physical Exam ED Vital Signs: Vital Signs - 24 hr 09/16/24 02:28 Pulse Rate 61 Respiratory Rate 19 Blood Pressure 136/93 H Pulse Oximetry 99 Oxygen Delivery Method Room Air BMI result Body Mass Index 38.2 Const Other: Appearance: Alert. no acute distress Eyes: Pupils equal, round and reactive to light. ENT: Pharynx normal. Neck: Normal inspection. Neck supple. No lymph nodes noted. No crepitus CVS: Normal heart rate and rhythm. Pulses normal. Normal S1 and S2 Respiratory: No respiratory distress. Breath sounds normal. No Wheezing. No rales Abdomen: Soft and nontender. No rigidity. No distention. Skin: Skin warm and dry. Normal skin color. Normal skin turgor. Extremities: No lower extremity edema. No Lacerations. No Rash Neuro: not participating cranial nerve assessment Psych: calm Course Course Course Narrative: patient has previously been diagnosed with psychogenic nonepileptic seizures. All of patient's labs pending Medical Decision Making Medical Decision Making MDM Narrative: once the patient's boyfriend showed up to the emergency room, patient started becoming awake, alert and oriented x3, no acute distress. Patient refusing all labs and imaging. Patient is not SI or HI, no indication for a section 12. Patient requesting to be discharged. Patient is adamant that she had a seizure. From previous ED visits, patient had a pseudo-seizure. Patient states that she can not remember anything what happened. unclear if patient had a seizure versus pseudo-seizure. It was noted by the patient's nurse and tech the patient does have a bizarre behavior. However, patient is still coherent. Overall, it is likely the patient did have a pseudo-seizure and does have some psychiatric component to her current behavior. Patient's boyfriend is at bedside, stating that this has happened multiple times before. Patient's voice prevent will be driving. patient will be leaving against medical advice Differential Diagnosis Differential Diagnoses: The differential diagnosis associated with the presentation includes ( Seizure, pseudo-seizure, anxiety, depression, conversion disorder) Admission/Observation Consideration of admission/observation: Escalation of care including admission/observation considered ( given patient's initial presentation, observation was considered) Critical Care Time Critical Care Time Critical Care Time: Yes Total Critical Care Time: 35 Attestation: I have personally provided critical care time. Time includes review of lab data, radiology results, discussion with consultants, and monitoring for potential decompensation. Intervention performed as documented. Discharge Plan Discharge Clinical Impression: Psychogenic nonepileptic seizure Patient Disposition: Left Against Medical Advice Instructions: Nonepileptic Seizures (ED) Additional Instructions: Please follow-up with your primary care physician tomorrow. If you have any worsening or new symptoms, please return to the emergency room or call 911 Prescriptions: No Action cholecalciferol (vitamin D3) 25 mcg (1,000 unit) tablet 25 mcg PO DAILY Qty: 90 0RF metformin 500 mg tablet extended release 24 hr 1,000 mg PO BID Qty: 360 0RF topiramate 50 mg tablet 50 mg PO BEDTIME 90 Days Qty: 90 1RF (DME) pen needle, diabetic [BD Ultra-Fine Micro Pen Needle] 32 gauge x 1/4 needle See Rx Instructions .ROUTE .MEDSUPPLY Qty: 50 6RF Rx Instructions: daily with liraglutide albuterol sulfate 90 mcg/actuation HFA aerosol inhaler 1 inh inhalation QID 30 Days Qty: 8.5 3RF Mini 6.75 mg iron- 200 mcg tablet 1 tab PO DAILY 90 Days Qty: 90 1RF acetaminophen 500 mg tablet 500 mg PO QID PRN (Reason: pain) 15 Days Qty: 60 1RF mecobalamin (vitamin B12) 1,000 mcg tablet,chewable 1,000 mcg PO DAILY 90 Days Qty: 90 1RF Victoza 3-Jay 0.6 mg/0.1 mL (18 mg/3 mL) pen injector 1.8 mg subcut Q24H 30 Days Qty: 9 6RF metoclopramide HCl [Reglan] 5 mg tablet 5 mg PO QIDACHS naproxen 500 mg tablet 500 mg PO Q12H PRN (Reason: pain) Qty: 20 0RF magnesium aspart,citrate,oxide 400 mg magnesium capsule PO Stand Alone Forms: Against Medical Advice Print Language: Japanese
--- NOTE | 2024-09-16 03:05 | MHC.EDTECH ---
patient refused labs to be drawn and EKG RN Tessy aware
[2024-09-16 03:48] VITALS: BP 139/93; PULSE 61; RESP 19; TEMP -17.7; TEMP 0; O2SAT 99
== END 2024-09-16 03:54 | disposition left against medical advice (07) ==
PROVIDERS: Emergency Provider Emergency Medicine
DX: R56.9 Unspecified convulsions (principal); Z53.29 Procedure and treatment not carried out because of patient's decision for other reasons
CPT/HCPCS: 99282; 99284

== ENCOUNTER 2024-10-02 15:54 | Outpatient (AMB) | payer OTHER, SELFPAY ==
[2024-10-02 15:57] VITALS: BP 128/68; BMI 35.9
--- NOTE | 2024-10-02 15:57 | MHC.PC.OV ---
Vital Signs 10/02/24 15:57 Height 5 ft 3 in Weight 202 lb 8 oz BMI 35.9 BP 128/68 Blood Pressure Location Lt brachial Position Sitting Temp Source Temporal Artery Scan Oxygen Delivery Method Room Air Intake Visit Reasons: annual exam Allergies latex (LATEX) Allergy (Unknown, Verified 10/02/24 16:09) RASH sulfamethoxazole (From BACTRIM) Allergy (Unknown, Verified 10/02/24 16:09) SHORTNESS OF BREATH sumatriptan Adverse Reaction (Intermediate, Verified 10/02/24 16:09) elevated heart rate Medication List - Last Reconciled 10/02/24 by Tye Teresa PA-C acetaminophen 500 mg PO QID PRN 15 days albuterol sulfate 90 mcg/actuation 1 inh inhalation QID 30 days cholecalciferol (vitamin D3) 25 mcg PO DAILY liraglutide (Victoza 3-Jay) 1.8 mg (0.3 mL) subcut Q24H 30 days magnesium aspart,citrate,oxide mg PO mecobalamin (vitamin B12) 1,000 mcg PO DAILY 90 days metformin ER 1,000 mg (2 x 500 mg) PO BID metoclopramide HCl (Reglan) 5 mg PO QIDACHS naproxen 500 mg PO Q12H PRN pen needle, diabetic (BD Ultra-Fine Micro Pen Needle) daily with liraglutide vit 49-iron fum-folic 6.75 mg iron- 200 mcg (Mini ) 1 tab PO DAILY 90 days topiramate 50 mg PO BEDTIME 90 days Tobacco use date assessed: 10/02/24 Dental Screening Dental Screen Date: 10/02/24 HPI annual exam HPI Details Patient is a 29-year-old female here today for a routine annual physical Patient has a past medical history significant for type 2 diabetes, chronic lumbar spine pain, PCOS , obesity, asthma, major depressive disorder and anxiety.. She would like activity-- > The patient reports experiencing seizure-like episodes, which are exacerbated by heat and stress. 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 She has been evaluated by a neurologist, who suggested a psychiatric origin for these episodes. The patient also experiences migraines, often preceding the seizure-like episodes. She describes these migraines as severe and debilitating, contributing to her overall stress and inability to function normally. depression is another concern for the patient, which she describes as worsening her mental health status. She has a history of medication trials for mood stabilization, including lamotrigine and sertraline, with varying degrees of success and side effects. Lumbar back pain: She reports her lumbar spine pain has been well managed since she has given . She has not had much pain. She is looking help her lose weight. Type 2 diabetes/ PCOS: Today's A1c acceptable. She is return back to using metformin and Victoza. She is mostly using these medications for PCOS. .. Mood disorder/major depressive disorder: She is not on any mental health medication at this time. She is suffering with a bit of depression. She does have a mental health therapist she has a good relationship with. She feels her mental health is stable.. 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 [facility] Medical History Encounter for screening PCOS (polycystic ovarian syndrome) Right ankle pain Prediabetes Nephrolithiasis Obesity Polycystic ovary syndrome Migraine with aura Migraines Generalized anxiety disorder Family history of breast cancer Vitamin D deficiency Hirsutism Amenorrhea Asthma Surgical History History of delivery History of appendectomy Family History Mother Obesity Breast cancer Maternal Aunt Breast cancer Paternal Aunt Breast cancer Family/Other Ovarian cancer Paternal Uncle Lung cancer Other Mental problem Substance abuse Social History Household Members: Children Housing: Apartment Housing Other:: She is looking to move out of her current apartment, not close to family Alcohol intake: current Alcohol intake frequency: holidays/special occasions only Alcohol type: beer and other Patient Tobacco Use Status: Former Tobacco user e-Cigarette/Vaping Use: Never Used Second Hand Smoke Exposure: Yes Substance Use Type: Marijuana service: No Current occupational status: unemployed Cognitive needs: No Hearing needs: No Vision needs: No Female Reproductive History Menstrual Age of Menarche: 9 Questionnaire Thrive Questionnaire Date Thrive assessed: 10/02/24 I am a: Patient What is your living situation today?: I do not have a steady places to live I choose not to answer this question Within the past 12 months, did the food you bought not last and you didn't have the money to get more?: Sometimes True Within the past 12 months, did you worry whether your food would run out before you got money to buy more?: Sometimes True Do you have trouble paying for medicines?: No Do you have trouble getting transportation to medical appointments?: No Do you have trouble paying your heating and electricity bill?: Yes Do you have trouble taking care of your child, family member or friend?: No Do you have trouble with day-to-day activities such as bathing, preparing meals, shopping, managing finances, etc.?: No Are you currently unemployed and looking for a job?: No Are you interested in more education?: No Currently or been in a relationship where the following occur: No concerns reported THRIVE Score: 4 VIK-7 AMB Questionnaire VIK-7 Date VIK - 7 assessed: 10/02/24 Source: Developed by Drs. Tristan Mcpherson, Divya Lara, Nikolai Arambula and colleagues, with an educational medardo from [employer]. Review of Systems Const Denies excessive sweating, Denies fatigue and Denies headache(s) Eyes Denies loss of vision ENT Denies vertigo, Denies dizziness, Denies headache(s) and Denies sore throat Card Denies chest pain, Denies leg edema and Denies lightheadedness Resp Denies cough, Denies hemoptysis and Denies wheezing GI Denies abdominal pain, Denies melena, Denies constipation, Denies diarrhea and Denies vomiting Denies urinary frequency, Denies dysuria and Denies urinary urgency Musc Denies arthralgias, Denies joint swelling, Denies numbness and Denies tingling Skin/Breast Denies rash and Denies skin ulcer Neuro Denies Abnormal speech present, Denies behavioral changes, Denies vertigo, Denies dizziness, Denies headache(s), Denies loss of vision, Denies memory loss, Denies numbness and Denies tingling Psych Denies anxiety, Denies behavioral changes, Denies depression, Denies memory loss and Denies panic attacks Endo Denies excessive sweating, Denies fatigue, Denies flushing, Denies polydipsia and Denies polyuria Leonardo/Lymph Denies easy bleeding and Denies easy bruising Aller/Immun Denies wheezing Physical exam (Primary Care) Vital Signs: Last Vital Signs BP 128/68 10/02/24 15:57 Oxygen Delivery Method Room Air 10/02/24 15:57 BMI result Body Mass Index 35.9 BMI Assessment/Plan discussion: High BMI High, discussed plan: lifestyle, weight reduction, dietary and physical activity Tobacco/Smoking Status: Tobacco use Status Tobacco use date assessed 10/02/24 10/02/24 16:05 Patient Tobacco Use Status Former Tobacco user 10/02/24 16:13 e-Cigarette/Vaping Use Never Used 10/02/24 16:13 Thrive Assessment: Date of Thrive Assessment Date Thrive assessed 10/02/24 10/02/24 16:05 Currently or been in a relationship where the following occur: No concerns reported Const General: healthy appearing, no acute distress, alert and awake Nutritional Appearance: well nourished Orientation/consciousness: oriented to person, oriented to place and oriented to time HENMT Head: Yes normocephalic Ears: TM's normal bilaterally General nose exam: Normal nasal mucous membranes and turbinates present Face and sinus: No sinus tenderness Mouth: Normal oral and palatal mucosa present and tongue normal Teeth and gingiva: dentition normal and gingiva normal Throat: Yes posterior oropharynx normal, Yes tonsils normal and Yes uvula midline Eyes Conjunctivae: conjunctivae normal Sclerae: sclerae normal Pupils: Equal, round and reactive pupils present EOM: EOMs intact bilaterally Direct Ophthalmoscopy: No no photophobia Neck Neck: Yes no lymphadenopathy and Yes no JVD Thyroid: Thyroid normal Carotids: no bruits Chest Chest palpation & inspection: no tenderness Resp Effort & Inspection: normal respiratory effort and not tachypneic Auscultation: no crackles, no rales, no rhonchi and no wheezes Cardio Jugular venous distension: no JVD Rate: regular rate Rhythm: regular rhythm Heart sounds: no murmurs and normal S1 and S2 Bruits: no carotid bruits Peripheral pulses: Peripheral pulses 2+ throughout GI Inspection: Yes normal to inspection, No abdominal wall ecchymosis and No visible herniation Palpation (GI): Soft to palpation, nontender, no hepatomegaly and no splenomegaly Auscultation: normal bowel sounds General: Yes no CVA tenderness Back/Spine/Pelvis Back: no CVA tenderness and No back tenderness Cervical Spine: cervical ROM normal Thoracic/Lumbar Spine: thoracic and lumbar spine normal to inspection, straight leg raise negative bilaterally, No thoraco-lumbar ROM limited and No lumbar spinal tenderness Skin General skin exam: no rashes or lesions noted and dry skin Lesions: no lesions Rashes: no rashes Wounds: no wounds Neuro General: oriented to person, oriented to place and oriented to time Cranial nerves: Yes Equal, round and reactive pupils present Cognition (Neuro): normal cognition Speech: No Abnormal speech present Gait exam (Neuro): Normal gait present Motor exam (neuro): no tremor noted Extrem Right upper extremity: full ROM Left upper extremity: full ROM Right lower extremity: full ROM; no edema Left lower extremity: full ROM; no edema Psych Appearance: grossly normal Mental Status: mental status grossly normal Speech and movement: Normal speech and movement present Affect: normal affect Attitude: cooperative Thought process: Normal thought process present Coding Level of Care Code Est Pt Prev Care 18-39y(10206) Diagnoses Annual physical exam Z00.00 Type 2 diabetes mellitus with hyperglycemia, without long-term current use of insulin E11.65 Diabetes mellitus complication status: with hyperglycemia Diabetes mellitus animal services officer insulin use: without chcf use Seizure-like activity R56.9 Class 2 obesity E66.812 Assessment & Plan Assessment & Plan (1) Annual physical exam: Code(s): Z00.00 - Encounter for general adult medical examination without abnormal findings Category: Medical Plan: As per HPI (2) DMII (diabetes mellitus, type 2): Code(s): E11.9 - Type 2 diabetes mellitus without complications Category: Medical Qualifiers: Diabetes mellitus complication status: with hyperglycemia Diabetes mellitus chcf insulin use: without animal services officer use Qualified Code(s): E11.65 - Type 2 diabetes mellitus with hyperglycemia Plan: Patient's type 2 diabetes well controlled with current dose of Victoza and metformin. (3) Seizure-like activity: Code(s): R56.9 - Unspecified convulsions Category: Medical Plan: The patient experiences seizure-like episodes, which are exacerbated by heat and stress, leading to significant disruptions in her work life. A neurologist has suggested a psychiatric origin for these episodes. The plan includes trialing lamotrigine extended release 25 mg once daily to manage these episodes, with a follow-up to assess effectiveness. (4) Class 2 obesity: Code(s): E66.812 - Obesity, class 2 Category: Medical Plan: Patient does understand her BMI is over 35 and will work on being more physically active and adapting to better eating habits to reduce her weight Medications: New lamotrigine ER (Lamictal XR) 25 mg PO DAILY 30 tabs 1RF 30 days R56.9 - Unspecified convulsions sertraline 50 mg PO DAILY 30 tabs 1RF 30 days F33.1 - Major depressive disorder, recurrent, moderate Discontinued topiramate Discontinued Reason: Doctor's Order 50 mg PO BEDTIME 90 days 90 tabs 1RF G43.909 - Migraine, unspecified, not intractable, without status migrainosus
--- OUTSIDE RECORDS SUMMARY | 2024-10-02 15:57 | XMS_ITS | Clinical Summary ---
Author Organization [address] [facility] Address [address] [place] [address] Phone Care Team Providers Care Tea Leaf Reader Name Role Phone Tye Teresa Primary Care Provider Social History Tobacco Use Types Packs/Day Years [...] Influencers of Health Screening 02/21/2022 COVID-19 Vaccine ( - 2023-2 5 season) 2023 Influenza Vaccine (#1) 2024 HIB Vaccines Aged Out No longer eligi [...] age to complete this topic Meningococcal B Vaccine Aged Out No l onger eligible based on patient's age to complete this topic Pneumococcal Vaccine: Pediat rics (0 to 5 Years) and At-Risk Patients (6 to 49 Years) Aged Out No longer eligible b ased on patient's age to complete this topic RSV Immunization Patients Un mahesh 20 months Aged Out No longer eligible b ased on patient's age to complete this topic Varicella Vaccines Aged Out No longer eligible based on patient's age to complete this topic Insurance [facility] Care Teams Tea Leaf Reader Relationship Specialty Start Date End Date Tye Teresa PA PCP - General Physician Rivet Sticker 07/31/24
--- OUTSIDE RECORDS SUMMARY | 2024-10-02 15:57 | XMS_ITS | Data Portability ---
Author Organization [place] [employer] TAMI, [id number] [facility] Address [address] [facility] [address] [place] [address] Assessment No assessment recorded. Plan of Treatment Reminders Order Date Submit Date Provider Last Modified By Organization Details Last Modified Time Details Appointments None recorded. Lab pap, IG + CT/NG/TV + reflex HR HPV 2017 018 LISA [facility], [address] [place], [address], 8 16:10:48 hepatitis C Ab, signal-to-c utoff, serum or plasma 2017 018 LISA [facility], [address] [place], [address], 8 13:06:05 varicella zoster virus IgG Ab, QN, IA, serum 2017 018 LISA [facility], [address] [place], [address], 8 13:06:05 culture, urine 2017 018 LISA [facility], [address] [place], [address], 8 13:06:06 HIV 1+2 AB + HIV 1 p24 Ag, qualitative immunoassay , serum 2017 018 LISA [facility], [address] [place], [address], 8 13:06:04 obstetric screen, serum or blood 2017 018 LISA [facility], [address] [place], [address], 8 13:06:03 RPR (rapid plasma reagin), serum 2017 018 LISA [facility], [address] [place], [address], 8 05:01:10 Referral None recorded. Procedures None [...] Negati ve negati ve Not Available [facility] ([facility]) [address] [place], [address], 07/29/2017 13:06:03 07/27/19 18 07/27/2017 obste tric scree n, serum or blood RPR Non Reacti ve non reacti ve Not Available [facility] ([facility]) [address] [place], [address], 07/29/2017 13:06:03 07/27/19 18 07/27/2017 obste tric scree n, serum or blood rubella antibodies, IgG 7.41 index immune >0.99 Non-i mmune <0.90 Equiv ocal 0.90 - 0.99 Immun e >0.99 Not Available [facility] ([facility]) [address] [place], [address], 07/29/2017 13:06:03 07/27/19 18 07/27/2017 obste tric scree n, serum or blood ABO grouping B Not Available [facility] ([facility]) [address] [facility], [place], [address], 07/29/2017 13:06:03 07/27/19 18 07/27/2017 obste tric scree n, serum or blood Rh factor Positi ve Pleas e note: Prior recor ds for this patie nt's ABO / Rh type are not avail able for addit ional verif icati on. Not Available [facility] ([facility]) [address] [place], [address], 07/29/2017 13:06:03 07/27/19 18 07/27/2017 obste tric scree n, serum or blood antibody screen Negati ve negati ve Not Available [facility] ([facility]) [address] [facility], [place], [address], 07/29/2017 13:06:03 07/27/19 18 07/27/2017 obste tric scree n, serum or blood WBC 8.2 x10e3 /uL 3.4-10 .8 Not Available [facility] ([facility]) [address] [facility], [place], [address], 07/29/2017 13:06:03 07/27/19 18 07/27/2017 obste tric scree n, serum or blood RBC 4.48 x10e6 /uL 3.77-5 .28 Not Available [facility] ([facility]) [address] [facility], [place], [address], 07/29/2017 13:06:03 07/27/19 18 07/27/2017 obste tric scree n, serum or blood hemoglobin 11.9 g/dL 11.1-1 5.9 Not Available [facility] ([facility]) [address] [place], [address], 07/29/2017 13:06:03 07/27/19 18 07/27/2017 obste tric scree n, serum or blood hematocrit 36.5 % 34.0-4 6.6 Not Available [facility] ([facility]) [address] [facility], [place], [address], 07/29/2017 13:06:03 07/27/19 18 07/27/2017 obste tric scree n, serum or blood MCV 82 fL 79-97 Not Available [facility] ([facility]) [address] [facility], [place], [address], 07/29/2017 13:06:03 07/27/19 18 07/27/2017 obste tric scree n, serum or blood MCH 26.6 pg 26.6-3 3.0 Not Available [facility] ([facility]) [address] [facility], [place], [address], 07/29/2017 13:06:03 07/27/19 18 07/27/2017 obste tric scree n, serum or blood MCHC 32.6 g/dL 31.5-3 5.7 Not Available [facility] ([facility]) [address] [facility], [place], [address], 07/29/2017 13:06:03 07/27/19 18 07/27/2017 obste tric scree n, serum or blood RDW 15.4 % 12.3-1 5.4 Not Available [facility] ([facility]) [address] [facility], [place], [address], 07/29/2017 13:06:03 07/27/19 18 07/27/2017 obste tric scree n, serum or blood platelets 277 x10e3 /uL 150-37 9 Not Available [facility] ([facility]) [address] [place], [address], 07/29/2017 13:06:03 07/27/19 18 07/27/2017 obste tric scree n, serum or blood neutrophils 65 % not estab. Not Available [facility] ([facility]) [address] [place], [address], 07/29/2017 13:06:03 05/03/20 18 07/27/2017 obste tric scree n, serum or blood lymphs 29 % not estab. Not Available [facility] ([facility]) [address] [facility], [place], [address], 07/29/2017 13:06:03 07/27/19 18 07/27/2017 obste tric scree n, serum or blood monocytes 6 % not estab. Not Available [facility] ([facility]) [address] [facility], [place], [address], 07/29/2017 13:06:03 07/27/19 18 07/27/2017 obste tric scree n, serum or blood eos 0 % not estab. Not Available [facility] ([facility]) [address] [facility], [place], [address], 07/29/2017 13:06:03 07/27/19 18 07/27/2017 obste tric scree n, serum or blood basos 0 % not estab. Not Available [facility] ([facility]) [address] [facility], [place], [address], 07/29/2017 13:06:03 07/27/19 18 07/27/2017 obste tric scree n, serum or blood immature cells EDUCATIONAL AUDIOLOGIST Not Available [facility] ([facility]) [address] [facility], [place], [address], 07/29/2017 13:06:03 07/27/19 18 07/27/2017 obste tric scree n, serum or blood neutrophils (absolute) 5.3 x10e3 /uL 1.4-7. 0 Not Available [facility] ([facility]) [address] [place], [address], 07/29/2017 13:06:03 07/27/19 18 07/27/2017 obste tric scree n, serum or blood lymphs (absolute) 2.4 x10e3 /uL 0.7-3. 1 Not Available [facility] ([facility]) [address] [facility], [place], [address], 07/29/2017 13:06:03 07/27/19 18 07/27/2017 obste tric scree n, serum or blood monocytes(ab solute) 0.5 x10e3 /uL 0.1-0. 9 Not Available [facility] ([facility]) [address] [facility], [place], [address], 07/29/2017 13:06:03 07/27/19 18 07/27/2017 obste tric scree n, serum or blood eos (absolute) 0.0 x10e3 /uL 0.0-0. 4 Not Available [facility] ([facility]) [address] [facility], [place], [address], 07/29/2017 13:06:03 07/27/19 18 07/27/2017 obste tric scree n, serum or blood baso (absolute) 0.0 x10e3 /uL 0.0-0. 2 Not Available [facility] ([facility]) [address] [facility], [place], [address], 07/29/2017 13:06:03 07/27/19 18 07/27/2017 obste tric scree n, serum or blood immature granulocytes 0 % not estab. Not Available [facility] ([facility]) [address] [facility], [place], [address], 07/29/2017 13:06:03 07/27/19 18 07/27/2017 obste tric scree n, serum or blood immature grans (abs) 0.0 x10e3 /uL 0.0-0. 1 Not Available [facility] ([facility]) [address] [facility], [place], [address], 07/29/2017 13:06:03 07/27/19 18 07/27/2017 obste tric scree n, serum or blood NRBC EDUCATIONAL AUDIOLOGIST Not Available [facility] ([facility]) [address] [place], [address], 07/29/2017 13:06:03 07/27/19 18 07/27/2017 obste tric scree n, serum or blood hematology comments: EDUCATIONAL AUDIOLOGIST Not Available [facility] ([facility]) [address] [facility], [place], [address], 07/29/2017 13:06:03 07/27/19 18 07/27/2017 HIV 1+2 AB + HIV 1 p24 Ag, quali tativ e immun oassa y, serum HIV screen 4TH generation wrfx Non Reacti ve non reacti ve Not Available [facility] ([facility]) [address] [facility], [place], [address], 07/29/2017 13:06:04 07/27/19 18 07/27/2017 varic klaus [...] stage of disea se. Not Available [facility] ([facility]) [address] [facility], [place], [address], 07/29/2017 13:06:05 07/27/19 18 07/27/2017 hepat itis C Ab, signa l-to- cutof f, serum or plasm a hep C virus Ab <0.1 s/co_ ratio 0.0-0. 9 Negat krzysztof: < 0.8 Indet ermin ate: 0.8 - 0.9 Posit krzysztof: > 0.9 The CDC recom mends that a posit krzysztof HCV antib toño resul t be follo wed up with a HCV Nucle ic Acid Ampli ficat ion test (5507 13). Not Available [facility] ([facility]) [address] [facility], [place], [address], 07/29/2017 13:06:05 07/27/19 18 07/29/2017 cultu re, urine urine culture, routine Final report abnormal Not Available [facility] ([facility]) [address] [facility], [place], [address], 07/29/2017 13:06:06 07/27/19 18 07/29/2017 cultu re, [...] Prote us mirab ilis. Not Available [facility] ([facility]) [address] [facility], [place], [address], 07/29/2017 13:06:06 07/27/19 18 07/29/2017 cultu re, [...] ne S<=1 Tobra mycin S<=1 Trime thopr im/Braldey lfa S<=20 Not Available [facility] ([facility]) [address] [place], [address], 07/29/2017 13:06:06 07/27/19 18 07/27/2017 pap, IG + CT/NG /TV + refle x HR HPV chlamydia, nuc. acid amp Negati ve negati ve Not Available [facility] ([facility]) [address] [place], [address], 07/31/2017 16:10:48 07/27/19 18 07/27/2017 pap, IG + CT/NG /TV + refle x HR HPV gonococcus, nuc. acid amp Negati ve negati ve Not Available [facility] ([facility]) [address] [place], [address], 07/31/2017 16:10:48 07/27/19 18 07/30/2017 pap, IG + CT/NG /TV + refle x HR HPV interpretati on NIL NEGAT KRZYSZTOF FOR INTRA EPITH ELIAL LESIO N AND MALIG GANESH . Not Available [facility] ([facility]) [address] [place], [address], 07/31/2017 16:10:48 07/27/19 18 07/30/2017 pap, IG + CT/NG /TV + refle x HR HPV category: NIL Negat krzysztof for Intra epith elial Lesio n Not Available [facility] ([facility]) [address] [place], [address], 07/31/2017 16:10:48 07/27/19 18 07/30/2017 pap, IG + CT/NG /TV + refle x HR HPV adequacy: ENDO Satis facto ry for evalu ation . Endoc ervic al and/o r squam ous metap lasti c cells (endo cervi emmanuel compo nent) are prese nt. Not Available [facility] ([facility]) [address] [place], [address], 07/31/2017 16:10:48 07/27/19 18 07/30/2017 pap, IG + CT/NG /TV + refle x HR HPV clinician provided ICD10: Juana cody Z34.8 1 Z11.3 R82.7 1 D64.9 Not Available [facility] ([facility]) [address] [place], [address], 07/31/2017 16:10:48 07/27/19 18 07/30/2017 pap, IG + CT/NG /TV + refle x HR HPV performed by: Joan Devries (ASCP ) Not Available [facility] ([facility]) [address] [place], [address], 07/31/2017 16:10:48 07/27/19 18 07/30/2017 pap, IG [...] ts do occur . Not Available [facility] ([facility]) [address] [place], [address], 07/31/2017 16:10:48 07/27/19 18 07/30/2017 pap, IG + CT/NG /TV + refle x HR HPV test methodology: Juana cody This liqui d based ThinP rep(R ) pap test was scree maral with the use of an image guide jorge alberto baker. Not Available [facility] ([facility]) [address] [place], [address], 07/31/2017 16:10:48 07/27/19 18 07/30/2017 pap, IG + CT/NG /TV + refle x HR HPV . Commen t The HPV DNA refle x crite violet were not met with this speci men resul t there fore, no HPV testi ng was perfo rmed. Not Available [facility] ([facility]) [address] [facility], [place], [address], 07/31/2017 16:10:48 07/27/19 18 07/31/2017 pap, IG + CT/NG /TV + refle x HR HPV trich vag by AMBER Negati ve negati ve Not Available [facility] ([facility]) [address] [facility], [place], [address], 07/31/2017 16:10:48 07/27/19 18 07/17/2017 [place], obste [...] Name and Address Organization Details Recorded Time 44569117 Completed 201707/26/2017 Jesusita Jackson (TERMED) [facility] [employer] [facility], [facility] 8 08:53:04 Morbid obesity 247602524 Active 2017 Needs Early 1HR GCT @ 16 wks. Chelsey Burrell [facility] [employer] [facility] 9 17:35:52 Morbid obesity 830788763 Completed 2017 Needs Early 1HR GCT @ 16 wks. Chelsey Burrell [facility], [facility] 9 17:35:52 Polycystic ovaries Active 2017 Dx @ 19 Chelsey Burrell [facility] 9 17:35:52 Polycystic ovaries Completed 2017 Dx @ 19 Chelsey Burrell [facility] 9 17:35:52 Problem Notes None recorded. Procedures Surgical History Date Name Laterality Status Provider Name and Address Organization Details Recorded Time 07/27/19 18 Date of Last Pap Smear completed Jesusita Jackson (TERMED) [facility] 08/01/2017 15:01:14 GI- Appendectomy completed Jesusita Jackson (TERMED) [facility] 07/26/2017 09:01:07 Imaging Results None recorded. Procedure Notes None recorded. Medical Equipment None Reported. Allergies Allergen ID Allergen Name Allergen Category Reaction Reaction Severity Criticality Documentation Date Start Date Code Code System Note Provider Name and Address Organization Details Recorded Time 267363 Bactrim medicatio n anaphylax is Not available Not available 07/26/2017 50107 9 RxNorm Jesusita Jackson (TERMED) [facility] 8 08:52:35 047718 latex environme nt,medica tion rash Not available Not available 07/26/2017 92912 91 RxNorm Jesusitajacque Jackson (TERMED) [facility] 8 08:52:57 Medications Name Sig Start [...] Body mass index (BMI) Body height Systolic And Diastolic Provider Name and Address Organization Details Last Updated DateTime 07/26/2017 79950.474 g 36.6 kg/m2 157.48 cm 110/62 mm[Hg] Jesusita Jackson (TERMED) [facility] 07/26/2017 08:49:05 Date Recorded Body height Body weight Systolic And Diastolic Provider Name and Address Organization Details Last Updated DateTime 08/29/2017 157.48 cm 97297.474 g 110/70 mm[Hg] Jesusita Jackson (TERMED) [facility] [employer] [facility] 08/29/2017 13:39:10 Social History Question Answer Notes LastModified by Organizat ion Details LastModified Time Tobacco Smoking Status Never Smoker Jesusita Jackson (TERMED) [facility], [place] [facility] 07/26/2017 08:59:37 Do You Have An Advance Directive? No [email or web address] Information not available 07/26/2017 If You Are , What Was Your Level Of Alcohol Consumption Prior To ? None Information not available 07/26/2017 What Is Your Level Of Caffeine Consumption? None [email or web address] Information not available 07/26/2017 How Much Tobacco Do You Chew? None [email or web address] Information not available 07/26/2017 What Type Of Diet Are You Following? REGULAR [email or web address] Information not available 07/26/2017 Education 12 [email or web address] Information n ot available 07/26/2017 How Many Days In The Past Year Have You Had A Heavy Drinking Consumption (4+ Female, 5+ Male)? 0 [email or web address] Information not available 07/26/2017 Are There Any Guns Present In Your Home? No [email or web address] Information not available 07/26/2017 Illicit Drugs Pre- None [email or web address] Information not available 07/26/2017 Illicit Drugs? No [email or web address] Informati on not available 07/26/2017 Marital Status For 2 Years [email or web address] Information not available 07/26/2017 What Was The Date Of Your Most Recent Tobacco Screening? 07/26/2017 Information not available 10/17/2018 Seat Belts Used Routinely Yes [email or web address] Information not available 07/26/2017 Smoke Alarm In Home Yes [email or web address] Information not available 07/26/2017 At What Age Did You Start Smoking Tobacco? 0 [email or web address] Information not available 07/26/2017 How Much Tobacco Do You Smoke? No [email or web address] Information not available 07/26/2017 Smoking Pre- No [email or web address] Information not available 07/26/2017 Do You Use Sunscreen Routinely? No [email or web address] Information not available 07/26/2017 How Many Years Have You Smoked Tobacco? 0 [email or web address] Information not available 07/26/2017 Do You Have Symptoms Associated With Zika Virus (fever, Rash, Joint Pain, Or Conjunctivitis)? No [email or web address] Information not available 07/26/2017 Have You Recently (within The Last 12 Weeks, Or During A Current ) Traveled To Or Lived In A Zika-affected Area? No Information not available 07/26/2017 Sex: Unknown Functional Status Question Answer Note LastModified by Organizat ion Details LastModified Time What is your level of alcohol consumption? None [email or web address] Information not available 07/26/2017 Urinary incontinence assessment performed? 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 None [email or web address] Information not available 07/26/2017 Mental Status None recorded. Family History Relationship Description Onset Age of this Age Resolved Age Notes LastModified by Organization Details LastModified Time Paternal Aunt Malignant tumor of breast 35 [email or web address] Not available 05/2017 08:58:01 Maternal Aunt Malignant tumor of breast Not available 05/2017 08:58:09 Paternal Grandmother Diabetes mellitus [email or web address] Not available 05/2017 08:58:46 Paternal Grandmother Hypertensive disorder [email or web address] Not available 05/2017 08:58:59 Maternal Grandmother Cerebrovascu lar accident 68 [email or web address] Not available 0 07/26/2017 08:59:18 Medical History [...] SNOMED-CT Code Diagnosis ICD10 Code Diagnosis Note [id number] Armida Aragon CNM [id number] [place] [address] 07/26/2017 08:23:14 07/26/2017 10:07:52 Routine care 392964565 Z34.81 Z11.3 R82.71 D64.9 Past pregn javi history of miscarriage 896539558 Z87.59 [id number] Armida Aragon CNM [id number] [place] [address] 08/29/2017 13:30:34 08/29/2017 14:19:38 Health Concerns Section Related Observation LastModified by Organization Detai ls LastModified Time None Recorded Concern Status LastModified by Organization Details LastModified Time None Recorded Advance Directives Directive N: Payers Insurance Date Sequence Insurance Name Policy Number Policy Christian Covered Member ID Christian Member ID Guarantor Name 08/27/2017 1 [facility] (MEDICAID REPLACEMENT - HMO) [facility] Graciella Davila-Zeig [facility] [id number] Graciella Davila-Zeig ler 07/25/2017 1 [facility] (MEDICAID REPLACEMENT - HMO) Graciella Davila-Zeig ler [id number] Graciella Davila-Zeig [facility] Notes Date Note Type Note Provider Name and Address Organization Details Recorded Time 07/26/2017 text/html Confir mation ([facility])Reported bypatient.Referred By:ER LMP:06/10/2017definite Menstrual Historyfrequency of menses: irregular * Context:current contraceptive method: None; planned no; spontaneous conception; history of infertility yes (Tried Clomid & Metformin in the past.) * Associated Signs & Symptomsnausea; no vomiting; no enlargement of the breasts; no breast tenderness;fatigue;crank hand 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, [address], [place], [address], [facility] - [facility] 07/26/2017 10:11:52 OBGyn Episode Ob Episode Information Episode Created Date Number of Fetuses Patient Bloodtype Patient rh Status Prepregnancy Weight lbs Domestic Partner Domestic Partner Phone Father Name Police Chief Status 07/27/19 18 1 CLOSED Fetus Data First Name Last Name Admitted to NICU Weight (g) Sex Living Outcome Pediatric Complications Fetus ID Race Codes Race Delivery Type , Spontane ous [id number] Maxwell Calculation Initial Maxwell Date Initial Exam [...] Domestic Partner Domestic Partner Phone Father Name Police Chief Status 07/26/19 18 1 B Positive 198 RODOLFODAYLIN NUÑEZ CLOSED Fetus Data First Name Last Name Admitted to NICU Weight (g) Sex Living Outcome Pediatric Complications Fetus ID Race Codes Race Delivery Type [id number] Problems Problem Notes Problem Name Start Date End Date Resolution Snomed Code Not e Polycystic ovaries 07/26/2017 20039288 Dx @ 19 Morbid obesity 07/26/2017 336128945 Need s Early 1HR GCT @ 16 [...] Type Weight in lbs Pre/Post Dialysis Refused 200.721580422090 BP Diastolic BP Location Tested BP Systolic [...] Type Weight in lbs Pre/Post Dialysis Refused 200.582780897736 BP Diastolic BP Location Tested BP Systolic BP Type 70 R arm 110 sitting Fetus Heart Rate Present A 150 Present Fetus Movement A No Comments Routine OBV. Last OBV with u s, she is moving to [place]. Medical records release signed & a copy [...] Illness Since Last Menstrual Period false Thalassemia (Nigerien, Togolese, Mediterranean, Or Background): MCV < 80 false [...] Trait () false CONSENTED TO [facility] 07/26/17 Delma's Chorea false Maternal Metabolic Disorder (eg, Type 1 Diabetes, PKU) false Patient Or Partner Has Histo ry Of Genital Herpes false History of Hepatitis B, C or HIV false Horace-Sachs (eg, Rastafari, Cajun , Hebrew-Mills) false Cystic Fibrosis false CONSENTED TO REZA [...]
--- OUTSIDE RECORDS SUMMARY | 2024-10-02 15:57 | XMS_ITS | Encounter Summary ---
Author Organization [employer] Address [address] [place] [address] Care Team Providers Care Civil Rights Investigator Name Role Phone Francisca Jimenez MD Primary Care Provide r Encounter Details Date Type Department Care Team (Latest Contact Info) Description 06/12/2018 Abstract [facility] CONVERSIONS Dental, Provider, DDS Social History [...] on filedocumented in this encounter Care Teams Civil Rights Investigator Relationship Specialty Start Date End Date Francisca Jimenez MD [address] [place] [id number] PCP - General Family Medicine 02/28/18 03/26/23 documented as of this encounter
== END 2024-10-02 16:52 | disposition home or self-care (01) ==
LOC: HO.HMCH 15:55
PROVIDERS: PCP Physician Assistant; Visit Provider Physician Assistant
DX: Z00.00 Encounter for general adult medical examination without abnormal findings (principal); E11.65 Type 2 diabetes mellitus with hyperglycemia; R56.9 Unspecified convulsions; E66.812 Obesity, class 2; Z68.35 Body mass index [BMI] 35.0-35.9, adult

== ENCOUNTER → 2024-10-02 15:54 | Outpatient (BNVA) | payer OTHER, SELFPAY | PROVIDERS: PCP Physician Assistant; Visit Provider Physician Assistant | DX: Z00.00 Encounter for general adult medical examination without abnormal findings (principal); E11.65 Type 2 diabetes mellitus with hyperglycemia; M54.50 Low back pain, unspecified; E28.2 Polycystic ovarian syndrome; J45.909 Unspecified asthma, uncomplicated; F41.9 Anxiety disorder, unspecified; R56.9 Unspecified convulsions; E66.812 Obesity, class 2; F33.1 Major depressive disorder, recurrent, moderate; E56.9 Vitamin deficiency, unspecified; G43.909 Migraine, unspecified, not intractable, without status migrainosus; Z68.35 Body mass index [BMI] 35.0-35.9, adult | CPT/HCPCS: 99395 ==

== ENCOUNTER 2025-01-15 09:25 | Outpatient (AMB) | payer OTHER, SELFPAY ==
--- NOTE | 2025-01-15 09:24 | MHC.OFFWIV ---
Intake Vital Signs 01/15/25 09:25 Height 5 ft 3 in Weight 197 lb BMI 34.9 BP 110/70 Blood Pressure Location Lt brachial Position Sitting Pulse 82 Pulse Source Pulse Oximeter Temp 98.3 F Temp Source Oral Pulse Oximetry (%) 97 Oxygen Delivery Method Room Air Intake Visit Reasons: EP - Right Eye Edema, ?[place] [facility] Intake Note: EP has got the erythema and edema in her left eye since three days ago. The edema enlarged gradually. Patient Tobacco Use Status: Former Tobacco user Allergies latex (LATEX) Allergy (Unknown, Verified 01/15/25 09:35) RASH sulfamethoxazole (From BACTRIM) Allergy (Unknown, Verified 01/15/25 09:35) SHORTNESS OF BREATH sumatriptan Adverse Reaction (Intermediate, Verified 01/15/25 09:35) elevated heart rate Do you need a note to return to daycare/school/sports/work: No HPI HPI Comments History of Present Illness Details History of Present Illness - The patient is a 29-year-old female presenting with a painful eye suspected to be a stye on the left. - The condition began three days ago, characterized by a palpable mass on the eyelid and significant discomfort. - The patient reports increased severity compared to previous styes, with no history of contact lens use or infectious spread. - Vision is notably strained, affecting her ability to perform daily tasks such as driving. - She denies FB, discharge, light sensitivity, or tearing. Physical Exam General: Cooperative, healthy appearing, comfortable, no acute distress and well developed Orientation: Patient oriented x3 Limitations: No limitations Head: Normal to inspection Eyes: Appearance abnormal. Swelling and erythema to the left upper eyelid with a stye noted. No discharge noted. Sclera is white, conjunctiva is pink. PERRLA, EOMI. Respiratory: Normal respiratory effort and able to speak in complete sentences. Clear to auscultation bilaterally Cardiovascular: Regular rate and rhythm. Normal S1 and S2 Skin: No rashes or lesions noted Patient was informed and verbally consented to the use of an ambient scribe for clinic note documentation during this visit. [facility] Medical History Encounter for screening PCOS (polycystic ovarian syndrome) Right ankle pain Prediabetes Nephrolithiasis Obesity Polycystic ovary syndrome Migraine with aura Migraines Generalized anxiety disorder Family history of breast cancer Vitamin D deficiency Hirsutism Amenorrhea Asthma Surgical History History of delivery History of appendectomy Family History Mother Obesity Breast cancer Maternal Aunt Breast cancer Paternal Aunt Breast cancer Family/Other Ovarian cancer Paternal Uncle Lung cancer Other Mental problem Substance abuse Social History Household Members: Children Housing: Apartment Housing Other:: She is looking to move out of her current apartment, not close to family Alcohol intake: current Alcohol intake frequency: holidays/special occasions only Alcohol type: beer and other Patient Tobacco Use Status: Former Tobacco user e-Cigarette/Vaping Use: Never Used Second Hand Smoke Exposure: Yes Substance Use Type: Marijuana service: No Current occupational status: unemployed Cognitive needs: No Hearing needs: No Vision needs: No Female Reproductive History Menstrual Age of Menarche: 9 Review of Systems Const All systems reviewed & are unremarkable except as noted in HPI and below Physical Exam Vital Signs: Last Vital Signs Temp 98.3 F 01/15/25 09:25 Pulse 82 01/15/25 09:25 BP 110/70 01/15/25 09:25 Pulse Ox 97 01/15/25 09:25 Oxygen Delivery Method Room Air 01/15/25 09:25 BMI result Body Mass Index 34.9 Assessment & Plan Assessment & Plan (1) Swelling of upper eyelid: Code(s): H02.849 - Edema of unspecified eye, unspecified eyelid (2) Hordeolum: Code(s): H00.019 - Hordeolum externum unspecified eye, unspecified eyelid Qualifiers: Eyelid: upper Hordeolum type: internum Laterality: left Qualified Code(s): H00.024 - Hordeolum internum left upper eyelid (3) Eyelid cellulitis: Code(s): H00.039 - Abscess of eyelid unspecified eye, unspecified eyelid Qualifiers: Laterality: left Qualified Code(s): H00.036 - Abscess of eyelid left eye, unspecified eyelid Plan Most likely a cellulitis to the eyelid from a hordeoulm vs chalazion plan - warm compresses to the area - cipro drops to the left eye - keflex 4 times a day for 7 days - can follow up with ophthamologist if not better - follow up with PCP Medications: New cephalexin 500 mg PO Q6H 28 caps 0RF ciprofloxacin HCl 0.3% 1 - 2 drops into the right eye four times a day 5 mL 0RF 5 days Coding Level of Care Code Est Pt Level 3 (00897) Diagnoses Swelling of upper eyelid H02.849 Hordeolum internum of left upper eyelid H00.024 Eyelid: upper Hordeolum type: internum Laterality: left Cellulitis of left eyelid H00.036 Laterality: left
[2025-01-15 09:25] VITALS: BP 110/70; PULSE 82; TEMP 36.8; O2SAT 97; BMI 34.9
--- OUTSIDE RECORDS SUMMARY | 2025-01-15 10:31 | XMS_ITS | Clinical Summary ---
Author Organization [facility] Address [address] [address] Phone Care Team Providers Care Architecture Manager Name Role Phone Tye Teresa Primary Care Provider + Allergies Active Allergy Reactions Criticality Noted Date Comments Sulfamethoxazole-Trimethoprim 2017 Latex 09/07/2017 Medications vitamins with ferrous fumarate- folic acid 28 mg iron- 800 mcg Tab 1 tablet daily. Active diazePAM (VALIUM) 5 MG tablet Take 0.5 tablets (2.5 mg total) by mouth nightly at bedtime as needed for anxiety. 5 tablet 08/15/2022 Active Immunizations Immunization Administration Dates Next Due COVID-19 (Pre-01/15) Pfizer Vaccine, Bivalent 12 + 02/04/2022 COVID-19 (Pre-01/15) Pfizer Vaccine, mRNA, PF ,03/11/2021 Hepatitis B Adult 06/13/2021 Influenza Recombinant Trivalent Preservative Leonel e IM 06/06/2022 Tdap 11/02/2020 Social History Tobacco Use Types Packs/Day Years Used Date Smoking Tobacco: Some Days Cigarettes Tobacco Cessation:Ready to Q uit: Not Asked; Counseling Given: Not Answered Alcohol Use Standard Drinks/Week Comments No 0 (1 standard drink = 0.6 oz pur e alcohol) Education Answer Date Recorded Are you interested in more education? Not on adia e 07/21/2022 Are you concerned about learning? Not on file 07/21/2022 No 07/21/2022 No 07/21/2022 Digital Access Answer Date Recorded No 08/15/2022 No 08/15/2022 No 08/15/2022 Reliable internet access at home? Not on file 08/15/2022 Device with a working camera? Not on file Intimate Partner Violence Answer Date R ecorded Are you denied basic needs s uch as food, clothing, or medical care? No 08/15/2022 In the past 12 months have y ou been in a relationship with a person who hurts, threatens, or tries to control you? No 08/15/2022 Are you denied basic needs s uch as food, clothing, or medical care? No 08/15/2022 In the past 12 months have y ou been in a relationship with a person who hurts, threatens, or tries to control you? No 08/15/2022 Comments No Sex and Gender Information Value Date Recorded Sex Assigned at Female 09/10/2017 3:32 PM EDT Legal Sex Female 8:52 PM EDT Gender Identity Female 09/10/2017 3:32 PM EDT Sexual Orientation Straight 09/10/2017 3: 32 PM EDT Last Filed Vital Signs Vital Sign Reading Time Taken Comments Blood Pressure 112/69 08/15/2022 3:42 PM EDT Pulse 69 08/15/2022 3:42 PM EDT Temperature 36.2 C (97.1 F) 08/15/2022 3:42 PM EDT Respiratory Rate 18 08/15/2022 1:36 PM EDT Oxygen Saturation 100% 08/15/2022 3:42 PM EDT Inhaled Oxygen Concentration - - Weight 83 kg (183 lb) 08/15/2022 10:51 AM EDT Height 157.5 cm (5' 2 ) 08/15/2022 10:51 AM EDT Body Mass Index 33.47 08/15/2022 10:51 AM EDT Plan of Treatment Health Maintenance Due Date Last Done Comments DEPRESSION SCREENING 2007 SMOKING Hx and SMOKELESS TOBACCO SCREENING 2008 HIV ONE-TIME SCREENING (18-65 YEARS) 2013 PNEUMOCOCCAL VACCINES (0-49 years) (1 of 2 - PCV) 2014 PAP SMEAR 2016 INFLUENZA VACCINE (#1) 2024 3, 12/05/2011, 01/20/2011, Additional history exists COVID-19 VACCINE (2024- season) 2024 02/04/2022, 03/31/2021, 03/11/2021 Adult Td,Tdap Booster 11/02/2030 11/02/2020 , 09/04/2011, 07/06/2006 HIB VACCINES Completed 12/02/1996, 09/23, 1995, Additional history exists MENINGOCOCCAL VACCINES (ACWY) Aged Out 08/01/2007 No longer eligible based on patient's age to complete this topic HEPATITIS C SCREENING Completed 01/21/2018 HEPATITIS A VACCINES Aged Out No long er eligible based on patient's age to complete this topic MENINGOCOCCAL VACCINES (B) Aged Out N o longer eligible based on patient's age to complete this topic Medical Devices Not on file Insurance ACO ACO ACO [place] [address] [place] [address] ACO ACO ACO ACO Care Teams Architecture Manager Relationship Specialty Start Date End Date Tye Teresa PA [address] [place] [address] PCP - General 06/13/21 Additional Source Comments The information contained in this document represents components of the legal health record. It is not the complete legal health record.[facility]
== END 2025-01-15 10:32 | disposition home or self-care (01) ==
PROVIDERS: PCP Physician Assistant; Visit Provider Physician Assistant Medical
DX: H02.849 Edema of unspecified eye, unspecified eyelid (principal); H00.024 Hordeolum internum left upper eyelid; H00.036 Abscess of eyelid left eye, unspecified eyelid

== ENCOUNTER → 2025-01-15 09:25 | Outpatient (BNVA) | payer OTHER, SELFPAY | PROVIDERS: PCP Physician Assistant; Visit Provider Physician Assistant Medical | DX: H02.844 Edema of left upper eyelid (principal); H00.024 Hordeolum internum left upper eyelid; H00.034 Abscess of left upper eyelid | CPT/HCPCS: 99212 ==

== ENCOUNTER 2025-01-29 13:39 | Emergency (ER) | payer OTHER, SELFPAY ==
[2025-01-29 13:45] VITALS: BP 124/75; PULSE 70; RESP 18; TEMP 36.3; O2SAT 100; BMI 34.9
--- NOTE | 2025-01-29 13:46 | ED.GENADULT ---
HPI - General Adult General Chief complaint: Headache Stated complaint: Headache Time Seen by Provider: 01/29/25 16:06 Source: patient, RN notes reviewed and old records reviewed Mode of arrival: ambulatory Limitations: no limitations History of Present Illness ED Provider: Kenyatta RUSH narrative: 29-year-old female with past medical history significant for pseudoseizures, hyperlipidemia, conversion disorder, polycystic ovarian syndrome, diabetes, obesity presents for evaluation of a headache. Patient reports that she has a history of migraines. She woke up this morning with a headache the top of her head pain She reports the pain radiates from the back of her neck to the front of her neck. Denies any trauma to the head or neck. She reports that she usually smokes marijuana to help with the symptoms which did not seem to help significantly today. Denies any blurry vision, nausea, vomiting, lightheadedness the patient took ibuprofen earlier this afternoon which did not help her pain either. She denies any fevers, chills, cough, shortness of breath or other infectious symptoms the patient has been in the emergency department approximately 3 hours that time my evaluation, she is quite upset that she has been waiting in his long without any treatment she does note that she has a [id number] baby at home Related Data Previous Rx's ?Medication ?Instructions ?Recorded albuterol sulfate 90 mcg/actuation 1 inh inhalation QID shortness of 09/05/22 aerosol inhaler breath or wheezing 30 days #8.5 grams acetaminophen 500 mg tablet 500 mg PO QID PRN pain 15 days #60 10/15/23 tabs cephalexin 500 mg capsule 500 mg PO Q6H #28 caps 01/15/25 ciprofloxacin HCl 0.3 % eye drops 1 - 2 drp ophthalmic (eye) 01/15/25 .COMPLEX 5 days #5 mL butalbital 50 mg-acetaminophen 300 1 cap PO Q4H PRN headache #15 caps 01/29/25 mg-caffeine 40 mg-codeine 30 mg cap (Fioricet with Codeine) Allergies Allergy/AdvReac Type Severity Reaction Status Date / Time latex (LATEX) Allergy Unknown RASH Verified 01/29/25 13:48 sulfamethoxazole (From Allergy Unknown SHORTNESS Verified 01/29/25 13:48 BACTRIM) OF BREATH sumatriptan AdvReac Intermediate elevated Verified 01/29/25 13:48 heart rate Review of Systems Constitutional: Constitutional: Denies body ache(s), Denies chills, Denies fever(s), Denies frequent falls and Reports headache(s) Eyes: Eyes: Denies blind spots, Denies blurry vision and Denies exophthalmos ENT: Denies vertigo, Denies dizziness, Reports headache(s) and Reports neck pain Cardiovascular: Cardiovascular: Denies chest pain and Denies dyspnea on exertion Respiratory: Respiratory: Denies cough and Denies dyspnea on exertion Gastrointestinal: Gastrointestinal: Denies abdominal pain, Denies nausea and Denies vomiting Genitourinary: Genitourinary: Denies hematuria Musculoskeletal: Musculoskeletal: Denies back pain and Reports neck pain Integumentary/Breasts: Skin/Breast: Denies rash Neurologic: Denies vertigo, Denies dizziness, Denies frequent falls and Reports headache(s) Psychiatric: Psychiatric: Denies anxiety PMFSH Past Medical History Medical History Encounter for screening PCOS (polycystic ovarian syndrome) Right ankle pain Prediabetes Nephrolithiasis Obesity Polycystic ovary syndrome Migraine with aura Migraines Generalized anxiety disorder Family history of breast cancer Vitamin D deficiency Hirsutism Amenorrhea Asthma Surgical History History of delivery History of appendectomy Family History Family History Mother Obesity Breast cancer Maternal Aunt Breast cancer Paternal Aunt Breast cancer Family/Other Ovarian cancer Paternal Uncle Lung cancer Other Mental problem Substance abuse Social History Social History Household Members: Children Housing: Apartment Housing Other:: She is looking to move out of her current apartment, not close to family Alcohol intake: current Alcohol intake frequency: holidays/special occasions only Alcohol type: beer and other Patient Tobacco Use Status: Former Tobacco user e-Cigarette/Vaping Use: Never Used Second Hand Smoke Exposure: Yes Substance Use Type: Marijuana Advance Directives: No Advance Directives Information Provided: Yes Do you have a plan to hurt others: No Plan Patient : No service: No Current occupational status: unemployed Cognitive needs: No Hearing needs: No Vision needs: No Physical Exam ED Vital Signs: Vital Signs - 24 hr 01/29/25 13:45 01/29/25 16:55 01/29/25 17:08 Temperature 97.3 F 98.2 F 98.2 F Pulse Rate 70 60 60 Respiratory Rate 18 18 18 Blood Pressure 124/75 149/75 H 149/75 H Pulse Oximetry 100 98 98 Oxygen Delivery Method Room Air Room Air Room Air BMI result Body Mass Index 34.9 Const General: healthy appearing, comfortable, no acute distress, alert and awake Nutritional Appearance: well nourished Orientation/consciousness: patient oriented x3 HENMT Head: Yes normocephalic and Yes atraumatic Throat: Yes posterior oropharynx normal Eyes Eyelids: Yes eyelids normal Conjunctivae: conjunctivae normal Sclerae: sclerae normal Corneas: corneas normal Pupils: Equal, round and reactive pupils present EOM: EOMs intact bilaterally Neck Neck: Yes full ROM, Yes no meningeal signs, No anterior neck swelling, No positive Brudzinski's sign and No positive Kernig's sign Resp Effort & Inspection: normal respiratory effort, able to speak in complete sentences and not labored Cardio Rate: regular rate Rhythm: regular rhythm GI Inspection: No distended Palpation (GI): Soft to palpation, not firm, nontender, no guarding and not rigid Skin General skin exam: no rashes or lesions noted and elasticity normal Neuro General: patient oriented x3 and no meningeal signs Cranial nerves: Yes CN's II-XII intact bilaterally, Yes Equal, round and reactive pupils present and Yes Bilaterally intact EOM present Cognition (Neuro): normal cognition Extrem Other: Moving all extremities well without any obvious deformities Course Course Course Narrative: Rapid medical examination performed in triage by Karely Huang PA-C: Patient is a 29 year old assigned female at presenting to the emergency department with a headache and neck pain. Patient states that she deals with migraines but this feels different. Detailed physical exam and review of systems are deferred to the heart nurse. Labs ordered. Patient placed back in the waiting room pending room availability and results. Medications Administered Discontinued Medications Generic Name Dose Route Start Last Admin Trade Name Freq PRN Reason Stop Dose Admin Acetaminophen/Butalbital/Caffeine 1 tab 01/29/25 16:47 01/29/25 17:06 Butalb/Acetamin/Caff 50/325/40 Tablet PO 01/29/25 16:48 1 tab ONCE ONE Administration Ketorolac Tromethamine 30 mg 01/29/25 16:47 01/29/25 17:07 Ketorolac Tromethamine 30 Mg/Ml Vial IM 01/29/25 16:48 30 mg ONCE ONE Administration Medical Decision Making Medical Decision Making [facility] Narrative: 29-year-old female presents for evaluation of a headache that started this morning. She does carry a history of migraines but reports this feels somewhat different. She took ibuprofen and tried marijuana which did not seem to help her pain today. She did have a brain MRI in October of 2022 which did not show any gross abnormalities. She also had a brain CT in June of the same year which did not show any concerning abnormalities. The patient's physical exam is reassuring, she has no infectious symptoms, no meningeal signs. She has no focal neurologic deficits. There was no trauma, I have a low suspicion for significant intracranial pathology. I offered to treat the patient for a migraine and re-evaluate. I discussed considering advanced imaging if we could not control her headache with treatment. I offered both IV medications, oral medications or IM injections. The patient would like to be discharged home. She reports that she was upset with the amount of time it took to draw her blood work and she does not want anybody else poking around. she did agree to an IM injection, she is given Toradol and Fioricet and ultimately discharged home. She is given return precautions Differential Diagnosis Differential Diagnoses: The differential diagnosis associated with the presentation includes acute headache Migraine headache Tension headache Cluster headache intracranialMass Intracranial hemorrhage Pseudo-seizure Lab Data [facility] Lab Attestation statement: I reviewed the patient's lab results. no leukocytosis or significant anemia. Normal platelet count. No electrolyte abnormalities warranting admission. ESR 15 01/29/25 14:07 01/29/25 14:07 Labs: Lab Results 01/29/25 Range/Units 14:07 WBC 6.5 (4.8-10.8) X10*3/uL RBC 4.72 (4.20-5.50) X10*6/uL Hgb 12.8 (12.0-16.0) g/dl Hct 38.9 (37.0-47.0) % MCV 82.4 (80.0-98.0) fL MCH 27.1 (27.0-33.0) pg MCHC 32.9 (31.0-35.0) g/dl RDW 13.2 (11.0-16.0) % Plt Count 266 (160-400) X10*3/uL MPV 10.2 (9.4-12.3) fL Immature Gran % (Auto) 0.2 (0.0-0.4) % Neut % (Auto) 58.5 (45-73) % Lymph % (Auto) 34.0 (20-40) % [place] % (Auto) 6.2 (2-11) % Eos % (Auto) 0.9 (0-4) % Baso % (Auto) 0.2 (0-2) % Lymph # (Auto) 2.2 (1.2-4.9) X10*3/uL [place] # (Auto) 0.4 (0.1-1.2) X10*3/uL Eos # (Auto) 0.1 (0.0-0.4) X10*3/uL Baso # (Auto) 0.0 (0.0-0.2) X10*3/uL Abs Immat Gran (auto) 0.01 (0.00-0.03) X10*3/uL Absolute Neuts (auto) 3.8 (2.0-8.3) x10*3/uL Absolute Nucleated RBC 0.000 (0.0-0.012) X10*3/uL Nucleated RBC % (auto) 0.0 (0.0-0.2) /100WBC ESR 15 (0-20) MM/HR Sodium 139 (135-145) mmol/L Potassium 3.6 (3.3-5.1) mmol/L Chloride 108 (96-108) mmol/L Carbon Dioxide 25 (22-29) mmol/L Anion Gap 10 L (12-20) BUN 10 (9-16) mg/dL Creatinine 0.55 (0.5-1.4) mg/dL Estim Creat Clear Calc 154.1 Estimated GFR > 60 Random Glucose 81 (60-115) mg/dL Calcium 9.1 (8.4-10.2) mg/dL Magnesium 1.9 (1.6-2.6) mg/dL Total Bilirubin 0.4 (0.0-1.0) mg/dL AST 16 (5-31) U/L ALT 15 (0-31) U/L Alkaline Phosphatase 53 (39-117) U/L C-Reactive Protein 0.34 (< or = 0.50) mg/dL Total Protein 7.3 (6.5-8.0) g/dL Albumin 4.2 (3.5-5.0) g/dL COVID-19 (AMBER) Negative (Negative) COVID-19 Clin Com See Note Influenza Type A (YVONNE) Negative (Negative) Influenza Type B (YVONNE) Negative (Negative) Influenza A & B Note See Note Tests considered The following testing was considered but not selected: consider CT scan of the brain but ultimately felt this was not indicated. Prescription Management I considered prescription management with: Pain Medication Chronic Conditions Patient?s care impacted by: Diabetes and Hypertension Social Determinants Patient?s care significantly limited by Social Determinants of Health including: Low income and Problems related to primary support group Discharge Plan Discharge Clinical Impression: Headache Patient Disposition: Home, Self-Care Instructions: Acute Headache (ED) Additional Instructions: your exam and blood work in the ER today was reassuring Your symptoms seem most consistent with a complex migraine. I recommend taking Fioricet as needed for further headaches pain You may add ibuprofen for additional headaches pain Do not take Tylenol as Tylenol is in the Fioricet medication in addition to caffeine and butalbital follow up with your primary doctor, return for new or worsening symptoms Prescriptions: New qspsfizhqn-vqapchmfou-ryc-cod [Fioricet with Codeine] [id number] mg capsule 1 cap PO Q4H PRN (Reason: headache) Qty: 15 0RF No Action albuterol sulfate 90 mcg/actuation HFA aerosol inhaler 1 inh inhalation QID 30 Days Qty: 8.5 3RF acetaminophen 500 mg tablet 500 mg PO QID PRN (Reason: pain) 15 Days Qty: 60 1RF ciprofloxacin HCl 0.3 % drops 1 - 2 drp ophthalmic (eye) .COMPLEX 5 Days Qty: 5 0RF Rx Instructions: 1 - 2 drops into the right eye four times a day cephalexin 500 mg capsule 500 mg PO Q6H Qty: 28 0RF Interventions: ED Discharge Assessment Last Done: 01/29/25 17:08 Discharge Date/Time: 01/29/25 17:09 Print Language: Greenlandic
[2025-01-29 14:11] LABS: MANUAL DIFF FLAG NO
[2025-01-29 14:13] LABS: Hematocrit 38.9 % (37.0-47.0); Hemoglobin 12.8 g/dl (12.0-16.0); Imm Gran Abs Auto 0.01 X10*3/uL (0.00-0.03); Imm Gran Pct Auto 0.2 % (0.0-0.4); Lymphocytes Absolute Auto 2.2 X10*3/uL (1.2-4.9); Mean Corpuscular HGB Conc 32.9 g/dl (31.0-35.0); Mean Corpuscular Hemoglobin 27.1 pg (27.0-33.0); Mean Corpuscular Volume 82.4 fL (80.0-98.0); NRBC Abs Auto 0.000 X10*3/uL (0.0-0.012); NRBC Pct Auto 0.0 /100WBC (0.0-0.2); Platelet Count 266 X10*3/uL (160-400); Red Blood Count 4.72 X10*6/uL (4.20-5.50); White Blood Count 6.5 X10*3/uL (4.8-10.8)
[2025-01-29 14:28] LABS: COVID-19 Test Negative (Negative); IDNOW Serial# 58CA691E
[2025-01-29 14:37] LABS: Alanine Aminotransferase 15 U/L (0-31); Albumin Level 4.2 g/dL (3.5-5.0); Alkaline Phosphatase 53 U/L (39-117); Anion Gap 10 (12-20); Aspartate Amino Transferase 16 U/L (5-31); Blood Urea Nitrogen 10 mg/dL (9-16); Calcium 9.1 mg/dL (8.4-10.2); Carbon Dioxide 25 mmol/L (22-29); Chloride 108 mmol/L (96-108); Creatinine Clr Calc Pharmacy 154.1; Estimated Glomerular Filt Rate > 60; IDNOW Serial# 55D5AD1C; Influenza B2 Negative (Negative); Magnesium 1.9 mg/dL (1.6-2.6); Potassium 3.6 mmol/L (3.3-5.1); Sodium 139 mmol/L (135-145); Total Protein 7.3 g/dL (6.5-8.0)
[2025-01-29 15:05] LABS: Erythrocyte Sedimentation Rate 15 MM/HR (0-20)
[2025-01-29 16:55] VITALS: BP 149/75; PULSE 60; RESP 18; TEMP 36.8; O2SAT 98
[2025-01-29] MEDS: Butalb/Acetamin/Caff 50/325/40 TABLET 1 TAB PO (17:06)
[2025-01-29 17:08] VITALS: BP 149/75; PULSE 60; RESP 18; TEMP 36.8; O2SAT 98
--- OUTSIDE RECORDS SUMMARY | 2025-01-29 18:25 | XMS_ITS | Clinical Summary ---
Author Organization [facility] Address [address] [address] Phone Care Team Providers Care Practice Specialist Name Role Phone Tye Teresa Primary Care [...] file Insurance ACO ACO [place] [address] [place] [address] ACO ACO ACO ACO Care Teams Practice Specialist Relationship Specialty Start Date End Date Tye Teresa PA [address] [place] [address] PCP - General 06/13/21 Additional Source Comments The information contained in this document represents components of the legal health record. It is not the complete legal health record.[facility]
== END 2025-01-29 17:09 | disposition home or self-care (01) ==
PROVIDERS: Physician Assistant Medical; Emergency Provider Emergency Medicine; PCP Physician Assistant
DX: R51.9 Headache, unspecified (principal); M54.2 Cervicalgia; E78.5 Hyperlipidemia, unspecified; Z03.818 Encounter for observation for suspected exposure to other biological agents ruled out
CPT/HCPCS: 36415; 80053; 83735; 85025; 85652; 86140; 87502; 87635; 96372; 99284; J1885

== ENCOUNTER 2025-03-11 09:47 | Outpatient (REF) | payer OTHER, SELFPAY ==
--- NOTE | ~2025-03-11 | XR_ITS ---
EXAMINATION: XR CHEST CLINICAL INFORMATION: R05.9 - Cough, unspecified COMPARISON: October 20, 2019 TECHNIQUE: 2 views of the chest were obtained. FINDINGS: No significant abnormality is noted involving the heart, lungs, mediastinum, bony thorax or soft tissues. XR/XR chest 2V IMPRESSION: Stable chest, no acute disease. Electronically signed by: Shan Day MD 03/11/2025 10:54 AM [facility]
[2025-03-11 15:17] LABS: Resp Syncy Virus RNA Qual PCR NEGATIVE (Negative); SARS COV2 PCR INHOUSE NEGATIVE (Negative)
== END 2025-03-11 09:48 | disposition home or self-care (01) ==
LOC: HO.HMGCX 09:47
PROVIDERS: PCP Physician Assistant; Visit Provider Physician Assistant Medical
DX: R05.1 Acute cough (principal)
CPT/HCPCS: 71046; 87637; 94640; 99212

== ENCOUNTER 2025-03-11 09:47 | Outpatient (AMB) | payer OTHER, SELFPAY ==
[2025-03-11 09:55] VITALS: BP 122/74; PULSE 84; TEMP 36.9; O2SAT 98
--- NOTE | 2025-03-11 09:55 | MHC.OFFWIV ---
Intake Vital Signs 03/11/25 09:55 Height 5 ft 2 in BP 122/74 Blood Pressure Location Lt brachial Position Sitting Pulse 84 Pulse Source Pulse Oximeter Temp 98.5 F Temp Source Oral Pulse Oximetry (%) 98 Oxygen Delivery Method Room Air Intake Visit Reasons: EP Cough, difficulty breathing Intake Note: chest congestion with productive coughing (yellow/green sputum), difficulty breathing, Patient Tobacco Use Status: Former Tobacco user Allergies latex (LATEX) Allergy (Unknown, Verified 03/11/25 09:58) RASH sulfamethoxazole (From BACTRIM) Allergy (Unknown, Verified 03/11/25 09:58) SHORTNESS OF BREATH sumatriptan Adverse Reaction (Intermediate, Verified 03/11/25 09:58) elevated heart rate Do you need a note to return to daycare/school/sports/work: No HPI HPI Comments History of Present Illness Details History - The patient is a 30-year-old female presenting with cough and shortness of breath. - She reports her symptoms started on Sunday with a cough, which was preceded by a mild sore throat. - She began feeling very sick on Sunday. - Her primary complaint is an inability to catch a breath. - She has lost her voice due to her coughing. - The cough is productive of a lot of mucus, severe enough to cause vomiting, and wakes her from sleep. - She has a history of asthma. - The patient reports a known allergy to latex. - She uses an albuterol inhaler and Tylenol but is not currently taking any antibiotics. - She believes her illness may have been contracted from her 7-year-old son and her infant who also has parainfluenza, croup, bronchiolitis, and an ear infection. - She is not a smoker. - She denies fever, chills, CP, SOB, abd pain, or n/v/d. Physical Exam General: Cooperative, healthy appearing, comfortable and no acute distress Orientation/consciousness: Patient oriented x3 Limitations: No limitations Head: Normal to inspection Ears: Hearing grossly normal bilaterally, external ears normal and TM's normal bilaterally Nose: Normal external nose present, normal nares present, and no nasal discharge present. Face and sinus: Sinuses nontender to palpation. Mouth: Normal oral and palatal mucosa present and moist mucous membranes noted. Throat: Tonsils normal. Uvula is midline. Posterior oropharynx with erythema and no exudates. Eyes: Appearance normal, both eyes and all related structures Neck: Normal visual inspection, full ROM. No lymphadenopathy noted. Respiratory: Clear to auscultation bilaterally. Normal respiratory effort, able to speak in complete sentences. No respiratory distress, not tachypneic, no tripod positioning and no use of accessory muscles. Cardiovascular: Regular rate and rhythm. Normal S1 and S2 Skin: No rashes or lesions noted Patient was informed and verbally consented to the use of an ambient scribe for clinic note documentation during this visit [facility] Medical History Encounter for screening PCOS (polycystic ovarian syndrome) Right ankle pain Prediabetes Nephrolithiasis Obesity Polycystic ovary syndrome Migraine with aura Migraines Generalized anxiety disorder Family history of breast cancer Vitamin D deficiency Hirsutism Amenorrhea Asthma Surgical History History of delivery History of appendectomy Family History Mother Obesity Breast cancer Maternal Aunt Breast cancer Paternal Aunt Breast cancer Family/Other Ovarian cancer Paternal Uncle Lung cancer Other Mental problem Substance abuse Social History Household Members: Children Housing: Apartment Housing Other:: She is looking to move out of her current apartment, not close to family Alcohol intake: current Alcohol intake frequency: holidays/special occasions only Alcohol type: beer and other Patient Tobacco Use Status: Former Tobacco user e-Cigarette/Vaping Use: Never Used Second Hand Smoke Exposure: Yes Substance Use Type: Marijuana service: No Current occupational status: unemployed Cognitive needs: No Hearing needs: No Vision needs: No Female Reproductive History Menstrual Age of Menarche: 9 Review of Systems Const All systems reviewed & are unremarkable except as noted in HPI and below Physical Exam Vital Signs: Last Vital Signs Temp 98.5 F 03/11/25 09:55 Pulse 84 03/11/25 09:55 BP 122/74 03/11/25 09:55 Pulse Ox 98 03/11/25 09:55 Oxygen Delivery Method Room Air 03/11/25 09:55 Office Procedures Nebulizer Treatment Nebulizer Treatment [id number] RX initial, or Nebulizer Subsequent Treatment Office Meds albuterol sulfate 2.5 mg/3 mL (0.083 %) solution for nebulization Performing Provider: Michelle Crow PA-C Performing Location: [facility] Administered by: Michelle Crow PA-C on 03/11/25 10:06 Dose Route Admin Location Dispensed Lot Number Expiration Date NDC Maple Sugar Maker 2.5 mg inhalation 3 mL [id number] 10/23/26 [id number] Results Reviewed Results Reviewed: will review the CXR in the office Assessment & Plan Assessment & Plan (1) Cough: Code(s): R05.9 - Cough, unspecified Qualifiers: Cough type: acute Qualified Code(s): R05.1 - Acute cough Plan Most likely Asthma Exacerbation vs URI vs covid vs flu vs RSV vs CAP plan - The patient will be started on prednisone, a new albuterol inhaler, and cough medicine for symptom management. - To rule out other underlying causes, a COVID-19, RSV, and influenza test will be ordered. - A chest X-ray will be obtained to rule out pneumonia. - A breathing treatment will be administered in the clinic to alleviate acute respiratory symptoms. - Advised her to go to the ER if she is increasingly SOB - She is aware although has no help with her children - follow up with her PCP Orders: Orders XR chest 2V Today R05.9 - Cough, unspecified SARS-CoV2/FLU/RSV Today R09.89 - Other specified symptoms and signs involving the circulatory and respiratory systems AMB Nebulizer Treatment Today R05.9 - Cough, unspecified Medications: New prednisone 40 mg (2 x 20 mg) PO DAILY 10 tabs 0RF 5 days albuterol sulfate 90 mcg/actuation 2 puffs inhalation Q6H PRN 8.5 grams 0RF shortness of breath or wheezing or cough benzonatate 100 mg PO bid-tid PRN 21 caps 0RF Cough 7 days Coding Level of Care Code Est Pt Level 4 (91449) Diagnoses Acute cough R05.1 Cough type: acute CPT Codes Nebulizer Treatment - Nebulizer Treatment, initial or subsequent: [id number]/[id number] RX initial, or Nebulizer Subsequent Treatment ([id number])
--- OUTSIDE RECORDS SUMMARY | 2025-03-11 11:28 | XMS_ITS | Clinical Summary ---
Author Organization [facility] Address [address] [address] Phone Care Team Providers Care Silk Screen Layout Drafter Name Role Phone Tye Teresa Primary Care [...] file Insurance ACO ACO ACO [place] [address] [place] [address] ACO ACO ACO ACO Care Teams Silk Screen Layout Drafter Relationship Specialty Start Date End Date Tye Teresa PA [address] [place] [address] PCP - General 06/13/21 Additional Source Comments The information contained in this document represents components of the legal health record. It is not the complete legal health record.[facility]
--- OUTSIDE RECORDS SUMMARY | 2025-03-11 11:28 | XMS_ITS | Encounter Summary ---
Author Organization [facility] Address [address] [facility] [address] [place] [address] Care Team Providers Care Meat Slicer Name Role Phone Francisca Jimenez MD Primary Care Provide r Encounter Details Date Type Department Care Team (Latest Contact Info) Description 06/12/2018 Abstract [facility] CONVERSIONS Dental, Provider, DDS Social History Tobacco [...] on filedocumented in this encounter Care Teams Meat Slicer Relationship Specialty Start Date End Date Francisca Jimenez MD [address] [place] [id number] PCP - General Family Medicine 02/28/18 03/26/23 documented as of this encounter
--- OUTSIDE RECORDS SUMMARY | 2025-03-11 11:28 | XMS_ITS | Clinical Summary ---
Author Organization [address] [facility] [place] Address [address] [place] [address] Phone Care Team Providers Care Notereader Name Role Phone Tye Teresa Primary Care Provider [phone] Social History Tobacco Use Types Packs/Day Years [...] Cervical Cancer Screening: P ap Smear 2016 HIV Screening 02/21/2022 Hepatitis C Screening 02/21/2022 Social Influencers of Health Screening 02/21/2022 HPV Vaccines (1 - 3-dose SCD M series) 2022 Depression Screening 03/26/2024 COVID-19 Vaccine ( - 2024-2 6 season) 2024 Influenza Vaccine (#1) 2024 RSV Immunization Adult Patie nts (1 - 1-dose 75+ series) 2070 HIB Vaccines Aged Out No longer eligi [...] patient's age to complete this topic Insurance [facility] Care Teams Notereader Relationship Specialty Start Date End Date Tye Teresa PA PCP - General Physician Wildlife Ecologist 07/31/24
--- OUTSIDE RECORDS SUMMARY | 2025-03-11 11:28 | XMS_ITS | Clinical Summary ---
Author Organization [employer] Address [address] [place] [address] Care Team Providers Care Dispatcher [employer] Name Role Phone Unavailable Primary Care Provider [...] 86 07/28/2022 3:16 PM EDT Temperature 36.6 C (97.9 F) 07/28/2022 3:16 PM EDT Respiratory Rate 16 07/28/2022 3:16 PM EDT [...] 1995 Lipid Panel 1995 SDOH Screening 1995 Disability Screening 1995 Alcohol/Substance Use Screening 2007 Tobacco Screening 2007 Family Planning (PISQ) 2010 HPV Vaccines (1 - 3-dose series) 2010 Hepatitis C Screening 2013 Pneumococcal Vaccine: Pediatrics (0 to 5 Years) and At-Risk Patients (6 to 49) Years (1 of 2 - PCV) 2014 Hepatitis B Vaccines (2 of 3 - 19+ 3-dose series) 07/11/2021 06/13/2021 Pap Smear 11/23/2022 11/24/2019, 11/20/2019 COVID-19 Vaccine (4 - 2024- season) 2024 02/04/2022, 03/31/2021, 03/11/2021 Influenza Vaccine (#1) 2024 , 04/17/2023, 06/06/2022, Additional history exists Cervical Cancer Screening 2025 HPV/Cotest 2025 DTaP/Tdap/Td Vaccines (4 - Td or Tdap) [...] ANTIGEN/ANTIBODY,FOURTH GENERATION W/RFL (12/21/2020 1:47 PM EDT) Pathologist [facility] HIV-1/2 ANTIGEN AND ANTIBODIES, 4TH GENERATION W/ REFLEX NON-REACT KRZYSZTOF NON-REACT KRZYSZTOF [facility] Comment: HIV-1 antigen and HIV-1/HIV-2 antibodies were not detected. There is no laboratory evidence of HIV infection. PLEASE NOTE: This information has been disclosed to you from records whose confidentiality may be protected by state law. If your state requires such protection, then the state law prohibits you from making any further disclosure of the information without the specific written consent of the person to whom it pertains, or as otherwise permitted by law. A general authorization for the release of medical or other information is NOT sufficient for this purpose. For additional information please refer to http://education.Keep Me Certified/faq/KNP287 (This link is being provided for informational/ educational purposes only.) The performance of this assay has not been clinically validated in patients less than 2 years old. 12/21/2020 1:47 PM EDT Francisca Simmons MD LAB BLOOD ORDERABLES Final Result [facility] [address] [place] [address], * THINPREP TIS PAP (11/24/2019 3:38 PM EDT) Pathologist [facility] Clinical Information: SEE COMMENT [facility] Comment:None given COMMENT [facility] Comment: EXPLANATORY NOTE: The Pap is a screening test for cervical cancer. It is not a diagnostic test and is subject to false negative and false positive results. It is most reliable when a satisfactory sample, regularly obtained, is submitted with relevant clinical findings and history, and when the Pap result is evaluated along with historic and current clinical information. NO COLLECTION DATE RECEIVED. WE HAVE USED THE DATE THE SPECIMEN WAS RECEIVED BY THIS LABORATORY THE COLLECTION DATE. IF THIS IS INCORRECT, PLEASE CONTACT CLIENT SERVICES. PHONE NUMBER: Comment: [facility] Comment: This Pap test has been evaluated with computer assisted technology. Circus Laborer: SEE COMMENT [facility] Comment: WAC, CT(ASCP) CT screening location: [address] [address] Interpretation/Resu lt: [facility] Comment:Negative for intraep ithelial lesion or malignancy. LMP: [facility] Comment:NONE GIVEN Prev. BX: NONE GIVEN [facility] Prev. PAP: [facility] Comment:NONE GIVEN SOURCE: [facility] Comment:None given Statement Of Adequacy: SEE COMMENT [facility] Comment: Satisfactory for evaluation. Endocervical/transformation zone component present. Age and/or menstrual status not provided 11/24/2019 3:38 PM EDT us Francisca Simmons MD LAB PATHOLOGY ORDERAB LES Final Result [facility] [address] [place] [address], from Last 3 Months or Most Recently Relevant to Health Maintenance Insurance [facility] [employer] * Guarantor: Jocelyn Mckeon Account Type Relation to Patient Date of Phone Billing Address Personal/Family Self [address] [place] [address]
== END 2025-03-11 10:29 | disposition home or self-care (01) ==
PROVIDERS: PCP Physician Assistant; Visit Provider Physician Assistant Medical
DX: R05.1 Acute cough (principal); R05.9 Cough, unspecified

== ENCOUNTER → 2025-03-11 10:44 | Outpatient (BNV) | payer OTHER, SELFPAY | PROVIDERS: PCP Physician Assistant; Visit Provider Radiology Diagnostic Radiology | DX: R05.9 Cough, unspecified (principal) | CPT/HCPCS: 71046 ==